=== PATIENT | male | born 1965 | race Caucasian/White ===

== ENCOUNTER 2021-08-10 12:49 | Observation (INO) | payer MEDICARE, OTHER ==
[2021-08-10 14:30] LABS: Basophils # (A) 0.1 k/uL (0-0.2); Basophils % (A) 1 %; Eosinophils # (A) 0.5 k/uL (0-0.7); Eosinophils % (A) 5 %; HGB 12.1 gm/dL (13.0-17.5); Lymphocytes # (A) 1.1 k/uL (1.0-4.8); Lymphocytes % (A) 12 %; MCH 30.9 pg (25.0-35.0); MCHC 33.5 g/dL (31.0-37.0); MCV 92.4 fL (80.0-100.0); Mean Platelet Volume 6.8; Monocytes # (A) 0.5 k/uL (0-1.0); Monocytes % (A) 6 %; Neutrophils % (A) 75 %; Platelet Count 255 k/uL (150-450); RDW 15.4 % (11.5-15.5); WBC 9.4 k/uL (3.8-10.6)
[2021-08-10 14:35] LABS: ALT 38 U/L (4-49); AST 54 U/L (17-59); African American GFR (CKD) >90 (>60 ml/min/1.73 sqM); Albumin 4.1 g/dL (3.5-5.0); Alkaline Phosphatase 96 U/L (38-126); Anion Gap 7 mmol/L; Blood Urea Nitrogen 11 mg/dL (9-20); C Reactive Protein 2.2 mg/dL (<1.0); Calcium 9.6 mg/dL (8.4-10.2); Carbon Dioxide 30 mmol/L (22-30); Chloride 102 mmol/L (98-107); Creatine Kinase 54 U/L (55-170); Glucose 97 mg/dL (74-99); Magnesium 1.8 mg/dL (1.6-2.3); Non-African American GFR(CKD) 80 (>60 ml/min/1.73 sqM); Potassium 4.3 mmol/L (3.5-5.1); Sodium 139 mmol/L (137-145); Total Bilirubin 1.3 mg/dL (0.2-1.3); Total Protein 7.7 g/dL (6.3-8.2)
--- NOTE | 2021-08-10 14:35 | XR ---
EXAMINATION TYPE: XR shoulder complete LT DATE OF EXAM: 08/10/2021 COMPARISON: NONE HISTORY: Pain TECHNIQUE: Three views are submitted. FINDINGS: The osseous structures are intact. There is no acute fracture or dislocation. The AC joint is maint ained. IMPRESSION: 1. No acute process.
[2021-08-10 14:36] LABS: INR 0.9 (<1.2); Prothrombin Time 10.4 sec (9.0-12.0)
--- NOTE | 2021-08-10 14:36 | XR ---
EXAMINATION TYPE: XR knee complete LT DATE OF EXAM: 08/10/2021 COMPARISON: NONE HISTORY: Pain TECHNIQUE: Three views are submitted. FINDINGS: Severe narrowing of the medial compartment of the knee joint and patellofemoral joint. There is a sma ll suprapatellar bursal fluid collection. No acute fracture. No dislocation.. Osseous structures are intact. No acute fracture seen. IMPRESSION: 1. No acute fracture or dislocation. 2. Severe osteoarthritis.
--- NOTE | 2021-08-10 14:47 | XR ---
EXAMINATION TYPE: XR ankle complete LT DATE OF EXAM: 08/10/2021 COMPARISON: NONE HISTORY: Pain FINDINGS: Three views of the ankle demonstrate the ankle mortise to be intact and symmetric. The joint spaces are preserved. The osseous structures are intact. Small spur along the medial malleolus. Calcaneal spurs noted. Soft tissue calcifications are seen anteriorly. There is spurring along the dorsal surfa ce of the tarsal metatarsal junction. IMPRESSION: 1. No definite acute fracture or dislocation, if symptoms persist follow-up study in 7 to 10 days wou ld be suggested.
--- NOTE | 2021-08-10 14:57 | XR ---
EXAMINATION TYPE: XR chest 2V DATE OF EXAM: 08/10/2021 COMPARISON: NONE HISTORY: Trauma and pain TECHNIQUE: Frontal and lateral views of the chest are obtained on 3 images. FINDINGS: The heart is enlarged. There is prominence of the central vascularity in there is perihila r vascular indistinctness, increase in interstitium. No evident pneumothorax or pleural effusion. Bon es are within normal limits. IMPRESSION: Correlate for pulmonary venous hypertension and early interstitial edema. Follow-up josh hillman.
--- NOTE | 2021-08-10 15:03 | CT ---
EXAMINATION TYPE: CT brain cspine wo con DATE OF EXAM: 08/10/2021 COMPARISON: None HISTORY: Fall. Trauma and pain CT DLP: 2152 mGycm Automated exposure control for dose reduction was used. TECHNIQUE: CT scan of the head and cervical spine are performed without contrast. FINDINGS: There is no acute intracranial hemorrhage, mass effect, or midline shift identified. The ventricles and sulci are within normal limits in size. The globes are intact and the visualized sin uses are clear. Right globe is involuted and partially calcified. White matter shows patchy low atten uation in the periventricular location. There are cerebral vascular calcifications present. Cervical spine is visualized in its entirety from C1 through upper thoracic levels and demonstrates s atisfactory alignment without evidence of acute fracture or dislocation. Prevertebral soft tissue ap pears within normal limits. The C1-C2 articulation is unremarkable. 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 IMPRESSION: 1. There is no acute fracture or dislocation evident in the cervical spine. 2. No acute intracranial hemorrhage, mass effect, or midline shift is seen.
[2021-08-10 15:28] LABS: Erythrocyte Sedimentation Rate 60 mm/hr (0-15)
[2021-08-10] MEDS ORDERED: KETOROLAC 15 MG/ML 1 ML VIAL IVP STA (15:40)
--- NOTE | 2021-08-10 16:39 | ED ---
General Adult HPI - General Chief complaint: Extremity Injury, Lower Stated complaint: leg swelling Time Seen by Provider: 08/10/21 13:25 Source: EMS Mode of arrival: EMS Limitations: no limitations - History of Present Illness Initial comments: This 56-year-old obese male presents emergency Department after a fall today. Patient states he is having pain to his left knee, ankle, hip and left shoulder. Patient is unsure if he hit his head during the fall, however he denies any loss of consciousness. Patient states he was outside slipped on the ice and fell forward, landing on his left knee first. He denies any signs or symptoms of knee dislocation. Patient with bilateral lower leg cellulitis she states has been there for the last year and has not worsened recently. Patient denies being on any blood thinners. 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 Patient denies any chest pain, sh ortness of breath, abdominal pain, nausea, vomiting, change in bowel or bladder, back pain, neck pain, headache, lightheadedness, dizziness, change in vision. - Related Data Home Medications Medication Instructions Recorded Confirmed Cholecalciferol [Vitamin D3 (125 125 mcg PO DAILY 08/10/21 08/10/21 Mcg = 5000 Iu)] Ferrous Sulfate [Iron] 325 mg PO DAILY 08/10/21 08/10/21 Methyl Salicylate/Menthol [Icy Hot 1 applic TOPICAL BID 08/10/21 08/10/21 10-30% Cream] SILVER sulfADIAZINE Cream 1 applic TOPICAL DAILY 08/10/21 08/10/21 [Silvadene 1% Cream] amLODIPine [Norvasc] 5 mg PO DAILY 08/10/21 08/10/21 Previous Rx's Medication Instructions Recorded Cephalexin [Keflex] 500 mg PO Q6HR #20 cap 08/10/21 Allergies Allergy/AdvReac Type Severity Reaction Status Date / Time No Known Allergies Allergy Verified 08/10/21 14:04 Review of Systems ROS Statement: Those systems with pertinent positive or pertinent negative responses have been documented in the HPI. ROS Other: All systems not noted in ROS Statement are negative. Past Medical History Past Medical History: Eye Disorder, Hyperlipidemia, Hypertension, Vascular Disorder Additional Past Medical History / Comment(s): Glaucoma History of Any Multi-Drug Resistant Organisms: None Reported Additional Past Surgical History / Comment(s): lasix bilat Past Psychological History: No Psychological Hx Reported, Depression Smoking Status: Never smoker Past Alcohol Use History: None Reported Past Drug Use History: None Reported General Exam Limitations: no limitations General appearance: alert, in no apparent distress, obese Head exam: Present: atraumatic, normocephalic, normal inspection Eye exam: Present: normal appearance, PERRL, EOMI, other (Patient slight clear drainage coming from right eye which he states he is being treated for). Absent: scleral icterus, conjunctival injection, periorbital swelling ENT exam: Present: normal exam, normal oropharynx, mucous membranes moist Neck exam: Present: normal inspection, full ROM. Absent: tenderness, meningismus, lymphadenopathy Respiratory exam: Present: normal lung sounds bilaterally. Absent: respiratory distress, wheezes, rales, rhonchi, stridor, chest wall tenderness Cardiovascular Exam: Present: regular rate, normal rhythm, normal heart sounds. Absent: systolic murmur, diastolic murmur, rubs, gallop, clicks GI/Abdominal exam: Present: soft, normal bowel sounds. Absent: distended, tenderness, guarding, rebound, rigid Extremities exam: Present: full ROM, tenderness (She with tenderness over lateral surface of left hip, patient is able to raise his leg on his own and states the only pain he has is in his left knee. Patient tender to palpation over lateral malleolus left ankle. No metatarsal pain to palpation. DP pulses palpable), normal capillary refill (Patient with normal capillary refill. Bilateral cellulitis with erythema and crusting over bilateral lower extremities from the ankle to just below the knee, patient states this has been there for 1-2 years and is evaluated by a forestry foreman and his primary care, denies any new changes), other (Due to patient's morbid obesity this hard to assess patient. He does have mild tenderness to the anterior surface of shoulder. No clavicular pain. Patient with full range of motion of left arm. Tenderness to palpation over medial and lateral surfaces of left knee. Able to flex/extend knee) Back exam: Present: full ROM. Absent: CVA tenderness (R), CVA tenderness (L), paraspinal tenderness, vertebral tenderness Neurological exam: Present: alert, oriented X3, CN II-XII intact, other (Patient neurovascularly intact) Psychiatric exam: Present: normal affect, normal mood Skin exam: Present: warm, dry, normal color. Absent: rash Course Vital Signs 08/10/21 13:00 Temperature 97.7 F Pulse Rate 81 Respiratory 20 Rate Blood Pressure 134/64 O2 Sat by Pulse 94 L Oximetry Medical Decision Making - Medical Decision Making This 56-year-old obese male presents emergency Department after a fall complaining of left ankle, knee, hip and shoulder pain. Labs without any acute abnormalities. Chest x-ray impression correlate for pulmonary venous hypertension and early incisional edema. I did discuss 1980 who did not suggest any antibiotics the patient having no trouble breathing, no crackles, wheezes or rhonchi on auscultation exam and patient having no cough or fever. Patient to follow-up with orthopedics in next 5-7 days if pain persists. Patient does use a walker at home. Patient is able to bear weight and walk here with his cane. Orthopedics referral given to patient and instructed to follow-up early next week. Patient instructed to follow up with his primary care provider next 1-2 days. Patient states to call his [employer] worker tomorrow morning. He states he does have an appointment with them in the next couple weeks. Keflex given to patient for concern of cellulitis, however there is no warmth over his bilateral leg cellulitis and he has no fever or signs of infection present. He states there has been no change to his bilateral lower extremities for the last 1-2 years. Patient was concerned about possible infection, Keflex 5 days given. Patient does have a [employer] worker and community mental health worker who I instructed to call either later today or early tomorrow morning. Patient sent home in stable condition. Patient verbally agreed to plan. Case discussed in detail with my attending, - Lab Data Result diagrams: 08/10/21 14:07 08/10/21 14:07 Lab Results 08/10/21 08/10/21 08/10/21 Range/Units 14:07 14:07 14:07 WBC 9.4 (3.8-10.6) k/uL RBC 3.90 L (4.30-5.90) m/uL Hgb 12.1 L (13.0-17.5) gm/dL Hct 36.0 L (39.0-53.0) % MCV 92.4 (80.0-100.0) fL MCH 30.9 (25.0-35.0) pg MCHC 33.5 (31.0-37.0) g/dL RDW 15.4 (11.5-15.5) % Plt Count 255 (150-450) k/uL MPV 6.8 Neutrophils % 75 % Lymphocytes % 12 % Monocytes % 6 % Eosinophils % 5 % Basophils % 1 % Neutrophils # 7.0 (1.3-7.7) k/uL Lymphocytes # 1.1 (1.0-4.8) k/uL Monocytes # 0.5 (0-1.0) k/uL Eosinophils # 0.5 (0-0.7) k/uL Basophils # 0.1 (0-0.2) k/uL ESR 60 H (0-15) mm/hr PT 10.4 (9.0-12.0) sec INR 0.9 (<1.2) APTT 26.0 (22.0-30.0) sec Sodium 139 (137-145) mmol/L Potassium 4.3 (3.5-5.1) mmol/L Chloride 102 (98-107) mmol/L Carbon Dioxide 30 (22-30) mmol/L Anion Gap 7 mmol/L BUN 11 (9-20) mg/dL Creatinine 1.05 (0.66-1.25) mg/dL Est GFR (CKD-EPI)AfAm >90 (>60 ml/min/1.73 sqM) Est GFR (CKD-EPI)NonAf 80 (>60 ml/min/1.73 sqM) Glucose 97 (74-99) mg/dL Plasma Lactic Acid Daryn (0.7-2.0) mmol/L Calcium 9.6 (8.4-10.2) mg/dL Magnesium 1.8 (1.6-2.3) mg/dL Total Bilirubin 1.3 (0.2-1.3) mg/dL AST 54 (17-59) U/L ALT 38 (4-49) U/L Alkaline Phosphatase 96 (38-126) U/L Creatine Kinase 54 L (55-170) U/L C-Reactive Protein 2.2 H (<1.0) mg/dL Total Protein 7.7 (6.3-8.2) g/dL Albumin 4.1 (3.5-5.0) g/dL 08/10/21 Range/Units 14:07 WBC (3.8-10.6) k/uL RBC (4.30-5.90) m/uL Hgb (13.0-17.5) gm/dL Hct (39.0-53.0) % MCV (80.0-100.0) fL MCH (25.0-35.0) pg MCHC (31.0-37.0) g/dL RDW (11.5-15.5) % Plt Count (150-450) k/uL MPV Neutrophils % % Lymphocytes % % Monocytes % % Eosinophils % % Basophils % % Neutrophils # (1.3-7.7) k/uL Lymphocytes # (1.0-4.8) k/uL Monocytes # (0-1.0) k/uL Eosinophils # (0-0.7) k/uL Basophils # (0-0.2) k/uL ESR (0-15) mm/hr PT (9.0-12.0) sec INR (<1.2) APTT (22.0-30.0) sec Sodium (137-145) mmol/L Potassium (3.5-5.1) mmol/L Chloride (98-107) mmol/L Carbon Dioxide (22-30) mmol/L Anion Gap mmol/L BUN (9-20) mg/dL Creatinine (0.66-1.25) mg/dL Est GFR (CKD-EPI)AfAm (>60 ml/min/1.73 sqM) Est GFR (CKD-EPI)NonAf (>60 ml/min/1.73 sqM) Glucose (74-99) mg/dL Plasma Lactic Acid Daryn 1.7 (0.7-2.0) mmol/L Calcium (8.4-10.2) mg/dL Magnesium (1.6-2.3) mg/dL Total Bilirubin (0.2-1.3) mg/dL AST (17-59) U/L ALT (4-49) U/L Alkaline Phosphatase (38-126) U/L Creatine Kinase (55-170) U/L C-Reactive Protein (<1.0) mg/dL Total Protein (6.3-8.2) g/dL Albumin (3.5-5.0) g/dL Disposition Clinical Impression: Fall, Left knee pain, Left hip pain, Left ankle pain, Left shoulder pain Disposition: HOME SELF-CARE Condition: Stable Instructions (If sedation given, give patient instructions): Knee Sprain (ED) Additional Instructions: Follow-up with your primary care provider in next 1-2 days. Follow-up with your forestry foreman and orthopedic doctor early next week. Return to the emergency department with any new, worsening, or concerning symptoms. Call your [facility] and community health provider tomorrow morning. Prescriptions: Cephalexin [Keflex] 500 mg PO Q6HR #20 cap Is patient prescribed a controlled substance at d/c from ED?: No Referrals: Saul Burton MD [Primary Care Provider] - 1-2 days Rajendra Holley DO [Doctor of Osteopathic Medicine] - 1-2 days Time of Disposition: 17:08
--- NOTE | 2021-08-10 16:53 | XR ---
EXAMINATION TYPE: XR Hip LT and AP Pelvis DATE OF EXAM: 08/10/2021 COMPARISON: NONE HISTORY: Trauma and pain TECHNIQUE: A single AP view of the pelvis is obtained. Two views of the left hip are obtained. FINDINGS: Exam is limited technically due to patient body habitus. Right hip is not well seen, there is artifact involving the right hemipelvis. Two views of left hip show no acute fracture or dislocation within the limitations of the exam, views of the left hip nonstandard. IMPRESSION: There is no acute fracture or dislocation in the pelvis or left hip within the limitatio ns of the exam.
[2021-08-10] MEDS ORDERED: NALOXONE 0.4 MG/ML 1 ML VIAL IV PRN (18:53)
[2021-08-10] MEDS: CEPHALEXIN 500 MG CAP PO SCH (21:05)
[2021-08-11] MEDS: CEPHALEXIN 500 MG CAP PO SCH ×3 (01:14→15:51)
[2021-08-11] MEDS: NYSTATIN 100,000 UNIT/GM POWD 15 GM TOPICAL SCH ×3 (11:16→19:30)
[2021-08-11] MEDS: ENOXAPARIN 40 MG/0.4 ML SYRINGE SQ SCH (11:25)
[2021-08-11] MEDS: amLODIPine 5 MG TAB PO SCH (11:25)
[2021-08-11] MEDS: CHOLECALCIFEROL 125 MCG (5000 IU) TABLET PO SCH (11:25)
[2021-08-11] MEDS: FERROUS SULFATE 325 MG TAB PO SCH (11:25)
--- NOTE | 2021-08-11 12:49 | P.CNOR ---
History of Present Illness - [facility] Consult date: 08/11/21 Consult reason: joint pain (Left knee pain) History of present illness: Patient is a 56-year-old male who was admitted to [facility] on 08/10/2021. Mila PT was consulted with regards to pain in the left knee. Actually spoke with internal medicine doctor prior to seeing the patient. He has a known history of osteoarthritis and infection sees a doctor for this up in the [facility]. X-rays were initially done of the left knee along with foot and ankle. No acute fractures or dislocations were appreciated. Patient was evaluated today at bedside, he is resting in his hospital bed. He states he's had pain in the left knee for many years, and does see an orthopedic doctor medication provided a steroid injection. Patient does live in the [facility], he lives in an apartment on the second floor. He does not drive, he is legally blind. He states he utilizes a cane when he ambulates. Patient lives more of a sedentary life versus active. Patient denies any previous surgery of the left knee. Review of Systems Constitutional: Reports as per [facility] Past Medical History Past Medical History: Eye Disorder, Hyperlipidemia, Hypertension, Vascular Disorder Additional Past Medical History / Comment(s): Glaucoma History of Any Multi-Drug Resistant Organisms: None Reported Additional Past Surgical History / Comment(s): aldo stanley Past Anesthesia/Blood Transfusion Reactions: No Reported Reaction Past Psychological History: No Psychological Hx Reported, Depression Smoking Status: Never smoker Past Alcohol Use History: None Reported Past Drug Use History: None Reported Medications and Allergies Home Medications Medication Instructions Recorded Confirmed Type Cephalexin [Keflex] 500 mg PO Q6HR #20 cap 08/10/21 Rx Cholecalciferol [Vitamin D3 (125 125 mcg PO DAILY 08/10/21 08/10/21 History Mcg = 5000 Iu)] Ferrous Sulfate [Iron] 325 mg PO DAILY 08/10/21 08/10/21 History Methyl Salicylate/Menthol [Icy Hot 1 applic TOPICAL BID 08/10/21 08/10/21 History 10-30% Cream] SILVER sulfADIAZINE Cream 1 applic TOPICAL DAILY 08/10/21 08/10/21 History [Silvadene 1% Cream] amLODIPine [Norvasc] 5 mg PO DAILY 08/10/21 08/10/21 History Allergies Allergy/AdvReac Type Severity Reaction Status Date / Time No Known Allergies Allergy Verified 08/10/21 14:04 Physical Examination Osteopathic Statement: *. No significant issues noted on an osteopathic stru ctural exam other than those noted in the History and Physical/Consult. Left lower extremity: Gen. exam reveals a severely obese male, he has significant soft tissue present in the left lower extremity. There are no open lesions surrounding the knee. There is obvious chronic edema with venous stasis in the left lower extremity with skin molting Mild effusion present on exam of the knee Passive and active motion are very limited due to his body habitus, passive allan on reproduces no severe pain. Logroll maneuver reproduces no pain in the groin He has generalized tenderness with palpation surrounding the knee, mainly in the medial joint line. He is stable to varus and valgus stress Plantar flexion, dorsiflexion, EHL, FHL are intact Patient skin remains warm to touch, sensory exam light touch is intact throughout the extremity Results - Labs Labs: Abnormal Lab Results - Last 24 Hours (Table) 08/10/21 08/10/21 Range/Units 14:07 14:07 RBC 3.90 L (4.30-5.90) m/uL Hgb 12.1 L (13.0-17.5) gm/dL Hct 36.0 L (39.0-53.0) % ESR 60 H (0-15) mm/hr Creatine Kinase 54 L (55-170) U/L C-Reactive Protein 2.2 H (<1.0) mg/dL H & H 08/10/21 Range/Units 14:07 Hgb 12.1 L (13.0-17.5) gm/dL Hct 36.0 L (39.0-53.0) % Coagulation 08/10/21 Range/Units 14:07 INR 0.9 (<1.2) Result Diagrams: 08/10/21 14:07 08/10/21 14:07 - Diagnostic results Knee x-ray: report reviewed, image reviewed (Images demonstrated no acute fractures or dislocations. Severe osteoarthritis affecting the medial joint) Assessment and Plan Assessment: Left knee pain Severe left knee osteoarthritis Super morbidly obese Multiple medical comorbidities Plan: I was able to discuss the case, this to include both physical exam findings and imaging studies my attending Dr. Vidales. No orthopedic surgical intervention recommended at this time I will on discussion with the patient today regarding possible treatment options for the patient. I advised him that the only thing that would relieve his pain is a total knee replacement, patient is a very poor candidate for this at this time with his medical state We discussed other options, this included use of pain medication. I advise following up with his primary care doctor first to discuss this topic. I advised the patient follow-up with his orthopedic surgeon for possible steroid injection in the outpatient setting Recommend discussion with Gen. surgery to discuss surgical weight loss options in the outpatient setting GI and DVT prophylaxis per primary medical service Other medical sales representative and recommendations We will be available for any further questions regarding this patient Time with Patient: Less than 30
--- NOTE | 2021-08-11 16:54 | P.HPIM ---
History of Present Illness H&P Date: 08/11/21 Chief Complaint: Fall History of presenting complaint: This is a pleasant 56-year-old patient follows with Dr. Burton. 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 Patient 2 years ago fell on the left knee. Does follow with her local orthopedics where he lives. He was told that he needs surgery on his knee but because of his morbid obesity he is not a good candidate. Patient yesterday was walking and noticed his left knee to give a. He slowly lowered himself to the ground active without falling. Appetite is good. No change in bowel habits. Has chronic skin changes to lower extremity. Has been prescribed Silvadene for the same. At the local vascular surgical office. No fever no chills. 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 Does use a chair as a walker. No smoking or alcohol. Family history: Reviewed, noncontributory to presentation Physical examination: VITAL SIGNS: 98, 79, 17, 148/68, 97% room air GENERAL: BMI 49.3, declining bed awake, not in distress. EYES: Decreased vision in both eyes. Conjunctiva were dirty.l. HEENT: External appearance of nose and ears normal, oral cavity grossly normal. NECK: JVD unable to assess; masses not palpable. HEART: First and second heart sounds are normal; mild edema. LUNGS: Respiratory rate normal; distant breath sounds. ABDOMEN: Soft, nontender, liver spleen not palpable, no masses palpable. PSYCH: Alert and oriented x3; mood and affect normal. MUSCULOSKELETAL:No Clubbing/cyanosis;muscles-grossly intact. Evidence of possible OA NEUROLOGICAL: Cranial nerves grossly intact; no facial asymmetry, power and sensation grossly intact. DERMATOLOGICAL: Venous status dermatitis bilateral lower extremity midway between the knee and the ankle. Area of redness in the groin area and around the scrotum. LYMPHATICS: No lymph nodes palpable in the axilla and neck INVESTIGATIONS, reviewed in the clinical context: White count 9.4 hemoglobin 12.1 platelets 255 sodium 139 potassium 4.3 creatinine 1.05 Hip pelvics x-ray, had cervical spine CT, ankle x-ray, shoulder x-ray: No fracture Left knee x-ray: Severe OA. No fracture Assessment and plan: -Near fall secondary to poor balance from poor proprioception from severe obesity arthritis especially that of the left knee. Patient is a baseline does use a chair a walker. PT OT -Severe osteoarthritis of the left knee with a contribution from severe obesity. Consults orthopedics -Morbid obesity BMI 49.3 Calorie restricted diet. Consult dietitian. -Bilateral lower extremity venous stasis dermatitis Silvadene cream with Kerlix and Ghanshyam wrap twice a day -Intertriginous candidiasis Nystatin powder twice a day -Essential hypertension Amlodipine 5 mg a day Care was discussed with the patient in detail. Consult PTOT. transition program manager. Orthopedics. Home medications resumed. Silvadene cream nystatin powder. Patient does not have cellulitis. DC Keflex. Patient has trouble getting about. transition program manager to follow. Past Medical History Past Medical History: Eye Disorder, Hyperlipidemia, Hypertension, Vascular Disorder Additional Past Medical History / Comment(s): Glaucoma History of Any Multi-Drug Resistant Organisms: None Reported Additional Past Surgical History / Comment(s): aldo stanley Past Anesthesia/Blood Transfusion Reactions: No Reported Reaction Past Psychological History: No Psychological Hx Reported, Depression Smoking Status: Never smoker Past Alcohol Use History: None Reported Past Drug Use History: None Reported Medications and Allergies Home Medications Medication Instructions Recorded Confirmed Type Cephalexin [Keflex] 500 mg PO Q6HR #20 cap 08/10/21 Rx Cholecalciferol [Vitamin D3 (125 125 mcg PO DAILY 08/10/21 08/10/21 History Mcg = 5000 Iu)] Ferrous Sulfate [Iron] 325 mg PO DAILY 08/10/21 08/10/21 History Methyl Salicylate/Menthol [Icy Hot 1 applic TOPICAL BID 08/10/21 08/10/21 History 10-30% Cream] SILVER sulfADIAZINE Cream 1 applic TOPICAL DAILY 08/10/21 08/10/21 History [Silvadene 1% Cream] amLODIPine [Norvasc] 5 mg PO DAILY 08/10/21 08/10/21 History Allergies Allergy/AdvReac Type Severity Reaction Status Date / Time No Known Allergies Allergy Verified 08/10/21 14:04 Physical Exam Vitals: Vital Signs Temp Pulse Pulse Resp BP BP BP 08/11/21 08:00 98.0 F 79 17 148/68 08/11/21 02:47 76 18 08/11/21 00:26 97.5 F L 75 18 121/70 08/10/21 21:24 97.6 F 76 18 133/74 08/10/21 18:00 70 143/65 08/10/21 13:00 97.7 F 81 20 134/64 Pulse Ox 08/11/21 08:00 97 08/11/21 02:47 08/11/21 00:26 94 L 08/10/21 21:24 96 08/10/21 18:00 95 08/10/21 13:00 94 L Intake and Output 08/10/21 08/11/21 08/11/21 22:59 06:59 14:59 Output Total 700 Balance -700 Output: Urine 700 Other: Voiding Method External Catheter # Voids 1 # Bowel Movements 1 Weight 208.652 kg Results CBC & Chem 7: 08/10/21 14:07 08/10/21 14:07 Labs: Abnormal Lab Results - Last 24 Hours (Table) 08/10/21 08/10/21 Range/Units 14:07 14:07 RBC 3.90 L (4.30-5.90) m/uL Hgb 12.1 L (13.0-17.5) gm/dL Hct 36.0 L (39.0-53.0) % ESR 60 H (0-15) mm/hr Creatine Kinase 54 L (55-170) U/L C-Reactive Protein 2.2 H (<1.0) mg/dL Thrombosis Risk Factor Assmnt - Choose All That Apply Each Factor Represents 1 point: Age 41-60 years, Obesity (BMI >25) Other Risk Factors: No Other congenital or acquired thrombophilia - If yes, enter type in comment: No Thrombosis Risk Factor Assessment Total Risk Factor Score: 2 Thrombosis Risk Factor Assessment Level: Low Risk
[2021-08-12] MEDS: ENOXAPARIN 40 MG/0.4 ML SYRINGE SQ SCH (09:10)
[2021-08-12] MEDS: amLODIPine 5 MG TAB PO SCH (09:11)
[2021-08-12] MEDS: NYSTATIN 100,000 UNIT/GM POWD 15 GM TOPICAL SCH ×3 (09:11→22:15)
[2021-08-12] MEDS: FERROUS SULFATE 325 MG TAB PO SCH (09:11)
[2021-08-12] MEDS: CHOLECALCIFEROL 125 MCG (5000 IU) TABLET PO SCH (09:11)
[2021-08-12] MEDS: ACETAMINOPHEN TAB 325 MG TAB PO PRN (09:45)
--- NOTE | 2021-08-12 11:38 | P.CONS ---
History of Present Illness - Chief Complaint Walking difficulty - History of Present Illness I had the opportunity to see patient for inpatient rehab consultation with regard to walking difficulty. Patient admitted to [facility] August [address] Duvall with history of recent fall and pain in left shoulder, hip, knee, ankle. X-rays done of all the areas and were negative and positive only for marked arthritis left knee. Chest x-ray consistent with pulmonary venous hypertension. CT of the head and C-spine were negative. His started therapies. PT reports supervision for bed mobility and minimal assistance for gait 3 feet with roller walker. OT reports supervision for upper dressing and minimal assistance for lower dressing, bathing, toileting and functional mobility. Was seen in consultation by orthopedics. Patient reports previous orthopedic consultation and they declined surgery due to patient's morbid obesity. Previous functional history as elicited from patient: 56-year-old right-handed white male who is lives in second floor apartment without elevator, alone. Is on disability secondary to legally blind. Describes previously independent with own cooking, laundry, standing shower and gait without device. More recently he may have been using a standard cane. PCP Dr. Burton. Denies tobacco or alcohol. Review of Systems Review of systems: ENT: Denies sneezes or discharge. Eyes: Denies discharge or photophobia. Cardiac: Denies chest pain or palpitation. Pulmonary: Denies cough or shortness of breath. Gastrointestinal: Denies nausea, emesis, constipation, diarrhea. Genitourinary: Denies discharge or frequency. Musculoskeletal: Pain in left knee. Patient reports that the right knee previously locked up and made walking uneven or tilting to the left. Neurologic: Denies motor or sensory change. Endocrine: Denies shakes or sweats. Oncology: Denies cancers. Dermatologic: Denies rash, itching, pruritus. ALLERGY/immunology: Denies sneezes, rashes. Past Medical History Past Medical History: Eye Disorder, Hyperlipidemia, Hypertension, Vascular Disorder Additional Past Medical History / Comment(s): Glaucoma History of Any Multi-Drug Resistant Organisms: None Reported Additional Past Surgical History / Comment(s): lasezra bilmaria victoria Past Anesthesia/Blood Transfusion Reactions: No Reported Reaction Past Psychological History: No Psychological Hx Reported, Depression Smoking Status: Never smoker Past Alcohol Use History: None Reported Past Drug Use History: None Reported Medications and Allergies Home Medications Medication Instructions Recorded Confirmed Type Cephalexin [Keflex] 500 mg PO Q6HR #20 cap 08/10/21 Rx Cholecalciferol [Vitamin D3 (125 125 mcg PO DAILY 08/10/21 08/10/21 History Mcg = 5000 Iu)] Ferrous Sulfate [Iron] 325 mg PO DAILY 08/10/21 08/10/21 History Methyl Salicylate/Menthol [Icy Hot 1 applic TOPICAL BID 08/10/21 08/10/21 History 10-30% Cream] SILVER sulfADIAZINE Cream 1 applic TOPICAL DAILY 08/10/21 08/10/21 History [Silvadene 1% Cream] amLODIPine [Norvasc] 5 mg PO DAILY 08/10/21 08/10/21 History Acetaminophen Tab [Tylenol] 650 mg PO Q6HR PRN tab 08/12/21 Rx Nystatin 100,000 Unit/gm Powd 1 applic TOPICAL TID 08/12/21 Rx [Mycostatin Powder] Allergies Allergy/AdvReac Type Severity Reaction Status Date / Time No Known Allergies Allergy Verified 08/10/21 14:04 Physical Exam Vitals: Vital Signs Temp Pulse Resp BP Pulse Ox 08/12/21 07:55 98.1 F 79 18 144/77 97 08/12/21 03:40 97.8 F 80 17 111/66 93 L 08/11/21 19:35 98.2 F 87 17 138/62 93 L 08/11/21 19:31 81 16 08/11/21 14:00 98.0 F 81 16 109/58 95 Intake and Output 08/11/21 08/12/21 08/12/21 22:59 06:59 14:59 Intake Total 118 Output Total 1200 Balance -1200 118 Intake: Oral 118 Output: Urine 1200 Other: Voiding Method External Catheter # Voids 1 # Bowel Movements 1 Skin: Atrophic more than expected for age. Some discolorations lower legs. General: Morbidly obese build and comfortable appearance. Head: Normocephalic, atraumatic. Eyes: Symmetric. Pupils equal round. Ears: Symmetric. Hearing within normal limits. Mouth: Clear. Neck: Supple. Carotid without bruit. Cardiac: Regular rate and rhythm. Lungs: Clear anteriorly and posteriorly. Abdomen: Soft active nontender. Obese. Extremities: Normal tone. Obese. Neurological: Mental status: Alert, cooperative, pleasant. Cranial nerves: Symmetric facial tone and trapezius. Motor: Able to actively elevate both arms. Elevation legs poor. Sensation: Intact throughout. DTRs: Symmetric and equal throughout. Mobility: Requires physical assist for bed mobility. Results CBC & Chem 7: 08/10/21 14:07 08/10/21 14:07 Assessment and Plan (1) Fall Current Visit: Yes Status: Acute Code(s): W19.XXXA - UNSPECIFIED FALL, INITIAL ENCOUNTER SNOMED Code(s): 4961018 (2) Left knee pain Current Visit: Yes Status: Acute Code(s): M25.562 - PAIN IN LEFT KNEE SNOMED Code(s): 4342312791 Plan: Comments and plan: At this time suspect patient has polyarthritis that is perhaps worse in the left more so than right knee. This is made worse by recent fall. At this time patient is standing endurance limits and do not believe jos martinez will be able to tolerate a full inpatient rehab program yet. Thus would recommend a slower paced program which I believe patient requires because he currently course physical assist and has markedly limited mobility.
[2021-08-12 12:10] VITALS: BMI 49.3
--- NOTE | 2021-08-12 18:20 | P.PN ---
Progress Note - Text Progress Note Date: 08/12/21 Chief Complaint: Fall History of presenting complaint: This is a pleasant 56-year-old patient follows with Dr. Burton. 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 Patient 2 years ago fell on the left knee. Does follow with her local orthopedics where he lives. He was told that he needs surgery on his knee but because of his morbid obesity he is not a good candidate. Patient yesterday was walking and noticed his left knee to give a. He slowly lowered himself to the ground active without falling. Appetite is good. No change in bowel habits. Has chronic skin changes to lower extremity. Has been prescribed Silvadene for the same. At the local vascular surgical office. No fever no chills. 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 Does use a chair as a walker. No smoking or alcohol. Family history: Reviewed, noncontributory to presentation Physical examination: VITAL SIGNS: 98, 79, 17, 148/68, 97% room air GENERAL: BMI 49.3, declining bed awake, not in distress. EYES: Decreased vision in both eyes. Conjunctiva were dirty.l. HEENT: External appearance of nose and ears normal, oral cavity grossly normal. NECK: JVD unable to assess; masses not palpable. HEART: First and second heart sounds are normal; mild edema. LUNGS: Respiratory rate normal; distant breath sounds. ABDOMEN: Soft, nontender, liver spleen not palpable, no masses palpable. PSYCH: Alert and oriented x3; mood and affect normal. MUSCULOSKELETAL:No Clubbing/cyanosis;muscles-grossly intact. Evidence of possible OA NEUROLOGICAL: Cranial nerves grossly intact; no facial asymmetry, power and sensation grossly intact. DERMATOLOGICAL: Venous status dermatitis bilateral lower extremity midway between the knee and the ankle. Area of redness in the groin area and around the scrotum. LYMPHATICS: No lymph nodes palpable in the axilla and neck INVESTIGATIONS, reviewed in the clinical context: White count 9.4 hemoglobin 12.1 platelets 255 sodium 139 potassium 4.3 creatinine 1.05 Hip pelvics x-ray, had cervical spine CT, ankle x-ray, shoulder x-ray: No fracture Left knee x-ray: Severe OA. No fracture Assessment and plan: -Near fall secondary to poor balance from poor proprioception from severe obesity arthritis especially that of the left knee. Patient is a baseline does use a chair a walker. PT OT -Severe osteoarthritis of the left knee with a contribution from severe obesity. Seen by Dr. Vidales from orthopedics.: Nonsurgical intervention. -Morbid obesity BMI 49.3 Calorie restricted diet. Consult dietitian. -Bilateral lower extremity venous stasis dermatitis Silvadene cream with Kerlix and Ghanshyam wrap twice a day -Intertriginous candidiasis Nystatin powder twice a day -Essential hypertension Amlodipine 5 mg a day Continue current medications. Discussed with correctional case records supervisor. Looking for rehab placement. [facility].
[2021-08-13] MEDS: ACETAMINOPHEN TAB 325 MG TAB PO PRN ×2 (06:20→21:01)
[2021-08-13] MEDS: CHOLECALCIFEROL 125 MCG (5000 IU) TABLET PO SCH (09:16)
[2021-08-13] MEDS: NYSTATIN 100,000 UNIT/GM POWD 15 GM TOPICAL SCH ×3 (09:16→20:37)
[2021-08-13] MEDS: FERROUS SULFATE 325 MG TAB PO SCH (09:16)
[2021-08-13] MEDS: ENOXAPARIN 40 MG/0.4 ML SYRINGE SQ SCH (09:16)
[2021-08-13] MEDS: amLODIPine 5 MG TAB PO SCH (09:16)
--- NOTE | 2021-08-13 13:41 | P.PN ---
Progress Note - Text Progress Note Date: 08/13/21 Chief Complaint: Fall History of presenting complaint: This is a pleasant 56-year-old patient follows with Dr. Burton. 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 Patient 2 years ago fell on the left knee. Does follow with her local orthopedics where he lives. He was told that he needs surgery on his knee but because of his morbid obesity he is not a good candidate. Patient yesterday was walking and noticed his left knee to give a. He slowly lowered himself to the ground active without falling. Appetite is good. No change in bowel habits. Has chronic skin changes to lower extremity. Has been prescribed Silvadene for the same. At the local vascular surgical office. No fever no chills. August 13: No new issues. Pending inpatient rehab placement. Oral intake well. Use K pad for arthritic pain in addition to Tylenol. Active Medications Acetaminophen (Acetaminophen Tab 325 Mg Tab) 650 mg PO Q6HR PRN PRN Reason: Mild Pain or Fever > 100.5 Last Admin: 08/13/21 06:20 Dose: 650 mg Documented by: Amlodipine Besylate (Amlodipine 5 Mg Tab) 5 mg PO DAILY [facility] Last Admin: 08/13/21 09:16 Dose: 5 mg Documented by: Cholecalciferol (Cholecalciferol 125 Mcg (5000 Iu) Tablet) 125 mcg PO DAILY [facility] Last Admin: 08/13/21 09:16 Dose: 125 mcg Documented by: Enoxaparin Sodium (Enoxaparin 40 Mg/0.4 Ml Syringe) 40 mg SQ DAILY [facility] Last Admin: 08/13/21 09:16 Dose: 40 mg Documented by: Ferrous Sulfate (Ferrous Sulfate 325 Mg Tab) 325 mg PO DAILY [facility] Last Admin: 08/13/21 09:16 Dose: 325 mg Documented by: Naloxone HCl (Naloxone 0.4 Mg/Ml 1 Ml Vial) 0.2 mg IV Q2M PRN PRN Reason: Opioid Reversal Nystatin (Nystatin 100,000 Unit/Gm Powd 15 Gm) 1 applic TOPICAL TID [facility]; Protocol Last Admin: 08/13/21 09:16 Dose: 1 applic Documented by: Silver Sulfadiazine (Silver Sulfadiazine 1% Cream 25 Gm Tube) 1 applic TOPICAL BID [facility] Last Admin: 08/13/21 09:16 Dose: 1 applic Documented by: Past medical history to include: Legally blind in the right eye, partial 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 Does use a chair as a walker. No smoking or alcohol. Family history: Reviewed, noncontributory to presentation Physical examination: VITAL SIGNS: 97.9, 94, 20, 144/77, 100% room air GENERAL: reclining bed awake, not in distress. EYES: Decreased vision in both eyes. Conjunctiva were dirty.l. HEENT: External appearance of nose and ears normal, oral cavity grossly normal. NECK: JVD unable to assess; masses not palpable. HEART: First and second heart sounds are normal; mild edema. LUNGS: Respiratory rate normal; distant breath sounds. ABDOMEN: Soft, nontender, liver spleen not palpable, no masses palpable. PSYCH: Alert and oriented x3; mood and affect normal. MUSCULOSKELETAL:No Clubbing/cyanosis;muscles-grossly intact. Evidence of possible OA NEUROLOGICAL: Cranial nerves grossly intact; no facial asymmetry, power and sensation grossly intact. DERMATOLOGICAL: Venous status dermatitis bilateral lower extremity midway between the knee and the ankle. Area of redness in the groin area and around the scrotum. INVESTIGATIONS, reviewed in the clinical context: White count 9.4 hemoglobin 12.1 platelets 255 sodium 139 potassium 4.3 creatinine 1.05 Hip pelvics x-ray, had cervical spine CT, ankle x-ray, shoulder x-ray: No fracture Left knee x-ray: Severe OA. No fracture Assessment and plan: -Near fall secondary to poor balance from poor proprioception from severe obesity arthritis especially that of the left knee. Patient is a baseline does use a chair a walker. PT OT -Severe osteoarthritis of the left knee with a contribution from severe obesity. Seen by Dr. Vidales from orthopedics.: Nonsurgical intervention. Tylenol. K pad. -Morbid obesity BMI 49.3 Calorie restricted diet. Consult dietitian. -Bilateral lower extremity venous stasis dermatitis Silvadene cream with Kerlix and Ghanshyam wrap twice a day -Intertriginous candidiasis Nystatin powder twice a day -Essential hypertension Amlodipine 5 mg a day Continue current medications. Pending authorization for [facility].
[2021-08-14] MEDS: CHOLECALCIFEROL 125 MCG (5000 IU) TABLET PO SCH (08:42)
[2021-08-14] MEDS: amLODIPine 5 MG TAB PO SCH (08:42)
[2021-08-14] MEDS: ENOXAPARIN 40 MG/0.4 ML SYRINGE SQ SCH (08:42)
[2021-08-14] MEDS: NYSTATIN 100,000 UNIT/GM POWD 15 GM TOPICAL SCH ×3 (08:42→20:49)
[2021-08-14] MEDS: FERROUS SULFATE 325 MG TAB PO SCH (08:42)
[2021-08-14] MEDS: SILVER sulfADIAZINE Cream 400 GM 1 APPLIC APPLIC TOPICAL SCH ×2 (08:59→20:48)
[2021-08-14] MEDS: ACETAMINOPHEN TAB 325 MG TAB PO PRN ×2 (09:00→20:47)
--- NOTE | 2021-08-14 16:29 | P.PN ---
Progress Note - Text Progress Note Date: 08/14/21 Chief Complaint: Fall History of presenting complaint: This is a pleasant 56-year-old patient follows with Dr. Burton. 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 Patient 2 years ago fell on the left knee. Does follow with her local orthopedics where he lives. He was told that he needs surgery on his knee but because of his morbid obesity he is not a good candidate. Patient yesterday was walking and noticed his left knee to give a. He slowly lowered himself to the ground active without falling. Appetite is good. No change in bowel habits. Has chronic skin changes to lower extremity. Has been prescribed Silvadene for the same. At the local vascular surgical office. No fever no chills. August 13: No new issues. Pending inpatient rehab placement. Oral intake well. Use K pad for arthritic pain in addition to Tylenol. August 14: Pending inpatient rehab placement. Discussed with patient. If no except as by tomorrow we'll send home with additional help. We'll discuss telephonic nurse case manager. Comfortable. Eating well. Active Medications Acetaminophen (Acetaminophen Tab 325 Mg Tab) 650 mg PO Q6HR PRN PRN Reason: Mild Pain or Fever > 100.5 Last Admin: 08/14/21 09:00 Dose: 650 mg Documented by: Amlodipine Besylate (Amlodipine 5 Mg Tab) 5 mg PO DAILY [facility] Last Admin: 08/14/21 08:42 Dose: 5 mg Documented by: Cholecalciferol (Cholecalciferol 125 Mcg (5000 Iu) Tablet) 125 mcg PO DAILY [facility] Last Admin: 08/14/21 08:42 Dose: 125 mcg Documented by: Enoxaparin Sodium (Enoxaparin 40 Mg/0.4 Ml Syringe) 40 mg SQ DAILY [facility] Last Admin: 08/14/21 08:42 Dose: 40 mg Documented by: Ferrous Sulfate (Ferrous Sulfate 325 Mg Tab) 325 mg PO DAILY [facility] Last Admin: 08/14/21 08:42 Dose: 325 mg Documented by: Naloxone HCl (Naloxone 0.4 Mg/Ml 1 Ml Vial) 0.2 mg IV Q2M PRN PRN Reason: Opioid Reversal Nystatin (Nystatin 100,000 Unit/Gm Powd 15 Gm) 1 applic TOPICAL TID [facility]; Protocol Last Admin: 08/14/21 15:32 Dose: Not Given Documented by: Silver Sulfadiazine (Silver Sulfadiazine Cream 400 Gm 1 Applic Applic) 1 applic TOPICAL BID [facility] Last Admin: 08/14/21 08:59 Dose: Not Given Documented by: Past medical history to include: Legally blind in the right eye, partial 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 Does use a chair as a walker. No smoking or alcohol. Family history: Reviewed, noncontributory to presentation Physical examination: VITAL SIGNS: 97.9, 76, 18, 161/67, 95% room air GENERAL: reclining recliner awake, comfortable EYES: Decreased vision in both eyes. Conjunctiva were dirty.l. HEENT: External appearance of nose and ears normal, oral cavity grossly normal. NECK: JVD unable to assess; masses not palpable. HEART: First and second heart sounds are normal; mild edema. LUNGS: Respiratory rate normal; distant breath sounds. ABDOMEN: Soft, nontender, liver spleen not palpable, no masses palpable. PSYCH: Alert and oriented x3; mood and affect normal. MUSCULOSKELETAL:No Clubbing/cyanosis;muscles-grossly intact. Evidence of possible OA NEUROLOGICAL: Cranial nerves grossly intact; no facial asymmetry, power and sensation grossly intact. DERMATOLOGICAL: Venous status dermatitis bilateral lower extremity midway between the knee and the ankle. Area of redness in the groin area and around the scrotum. INVESTIGATIONS, reviewed in the clinical context: White count 9.4 hemoglobin 12.1 platelets 255 sodium 139 potassium 4.3 creatinine 1.05 Hip pelvics x-ray, had cervical spine CT, ankle x-ray, shoulder x-ray: No fracture Left knee x-ray: Severe OA. No fracture Assessment and plan: -Near fall secondary to poor balance from poor proprioception from severe obesity arthritis especially that of the left knee. Patient is a baseline does use a chair a walker. PT OT -Severe osteoarthritis of the left knee with a contribution from severe obesity. Seen by Dr. Vidales from orthopedics.: Nonsurgical intervention. Tylenol. K pad. -Morbid obesity BMI 49.3 Calorie restricted diet. Consult dietitian. -Bilateral lower extremity venous stasis dermatitis Silvadene cream with Kerlix and Ghanshyam wrap twice a day -Intertriginous candidiasis Nystatin powder twice a day -Essential hypertension Amlodipine 5 mg a day Continue current medications. Pending authorization for [facility]. If not accepted been possible DC home tomorrow with additional help per telephonic nurse case manager.
[2021-08-15] MEDS: ACETAMINOPHEN TAB 325 MG TAB PO PRN ×2 (08:54→20:32)
[2021-08-15] MEDS: ENOXAPARIN 40 MG/0.4 ML SYRINGE SQ SCH (08:54)
[2021-08-15] MEDS: FERROUS SULFATE 325 MG TAB PO SCH (08:54)
[2021-08-15] MEDS: amLODIPine 5 MG TAB PO SCH (08:55)
[2021-08-15] MEDS: CHOLECALCIFEROL 125 MCG (5000 IU) TABLET PO SCH (08:55)
[2021-08-15] MEDS: SILVER sulfADIAZINE Cream 400 GM 1 APPLIC APPLIC TOPICAL SCH ×2 (08:55→20:33)
[2021-08-15] MEDS: NYSTATIN 100,000 UNIT/GM POWD 15 GM TOPICAL SCH ×3 (08:56→20:33)
--- NOTE | 2021-08-15 16:40 | P.PN ---
Progress Note - Text Progress Note Date: 08/15/21 Chief Complaint: Fall History of presenting complaint: This is a pleasant 56-year-old patient follows with Dr. Burton. 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 Patient 2 years ago fell on the left knee. Does follow with her local orthopedics where he lives. He was told that he needs surgery on his knee but because of his morbid obesity he is not a good candidate. Patient yesterday was walking and noticed his left knee to give a. He slowly lowered himself to the ground active without falling. Appetite is good. No change in bowel habits. Has chronic skin changes to lower extremity. Has been prescribed Silvadene for the same. At the local vascular surgical office. No fever no chills. August 13: No new issues. Pending inpatient rehab placement. Oral intake well. Use K pad for arthritic pain in addition to Tylenol. August 14: Pending inpatient rehab placement. Discussed with patient. If no except as by tomorrow we'll send home with additional help. We'll discuss immigration case worker. Comfortable. Eating well. August 15: Discussed with patient. He would like to go home. With extra home therapy. Pending authorization. No new issues. Active Medications Acetaminophen (Acetaminophen Tab 325 Mg Tab) 650 mg PO Q6HR PRN PRN Reason: Mild Pain or Fever > 100.5 Last Admin: 08/15/21 08:54 Dose: 650 mg Documented by: Amlodipine Besylate (Amlodipine 5 Mg Tab) 5 mg PO DAILY [facility] Last Admin: 08/15/21 08:55 Dose: 5 mg Documented by: Cholecalciferol (Cholecalciferol 125 Mcg (5000 Iu) Tablet) 125 mcg PO DAILY [facility] Last Admin: 08/15/21 08:55 Dose: 125 mcg Documented by: Enoxaparin Sodium (Enoxaparin 40 Mg/0.4 Ml Syringe) 40 mg SQ DAILY [facility] Last Admin: 08/15/21 08:54 Dose: 40 mg Documented by: Ferrous Sulfate (Ferrous Sulfate 325 Mg Tab) 325 mg PO DAILY [facility] Last Admin: 08/15/21 08:54 Dose: 325 mg Documented by: Naloxone HCl (Naloxone 0.4 Mg/Ml 1 Ml Vial) 0.2 mg IV Q2M PRN PRN Reason: Opioid Reversal Nystatin (Nystatin 100,000 Unit/Gm Powd 15 Gm) 1 applic TOPICAL TID [facility]; Protocol Last Admin: 08/15/21 15:51 Dose: Not Given Documented by: Silver Sulfadiazine (Silver Sulfadiazine Cream 400 Gm 1 Applic Applic) 1 applic TOPICAL BID [facility] Last Admin: 08/15/21 08:55 Dose: 1 applic Documented by: Past medical history to include: Legally blind in the right eye, partial 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 Does use a chair as a walker. No smoking or alcohol. Family history: Reviewed, noncontributory to presentation Physical examination: VITAL SIGNS: 97.9, 92, 20, 06/16/1958, 92% room air GENERAL: Sitting up, comfortable EYES: Decreased vision in both eyes. Conjunctiva were dirty.l. HEENT: External appearance of nose and ears normal, oral cavity grossly normal. NECK: JVD unable to assess; masses not palpable. HEART: First and second heart sounds are normal; mild edema. LUNGS: Respiratory rate normal; distant breath sounds. ABDOMEN: Soft, nontender, liver spleen not palpable, no masses palpable. PSYCH: Alert and oriented x3; mood and affect normal. MUSCULOSKELETAL:No Clubbing/cyanosis;muscles-grossly intact. Evidence of possible OA NEUROLOGICAL: Cranial nerves grossly intact; no facial asymmetry, power and sensation grossly intact. DERMATOLOGICAL: Venous status dermatitis bilateral lower extremity midway between the knee and the ankle. Area of redness in the groin area and around the scrotum. INVESTIGATIONS, reviewed in the clinical context: White count 9.4 hemoglobin 12.1 platelets 255 sodium 139 potassium 4.3 creatinine 1.05 Hip pelvics x-ray, had cervical spine CT, ankle x-ray, shoulder x-ray: No fracture Left knee x-ray: Severe OA. No fracture Assessment and plan: -Near fall secondary to poor balance from poor proprioception from severe obesity arthritis especially that of the left knee. Patient is a baseline does use a chair a walker. PT OT -Severe osteoarthritis of the left knee with a contribution from severe obesity. Seen by Dr. Vidales from orthopedics.: Nonsurgical intervention. Tylenol. K pad. -Morbid obesity BMI 49.3 Calorie restricted diet. Consult dietitian. -Bilateral lower extremity venous stasis dermatitis Silvadene cream with Kerlix and Ghanshyam wrap twice a day -Intertriginous candidiasis Nystatin powder twice a day -Essential hypertension Amlodipine 5 mg a day Pending authorization. Continue current medications. Discharged held pending authorization.
[2021-08-16 08:02] VITALS: BP 134/68; PULSE 82; RESP 18; TEMP 98.1
[2021-08-16] MEDS: FERROUS SULFATE 325 MG TAB PO SCH (08:42)
[2021-08-16] MEDS: CHOLECALCIFEROL 125 MCG (5000 IU) TABLET PO SCH (08:42)
[2021-08-16] MEDS: SILVER sulfADIAZINE Cream 400 GM 1 APPLIC APPLIC TOPICAL SCH (08:42)
[2021-08-16] MEDS: NYSTATIN 100,000 UNIT/GM POWD 15 GM TOPICAL SCH (08:42)
[2021-08-16] MEDS: amLODIPine 5 MG TAB PO SCH (08:42)
[2021-08-16] MEDS: ENOXAPARIN 40 MG/0.4 ML SYRINGE SQ SCH (08:42)
--- NOTE | 2021-08-16 14:33 | P.DS ---
Providers Date of admission: 08/10/21 19:39 Expected date of discharge: 08/16/21 Attending physician: Mike Garcia Consults: 08/11/21 10:24 Consult Physician Routine Consulting Provider: Jose Raul Ca Consult Reason/Comments: L knee pain Do you want consulting provider notified?: Yes 08/12/21 07:56 Consult Physician Urgent Consulting Provider: Anshul Fofana Consult Reason/Comments: in pt rehab Do you want consulting provider notified?: Yes Primary care physician: [facility] Course: Chief Complaint: Fall History of presenting complaint: This is a pleasant 56-year-old patient follows with Dr. Burton. 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 Patient 2 years ago fell on the left knee. Does follow with her local orthopedics where he lives. He was told that he needs surgery on his knee but because of his morbid obesity he is not a good candidate. Patient yesterday was walking and noticed his left knee to give a. He slowly lowered himself to the ground active without falling. Appetite is good. No change in bowel habits. Has chronic skin changes to lower extremity. Has been prescribed Silvadene for the same. At the local vascular surgical office. No fever no chills. Patient was seen by Dr. Vidales-for conservative approach. Patient is to follow- up with his own orthopedic surgeon [facility]. Patient is qualified for inpatient rehab. Today: Sitting up in a chair. Using a walker to get about. But physical therapy. Accepted to inpatient rehab. Discussed with case operator. Discussed with patient. 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 Does use a chair as a walker. No smoking or alcohol. Family history: Reviewed, noncontributory to presentation Physical examination: VITAL SIGNS: 98.1, 82, 18, 134/68, 90% on room air GENERAL: Sitting up, comfortable EYES: Decreased vision in both eyes. Conjunctiva were dirty.l. HEENT: External appearance of nose and ears normal, oral cavity grossly normal. NECK: JVD unable to assess; masses not palpable. HEART: First and second heart sounds are normal; mild edema. LUNGS: Respiratory rate normal; distant breath sounds. ABDOMEN: Soft, nontender, liver spleen not palpable, no masses palpable. PSYCH: Alert and oriented x3; mood and affect normal. MUSCULOSKELETAL:No Clubbing/cyanosis;muscles-grossly intact. Evidence of possible OA NEUROLOGICAL: Cranial nerves grossly intact; no facial asymmetry, power and sensation grossly intact. DERMATOLOGICAL: Venous status dermatitis bilateral lower extremity midway between the knee and the ankle. Area of redness in the groin area and around the scrotum. INVESTIGATIONS, reviewed in the clinical context: White count 9.4 hemoglobin 12.1 platelets 255 sodium 139 potassium 4.3 creatinine 1.05 Hip pelvics x-ray, had cervical spine CT, ankle x-ray, shoulder x-ray: No fracture Left knee x-ray: Severe OA. No fracture Assessment and plan: -Near fall secondary to poor balance from poor proprioception from severe obesity arthritis especially that of the left knee. Patient is a baseline does use a chair a walker. PT OT -Severe osteoarthritis of the left knee with a contribution from severe obesity. Seen by Dr. Vidales from orthopedics.: Nonsurgical intervention. Tylenol. K pad. -Morbid obesity BMI 49.3 Calorie restricted diet. Consult dietitian. -Bilateral lower extremity venous stasis dermatitis Silvadene cream with Kerlix and Ghanshyam wrap twice a day -Intertriginous candidiasis Nystatin powder twice a day -Essential hypertension Amlodipine 5 mg a day [facility] Plan - Discharge Summary Discharge Rx Participant: No New Discharge Prescriptions: New Cephalexin [Keflex] 500 mg PO Q6HR #20 cap Nystatin 100,000 Unit/gm Powd [Mycostatin Powder] 1 applic TOPICAL TID Acetaminophen Tab [Tylenol] 650 mg PO Q6HR PRN tab PRN Reason: Mild Pain Or Fever > 100.5 Continue amLODIPine [Norvasc] 5 mg PO DAILY SIL[facility] sulfADIAZINE Cream [Silvadene 1% Cream] 1 applic TOPICAL DAILY Methyl Salicylate/Menthol [Icy Hot 10-30% Cream] 1 applic TOPICAL BID Ferrous Sulfate [Iron] 325 mg PO DAILY Cholecalciferol [Vitamin D3 (125 Mcg = 5000 Iu)] 125 mcg PO DAILY Discharge Medication List Cephalexin [Keflex] 500 mg PO Q6HR #20 cap 08/10/21 [Rx] Cholecalciferol [Vitamin D3 (125 Mcg = 5000 Iu)] 125 mcg PO DAILY 08/10/21 [History] Ferrous Sulfate [Iron] 325 mg PO DAILY 08/10/21 [History] Methyl Salicylate/Menthol [Icy Hot 10-30% Cream] 1 applic TOPICAL BID 08/10/21 [History] SILVER sulfADIAZINE Cream [Silvadene 1% Cream] 1 applic TOPICAL DAILY 08/10/21 [History] amLODIPine [Norvasc] 5 mg PO DAILY 08/10/21 [History] Acetaminophen Tab [Tylenol] 650 mg PO Q6HR PRN tab 08/12/21 [Rx] Nystatin 100,000 Unit/gm Powd [Mycostatin Powder] 1 applic TOPICAL TID 08/12/21 [Rx] Follow up Appointment(s)/Referral(s): Saul Burton MD [Primary Care Provider] - 1-2 days [facility] , [REFERRING] - 1-2 Days Rajendra Holley DO [Doctor of Osteopathic Medicine] - 1-2 days Patient Instructions/Handouts: Knee Sprain (ED) Activity/Diet/Wound Care/Special Instructions: Follow-up with your primary care provider in next 1-2 days. Follow-up with your merchandise director and orthopedic doctor early next week. Return to the emergency department with any new, worsening, or concerning symptoms. Call your [facility] and community health provider tomorrow morning. Discharge/Stand Alone Forms: Adult Foster Detention List, Assisted Living Facilities
== END 2021-08-16 17:12 ==
LOC: EC 12:49 → INTOOBSV 19:39 → 6NMEDSUR 19:39 → UNDODISIN 08-16 17:12
PROVIDERS: ADMIT Hospitalist; ATTEND Hospitalist
DX: M17.12 Unilateral primary osteoarthritis, left knee (principal); I10 Essential (primary) hypertension; E78.5 Hyperlipidemia, unspecified; E66.01 Morbid (severe) obesity due to excess calories; Z68.42 Body mass index [BMI] 45.0-49.9, adult; I87.2 Venous insufficiency (chronic) (peripheral); B37.2 Candidiasis of skin and nail; H40.9 Unspecified glaucoma; L03.115 Cellulitis of right lower limb; L03.116 Cellulitis of left lower limb; M25.512 Pain in left shoulder; M25.552 Pain in left hip; R26.9 Unspecified abnormalities of gait and mobility; H54.8 Legal blindness, as defined in USA; W00.0XXA Fall on same level due to ice and snow, initial encounter; Z72.3 Lack of physical exercise; Z71.3 Dietary counseling and surveillance; Z79.899 Other long term (current) drug therapy
CPT/HCPCS: 96372 ×6; 96374; 99285; 36415; 97116 ×3; 97530 ×4; 97163; 97535 ×2; 97166; 80053; 85652; 82550; 83605; 83735; 85025; 85610; 85730; 86140; 73030; 73502; 73562; 73610; 71046; 72125; 70450; G0378 ×7; J1650 ×6; J1885

== ENCOUNTER 2021-09-03 12:36 | Inpatient (IN) | payer OTHER ==
[2021-09-03 14:38] LABS: Anisocytosis Slight; HCT 35.5 % (39.0-53.0); Hypochromasia Moderate; MCH 29.2 pg (25.0-35.0); MCHC 31.1 g/dL (31.0-37.0); Macrocytosis Slight; Mean Platelet Volume 8.5; Platelet Count 308 k/uL (150-450); RBC 3.77 m/uL (4.30-5.90); RDW 19.2 % (11.5-15.5)
[2021-09-03 14:52] LABS: Albumin 3.8 g/dL (3.5-5.0); Calcium 8.7 mg/dL (8.4-10.2); Total Bilirubin 2.9 mg/dL (0.2-1.3); Total Protein 7.9 g/dL (6.3-8.2)
--- NOTE | 2021-09-03 14:52 | ED ---
Fall HPI - General Chief Complaint: Fall Stated Complaint: Falls Time Seen by Provider: 09/03/21 13:00 Source: patient, EMS Mode of arrival: EMS - History of Present Illness Initial Comments: Danny is a 56-year-old gentleman who presents to the ER today for evaluation of recurrent falls at home. Patient has a history of falls at home due to severe arthritis in the left knee which she has not been a great candidate for surgical repair for due to his morbid obesity. Patient was admitted 3 weeks ago for this, he substernally went to rehab, yesterday at rehab he tested positive for COVID-19 and was discharged home. Patient reports had multiple falls since getting home can't care for himself can't walk and is feeling weak with severe pain in his left knee. No other new complaints. Patient states despite being positive for COVID he doesn't have any chest pain palpitations or's shortness of breath. - Related Data Home Medications Medication Instructions Recorded Confirmed Cholecalciferol [Vitamin D3 (125 125 mcg PO DAILY 08/10/21 09/03/21 Mcg = 5000 Iu)] Ferrous Sulfate [Iron] 325 mg PO DAILY 08/10/21 09/03/21 Methyl Salicylate/Menthol [Icy Hot 1 applic TOPICAL BID 08/10/21 09/03/21 10-30% Cream] amLODIPine [Norvasc] 5 mg PO DAILY 08/10/21 09/03/21 hydroCHLOROthiazide [Hydrodiuril] 25 mg PO DAILY 09/03/21 09/03/21 Previous Rx's Medication Instructions Recorded Acetaminophen Tab [Tylenol] 650 mg PO Q6HR PRN tab 08/12/21 Allergies Allergy/AdvReac Type Severity Reaction Status Date / Time No Known Allergies Allergy Verified 09/03/21 14:55 Review of Systems ROS Statement: Those systems with pertinent positive or pertinent negative responses have been documented in the HPI. ROS Other: All systems not noted in ROS Statement are negative. Past Medical History Past Medical History: Eye Disorder, Hyperlipidemia, Hypertension, Vascular Disorder Additional Past Medical History / Comment(s): Glaucoma History of Any Multi-Drug Resistant Organisms: None Reported Additional Past Surgical History / Comment(s): lasix bilat Past Anesthesia/Blood Transfusion Reactions: No Reported Reaction Past Psychological History: No Psychological Hx Reported, Depression Smoking Status: Never smoker Past Alcohol Use History: None Reported Past Drug Use History: None Reported General Exam - General Exam Comments Initial Comments: Physical Exam GENERAL: Chronically ill appearing BMI 55 HENT: Normocephalic, Atraumatic. EYES: Glaucoma bilaterally PULMONARY: Unlabored respirations CARDIOVASCULAR: RRR Warm and well perfused extremities ABDOMEN: Non-distended SKIN: No rashes or bruising : Deferred NEUROLOGIC: Alert and oriented Normal speech Normal gait MUSCULOSKELETAL: Moving all extremities with no apparent injury PSYCHIATRIC: No SI/HI Limitations: physical limitation Course Vital Signs 09/03/21 09/03/21 12:38 14:20 Temperature 98.2 F Pulse Rate 79 75 Respiratory 20 16 Rate Blood Pressure 132/71 136/81 O2 Sat by Pulse 95 94 L Oximetry Medical Decision Making - Medical Decision Making Patient was seen and evaluated, history is obtained from the patient and review of medical record Patient's only complaint today is pain in the left knee and weakness however patient is noted be mildly hypoxic, patient is positive for COVID-19 as of yesterday Labs are obtained CBC CMP are as expected, COVID is still positive Patient had episodes of hypoxia to 81% while sleeping I do suspect there is a component of obstructive sleep apnea or obesity hypoventilation syndrome however patient is not a candidate for monoclonal antibodies as he is now requiring supplemental oxygen and will be admitted to the hospital. Patient care was discussed with Dr. Garcia who accepts the admission. - Lab Data Result diagrams: 09/03/21 14:08 09/03/21 14:08 Lab Results 09/03/21 09/03/21 09/03/21 Range/Units 14:08 14:08 14:08 WBC 10.1 (3.8-10.6) k/uL RBC 3.77 L (4.30-5.90) m/uL Hgb 11.0 L (13.0-17.5) gm/dL Hct 35.5 L (39.0-53.0) % MCV 94.0 (80.0-100.0) fL MCH 29.2 (25.0-35.0) pg MCHC 31.1 (31.0-37.0) g/dL RDW 19.2 H (11.5-15.5) % Plt Count 308 (150-450) k/uL MPV 8.5 Neutrophils % (Manual) 77 % Band Neuts % (Manual) 6 % Lymphocytes % (Manual) 10 % Monocytes % (Manual) 1 % Eosinophils % (Manual) 1 % Metamyelocytes % 3 % Myelocytes % 2 % Neutrophils # (Manual) 8.30 H (1.3-7.7) k/uL Lymphocytes # (Manual) 1.01 (1.0-4.8) k/uL Monocytes # (Manual) 0.10 (0-1.0) k/uL Eosinophils # (Manual) 0.10 (0-0.7) k/uL Metamyelocytes # (Man) 0.30 H (0) k/uL Myelocytes # (Manual) 0.20 H (0) k/uL Nucleated RBCs 1 H (0-0) /100 WBC Manual Slide Review Performed Polychromasia Present Hypochromasia Moderate Anisocytosis Slight Macrocytosis Slight Sodium 140 (137-145) mmol/L Potassium 4.5 (3.5-5.1) mmol/L Chloride 103 (98-107) mmol/L Carbon Dioxide 29 (22-30) mmol/L Anion Gap 8 mmol/L BUN 21 H (9-20) mg/dL Creatinine 1.17 (0.66-1.25) mg/dL Est GFR (CKD-EPI)AfAm 81 (>60 ml/min/1.73 sqM) Est GFR (CKD-EPI)NonAf 70 (>60 ml/min/1.73 sqM) Glucose 99 (74-99) mg/dL Calcium 8.7 (8.4-10.2) mg/dL Total Bilirubin 2.9 H (0.2-1.3) mg/dL AST 72 H (17-59) U/L ALT 36 (4-49) U/L Alkaline Phosphatase 78 (38-126) U/L Total Protein 7.9 (6.3-8.2) g/dL Albumin 3.8 (3.5-5.0) g/dL Coronavirus (PCR) Detected A (Not Detectd) Disposition Clinical Impression: COVID-19, Hypoxia, Morbid obesity with BMI of 50.0-59.9, adult, Chronic pain Disposition: ADMITTED IP TO THIS [facility] Condition: Stable
[2021-09-03 15:20] LABS: Potassium 4.5 mmol/L (3.5-5.1)
[2021-09-03 15:52] LABS: Band Neutrophils % 6 %; Metamyelocytes % 3 %; Myelocytes % 2 %; Neutrophils % (M) 77 %; Nucleated Red Blood Cells 1 /100 WBC (0-0); Total Cells Counted 100
[2021-09-03 15:53] LABS: Lymphocytes # (M) 1.01 k/uL (1.0-4.8); Polychromasia Present; WBC 10.1 k/uL (3.8-10.6)
[2021-09-03] MEDS ORDERED: IBUPROFEN 400 MG TAB PO PRN (16:16)
[2021-09-03] MEDS ORDERED: NALOXONE 0.4 MG/ML 1 ML VIAL IV PRN (16:16)
[2021-09-03] MEDS ORDERED: Acetaminophen-Codeine 300-30mg TAB PO PRN (16:16)
--- NOTE | 2021-09-03 16:46 | XR ---
EXAMINATION TYPE: XR chest 1V DATE OF EXAM: 09/03/2021 COMPARISON: 08/10/2021 HISTORY: Pain. Fall TECHNIQUE: FINDINGS: Exam limited by patient size. Heart size is fairly normal. No definite heart failure. No pl eural effusion. IMPRESSION: No definite evidence of active cardiopulmonary disease. No change.
[2021-09-04] MEDS ORDERED: ACETAMINOPHEN TAB 325 MG TAB PO PRN (10:59)
[2021-09-04] MEDS ORDERED: CHOLECALCIFEROL 25 MCG (1000 IU) TABLET PO SCH (11:00)
[2021-09-04] MEDS: DEXAMETHASONE SOD PHOSPHATE 10 MG/ML 1 ML VIAL IVP SCH (12:27)
[2021-09-04] MEDS: CHOLECALCIFEROL 125 MCG (5000 IU) TABLET PO SCH (12:27)
[2021-09-04] MEDS: ENOXAPARIN 40 MG/0.4 ML SYRINGE SQ SCH (12:27)
[2021-09-04] MEDS: ZINC SULFATE 220 MG CAP PO SCH (12:27)
[2021-09-04] MEDS: ASCORBIC ACID 500 MG TAB PO SCH (12:27)
--- NOTE | 2021-09-04 12:56 | P.CNPUL ---
History of Present Illness Consult date: 09/04/21 History of present illness: A morbidly obese male patient, debilitated due to degenerative arthritis and other comorbidities, who was in the hospital for episodes of falling gait dysfunction and the patient was discharged to [facility] for further rehabilitation. While in the [facility], the patient was diagnosed having COVID 19 and the patient was brought into the hospital for further evaluation.. According to the history and the records, the patient has chronic medical problems including morbid obesity, possible obstructive sleep apnea although this has not been adequately confirmed, the patient is legally blind on the right and has partial vision loss on the left and he has chronic arthritis and gait dysfunction and episodes of fall. The patient has a walker at home. The patient was hospitalized on 08/10/2021 because of falls. The patient was evaluated by orthopedic surgery. A walker was given and the patient was discharged home on some oral antibiotics regarding chronic cellulitis of the lower extremity with left more than right. He was released home on 08/16/2021. The patient came back to the hospital due to concerns of COVID 19 pneumonia. The patient was having some symptoms of URI. Note that the patient has not received any vaccination for COVID 19. He was also feeling weak and lethargic and he had some limited cough. At the time of his ED evaluation, chest x-ray was done that showed some limited leg infiltration of the lungs bilaterally. The patient is currently on 4 L of O2 nasal cannula to bring his saturation above 90% and his pulse ox is around 94%. His afebrile hemodynamically stable. His BUN is at 21 with a creatinine of 1.1. Sodium is at 140. The white cell count of 10.1 with a hemoglobin of 11 and a platelet count of 308. His COVID 19 testing was positive. LFTs showed an AST of 72, ALT of 36, bilirubin of 2.9, albumin of 3.8, total protein of 7.9, and his sodium was at 140 with a potassium level of 4.5 and a chloride of 103 with a bicarb of 29. Creatinine is at 1.1. The patient's is sleepy and lethargic yet there is no altered mentation and he was able to answer questions appropriately. He is a nonsmoker. Review of Systems Constitutional: Reports daytime sleepiness, Reports fatigue, Reports lethargy, Reports weakness, Reports weight gain Eyes: bilateral blurred vision, bilateral decreased vision, denies as per HPI, denies bulging eye, denies diplopia, denies discharge, denies dry eye, denies irritation, denies itching, denies pain, denies photophobia, denies loss of peripheral vision, denies loss of vision, denies tunnel vision/blind spots Ears: deny: decreased hearing, ear discharge, earache, tinnitus Ears, nose, mouth and throat: Reports as per HPI Breasts: absent: as per HPI, gynecomastia Cardiovascular: Reports decreased exercise tolerance, Reports dyspnea on exertion, Reports shortness of breath Respiratory: Reports dyspnea Gastrointestinal: Reports as per HPI Genitourinary: Reports as per HPI Musculoskeletal: Reports arm numbness/tingling, Reports gait dysfunction, Reports low back pain, Reports muscle weakness Musculoskeletal: absent: ankle pain, ankle stiffness, ankle swelling Integumentary: Reports color changes, Reports darkening of skin Neurological: Reports as per HPI, Reports balance difficulties, Reports gait dysfunction, Reports weakness Psychiatric: Reports as per HPI Endocrine: Reports as per HPI Hematologic/Lymphatic: Reports as per HPI Allergic/Immunologic: Reports as per HPI Past Medical History Past Medical History: Eye Disorder, Hyperlipidemia, Hypertension, Vascular Disorder Additional Past Medical History / Comment(s): Glaucoma, falls secondary to poor balance from poor proprioception from severe obesity arthritis especially that of the left knee (walker) , Severe osteoarthritis of the left knee , Morbid obesity BMI 49.3, Bilateral lower extremity venous stasis dermatitis, Intertriginous candidiasis, Essential hypertension. Amlodipine 5 mg a day History of Any Multi-Drug Resistant Organisms: None Reported Additional Past Surgical History / Comment(s): aldo stanley Past Anesthesia/Blood Transfusion Reactions: No Reported Reaction Past Psychological History: No Psychological Hx Reported, Depression Smoking Status: Never smoker Past Alcohol Use History: None Reported Past Drug Use History: None Reported Medications and Allergies Home Medications Medication Instructions Recorded Confirmed Type Cholecalciferol [Vitamin D3 (125 125 mcg PO DAILY 08/10/21 09/03/21 History Mcg = 5000 Iu)] Ferrous Sulfate [Iron] 325 mg PO DAILY 08/10/21 09/03/21 History Methyl Salicylate/Menthol [Icy Hot 1 applic TOPICAL BID 08/10/21 09/03/21 History 10-30% Cream] amLODIPine [Norvasc] 5 mg PO DAILY 08/10/21 09/03/21 History Acetaminophen Tab [Tylenol] 650 mg PO Q6HR PRN tab 08/12/21 09/03/21 Rx hydroCHLOROthiazide [Hydrodiuril] 25 mg PO DAILY 09/03/21 09/03/21 History Allergies Allergy/AdvReac Type Severity Reaction Status Date / Time No Known Allergies Allergy Verified 09/03/21 14:55 Physical Exam Vitals: Vital Signs Temp Pulse Pulse Resp BP BP Pulse Ox 09/04/21 10:07 98.4 F 77 18 130/65 95 09/04/21 06:42 98.5 F 81 17 138/54 94 L 09/04/21 02:00 98.4 F 80 17 166/55 94 L 09/03/21 20:00 98.3 F 72 18 163/57 98 09/03/21 17:36 98 F 73 18 122/63 100 09/03/21 14:20 75 16 136/81 94 L 09/03/21 12:38 98.2 F 79 20 132/71 95 Intake and Output 09/03/21 09/04/21 09/04/21 22:59 06:59 14:59 Other: Voiding Method Urinal # Voids 1 2 # Bowel Movements 1 Weight 232.874 kg GENERAL: Sitting up, comfortable, the patient is morbidly obese with a body mass index of 55 EYES: Decreased vision in both eyes. Conjunctiva were dirty.right eye is closed and the patient has no vision in his right eye Head exam was generally normal. There was no scleral icterus or corneal arcus. Mucous membranes were moist. HEENT: External appearance of nose and ears normal, oral cavity grossly normal. Mallampati class IV with significant crowding of posterior pharynx NECK: JVD unable to assess; masses not palpable. HEART: First and second heart sounds are normal; mild edema. LUNGS: Respiratory rate normal; distant breath sounds. ABDOMEN: Soft, nontender, liver spleen not palpable, no masses palpable. PSYCH: Alert and oriented x3; mood and affect normal. MUSCULOSKELETAL:No Clubbing/cyanosis;muscles-grossly intact. Evidence of possible OA NEUROLOGICAL: Cranial nerves grossly intact; no facial asymmetry, power and sensation grossly intact. DERMATOLOGICAL: Venous status dermatitis bilateral lower extremity midway between the knee and the ankle. Area of redness in the groin area and around the scrotum. There is also increased erythema in the posterior aspect of the left lower extremity, a superimposed colitis cannot be completely ruled out. Results - Laboratory Findings CBC and BMP: 09/03/21 14:08 09/03/21 14:08 Abnormal lab findings: Abnormal Labs 09/03/21 09/03/21 09/03/21 14:08 14:08 14:08 RBC 3.77 L Hgb 11.0 L Hct 35.5 L RDW 19.2 H Neutrophils # (Manual) 8.30 H Metamyelocytes # (Man) 0.30 H Myelocytes # (Manual) 0.20 H Nucleated RBCs 1 H BUN 21 H Total Bilirubin 2.9 H AST 72 H Coronavirus (PCR) Detected A - Diagnostic Findings Chest x-ray: image reviewed Assessment and Plan Plan: 1 acute COVID 19 infection/pneumonia. The exact timing of the symptoms of COVID 19 is not clear. The patient was discharged from the hospital 08/16/2021 to be readmitted for some symptoms of URI and COVID 19 infection. Possibility of pneumonia cannot be completely ruled out as the patient is mildly hypoxic and the patient is currently on 4 L of O2 by nasal cannula 2 acute hypoxic respiratory failure currently on 4 L 3 morbid obesity with BMI 55 4 highly suspect obstructive sleep apnea, not officially diagnosed and the jenniffer ent has been somnolent and sleepy 5 history of glaucoma with impaired vision in the right eye and left eye the patient is legally blind 6 history of falls due to poor balance and poor vision and limitation mobility due to arthritis 7 severe osteoarthritis of the left knee 8 chronic lower extremity edema and venous stasis and suspected cellulitis of the left lower extremity posteriorly 9 Intertriginous candidiasis 10 hypertension Plan Titrate O2 to maintain saturation above 90% Put the patient a combination of vitamin C, vitamin D and zinc We'll give the patient a total of 10 day course of Decadron 6 mg by mouth on a daily basis Monitor his oxygenation No need for Remdesivir at this point in time Check inflammatory markers including LDH and d-dimer Put the patient on Lovenox for the prophylaxis Put the patient IV cefazolin regarding lower oximetry cellulitis Ghanshyam wraps to the lower extremity along with Silvadene cream Resume all medications We'll continue to follow
--- NOTE | 2021-09-04 15:47 | P.HPIM ---
History of Present Illness H&P Date: 09/04/21 Chief Complaint: Short of breath History of presenting complaint: This is a pleasant 56-year-old patient follows with Dr. Burton. Chronic stable medical conditions include hypertension, hyperlipidemia, decreased vision, chronic gait dysfunction. Patient 2 years ago fell on the left knee. Does follow with her local orthopedics where he lives. He was told that he needs jamison rgery on his knee but because of his morbid obesity he is not a good candidate. Patient recently the hospital from August 11 through August 16. Presented with a fall. Was sent to rehab. Patient was discharged 2 days ago to home. He was diagnosed with COVID. At home patient is using a chair to walk about. Fell down. Having trouble getting up. Brought into the ER. Appetite is fair. No change in bowel pattern. No headaches. No fever no chills. Has a cough. No sputum. Review of systems: GEN.: Tired EYES: None HEENT: None NECK: None RESPIRATORY: As above CARDIOVASCULAR: None GASTROINTESTINAL: None GENITOURINARY: None MUSCULOSKELETAL: Joint pains LYMPHATICS: None HEMATOLOGICAL: None PSYCHIATRY: None NEUROLOGICAL: Does use a walker Past medical history to include: Legally blind in the right eye, partial 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 Does use a chair as a walker. No smoking or alcohol. Family history: Reviewed, noncontributory to presentation Physical examination: VITAL SIGNS: 98.2, 79, 20, 132/71, 95% room air GENERAL: In reclining in bed, awake EYES: Decreased vision in both eyes. Conjunctiva were dirty.l. HEENT: External appearance of nose and ears normal, oral cavity grossly normal. NECK: JVD unable to assess; masses not palpable. HEART: First and second heart sounds are normal; mild edema. LUNGS: Respiratory rate normal; distant breath sounds. ABDOMEN: Soft, nontender, liver spleen not palpable, no masses palpable. PSYCH: Alert and oriented x3; mood and affect normal. MUSCULOSKELETAL:No Clubbing/cyanosis;muscles-grossly intact. Evidence of possible OA NEUROLOGICAL: Cranial nerves grossly intact; no facial asymmetry, power and sensation grossly intact. DERMATOLOGICAL: Venous status dermatitis bilateral lower extremity midway between the knee and the ankle. Area of redness in the groin area and around the scrotum. INVESTIGATIONS, reviewed in the clinical context: White count 10.1 hemoglobin 11 platelets 308 potassium 4.5 BUN 21 creatinine 1.17 COVID 19 PCR: Detected Chest x-ray film personally reviewed by me-: Underpenetrated. Cannot rule out i nfiltrate Assessment and plan: -Near fall secondary to poor balance from poor proprioception from severe obesity arthritis especially that of the left knee. Patient is a baseline does use a chair a walker. Patient just discharged from rehab 48 hours ago. Not able to manage at home. PT OT. Consult to upper caser. -Severe osteoarthritis of the left knee with a contribution from severe obesity. Patient does follow with orthopedics -Morbid obesity BMI 55 Calorie restricted diet. -Bilateral lower extremity venous stasis dermatitis Silvadene cream with Kerlix and Ghanshyam wrap twice a day -Intertriginous candidiasis Nystatin powder twice a day -Essential hypertension Amlodipine 5 mg a day -COVID 19. Consult pulmonary Home medications resumed. Supplement oxygen as needed. Steroids. 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 Past Medical History Past Medical History: Eye Disorder, Hyperlipidemia, Hypertension, Vascular Disorder Additional Past Medical History / Comment(s): Glaucoma, falls secondary to poor balance from poor proprioception from severe obesity arthritis especially that of the left knee (walker) , Severe osteoarthritis of the left knee , Morbid obesity BMI 49.3, Bilateral lower extremity venous stasis dermatitis, In tertriginous candidiasis, Essential hypertension. Amlodipine 5 mg a day History of Any Multi-Drug Resistant Organisms: None Reported Additional Past Surgical History / Comment(s): aldo stanley Past Anesthesia/Blood Transfusion Reactions: No Reported Reaction Past Psychological History: No Psychological Hx Reported, Depression Smoking Status: Never smoker Past Alcohol Use History: None Reported Past Drug Use History: None Reported Medications and Allergies Home Medications Medication Instructions Recorded Confirmed Type Cholecalciferol [Vitamin D3 (125 125 mcg PO DAILY 08/10/21 09/03/21 History Mcg = 5000 Iu)] Ferrous Sulfate [Iron] 325 mg PO DAILY 08/10/21 09/03/21 History Methyl Salicylate/Menthol [Icy Hot 1 applic TOPICAL BID 08/10/21 09/03/21 History 10-30% Cream] amLODIPine [Norvasc] 5 mg PO DAILY 08/10/21 09/03/21 History Acetaminophen Tab [Tylenol] 650 mg PO Q6HR PRN tab 08/12/21 09/03/21 Rx hydroCHLOROthiazide [Hydrodiuril] 25 mg PO DAILY 09/03/21 09/03/21 History Allergies Allergy/AdvReac Type Severity Reaction Status Date / Time No Known Allergies Allergy Verified 09/03/21 14:55 Physical Exam Vitals: Vital Signs Temp Pulse Pulse Resp BP BP Pulse Ox 09/04/21 10:07 98.4 F 77 18 130/65 95 09/04/21 06:42 98.5 F 81 17 138/54 94 L 09/04/21 02:00 98.4 F 80 17 166/55 94 L 09/03/21 20:00 98.3 F 72 18 163/57 98 09/03/21 17:36 98 F 73 18 122/63 100 09/03/21 14:20 75 16 136/81 94 L 09/03/21 12:38 98.2 F 79 20 132/71 95 Intake and Output 09/03/21 09/04/21 09/04/21 22:59 06:59 14:59 Other: Voiding Method Urinal # Voids 1 2 # Bowel Movements 1 Weight 232.874 kg Results CBC & Chem 7: 09/03/21 14:08 09/03/21 14:08 Labs: Abnormal Lab Results - Last 24 Hours (Table) 09/03/21 09/03/21 09/03/21 Range/Units 14:08 14:08 14:08 RBC 3.77 L (4.30-5.90) m/uL Hgb 11.0 L (13.0-17.5) gm/dL Hct 35.5 L (39.0-53.0) % RDW 19.2 H (11.5-15.5) % Neutrophils # (Manual) 8.30 H (1.3-7.7) k/uL Metamyelocytes # (Man) 0.30 H (0) k/uL Myelocytes # (Manual) 0.20 H (0) k/uL Nucleated RBCs 1 H (0-0) /100 WBC D-Dimer (<0.60) mg/L FEU BUN 21 H (9-20) mg/dL Total Bilirubin 2.9 H (0.2-1.3) mg/dL AST 72 H (17-59) U/L Lactate Dehydrogenase (313-618) U/L Coronavirus (PCR) Detected A (Not Detectd) 09/04/21 09/04/21 Range/Units 11:11 11:11 RBC (4.30-5.90) m/uL Hgb (13.0-17.5) gm/dL Hct (39.0-53.0) % RDW (11.5-15.5) % Neutrophils # (Manual) (1.3-7.7) k/uL Metamyelocytes # (Man) (0) k/uL Myelocytes # (Manual) (0) k/uL Nucleated RBCs (0-0) /100 WBC D-Dimer 2.19 H (<0.60) mg/L FEU BUN (9-20) mg/dL Total Bilirubin (0.2-1.3) mg/dL AST (17-59) U/L Lactate Dehydrogenase 811 H (313-618) U/L Coronavirus (PCR) (Not Detectd) Thrombosis Risk Factor Assmnt - Choose All That Apply Each Factor Represents 1 point: Age 41-60 years, Obesity (BMI >25), Swollen legs (current) Thrombosis Risk Factor Assessment Total Risk Factor Score: 3 Thrombosis Risk Factor Assessment Level: Moderate Risk
[2021-09-05] MEDS: DEXAMETHASONE SOD PHOSPHATE 10 MG/ML 1 ML VIAL IVP SCH (09:05)
[2021-09-05] MEDS: hydroCHLOROthiazide 25 MG TAB PO SCH (10:29)
[2021-09-05] MEDS: ENOXAPARIN 40 MG/0.4 ML SYRINGE SQ SCH (10:29)
[2021-09-05] MEDS: amLODIPine 5 MG TAB PO SCH (10:29)
[2021-09-05] MEDS: CHOLECALCIFEROL 125 MCG (5000 IU) TABLET PO SCH (10:29)
[2021-09-05] MEDS: ASCORBIC ACID 500 MG TAB PO SCH (10:30)
[2021-09-05] MEDS: ZINC SULFATE 220 MG CAP PO SCH (10:30)
[2021-09-05] MEDS: FERROUS SULFATE 325 MG TAB PO SCH (10:30)
--- NOTE | 2021-09-05 12:19 | P.PN ---
Progress Note - Text Progress Note Date: 09/05/21 Chief Complaint: Short of breath History of presenting complaint: This is a pleasant 56-year-old patient follows with Dr. Burton. Chronic stable medical conditions include hypertension, hyperlipidemia, decreased vision, chronic gait dysfunction. Patient 2 years ago fell on the left knee. Does follow with her local orthopedics where he lives. He was told that he needs surgery on his knee but because of his morbid obesity he is not a good candidate. Patient recently the hospital from August 11 through August 16. Presented with a fall. Was sent to rehab. Patient was discharged 2 days ago to home. He was diagnosed with COVID. At home patient is using a chair to walk about. Fell down. Having trouble getting up. Brought into the ER. Appetite is fair. No change in bowel pattern. No headaches. No fever no chills. Has a cough. No sputum. September 05: Congested cough. Hypoxic. On steroids. Oral intake fair. Has a patient set up in a chair. Incentive spirometry. Active Medications Acetaminophen (Acetaminophen Tab 325 Mg Tab) 650 mg PO Q6HR PRN PRN Reason: Mild Pain or Fever > 100.5 Last Admin: 09/04/21 16:36 Dose: 650 mg Documented by: Acetaminophen/Codeine Phosphate (Acetaminophen-Codeine 300-30mg Tab) 1 each PO Q4HR PRN PRN Reason: Moderate Pain Last Admin: 09/04/21 20:49 Dose: 1 each Documented by: Amlodipine Besylate (Amlodipine 5 Mg Tab) 5 mg PO DAILY [facility] Last Admin: 09/05/21 10:29 Dose: 5 mg Documented by: Ascorbic Acid (Ascorbic Acid 500 Mg Tab) 1,000 mg PO DAILY [facility] Last Admin: 09/05/21 10:30 Dose: 1,000 mg Documented by: Cholecalciferol (Cholecalciferol 125 Mcg (5000 Iu) Tablet) 125 mcg PO DAILY [facility] Last Admin: 09/05/21 10:29 Dose: 125 mcg Documented by: Dexamethasone Sodium Phosphate (Dexamethasone Sod Phosphate 10 Mg/Ml 1 Ml Vial) 6 mg IVP DAILY [facility] Last Admin: 09/05/21 09:05 Dose: 6 mg Documented by: Enoxaparin Sodium (Enoxaparin 40 Mg/0.4 Ml Syringe) 40 mg SQ DAILY [facility] Last Admin: 09/05/21 10:29 Dose: 40 mg Documented by: Ferrous Sulfate (Ferrous Sulfate 325 Mg Tab) 325 mg PO DAILY [facility] Last Admin: 09/05/21 10:30 Dose: 325 mg Documented by: Hydrochlorothiazide (Hydrochlorothiazide 25 Mg Tab) 25 mg PO DAILY [facility] Last Admin: 09/05/21 10:29 Dose: 25 mg Documented by: Ibuprofen (Ibuprofen 400 Mg Tab) 400 mg PO Q6HR PRN PRN Reason: Mild Pain or Fever > 100.5 Naloxone HCl (Naloxone 0.4 Mg/Ml 1 Ml Vial) 0.2 mg IV Q2M PRN PRN Reason: Opioid Reversal Silver Sulfadiazine (Silver Sulfadiazine 1% Cream 25 Gm Tube) 1 applic TOPICAL BID [facility]; Protocol Zinc Sulfate (Zinc Sulfate 220 Mg Cap) 220 mg PO DAILY [facility] Last Admin: 09/05/21 10:30 Dose: 220 mg Documented by: Past medical history to include: Legally blind in the right eye, partial 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 Does use a chair as a walker. No smoking or alcohol. Family history: Reviewed, noncontributory to presentation Physical examination: VITAL SIGNS: 98.6, 76, 17, 1 28 x 63, 91% on 2 L GENERAL: reclining in bed, awake, congested cough LUNGS: Respiratory rate increased. PSYCH: Alert and oriented x3; mood and affect normal. Rest of the exam as per pulmonary and nursing INVESTIGATIONS, reviewed in the clinical context: September 05: D-dimer 1.47 CRP 3.2 White count 10.1 hemoglobin 11 platelets 308 potassium 4.5 BUN 21 creatinine 1.17 COVID 19 PCR: Detected Chest x-ray film personally reviewed by me-: Underpenetrated. Cannot rule out infiltrate Assessment and plan: -Near fall secondary to poor balance from poor proprioception from severe obesity arthritis especially that of the left knee. Patient is a baseline does use a chair a walker. Patient just discharged from rehab 48 hours ago. Not able to manage at home. PT OT. Consult to medical case worker. -Severe osteoarthritis of the left knee with a contribution from severe obesity. Patient does follow with orthopedics -Morbid obesity BMI 55 Calorie restricted diet. -Bilateral lower extremity venous stasis dermatitis Silvadene cream with Kerlix and Ghanshyam wrap twice a day -Intertriginous candidiasis Nystatin powder twice a day -Essential hypertension Amlodipine 5 mg a day -COVID 19. Pneumonitis. Steroids. Vitamin C, vitamin D, zinc -Acute hypoxic respiratory failure: Slow to respond Supplement oxygen 2 L. Dexamethasone. Oxygen supplementation. Silvadene cream. 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
--- NOTE | 2021-09-05 15:26 | P.PN ---
Subjective Progress Note Date: 09/05/21 Principal diagnosis: Acute hypoxic respiratory failure secondary to COVID-19 pneumonia A morbidly obese male patient, debilitated due to degenerative arthritis and other comorbidities, who was in the hospital for episodes of falling gait dysfunction and the patient was discharged to [facility] for further rehabilitation. While in the ECF, the patient was diagnosed having COVID 19 and the patient was brought into the hospital for further evaluation.. According to the history and the records, the patient has chronic medical problems including morbid obesity, possible obstructive sleep apnea although this has not been adequately confirmed, the patient is legally blind on the right and has partial vision loss on the left and he has chronic arthritis and gait dysfunction and episodes of fall. The patient has a walker at home. The patient was hospitalized on 08/10/2021 because of falls. The patient was evaluated by orthopedic surgery. A walker was given and the patient was discharged home on some oral antibiotics regarding chronic cellulitis of the lower extremity with left more than right. He was released home on 08/16/2021. The patient came back to the hospital due to concerns of COVID 19 pneumonia. The patient was having some symptoms of URI. Note that the patient has not received any vaccination for COVID 19. He was also feeling weak and lethargic and he had some limited cough. At the time of his ED evaluation, chest x-ray was done that showed some limited leg infiltration of the lungs bilaterally. The patient is currently on 4 L of O2 nasal cannula to bring his saturation above 90% and his pulse ox is around 94%. His afebrile hemodynamically stable. His BUN is at 21 with a creatinine of 1.1. Sodium is at 140. The white cell count of 10.1 with a hemoglobin of 11 and a platelet count of 308. His COVID 19 testing was positive. LFTs showed an AST of 72, ALT of 36, bilirubin of 2.9, albumin of 3.8, total protein of 7.9, and his sodium was at 140 with a potassium level of 4.5 and a chloride of 103 with a bicarb of 29. Creatinine is at 1.1. The patient's is sleepy and lethargic yet there is no altered mentation and he was able to answer questions appropriately. He is a nonsmoker. Reevaluated today on 09/05/2021, patient is feeling better, he is on 2 L nasal cannula, and his O2 saturation is 96%, labs are unremarkable, his d-dimer is 1.47. CBC is relatively unremarkable. Pro-calcitonin is 0.63. LDH is 811 and C-reactive protein is 3. Objective - Vital Signs Vital signs: Vital Signs Temp 98.1 F 09/05/21 14:00 Pulse 77 09/05/21 14:00 Resp 17 09/05/21 08:00 BP 135/69 09/05/21 14:00 Pulse Ox 96 09/05/21 14:00 Intake & Output 09/04/21 09/05/21 09/05/21 18:59 06:59 18:59 Output Total 1000 1000 250 Balance -1000 -1000 -250 Output: Urine 1000 1000 250 Other: Voiding Method Urinal Urinal # Voids 1 # Bowel Movements 1 - Exam Physical Exam: Was not performed, patient is on the commode. - Labs CBC & Chem 7: 09/03/21 14:08 09/03/21 14:08 Labs: Abnormal Lab Results - Last 24 Hours (Table) 09/04/21 09/05/21 09/05/21 Range/Units 11:11 10:58 10:58 D-Dimer 1.47 H (<0.60) mg/L FEU C-Reactive Protein 3.2 H (<1.0) mg/dL Procalcitonin 0.63 H (0.02-0.09) ng/mL Assessment and Plan Assessment: Impression: Acute COVID-19 pneumonia Acute hypoxic respiratory failure secondary to COVID-19 pneumonia Morbid obesity Suspect obstructive sleep apnea syndrome History of glaucoma Severe degenerative joint disease of the left knee Hypertension Recommendation: Continue oxygen and titrate accordingly Continue the COVID-19 cocktail. Continue to monitor inflammatory markers Continue Decadron. Continue Lovenox 40 mg subcu daily We will continue to follow. Time with Patient: Less than 30
[2021-09-06] MEDS: hydroCHLOROthiazide 25 MG TAB PO SCH (08:50)
[2021-09-06] MEDS: CHOLECALCIFEROL 125 MCG (5000 IU) TABLET PO SCH (08:50)
[2021-09-06] MEDS: ZINC SULFATE 220 MG CAP PO SCH (08:50)
[2021-09-06] MEDS: ASCORBIC ACID 500 MG TAB PO SCH (08:50)
[2021-09-06] MEDS: DEXAMETHASONE SOD PHOSPHATE 10 MG/ML 1 ML VIAL IVP SCH (08:50)
[2021-09-06] MEDS: amLODIPine 5 MG TAB PO SCH (08:50)
[2021-09-06] MEDS: FERROUS SULFATE 325 MG TAB PO SCH (08:50)
[2021-09-06] MEDS: ENOXAPARIN 40 MG/0.4 ML SYRINGE SQ SCH (08:50)
[2021-09-06] MEDS ORDERED: FUROSEMIDE 10 MG/ML 4 ML VIAL IV STA (12:23)
--- NOTE | 2021-09-06 12:39 | P.PN ---
Subjective Progress Note Date: 09/06/21 Principal diagnosis: COVID-19 infection On today's evaluation on 09/06/2021 patient seen in follow-up on medical surgical floor, he is sitting up in the recliner, breathing comfortably, he is only on 2 L of oxygen, his pulse ox is 94%, his been afebrile, blood pressure has been stable, as a mild congestive cough, no chest discomfort, no evidence of any respiratory distress, he remains on Decadron 6 mg daily, he is on Lovenox for DVT prophylaxis. The patient is weak, he requires assistance to ambulate in the room, and even transfer to the bedside commode. He has cellulitis in his bilateral lower extremities, he is receiving local wound care with silvadene. On today's labs d-dimer is improving and is down to 1.47, pro calcitonin level is improved and is down to 0.38 from previous value of 0.63. CRP is 3.2. And LDH was 811. Objective - Vital Signs Vital signs: Vital Signs Temp 98.2 F 09/06/21 07:36 Pulse 70 09/06/21 08:58 Resp 18 09/06/21 08:58 BP 134/62 09/06/21 07:36 Pulse Ox 89 L 09/06/21 07:36 Intake & Output 09/05/21 09/06/21 09/06/21 18:59 06:59 18:59 Intake Total 450 Output Total 250 1800 Balance 200 -1800 Intake: Intake, IV Titration 50 Amount ceFAZolin 1,000 mg In 50 Sodium Chloride 0.9% 50 ml @ 100 mls/hr IVPB Q8H [facility] Rx#:[id number] Oral 400 Output: Urine 250 1800 Other: Voiding Method Urinal Urinal Urinal # Voids 3 # Bowel Movements 1 1 - Exam GENERAL EXAM: Alert, a pleasant, 56-year-old white male, and 4 L of oxygen with a pulse ox of 92%, comfortable in no apparent distress. HEAD: Normocephalic/atraumatic. EYES: Normal reaction of pupils, equal size. Conjunctiva pink, sclera white. NOSE: Clear with pink turbinates. THROAT: No erythema or exudates. NECK: No masses, no JVD, no thyroid enlargement, no adenopathy. CHEST: No chest wall deformity. Symmetrical expansion. LUNGS: Equal air entry with bibasiar rales CVS: Regular rate and rhythm, normal S1 and S2, no gallops, no murmurs, no rubs ABDOMEN: Soft, nontender. No hepatosplenomegaly, normal bowel sounds, no guarding or rigidity. EXTREMITIES: No clubbing, no edema, no cyanosis, 2+ pulses and upper and lower extremities. Cellulitis lower extremities MUSCULOSKELETAL: Muscle strength and tone normal. SPINE: No scoliosis or deformity SKIN: No rashes CENTRAL NERVOUS SYSTEM: Alert and oriented -3. No focal deficits, tone is normal in all 4 extremities. PSYCHIATRIC: Alert and oriented -3. Appropriate affect. Intact judgment and insight. - Labs CBC & Chem 7: 09/03/21 14:08 09/03/21 14:08 Labs: Abnormal Lab Results - Last 24 Hours (Table) 09/06/21 Range/Units 06:09 Procalcitonin 0.38 H (0.02-0.09) ng/mL Assessment and Plan Plan: Assessment: #1. Acute COVID-19 pneumonia #2. Acute hypoxic respiratory failure related to the COVID pneumonia #3. Morbid obesity with BMI 55 kg/m #4. Bilateral lower extremity cellulitis #5. History of glaucoma #6. Severe degenerative joint disease of the left knee #7. Hypertension Plan: We'll continue the Decadron We'll give the patient one-time dose of Lasix Add Kefzol 2 g every 12 hours IV piggyback for lower extremity cellulitis Continue Lovenox continue multivitamins Follow-up chest x-ray and basic labs tomorrow I have personally seen and examined the patient, performed the documentation and the assessment and plan as written. Number of minutes spent on the visit: [10] Time with Patient: Less than 30
--- NOTE | 2021-09-06 16:11 | P.PN ---
Progress Note - Text Progress Note Date: 09/06/21 Chief Complaint: Short of breath History of presenting complaint: This is a pleasant 56-year-old patient follows with Dr. Burton. Chronic stable medical conditions include hypertension, hyperlipidemia, decreased vision, chronic gait dysfunction. Patient 2 years ago fell on the left knee. Does follow with her local orthopedics where he lives. He was told that he needs surgery on his knee but because of his morbid obesity he is not a good candidate. Patient recently the hospital from August 11 through August 16. Presented with a fall. Was sent to rehab. Patient was discharged 2 days ago to home. He was diagnosed with COVID. At home patient is using a chair to walk about. Fell down. Having trouble getting up. Brought into the ER. Appetite is fair. No change in bowel pattern. No headaches. No fever no chills. Has a cough. No sputum. September 05: Congested cough. Hypoxic. On steroids. Oral intake fair. Has a patient set up in a chair. Incentive spirometry. September 06: Congested cough. 89% on room air. Oral intake fair. Up in a chair. Using incentive spirometry. Active Medications Acetaminophen (Acetaminophen Tab 325 Mg Tab) 650 mg PO Q6HR PRN PRN Reason: Mild Pain or Fever > 100.5 Last Admin: 09/04/21 16:36 Dose: 650 mg Documented by: Acetaminophen/Codeine Phosphate (Acetaminophen-Codeine 300-30mg Tab) 1 each PO Q4HR PRN PRN Reason: Moderate Pain Last Admin: 09/04/21 20:49 Dose: 1 each Documented by: Amlodipine Besylate (Amlodipine 5 Mg Tab) 5 mg PO DAILY [facility] Last Admin: 09/06/21 08:50 Dose: 5 mg Documented by: Ascorbic Acid (Ascorbic Acid 500 Mg Tab) 1,000 mg PO DAILY [facility] Last Admin: 09/06/21 08:50 Dose: 1,000 mg Documented by: Cholecalciferol (Cholecalciferol 125 Mcg (5000 Iu) Tablet) 125 mcg PO DAILY [facility] Last Admin: 09/06/21 08:50 Dose: 125 mcg Documented by: Dexamethasone (Dexamethasone 2 Mg Tab) 6 mg PO DAILY [facility] Enoxaparin Sodium (Enoxaparin 40 Mg/0.4 Ml Syringe) 40 mg SQ DAILY [facility] Last Admin: 09/06/21 08:50 Dose: 40 mg Documented by: Ferrous Sulfate (Ferrous Sulfate 325 Mg Tab) 325 mg PO DAILY [facility] Last Admin: 09/06/21 08:50 Dose: 325 mg Documented by: Hydrochlorothiazide (Hydrochlorothiazide 25 Mg Tab) 25 mg PO DAILY [facility] Last Admin: 09/06/21 08:50 Dose: 25 mg Documented by: Cefazolin Sodium 2 gm/ Sodium (Chloride) 50 mls @ 100 mls/hr IVPB Q12HR [facility]; Protocol Ibuprofen (Ibuprofen 400 Mg Tab) 400 mg PO Q6HR PRN PRN Reason: Mild Pain or Fever > 100.5 Naloxone HCl (Naloxone 0.4 Mg/Ml 1 Ml Vial) 0.2 mg IV Q2M PRN PRN Reason: Opioid Reversal Silver Sulfadiazine (Silver Sulfadiazine 1% Cream 25 Gm Tube) 1 applic TOPICAL BID [facility]; Protocol Last Admin: 09/06/21 08:51 Dose: 1 applic Documented by: Zinc Sulfate (Zinc Sulfate 220 Mg Cap) 220 mg PO DAILY [facility] Last Admin: 09/06/21 08:50 Dose: 220 mg Documented by: Past medical history to include: Legally blind in the right eye, partial 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 Does use a chair as a walker. No smoking or alcohol. Family history: Reviewed, noncontributory to presentation Physical examination: VITAL SIGNS: 98.2, 70, 18, 134/62, 89% room air GENERAL: reclining in chair, awake, congested cough LUNGS: Respiratory rate increased. PSYCH: Alert and oriented x3; mood and affect normal. Rest of the exam as per pulmonary and nursing INVESTIGATIONS, reviewed in the clinical context: September 06: D-dimer 1.34 CRP 1.6 September 05: D-dimer 1.47 CRP 3.2 White count 10.1 hemoglobin 11 platelets 308 potassium 4.5 BUN 21 creatinine 1.17 COVID 19 PCR: Detected Chest x-ray film personally reviewed by me-: Underpenetrated. Cannot rule out infiltrate Assessment and plan: -Near fall secondary to poor balance from poor proprioception from severe obesity arthritis especially that of the left knee. Patient is a baseline does use a chair a walker. Patient just discharged from rehab 48 hours ago. Not able to manage at home. PT OT. Consult to telephonic nurse case manager. Pending rehab -Severe osteoarthritis of the left knee with a contribution from severe obesity. Patient does follow with orthopedics -Morbid obesity BMI 55 Calorie restricted diet. -Bilateral lower extremity venous stasis dermatitis Silvadene cream with Kerlix and Ghanshyam wrap twice a day -Intertriginous candidiasis Nystatin powder twice a day -Essential hypertension Amlodipine 5 mg a day -COVID 19. Pneumonitis. Steroids. Vitamin C, vitamin D, zinc -Acute hypoxic respiratory failure: Slow to respond Supplement oxygen 2 L. Dexamethasone. Oxygen supplementation. Silvadene cream. Patient will go to rehab. Follow with pulmonary.
[2021-09-06 21:43] VITALS: RESP 16
--- NOTE | 2021-09-07 08:14 | XR ---
EXAMINATION TYPE: XR chest 1V portable DATE OF EXAM: 09/07/2021 COMPARISON: X-ray dated 09/03/2021 HISTORY: Covid 19 TECHNIQUE: Single frontal view of the chest is obtained. FINDINGS: Questionable left retrocardiac patchy opacity, partially obscured. Slightly congested pulmonary vascu lature with prominent interstitial lung markings, pulmonary edema or incomplete lung expansion cannot be excluded. Suboptimal assessment for left pleural effusion. No sizable right pleural effusion. No definite pneum othorax. Slightly increased cardiac transverse diameter. No gross aggressive bone lesion. IMPRESSION: As above.
[2021-09-07 08:43] VITALS: TEMP 97.5
[2021-09-07] MEDS ORDERED: dexAMETHasone 2 MG TAB PO SCH (09:00)
[2021-09-07] MEDS: ASCORBIC ACID 500 MG TAB PO SCH (09:11)
[2021-09-07] MEDS: CHOLECALCIFEROL 125 MCG (5000 IU) TABLET PO SCH (09:12)
[2021-09-07] MEDS: ENOXAPARIN 40 MG/0.4 ML SYRINGE SQ SCH (09:12)
[2021-09-07] MEDS: FERROUS SULFATE 325 MG TAB PO SCH (09:12)
[2021-09-07] MEDS: hydroCHLOROthiazide 25 MG TAB PO SCH (09:12)
[2021-09-07] MEDS: ZINC SULFATE 220 MG CAP PO SCH (09:13)
[2021-09-07] MEDS: amLODIPine 5 MG TAB PO SCH (09:26)
--- NOTE | 2021-09-07 12:18 | P.PN ---
Subjective Progress Note Date: 09/07/21 Principal diagnosis: COVID-19 infection On today's evaluation on 09/06/2021 patient seen in follow-up on medical surgical floor, he is sitting up in the recliner, breathing comfortably, he is only on 2 L of oxygen, his pulse ox is 94%, his been afebrile, blood pressure has been stable, as a mild congestive cough, no chest discomfort, no evidence of any respiratory distress, he remains on Decadron 6 mg daily, he is on Lovenox for DVT prophylaxis. The patient is weak, he requires assistance to ambulate in the room, and even transfer to the bedside commode. He has cellulitis in his bilateral lower extremities, he is receiving local wound care with silvadene. On today's labs d-dimer is improving and is down to 1.47, pro calcitonin level is improved and is down to 0.38 from previous value of 0.63. CRP is 3.2. And LDH was 811. On 09/07/2021 patient seen in follow-up on medical surgical floor. He is up in the recliner, creatinine 2 L of oxygen his pulse ox of 91-98%, denies any acute distress, lung sounds are essentially clear to auscultation, occasional cough s lightly congested, no phlegm production, no chest discomfort, he remains on Decadron 6 mg daily, remains on prophylactic dose of Lovenox, yesterday we added Ancef for his lower extremity cellulitis. Aspirin LEVEL is improving and is down to 0.30 on yesterday's labs, d-dimer was improving slowly improving. Clinically Patient seems to be relatively stable, no worsening dyspnea, not requiring more than 2 L of oxygen, and his O2 sats have been stable. Generally patient is a debilitated, he states he would like to return home after his discharge. However he has been requiring extensive assistance with mobility and will need evaluation by physical therapy Objective - Vital Signs Vital signs: Vital Signs Temp 97.5 F L 09/07/21 08:00 Pulse 71 09/07/21 08:00 Resp 16 09/06/21 20:00 BP 164/81 09/07/21 08:00 Pulse Ox 91 L 09/07/21 08:00 Intake & Output 09/06/21 09/07/21 09/07/21 18:59 06:59 18:59 Intake Total 50 Output Total 2425 1800 Balance -2374 -1800 Intake: Intake, IV Titration 50 Amount ceFAZolin 2 gm In Sodium 50 Chloride 0.9% 50 ml @ 100 mls/hr IVPB Q12HR [facility] Rx #:[id number] Output: Urine 2426 1800 Other: Voiding Method Urinal Urinal # Bowel Movements 1 - Exam GENERAL EXAM: Alert, a pleasant, 56-year-old white male, and 2 L of oxygen with a pulse ox of 92%, comfortable in no apparent distress. HEAD: Normocephalic/atraumatic. EYES: Normal reaction of pupils, equal size. Conjunctiva pink, sclera white. NOSE: Clear with pink turbinates. THROAT: No erythema or exudates. NECK: No masses, no JVD, no thyroid enlargement, no adenopathy. CHEST: No chest wall deformity. Symmetrical expansion. LUNGS: Equal air entry with bibasiar rales CVS: Regular rate and rhythm, normal S1 and S2, no gallops, no murmurs, no rubs ABDOMEN: Soft, nontender. No hepatosplenomegaly, normal bowel sounds, no guarding or rigidity. EXTREMITIES: No clubbing, mild pretibial edema with some redness no cyanosis, 2+ pulses and upper and lower extremities. Cellulitis lower extremities MUSCULOSKELETAL: Muscle strength and tone normal. SPINE: No scoliosis or deformity SKIN: No rashes CENTRAL NERVOUS SYSTEM: Alert and oriented -3. No focal deficits, tone is normal in all 4 extremities. PSYCHIATRIC: Alert and oriented -3. Appropriate affect. Intact judgment and insight. - Labs CBC & Chem 7: 09/03/21 14:08 09/03/21 14:08 Labs: Abnormal Lab Results - Last 24 Hours (Table) 09/06/21 09/06/21 09/07/21 Range/Units 11:57 11:57 05:40 D-Dimer 1.34 H (<0.60) mg/L FEU C-Reactive Protein 1.6 H (<1.0) mg/dL Procalcitonin 0.30 H (0.02-0.09) ng/mL Assessment and Plan Plan: Assessment: #1. Acute COVID-19 pneumonia #2. Acute hypoxic respiratory failure related to the COVID pneumonia #3. Morbid obesity with BMI 55 kg/m #4. Bilateral lower extremity cellulitis #5. History of glaucoma #6. Severe degenerative joint disease of the left knee #7. Hypertension Plan: Continue current medical treatment Continue Decadron No worsening dyspnea or hypoxia Weaning FiO2 Continue antibiotics for lower extremity cellulitis Inflammatory markers and d-dimer were improving Generally patient seems to be debilitated May need evaluation by physical therapy for post discharge recommendations We'll continue to follow his clinical course I have personally seen and examined the patient, performed the documentation and the assessment and plan as written. Number of minutes spent on the visit: [10] Time with Patient: Less than 30
--- NOTE | 2021-09-07 12:45 | P.DS ---
Providers Date of admission: 09/03/21 16:18 Expected date of discharge: 09/07/21 Attending physician: Mkie Garcia Consults: 09/03/21 16:16 Consult Physician Urgent Consulting Provider: Phuong Borja Consult Reason/Comments: COVID, hypoxia Do you want consulting provider notified?: Yes Primary care physician: [facility] Course: Chief Complaint: Short of breath History of presenting complaint: This is a pleasant 56-year-old patient follows with Dr. Burton. Chronic stable medical conditions include hypertension, hyperlipidemia, decreased vision, chronic gait dysfunction. Patient 2 years ago fell on the left knee. Does follow with her local orthopedics where he lives. He was told that he needs surgery on his knee but because of his morbid obesity he is not a good candidate. Patient recently the hospital from August 11 through August 16. Presented with a fall. Was sent to rehab. Patient was discharged 2 days ago to home. He was diagnosed with COVID. At home patient is using a chair to walk about. Fell down. Having trouble getting up. Brought into the ER. Appetite is fair. No change in bowel pattern. No headaches. No fever no chills. Has a cough. No sputum. September 05: Congested cough. Hypoxic. On steroids. Oral intake fair. Has a patient set up in a chair. Incentive spirometry. September 06: Congested cough. 89% on room air. Oral intake fair. Up in a chair. Using incentive spirometry. September 07: Eating well. On 2 L nasal cannula. Congested cough. Accepted at rehab. Discussed the medical planner. Was changed to xarelto by mouth for DVT prophylaxis. Steroid taper. Patient is to follow-up with his own orthopedic doctor as outpatient. 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 Does use a chair as a walker. No smoking or alcohol. Family history: Reviewed, noncontributory to presentation Physical examination: VITAL SIGNS: 97.5, 71, 16, 160/81, 91% on 2 L GENERAL: reclining in chair, awake, LUNGS: Respiratory rate increased. PSYCH: Alert and oriented x3; mood and affect normal. Rest of the exam as per pulmonary and nursing INVESTIGATIONS, reviewed in the clinical context: Pro-calcitonin 0.30 September 06: D-dimer 1.34 CRP 1.6 September 05: D-dimer 1.47 CRP 3.2 White count 10.1 hemoglobin 11 platelets 308 potassium 4.5 BUN 21 creatinine 1.17 COVID 19 PCR: Detected Chest x-ray film personally reviewed by me-: Underpenetrated. Cannot rule out infiltrate Assessment and plan: -Near fall secondary to poor balance from poor proprioception from severe obesity arthritis especially that of the left knee. Patient is a baseline does use a chair a walker. Patient just discharged from rehab 48 hours ago. Not able to manage at home. PT OT. Discharged to rehab -Severe osteoarthritis of the left knee with a contribution from severe obesity. Patient does follow with own orthopedics -Morbid obesity BMI 55 Calorie restricted diet. -Bilateral lower extremity venous stasis dermatitis, possible cellulitis Silvadene cream with Kerlix and Ghanshyam wrap twice a day. Keflex 500 mg 4 times a day for 7 days -Intertriginous candidiasis Nystatin powder twice a day -Essential hypertension Amlodipine 5 mg a day -COVID 19. Pneumonitis. Steroids-prednisone taper. Vitamin C, vitamin D, zinc. Xarelto 10 mg a day for DVT prophylaxis -Acute hypoxic respiratory failure: From COVID 19 Supplement oxygen 2 L. Disposition: [facility]hab[facility] Plan - Discharge Summary Discharge Rx Participant: Yes New Discharge Prescriptions: New predniSONE 10 mg PO DAILY #30 tab Rivaroxaban [Xarelto] 10 mg PO DAILY #30 tab Zinc Sulfate [Orazinc] 220 mg PO DAILY cap SILVER sulfADIAZINE CREAM [Silvadene Cream] 1 applic TOPICAL BID cream Ascorbic Acid [Vitamin C] 1,000 mg PO DAILY tab Continue amLODIPine [Norvasc] 5 mg PO DAILY Methyl Salicylate/Menthol [Icy Hot 10-30% Cream] 1 applic TOPICAL BID Ferrous Sulfate [Iron] 325 mg PO DAILY Cholecalciferol [Vitamin D3 (125 Mcg = 5000 Iu)] 125 mcg PO DAILY Acetaminophen Tab [Tylenol] 650 mg PO Q6HR PRN tab PRN Reason: Mild Pain Or Fever > 100.5 hydroCHLOROthiazide [Hydrodiuril] 25 mg PO DAILY Discharge Medication List Cholecalciferol [Vitamin D3 (125 Mcg = 5000 Iu)] 125 mcg PO DAILY 08/10/21 [History] Ferrous Sulfate [Iron] 325 mg PO DAILY 08/10/21 [History] Methyl Salicylate/Menthol [Icy Hot 10-30% Cream] 1 applic TOPICAL BID 08/10/21 [History] amLODIPine [Norvasc] 5 mg PO DAILY 08/10/21 [History] Acetaminophen Tab [Tylenol] 650 mg PO Q6HR PRN tab 08/12/21 [Rx] hydroCHLOROthiazide [Hydrodiuril] 25 mg PO DAILY 09/03/21 [History] Ascorbic Acid [Vitamin C] 1,000 mg PO DAILY tab 09/07/21 [Rx] Rivaroxaban [Xarelto] 10 mg PO DAILY #30 tab 09/07/21 [Rx] SILVER sulfADIAZINE CREAM [Silvadene Cream] 1 applic TOPICAL BID cream 09/07/21 [Rx] Zinc Sulfate [Orazinc] 220 mg PO DAILY cap 09/07/21 [Rx] predniSONE 10 mg PO DAILY #30 tab 09/07/21 [Rx] Follow up Appointment(s)/Referral(s): Saul Burton MD [Primary Care Provider] - 1-2 days [facility], [NON-STAFF] - As Needed
[2021-09-07 16:12] VITALS: BP 146/72; PULSE 86
== END 2021-09-07 16:05 | DRG 177 ==
LOC: EC 12:36 → 4SSUR 16:18
PROVIDERS: ADMIT Hospitalist; ATTEND Hospitalist
PROC: 3E0F7SF Introduction of Other Gas into Respiratory Tract, Via Natural or Artificial Opening (ICD-10-PCS; principal; 2021-09-03)
DX: U07.1 COVID-19 (principal); J12.82 Pneumonia due to coronavirus disease 2019; J96.01 Acute respiratory failure with hypoxia; L03.115 Cellulitis of right lower limb; L03.116 Cellulitis of left lower limb; Z68.43 Body mass index [BMI] 50.0-59.9, adult; Z20.822 Contact with and (suspected) exposure to COVID-19; B37.2 Candidiasis of skin and nail; I10 Essential (primary) hypertension; E66.01 Morbid (severe) obesity due to excess calories; E78.5 Hyperlipidemia, unspecified; I87.8 Other specified disorders of veins; G89.29 Other chronic pain; H54.8 Legal blindness, as defined in USA; M19.90 Unspecified osteoarthritis, unspecified site; R26.9 Unspecified abnormalities of gait and mobility; I87.2 Venous insufficiency (chronic) (peripheral); M17.12 Unilateral primary osteoarthritis, left knee; R29.6 Repeated falls; Z28.310 Unvaccinated for COVID-19; Z79.899 Other long term (current) drug therapy; Z91.81 History of falling
CPT/HCPCS: 36415; 71045; 80053; 83615; 84145; 85025; 85379; 86140; 87635; 99285

== ENCOUNTER 2023-01-28 02:16 | Inpatient (IN) | payer OTHER ==
[2023-01-28] MEDS ORDERED: VANCOMYCIN IV PER PHARMACY 1 EACH MISC MISCELLANE PRN (02:54)
[2023-01-28] MEDS ORDERED: MORPHINE SULFATE 4 MG/ML SYRINGE IV STA (02:54)
--- NOTE | 2023-01-28 03:06 | ED ---
Skin/Abscess/FB HPI - General Chief complaint: Skin/Abscess/Foreign Body Stated complaint: Cellulitis on Legs Time Seen by Provider: 01/28/23 02:26 Source: patient, EMS, RN notes reviewed, old records reviewed Mode of arrival: EMS Limitations: no limitations - History of Present Illness Initial comments: This is a 57-year-old male to the emergency department for evaluation today. Patient presents today for evaluation of severe left lower extremity with significant pain swelling and edema. Significant edema to the left lower extremity with redness warmth and chronic nonhealing wounds. Patient states his symptoms are worsening swelling is worsening pain is worsening despite antibiotic treatment MD complaint: rash, discoloration -: days(s) Location: LLE, L foot (ulcers) Severity: severe Severity scale (1-10): 8 Quality: burning, stabbing, aching Consistency: constant Improves with: none Worsens with: none Context: none Associated symptoms: myalgias Treatments Prior to Arrival: bandages - Related Data Home Medications Medication Instructions Recorded Confirmed Cholecalciferol [Vitamin D3 (125 125 mcg PO DAILY 08/10/21 01/28/23 Mcg = 5000 Iu)] Ferrous Sulfate [Iron] 325 mg PO DAILY 08/10/21 01/28/23 amLODIPine [Norvasc] 5 mg PO DAILY 08/10/21 01/28/23 Acetaminophen [Tylenol Arthritis] 650 mg PO Q6H 01/28/23 01/28/23 Cranberry Fruit [Cranberry] 465 mg PO DAILY 01/28/23 01/28/23 Previous Rx's Medication Instructions Recorded Ascorbic Acid [Vitamin C] 1,000 mg PO DAILY tab 09/07/21 Aspirin 81 mg PO DAILY tab 02/05/23 Chlorthalidone 25 mg PO DAILY #1 tablet 02/05/23 DAPTOmycin [Cubicin] 600 mg IV DAILY #10 each 02/05/23 Naproxen [Naprosyn] 250 mg PO BID tab 02/05/23 Nystatin 100,000 Unit/gm Powd 1 applic TOPICAL BID each 02/05/23 [Mycostatin Powder] Allergies Allergy/AdvReac Type Severity Reaction Status Date / Time No Known Allergies Allergy Verified 01/28/23 10:41 Review of Systems ROS Statement: Those systems with pertinent positive or pertinent negative responses have been documented in the HPI. ROS Other: All systems not noted in ROS Statement are negative. Past Medical History Past Medical History: Eye Disorder, Hyperlipidemia, Hypertension, Vascular Disorder Additional Past Medical History / Comment(s): Glaucoma, falls secondary to poor balance from poor proprioception from severe obesity arthritis especially that of the left knee (walker) , Severe osteoarthritis of the left knee , Morbid obesity BMI 49.3, Bilateral lower extremity venous stasis dermatitis, Intertriginous candidiasis, Essential hypertension. Amlodipine 5 mg a day History of Any Multi-Drug Resistant Organisms: None Reported Additional Past Surgical History / Comment(s): lasix bilat Past Anesthesia/Blood Transfusion Reactions: No Reported Reaction Past Psychological History: No Psychological Hx Reported, Depression Smoking Status: Never smoker Past Alcohol Use History: None Reported Past Drug Use History: None Reported General Exam - General Exam Comments Initial Comments: Severe severe swelling of the left lower extremity with warmth and erythema and drainage Limitations: no limitations General appearance: alert, in no apparent distress Head exam: Present: atraumatic, normocephalic, normal inspection Eye exam: Present: normal appearance, PERRL, EOMI. Absent: scleral icterus, conjunctival injection, periorbital swelling ENT exam: Present: normal exam, mucous membranes moist Neck exam: Present: normal inspection. Absent: tenderness, meningismus, lymphadenopathy Respiratory exam: Present: normal lung sounds bilaterally. Absent: respiratory distress, wheezes, rales, rhonchi, stridor Cardiovascular Exam: Present: regular rate, normal rhythm, normal heart sounds. Absent: systolic murmur, diastolic murmur, rubs, gallop, clicks GI/Abdominal exam: Present: soft, normal bowel sounds. Absent: distended, tenderness, guarding, rebound, rigid Extremities exam: Present: normal inspection, full ROM, normal capillary refill. Absent: tenderness, pedal edema, joint swelling, calf tenderness Back exam: Present: normal inspection Neurological exam: Present: alert, oriented X3, CN II-XII intact Psychiatric exam: Present: normal affect, normal mood Skin exam: Present: warm, dry, intact, normal color. Absent: rash Course Vital Signs 01/28/23 01/28/23 02:20 03:22 Temperature 99 F 98.8 F Pulse Rate 92 87 Respiratory 18 20 Rate Blood Pressure 143/75 126/67 O2 Sat by Pulse 93 L 95 Oximetry - Reevaluation(s) Reevaluation #1: 09/03/23 03:28 Attic record is reviewed Reevaluation #2: 01/28/23 03:28 No change in symptoms here in the ER Reevaluation #3: 01/28/23 03:28 Patient form of results questions are answered Reevaluation #4: 01/28/23 03:28 Was pt. sent in by a medical professional or institution ([facility] Flores, [employer], urgent care, hospital, or half-way...) When possible be specific @ -no Did you speak to anyone other than the patient for history (EMS, parent, family, police, friend...)? What history was obtained from this source @ -no Did you review nursing and triage notes (agree or disagree)? Why? @ -agree Are old charts reviewed (outside hosp., previous admission, EMS record, old EKG, old radiological studies, urgent care reports/EKG's, half-way records)? Report findings @ -yes Differential Diagnosis (chest pain, altered mental status, abdominal pain women, abdominal pain men, vaginal bleeding, weakness, fever, dyspnea, syncope, headache, dizziness, GI bleed, back pain, seizure, CVA, palpatations, mental health, musculoskeletal)? @ -prior EKG interpreted by me (3pts min.). @ -yes X-rays interpreted by me (1pt min.). @ -yes CT interpreted by me (1pt min.). @ -no U/S interpreted by me (1pt. min.). @ -yes What testing was considered but not performed or refused? (CT, X-rays, U/S, labs)? Why? @ -none What meds were considered but not given or refused? Why? @ -none Did you discuss the management of the patient with other professionals (professionals i.e. DWAYNE Flores, [employer], lab, RT, psych nurse, social media designer, front line supervisor, teacher, information assurance officer, top case assembler)? Give summary @ -no Was smoking cessation discussed for >3mins.? @ -no Was critical care preformed (if so, how long)? @ -no Were there social determinants of health that impacted care today? How? (Homelessness, low income, unemployed, alcoholism, drug addiction, transport ation, low edu. Level, literacy, decrease access to med. care, [place] [facility], rehab)? @ -none Was there de-escalation of care discussed even if they declined (Discuss DNR or withdrawal of care, Hospice)? DNR status @ -no What co-morbidities impacted this encounter? (DM, HTN, Smoking, COPD, CAD, Cancer, CVA, ARF, Chemo, Hep., AIDS, mental health diagnosis, sleep apnea, morbid obesity)? @ -none Was patient admitted / discharged? Hospital course, mention meds given and route, prescriptions, significant lab abnormalities, going to OR and other pertinent info. @ - 57 male to the emergency room today for evaluation patient will be admitted for IV antibiotics secondary to severe lower extremity cellulitis Admitted Undiagnosed new problem with uncertain prognosis? @ -no Drug Therapy requiring intensive monitoring for toxicity (Heparin, Nitro, Insulin, Cardizem)? @ -no Were any procedures done? @ -no Diagnosis/symptom? @ -Severe left lower extremity cellulitis Acute, or Chronic, or Acute on Chronic? @ -Acute Uncomplicated (without systemic symptoms) or Complicated (systemic symptoms)? @ -Complicated Side effects of treatment? @ -no Exacerbation, Progression, or Severe Exacerbation? @ -exacerbation Poses a threat to life or bodily function? How? (Chest pain, USA, SD, pneumonia, PE, COPD, DKA, ARF, appy, cholecystitis, CVA, Diverticulitis, Homicidal, Suicidal, threat to staff... and all critical care pts) @ -yes significant body habitus comorbidities with severe infection of the left lower extremity - Consultations Consultation #1: Spoke with [facility] who agree to admit this patient Medical Decision Making - Medical Decision Making 57 male to the emergency room today for evaluation patient will be admitted for IV antibiotics secondary to severe lower extremity cellulitis - Lab Data Result diagrams: 02/04/23 06:13 02/04/23 06:13 Lab Results 01/28/23 01/28/23 01/28/23 Range/Units 02:25 02:25 02:25 WBC 10.7 H (3.8-10.6) k/uL RBC 4.36 (4.30-5.90) m/uL Hgb 12.5 L (13.0-17.5) gm/dL Hct 37.0 L (39.0-53.0) % MCV 84.9 (80.0-100.0) fL MCH 28.6 (25.0-35.0) pg MCHC 33.6 (31.0-37.0) g/dL RDW 15.2 (11.5-15.5) % Plt Count 280 (150-450) k/uL MPV 8.0 Neutrophils % 73 % Lymphocytes % 14 % Monocytes % 6 % Eosinophils % 3 % Basophils % 0 % Neutrophils # 7.8 H (1.3-7.7) k/uL Lymphocytes # 1.5 (1.0-4.8) k/uL Monocytes # 0.7 (0-1.0) k/uL Eosinophils # 0.4 (0-0.7) k/uL Basophils # 0.0 (0-0.2) k/uL PT 10.4 (9.0-12.0) sec INR 1.0 (<1.2) APTT 33.0 H (22.0-30.0) sec Sodium 137 (137-145) mmol/L Potassium 3.6 (3.5-5.1) mmol/L Chloride 98 (98-107) mmol/L Carbon Dioxide 26 (22-30) mmol/L Anion Gap 13 mmol/L BUN 21 H (9-20) mg/dL Creatinine 1.32 H (0.66-1.25) mg/dL Est GFR (CKD-EPI)AfAm 70 (>60 ml/min/1.73 sqM) Est GFR (CKD-EPI)NonAf 60 (>60 ml/min/1.73 sqM) Glucose 111 H (74-99) mg/dL Plasma Lactic Acid Daryn (0.7-2.0) mmol/L Calcium 9.4 (8.4-10.2) mg/dL Phosphorus 3.6 (2.5-4.5) mg/dL Magnesium 1.6 (1.6-2.3) mg/dL Total Bilirubin 1.4 H (0.2-1.3) mg/dL AST 57 (17-59) U/L ALT 45 (4-49) U/L Alkaline Phosphatase 153 H (38-126) U/L Troponin I (0.000-0.034) ng/mL C-Reactive Protein 20.5 H (<1.0) mg/dL NT-Pro-B Natriuret Pep 420 pg/mL Total Protein 8.6 H (6.3-8.2) g/dL Albumin 4.1 (3.5-5.0) g/dL 01/28/23 01/28/23 Range/Units 02:25 02:25 WBC (3.8-10.6) k/uL RBC (4.30-5.90) m/uL Hgb (13.0-17.5) gm/dL Hct (39.0-53.0) % MCV (80.0-100.0) fL MCH (25.0-35.0) pg MCHC (31.0-37.0) g/dL RDW (11.5-15.5) % Plt Count (150-450) k/uL MPV Neutrophils % % Lymphocytes % % Monocytes % % Eosinophils % % Basophils % % Neutrophils # (1.3-7.7) k/uL Lymphocytes # (1.0-4.8) k/uL Monocytes # (0-1.0) k/uL Eosinophils # (0-0.7) k/uL Basophils # (0-0.2) k/uL PT (9.0-12.0) sec INR (<1.2) APTT (22.0-30.0) sec Sodium (137-145) mmol/L Potassium (3.5-5.1) mmol/L Chloride (98-107) mmol/L Carbon Dioxide (22-30) mmol/L Anion Gap mmol/L BUN (9-20) mg/dL Creatinine (0.66-1.25) mg/dL Est GFR (CKD-EPI)AfAm (>60 ml/min/1.73 sqM) Est GFR (CKD-EPI)NonAf (>60 ml/min/1.73 sqM) Glucose (74-99) mg/dL Plasma Lactic Acid Daryn 1.3 (0.7-2.0) mmol/L Calcium (8.4-10.2) mg/dL Phosphorus (2.5-4.5) mg/dL Magnesium (1.6-2.3) mg/dL Total Bilirubin (0.2-1.3) mg/dL AST (17-59) U/L ALT (4-49) U/L Alkaline Phosphatase (38-126) U/L Troponin I 0.045 H* (0.000-0.034) ng/mL C-Reactive Protein (<1.0) mg/dL NT-Pro-B Natriuret Pep pg/mL Total Protein (6.3-8.2) g/dL Albumin (3.5-5.0) g/dL - EKG Data -: EKG Interpreted by Me (EKG is sinus a 6 WI 150 QRS 117 QTC 394) - Radiology Data Radiology results: pending, report reviewed (X-ray tib-fib negative for air, ultrasound dated for acute disease interpreted by me), image reviewed Disposition Clinical Impression: Cellulitis, Left ankle pain, Chronic pain, Morbid obesity with BMI of 50.0- 59.9, adult, Left leg cellulitis, Leg ulcer, left Disposition: ADMITTED IP TO THIS HOSP Is patient prescribed a controlled substance at d/c from ED?: No Time of Disposition: 03:30
[2023-01-28 03:09] LABS: Basophils % (A) 0 %; Eosinophils # (A) 0.4 k/uL (0-0.7); Eosinophils % (A) 3 %; HGB 12.5 gm/dL (13.0-17.5); Lymphocytes # (A) 1.5 k/uL (1.0-4.8); Lymphocytes % (A) 14 %; MCH 28.6 pg (25.0-35.0); MCHC 33.6 g/dL (31.0-37.0); MCV 84.9 fL (80.0-100.0); Monocytes # (A) 0.7 k/uL (0-1.0); Monocytes % (A) 6 %; Neutrophils # (A) 7.8 k/uL (1.3-7.7); Neutrophils % (A) 73 %; Platelet Count 280 k/uL (150-450); RBC 4.36 m/uL (4.30-5.90); RDW 15.2 % (11.5-15.5); WBC 10.7 k/uL (3.8-10.6)
[2023-01-28 03:19] LABS: ALT 45 U/L (4-49); AST 57 U/L (17-59); African American GFR (CKD) 70 (>60 ml/min/1.73 sqM); Albumin 4.1 g/dL (3.5-5.0); Alkaline Phosphatase 153 U/L (38-126); Anion Gap 13 mmol/L; Blood Urea Nitrogen 21 mg/dL (9-20); Calcium 9.4 mg/dL (8.4-10.2); Carbon Dioxide 26 mmol/L (22-30); Chloride 98 mmol/L (98-107); Glucose 111 mg/dL (74-99); Magnesium 1.6 mg/dL (1.6-2.3); Non-African American GFR(CKD) 60 (>60 ml/min/1.73 sqM); Phosphorus 3.6 mg/dL (2.5-4.5); Potassium 3.6 mmol/L (3.5-5.1); Sodium 137 mmol/L (137-145); Total Bilirubin 1.4 mg/dL (0.2-1.3); Total Protein 8.6 g/dL (6.3-8.2)
[2023-01-28 03:20] LABS: Prothrombin Time 10.4 sec (9.0-12.0)
[2023-01-28 03:25] LABS: NT-Pro-B-Type Natriuretic Pept 420 pg/mL
[2023-01-28] MEDS ORDERED: ONDANSETRON 4 MG/2 ML VIAL IVP PRN (03:29)
[2023-01-28] MEDS ORDERED: NALOXONE 0.4 MG/ML 1 ML VIAL IV PRN (03:29)
[2023-01-28] MEDS ORDERED: VANCOMYCIN 2,500 MG in SODIUM CHLORIDE 0.9% 500 ML 500 ML IVPB ONE (03:30)
[2023-01-28 03:36] LABS: C Reactive Protein 20.5 mg/dL (<1.0)
[2023-01-28] MEDS: SODIUM CHLORIDE 0.9% 1,000 ML IV SCH (04:17)
--- NOTE | 2023-01-28 06:58 | XR ---
EXAMINATION TYPE: XR tibia fibula LT DATE OF EXAM: 01/28/2023 4:37 AM INDICATION: Patient age:Male; 57 years old; Reason for study: pain; PHH. COMPARISON: Left knee radiograph 08/10/2021 TECHNIQUE: The left tibia/fibula was examined in AP and lateral projections. FINDINGS: No evidence of fracture or dislocation. No osseous erosions. Tricompartmental joint space n arrowing with marginal osteophytosis involving the knee. Diffuse subcutaneous edema. Soft tissue calc ifications demonstrated. Small plantar calcaneal enthesophyte. Dorsal midfoot osteophytosis. IMPRESSION: 1. No evidence of acute fracture. No osseous erosions. 2. Moderate osteoarthritic changes of the knee. 3. Diffuse subcutaneous edema.
--- NOTE | 2023-01-28 08:23 | US ---
EXAMINATION TYPE: US venous doppler duplex LE LT DATE OF EXAM: 01/28/2023 8:15 AM COMPARISON: NONE CLINICAL INDICATION: Male, 57 years old with history of dvt; Left leg redness SIDE PERFORMED: Left TECHNIQUE: The lower extremity deep venous system is examined utilizing real time linear array sonog dayna with graded compression, doppler sonography and color-flow sonography. VESSELS IMAGED: Common Femoral Vein Deep Femoral Vein Greater Saphenous Vein * Femoral Vein Popliteal Vein Small Saphenous Vein * Proximal Calf Veins (* superficial vessels) Left Leg: Visualized portions appear negative for DVT/ left groin unable to be imaged- Left EIV, CFV , DFV, and GSV due to pt morbid obesity IMPRESSION: No visualized deep venous thrombosis of the left lower extremity however there is nonvisualization of the left EIV, CFV, DFV and GSV due to patient's body habitus.
[2023-01-28 10:44] VITALS: BMI 51.1
--- NOTE | 2023-01-28 11:28 | P.CRDCN ---
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 He has a history of hypertension, hyperlipidemia, morbid obesity, decreased mobility, glaucoma who has been a long-term resident of [facility] since having COVID- 19 last year. Began developing worsening left lower extremity edema last week and started on oral antibiotics for cellulitis on Sunday according to the patient. He was transferred to the ER for further evaluation due to worsening cellulitis. Ultrasound was negative for DVT. Labs on admission showed a white blood cell count 10,700, BUN 21, creatinine 1.32 ends and NT proBNP of 420. We were asked to see the patient in consultation for elevated troponins. Troponin was drawn times one and came back at 0.045. The patient denies any complaints of chest discomfort, shortness of breath, orthopnea or PND. He's had no palpitations, dizziness or lightheadedness. He's had no nausea, vomiting, hea rtburn or indigestion. EKG showed sinus mechanism with occasional PVCs and no evidence of acute ischemia. Past Medical History Past Medical History: Eye Disorder, Hyperlipidemia, Hypertension, Vascular Disorder Additional Past Medical History / Comment(s): Glaucoma, falls secondary to poor balance from poor proprioception from severe obesity arthritis especially that of the left knee (walker) , Severe osteoarthritis of the left knee , Morbid obesity BMI 49.3, Bilateral lower extremity venous stasis dermatitis, Intertriginous candidiasis, Essential hypertension. Amlodipine 5 mg a day History of Any Multi-Drug Resistant Organisms: None Reported Additional Past Surgical History / Comment(s): aldo stanley Past Anesthesia/Blood Transfusion Reactions: No Reported Reaction Past Psychological History: No Psychological Hx Reported, Depression Smoking Status: Never smoker Past Alcohol Use History: None Reported Past Drug Use History: None Reported Medications and Allergies Home Medications Medication Instructions Recorded Confirmed Type Cholecalciferol [Vitamin D3 (125 125 mcg PO DAILY 08/10/21 01/28/23 History Mcg = 5000 Iu)] Ferrous Sulfate [Iron] 325 mg PO DAILY 08/10/21 01/28/23 History amLODIPine [Norvasc] 5 mg PO DAILY 08/10/21 01/28/23 History Ascorbic Acid [Vitamin C] 1,000 mg PO DAILY tab 09/07/21 01/28/23 Rx Acetaminophen [Tylenol Arthritis] 650 mg PO Q6H 01/28/23 01/28/23 History Cephalexin [Keflex] 500 mg PO TID@0700,1300,1900 01/28/23 01/28/23 History Cranberry Fruit [Cranberry] 465 mg PO DAILY 01/28/23 01/28/23 History Menthol [Biofreeze] 1 applic TOPICAL HS 01/28/23 01/28/23 History Potassium Chloride ER [K-Dur 10] 10 meq PO DAILY 01/28/23 01/28/23 History hydroCHLOROthiazide [Hydrodiuril] 50 mg PO DAILY 01/28/23 01/28/23 History Allergies Allergy/AdvReac Type Severity Reaction Status Date / Time No Known Allergies Allergy Verified 01/28/23 10:41 Physical Exam Vitals: Vital Signs Temp Pulse Pulse Resp BP BP Pulse Ox 01/28/23 07:10 100 F H 81 21 126/64 94 L 01/28/23 05:46 99.6 F 87 17 117/67 95 01/28/23 05:00 99.9 F H 89 20 137/76 95 01/28/23 03:22 98.8 F 87 20 126/67 95 01/28/23 02:20 99 F 92 18 143/75 93 L Intake and Output 01/27/23 01/28/23 01/28/23 22:59 06:59 14:59 Output Total 150 Balance -150 Output: Urine 150 Other: Voiding Method Urinal # Voids 1 Weight 216.364 kg 216.364 kg PHYSICAL EXAMINATION: HEENT: Head is atraumatic, normocephalic. Pupils equal, round. Neck is supple. There is no elevated jugular venous pressure. HEART EXAMINATION: Heart sounds regular, S1 and S2 normal. No murmur or gallop heard. CHEST EXAMINATION: Lungs are clear to auscultation and precussion. No chest wall tenderness is noted on palpation or with deep breathing. ABDOMEN: Soft, obese, nontender. Bowel sounds are heard. No organomegaly noted. EXTREMITIES: 2+ peripheral pulses with evidence of 1-2+ left lower extremity edema with evidence of cellulitis, dressing to left foot and ankle intact . NEUROLOGIC patient is awake, alert and oriented x3. . Results 01/28/23 02:25 01/28/23 02:25 Cardiac Enzymes 01/28/23 01/28/23 Range/Units 02:25 02:25 AST 57 (17-59) U/L Troponin I 0.045 H* (0.000-0.034) ng/mL Coagulation 01/28/23 Range/Units 02:25 PT 10.4 (9.0-12.0) sec APTT 33.0 H (22.0-30.0) sec CBC 01/28/23 Range/Units 02:25 WBC 10.7 H (3.8-10.6) k/uL RBC 4.36 (4.30-5.90) m/uL Hgb 12.5 L (13.0-17.5) gm/dL Hct 37.0 L (39.0-53.0) % Plt Count 280 (150-450) k/uL Comprehensive Metabolic Panel 01/28/23 Range/Units 02:25 Sodium 137 (137-145) mmol/L Potassium 3.6 (3.5-5.1) mmol/L Chloride 98 (98-107) mmol/L Carbon Dioxide 26 (22-30) mmol/L BUN 21 H (9-20) mg/dL Creatinine 1.32 H (0.66-1.25) mg/dL Glucose 111 H (74-99) mg/dL Calcium 9.4 (8.4-10.2) mg/dL AST 57 (17-59) U/L ALT 45 (4-49) U/L Alkaline Phosphatase 153 H (38-126) U/L Total Protein 8.6 H (6.3-8.2) g/dL Albumin 4.1 (3.5-5.0) g/dL Current Medications Generic Name Dose Route Start Last Admin Trade Name Freq PRN Reason Stop Dose Admin Sodium Chloride 1,000 mls @ 20 mls/hr 01/28/23 03:30 01/28/23 04:17 Saline 0.9% IV 20 mls/hr .Q24H LUNA Administration Ceftriaxone Sodium 2 gm/ 50 mls @ 100 mls/hr 01/28/23 21:00 Sodium Chloride IVPB DAILY@2100 COUNT INCLUDES THE [facility] Protocol Vancomycin HCl 2,500 mg/ 500 mls @ 167 mls/hr 01/28/23 16:00 Sodium Chloride IVPB Q12H COUNT INCLUDES THE [facility] Morphine Sulfate 4 mg 01/28/23 03:29 Morphine Sulfate 4 Mg/Ml Syringe IV Q4HR PRN Severe Pain (Scale 7 to 10) Naloxone HCl 0.2 mg 01/28/23 03:29 Naloxone 0.4 Mg/Ml 1 Ml Vial IV Q2M PRN Opioid Reversal Ondansetron HCl 4 mg 01/28/23 03:29 Ondansetron 4 Mg/2 Ml Vial IVP Q8HR PRN Nausea And Vomiting Intake and Output 01/27/23 01/28/23 01/28/23 22:59 06:59 14:59 Output Total 150 Balance -150 Output: Urine 150 Other: Voiding Method Urinal # Voids 1 Weight 216.364 kg 216.364 kg Patient Weight 01/29/23 06:59 Weight 216.364 kg 01/28/23 02:25 01/28/23 02:25 Assessment and Plan Assessment: #1 left lower extremity cellulitis #2 abnormal troponin, minimally elevated with no symptoms of chest discomfort #3 hypertension #4 hyperlipidemia Plan: From cardiology's perspective the significance of the troponin elevation is unclear at this time due to only having one level. The patient has been asymptomatic. We will continue to trend troponins. Will obtain a 2-D echo with Doppler study to assess cardiac structure and function. We'll continue to follow the patient and provide further recommendations accordingly. 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 Patient was seen and examined.
--- NOTE | 2023-01-28 12:56 | P.HPIM ---
History of Present Illness H&P Date: 01/28/23 History of present illness; patient is a 57-year-old gentleman with past medical history significant for hypertension, obesity who presented to the ER because of left lower extremity swelling and pain that started 1 week back. Patient has been noticing that his left lower extremity has been getting swollen, he also noticed worsening redness associated with pain of left lower extremity. Patient was diagnosed with cellulitis and was placed on antibiotics but did not improve. Patient came to the ER. There was no complaint of fever or chills. No nausea, vomiting abdominal pain. No complaint of lethargy or weakness. Initial lab work done in the ER showed WBC 10.7, hemoglobin 12.5, platelet count 280, sodium 137, potassium 3.6, BUN 21, creatinine 1.32, glucose 111 troponin 0.045 CRP 20.5 EKG done in the ER showed no ST segment changes, no T-wave inversion noticeable, heart rate of 86 Duplex ultrasound of left lower extremity showed no DVT X-ray of left tibia and fibula showed no acute fractures Patient admitted for medicine service REVIEW OF SYSTEMS: CONSTITUTIONAL: No fever, no malaise, no fatigue. HEENT: No recent visual problems or hearing problems. Denied any sore throat. CARDIOVASCULAR: No chest pain, orthopnea, PND, no palpitations, no syncope. PULMONARY: No shortness of breath, no cough, no hemoptysis. GASTROINTESTINAL: No diarrhea, no nausea, no vomiting, no abdominal pain. NEUROLOGICAL: No headaches, no weakness, no numbness. HEMATOLOGICAL: Denies any bleeding or petechiae. GENITOURINARY: Denies any burning micturition, frequency, or urgency. MUSCULOSKELETAL/RHEUMATOLOGICAL: As mentioned above ENDOCRINE: Denies any polyuria or polydipsia. The rest of the 14-point review of systems is negative. PHYSICAL EXAMINATION: GENERAL: The patient is alert and oriented x3, not in any acute distress. Well developed, well nourished. HEENT: Pupils are round and equally reacting to light. EOMI. No scleral icterus. No conjunctival pallor. Normocephalic, atraumatic. No pharyngeal erythema. No thyromegaly. CARDIOVASCULAR: S1 and S2 present. No murmurs, rubs, or gallops. PULMONARY: Chest is clear to auscultation, no wheezing or crackles. ABDOMEN: Soft, nontender, nondistended, normoactive bowel sounds. No palpable organomegaly. MUSCULOSKELETAL: No joint swelling or deformity. EXTREMITIES: Left lower extremity erythema involving the calf, tenderness noticeable NEUROLOGICAL: Gross neurological examination did not reveal any focal deficits. SKIN: No rashes. Assessment and plan Left lower extremity cellulitis Elevated troponin Hypertension Monitor vital signs Monitor CBC Monitor CMP Continue telemetry monitoring Trend troponins. Ordered 2-D echo continue IV Rocephin and vancomycin consult ID Consult cardiology Labs and medication were reviewed.. Continue same treatment. Continue with symptomatic treatment. Resume home medication. Monitor labs and vitals. DVT and GI prophylaxis. Further recommendations as per clinical course of the patient Dictation was produced using [employer] dictation software. please excuse any grammatical, word or spelling errors. Past Medical History Past Medical History: Eye Disorder, Hyperlipidemia, Hypertension, Vascular Dis order Additional Past Medical History / Comment(s): Glaucoma, falls secondary to poor balance from poor proprioception from severe obesity arthritis especially that of the left knee (walker) , Severe osteoarthritis of the left knee , Morbid obesity BMI 49.3, Bilateral lower extremity venous stasis dermatitis, Intertriginous candidiasis, Essential hypertension. Amlodipine 5 mg a day History of Any Multi-Drug Resistant Organisms: None Reported Additional Past Surgical History / Comment(s): lasezra bilmaria victoria Past Anesthesia/Blood Transfusion Reactions: No Reported Reaction Past Psychological History: No Psychological Hx Reported, Depression Smoking Status: Never smoker Past Alcohol Use History: None Reported Past Drug Use History: None Reported Medications and Allergies Home Medications Medication Instructions Recorded Confirmed Type Cholecalciferol [Vitamin D3 (125 125 mcg PO DAILY 08/10/21 01/28/23 History Mcg = 5000 Iu)] Ferrous Sulfate [Iron] 325 mg PO DAILY 08/10/21 01/28/23 History amLODIPine [Norvasc] 5 mg PO DAILY 08/10/21 01/28/23 History Ascorbic Acid [Vitamin C] 1,000 mg PO DAILY tab 09/07/21 01/28/23 Rx Acetaminophen [Tylenol Arthritis] 650 mg PO Q6H 01/28/23 01/28/23 History Cephalexin [Keflex] 500 mg PO TID@0700,1300,1900 01/28/23 01/28/23 History Cranberry Fruit [Cranberry] 465 mg PO DAILY 01/28/23 01/28/23 History Menthol [Biofreeze] 1 applic TOPICAL HS 01/28/23 01/28/23 History Potassium Chloride ER [K-Dur 10] 10 meq PO DAILY 01/28/23 01/28/23 History hydroCHLOROthiazide [Hydrodiuril] 50 mg PO DAILY 01/28/23 01/28/23 History Allergies Allergy/AdvReac Type Severity Reaction Status Date / Time No Known Allergies Allergy Verified 01/28/23 10:41 Physical Exam Vitals: Vital Signs Temp Pulse Pulse Resp BP BP Pulse Ox 01/28/23 07:10 100 F H 81 21 126/64 94 L 01/28/23 05:46 99.6 F 87 17 117/67 95 01/28/23 05:00 99.9 F H 89 20 137/76 95 01/28/23 03:22 98.8 F 87 20 126/67 95 01/28/23 02:20 99 F 92 18 143/75 93 L Intake and Output 01/27/23 01/28/23 01/28/23 22:59 06:59 14:59 Output Total 150 Balance -150 Output: Urine 150 Other: Voiding Method Urinal # Voids 1 Weight 216.364 kg Results CBC & Chem 7: 01/28/23 02:25 01/28/23 02:25 Labs: Abnormal Lab Results - Last 24 Hours (Table) 01/28/23 01/28/23 01/28/23 Range/Units 02:25 02:25 02:25 WBC 10.7 H (3.8-10.6) k/uL Hgb 12.5 L (13.0-17.5) gm/dL Hct 37.0 L (39.0-53.0) % Neutrophils # 7.8 H (1.3-7.7) k/uL APTT 33.0 H (22.0-30.0) sec BUN 21 H (9-20) mg/dL Creatinine 1.32 H (0.66-1.25) mg/dL Glucose 111 H (74-99) mg/dL Total Bilirubin 1.4 H (0.2-1.3) mg/dL Alkaline Phosphatase 153 H (38-126) U/L Troponin I (0.000-0.034) ng/mL C-Reactive Protein 20.5 H (<1.0) mg/dL Total Protein 8.6 H (6.3-8.2) g/dL 01/28/23 Range/Units 02:25 WBC (3.8-10.6) k/uL Hgb (13.0-17.5) gm/dL Hct (39.0-53.0) % Neutrophils # (1.3-7.7) k/uL APTT (22.0-30.0) sec BUN (9-20) mg/dL Creatinine (0.66-1.25) mg/dL Glucose (74-99) mg/dL Total Bilirubin (0.2-1.3) mg/dL Alkaline Phosphatase (38-126) U/L Troponin I 0.045 H* (0.000-0.034) ng/mL C-Reactive Protein (<1.0) mg/dL Total Protein (6.3-8.2) g/dL Thrombosis Risk Factor Assmnt - Choose All That Apply Any of the Below Risk Factors Present?: Yes Each Factor Represents 1 point: Age 41-60 years, Obesity (BMI >25), Swollen legs (current) Other Risk Factors: No Other congenital or acquired thrombophilia - If yes, enter type in comment: No Thrombosis Risk Factor Assessment Total Risk Factor Score: 3 Thrombosis Risk Factor Assessment Level: Moderate Risk
[2023-01-28] MEDS: ACETAMINOPHEN TAB 325 MG TAB PO SCH ×3 (14:22→23:05)
[2023-01-28] MEDS ORDERED: VANCOMYCIN 2,500 MG in SODIUM CHLORIDE 0.9% 500 ML 500 ML IVPB SCH (16:00)
[2023-01-28] MEDS: ceFAZolin 3 GM in SODIUM CHLORIDE 0.9% 100 ML IVPB SCH ×2 (16:01→23:06)
[2023-01-28] MEDS: NYSTATIN 100,000 UNIT/GM POWD 15 GM TOPICAL SCH (20:37)
[2023-01-28] MEDS ORDERED: NON FORMULARY DRUG (Menthol [Biofreeze] 89 ML Gel..Ml.) TOPICAL SCH (21:00)
[2023-01-29] MEDS: ACETAMINOPHEN TAB 325 MG TAB PO SCH ×4 (06:23→23:02)
[2023-01-29] MEDS: SODIUM CHLORIDE 0.9% 1,000 ML IV SCH (06:24)
[2023-01-29 07:55] LABS: Chol/HDL Ratio 4.84 Ratio; LDL Cholesterol,Calculated 98.3 mg/dL (0.0-131.0)
[2023-01-29] MEDS ORDERED: NON FORMULARY DRUG (Cranberry Fruit [Cranberry] 465 MG Capsule) PO SCH (09:00)
[2023-01-29] MEDS: ceFAZolin 3 GM in SODIUM CHLORIDE 0.9% 100 ML IVPB SCH ×3 (09:08→23:04)
[2023-01-29] MEDS: FERROUS SULFATE 325 MG TAB PO SCH (09:08)
[2023-01-29] MEDS: amLODIPine 5 MG TAB PO SCH (09:09)
[2023-01-29] MEDS: CHOLECALCIFEROL 125 MCG (5000 IU) TABLET PO SCH (09:09)
[2023-01-29] MEDS: POTASSIUM CHLORIDE ER 10 MEQ TAB.ER.PRT PO SCH (09:09)
[2023-01-29] MEDS: ASPIRIN 81 MG PO SCH (09:09)
[2023-01-29] MEDS: NYSTATIN 100,000 UNIT/GM POWD 15 GM TOPICAL SCH ×2 (09:11→20:38)
--- NOTE | 2023-01-29 10:35 | P.CONS ---
History of Present Illness - Reason for Consult Consult date: 01/28/23 - History of Present Illness Patient is a 57-year-old male with a past medical history difficult for hypertension hyperlipidemia history of recurrent fall ,morbid obesity did have a previous episode of left lower extremity cellulitis currently a long-term resident of local care home presenting to the hospital for evaluation of worsening swelling redness to the left lower extremity that apparently has been getting worse over the last 3 to 4 days patient has been complaining of fever with chills and did have increasing swelling redness of her left lower extremity did have some throbbing pain intensity 7-8 out of 10 without radiation denies having any drainage patient did have extensive athlete's foot and did have some foul-smelling drainage from it and more on the dorsum aspect of the left foot but no purulent drainage patient on presentation to the hospital did have a low- grade fever of 99.9 and did have a temperature of 100 F this morning patient did have a white count of 10.7 with a left shift troponins are elevated creatinine is 1.32 patient was started on ceftriaxone and vancomycin infectious disease was consulted for further management of antibiotic therapy patient did have a venous Doppler study that was negative for DVT x-ray negative for any bony changes Past Medical History Past Medical History: Eye Disorder, Hyperlipidemia, Hypertension, Vascular Disorder Additional Past Medical History / Comment(s): Glaucoma, falls secondary to poor balance from poor proprioception from severe obesity arthritis especially t hat of the left knee (walker) , Severe osteoarthritis of the left knee , Morbid obesity BMI 49.3, Bilateral lower extremity venous stasis dermatitis, Intertriginous candidiasis, Essential hypertension. Amlodipine 5 mg a day History of Any Multi-Drug Resistant Organisms: None Reported Additional Past Surgical History / Comment(s): aldo stanley Past Anesthesia/Blood Transfusion Reactions: No Reported Reaction Past Psychological History: No Psychological Hx Reported, Depression Smoking Status: Never smoker Past Alcohol Use History: None Reported Past Drug Use History: None Reported Medications and Allergies Home Medications Medication Instructions Recorded Confirmed Type Cholecalciferol [Vitamin D3 (125 125 mcg PO DAILY 08/10/21 01/28/23 History Mcg = 5000 Iu)] Ferrous Sulfate [Iron] 325 mg PO DAILY 08/10/21 01/28/23 History amLODIPine [Norvasc] 5 mg PO DAILY 08/10/21 01/28/23 History Ascorbic Acid [Vitamin C] 1,000 mg PO DAILY tab 09/07/21 01/28/23 Rx Acetaminophen [Tylenol Arthritis] 650 mg PO Q6H 01/28/23 01/28/23 History Cephalexin [Keflex] 500 mg PO TID@0700,1300,1900 01/28/23 01/28/23 History Cranberry Fruit [Cranberry] 465 mg PO DAILY 01/28/23 01/28/23 History Menthol [Biofreeze] 1 applic TOPICAL HS 01/28/23 01/28/23 History Potassium Chloride ER [K-Dur 10] 10 meq PO DAILY 01/28/23 01/28/23 History hydroCHLOROthiazide [Hydrodiuril] 50 mg PO DAILY 01/28/23 01/28/23 History Allergies Allergy/AdvReac Type Severity Reaction Status Date / Time No Known Allergies Allergy Verified 01/28/23 10:41 Physical Exam Vitals: Vital Signs Temp Pulse Pulse Resp BP BP Pulse Ox 01/28/23 07:10 100 F H 81 21 126/64 94 L 01/28/23 05:46 99.6 F 87 17 117/67 95 01/28/23 05:00 99.9 F H 89 20 137/76 95 01/28/23 03:22 98.8 F 87 20 126/67 95 01/28/23 02:20 99 F 92 18 143/75 93 L Intake and Output 01/27/23 01/28/23 01/28/23 22:59 06:59 14:59 Output Total 150 Balance -150 Output: Urine 150 Other: Voiding Method Urinal # Voids 1 Weight 216.364 kg 216.364 kg Results CBC & Chem 7: 01/29/23 13:12 01/29/23 13:12 Labs: Abnormal Lab Results - Last 24 Hours (Table) 01/28/23 01/28/23 01/28/23 Range/Units 02:25 02:25 02:25 WBC 10.7 H (3.8-10.6) k/uL Hgb 12.5 L (13.0-17.5) gm/dL Hct 37.0 L (39.0-53.0) % Neutrophils # 7.8 H (1.3-7.7) k/uL APTT 33.0 H (22.0-30.0) sec D-Dimer (<0.60) mg/L FEU BUN 21 H (9-20) mg/dL Creatinine 1.32 H (0.66-1.25) mg/dL Glucose 111 H (74-99) mg/dL Total Bilirubin 1.4 H (0.2-1.3) mg/dL Alkaline Phosphatase 153 H (38-126) U/L Troponin I (0.000-0.034) ng/mL C-Reactive Protein 20.5 H (<1.0) mg/dL Total Protein 8.6 H (6.3-8.2) g/dL 01/28/23 01/28/23 01/28/23 Range/Units 02:25 11:42 11:42 WBC (3.8-10.6) k/uL Hgb (13.0-17.5) gm/dL Hct (39.0-53.0) % Neutrophils # (1.3-7.7) k/uL APTT (22.0-30.0) sec D-Dimer 0.72 H (<0.60) mg/L FEU BUN (9-20) mg/dL Creatinine (0.66-1.25) mg/dL Glucose (74-99) mg/dL Total Bilirubin (0.2-1.3) mg/dL Alkaline Phosphatase (38-126) U/L Troponin I 0.045 H* 0.154 H* (0.000-0.034) ng/mL C-Reactive Protein (<1.0) mg/dL Total Protein (6.3-8.2) g/dL Assessment and Plan Plan: 1patient presented hospital with extensive left lower extremity cellulitis in this patient also have evidence of extensive athlete's foot likely streptococcal disease clinically doubt MRSA or gram-negative infection 2patient also have a left foot dorsal ulceration could be the entry point for the cellulitis but more likely from his athlete's foot. 3borderline kidney function high risk of nephrotoxicity from vancomycin. 4we will discontinue vancomycin and Rocephin. 5start the patient on cefazolin 3 g every 8 hour along with nystatin powder in between the toes local wound care to the left foot with a dry Aquacel silver dressing We will follow on clinical condition and cultures to further adjust medication if needed Thank you for this consultation we will follow the patient along with you Dictation was produced using [employer] dictation software. please excuse any grammatical, word or spelling errors. Time with Patient: Greater than 30
--- NOTE | 2023-01-29 11:06 | CT ---
EXAMINATION TYPE: CT chest angio for PE CT DLP: 1452.8 mGycm, Automated exposure control for dose reduction was used. DATE OF EXAM: 01/29/2023 10:56 AM COMPARISON: Chest radiograph 09/07/2021. CLINICAL INDICATION:Male, 57 years old with history of Dyspnea; Left lower leg cellulitis, dyspnea TECHNIQUE/CONTRAST: CTA scan of the thorax is performed with IV Contrast, patient injected with 100 mL of Isovue 370, MIP images are created and reviewed these are created on a separate workstation.. FINDINGS: Limited exam due to bolus timing. Pulmonary Artery: Nondiagnostic exam secondary to bolus timing. Lungs/Pleura: No evidence of focal consolidation, pleural effusion or pneumothorax. Airway: Large airways are patent. Heart: Heart is within normal limits for size. Vasculature: No evidence of aortic aneurysm. Mediastinum: No gross evidence of adenopathy. Musculoskeletal: Remote left posterior rib 11 fracture. Callus formation. The left chest wall and not all in the [id number] on the evaluation of a few of the ribs. Soft Tissues: Unremarkable. Lower neck: No significant findings. Upper Abdomen: Gallstones are seen in the gallbladder lumen. Diffuse low-attenuation to the liver par enchyma. IMPRESSION: 1. Nondiagnostic exam for PE due to bolus timing. No acute thoracic process. 2. Cholelithiasis. 3. Hepatic steatosis.
--- NOTE | 2023-01-29 12:58 | P.PN ---
Subjective Progress Note Date: 01/29/23 PROGRESS NOTE The patient is a 57-year-old male, morbidly obese with a history of hypertension hyperlipidemia was limited physical activity who was admitted with worsening cellulitis with mild troponin elevation. He's feeling well this morning, he denies any chest discomfort, dizziness or palpitations. He denies any nausea or vomiting. His troponin is 0.145. Medications: Hydrochlorothiazide 50 mg daily, potassium, aspirin, amlodipine 5 mg daily, vancomycin PHYSICAL EXAMINATION: Blood pressure 112/50 heart rate 70, temperature 100.1, morbidly obese LUNGS: Clear to auscultation HEART: Regular rate and rhythm, S1, S2. No S3. No systolic murmur ABDOMEN: Soft, nontender, no organomegaly EXTREMETIES: Severe erythema with swelling of the left lower extremity, 2+ edema LAB: Troponin 0.290, 0.198, 0.145 IMPRESSION: 1. Cellulitis of the left lower extremity 2. Troponin elevation most likely type II event related to the infection, no evidence of acute coronary syndrome 3. Morbid obesity 4. History of hypertension PLAN: 1. Follow her renal functions 2. Obtain an echocardiogram with Doppler 3. Treatment of cellulitis per infectious disease 4. Depending on his progress further recommendations will be made Objective - Vital Signs Vital signs: Vital Signs Temp 100.1 F H 01/29/23 07:04 Pulse 77 01/29/23 08:00 Resp 18 01/29/23 08:00 BP 112/52 01/29/23 07:04 Pulse Ox 94 L 01/29/23 07:04 FiO2 Intake & Output 01/28/23 01/29/23 01/29/23 18:59 06:59 18:59 Intake Total 1060 Output Total 1475 970 700 Balance -415 -970 -700 Weight 216.364 kg Intake: Intake, IV Titration 100 Amount ceFAZolin 3 gm In Sodium 100 Chloride 0.9% 100 ml @ 200 mls/hr IVPB Q8HR [facility] Rx#:[id number] Oral 960 Output: Urine 1475 970 700 Other: Voiding Method Urinal Urinal - Labs CBC & Chem 7: 01/28/23 02:25 01/28/23 02:25 Labs: Abnormal Lab Results - Last 24 Hours (Table) 01/28/23 01/28/23 01/28/23 Range/Units 11:42 14:15 14:15 Troponin I 0.154 H* 0.280 H* (0.000-0.034) ng/mL Triglycerides 159.00 H (0.00-149.00) mg/dL HDL Cholesterol 33.90 L (40.00-60.00) mg/dL 01/28/23 01/28/23 01/28/23 Range/Units 17:09 19:52 23:02 Troponin I 0.290 H* 0.198 H* 0.145 H* (0.000-0.034) ng/mL Triglycerides (0.00-149.00) mg/dL HDL Cholesterol (40.00-60.00) mg/dL
--- NOTE | 2023-01-29 13:34 | P.PN ---
Subjective Progress Note Date: 01/29/23 patient is a 57-year-old gentleman with past medical history significant for hypertension, obesity who presented to the ER because of left lower extremity swelling and pain that started 1 week back. Patient has been noticing that his left lower extremity has been getting swollen, he also noticed worsening redness associated with pain of left lower extremity. Patient was diagnosed with cellulitis and was placed on antibiotics but did not improve. Patient came to the ER. There was no complaint of fever or chills. No nausea, vomiting abdominal pain. No complaint of lethargy or weakness. Initial lab work done in the ER showed WBC 10.7, hemoglobin 12.5, platelet count 280, sodium 137, potassium 3.6, BUN 21, creatinine 1.32, glucose 111 troponin 0.045 CRP 20.5 EKG done in the ER showed no ST segment changes, no T-wave inversion noticeable, heart rate of 86 Duplex ultrasound of left lower extremity showed no DVT X-ray of left tibia and fibula showed no acute fractures Patient admitted for medicine service 01/29. Patient seen and examined. Still has redness of left lower extremity. REVIEW OF SYSTEMS: CONSTITUTIONAL: No fever, no malaise,. CARDIOVASCULAR: No chest pain, no palpitations, no syncope. PULMONARY: No shortness of breath, no cough, GASTROINTESTINAL: No diarrhea, no nausea, no vomiting, no abdominal pain. NEUROLOGICAL: No headaches, no weakness, PHYSICAL EXAMINATION: GENERAL: The patient is alert and oriented x3, not in any acute distress. Well developed, well nourished. HEENT: Pupils are round and equally reacting to light. EOMI. No scleral icterus. No conjunctival pallor. Normocephalic, atraumatic. No pharyngeal erythema. No thyromegaly. CARDIOVASCULAR: S1 and S2 present. No murmurs, rubs, or gallops. PULMONARY: Chest is clear to auscultation, no wheezing or crackles. ABDOMEN: Soft, nontender, nondistended, normoactive bowel sounds. No palpable organomegaly. MUSCULOSKELETAL: Erythema of left lower extremity involving the calf area EXTREMITIES: No cyanosis, clubbing, or pedal edema. NEUROLOGICAL: Gross neurological examination did not reveal any focal deficits. SKIN: No rashes. Assessment and plan Left lower extremity cellulitis Elevated troponin Hypertension Monitor vital signs Monitor CBC Monitor CMP Continue telemetry monitoring Trend troponins. Blood cultures ordered Ordered 2-D echo Ordered d-dimer which was elevated, will order CT chest with contrast to rule out PE Continue IV cefazolin ID following Cardiology following Labs and medication were reviewed.. Continue same treatment. Continue with symptomatic treatment. Resume home medication. Monitor labs and vitals. DVT and GI prophylaxis. Further recommendations as per clinical course of the patient Dictation was produced using [employer] dictation software. please excuse any grammatical, word or spelling errors. Objective - Vital Signs Vital signs: Vital Signs Temp 100.1 F H 01/29/23 07:04 Pulse 77 01/29/23 08:00 Resp 18 01/29/23 08:00 BP 112/52 01/29/23 07:04 Pulse Ox 94 L 01/29/23 07:04 FiO2 Intake & Output 01/28/23 01/29/23 01/29/23 18:59 06:59 18:59 Intake Total 1060 Output Total 1475 970 700 Balance -415 -970 -700 Weight 216.364 kg Intake: Intake, IV Titration 100 Amount ceFAZolin 3 gm In Sodium 100 Chloride 0.9% 100 ml @ 200 mls/hr IVPB Q8HR [facility] Rx#:[id number] Oral 960 Output: Urine 1475 970 700 Other: Voiding Method Urinal Urinal - Labs CBC & Chem 7: 01/28/23 02:25 01/28/23 02:25 Labs: Abnormal Lab Results - Last 24 Hours (Table) 01/28/23 01/28/23 01/28/23 Range/Units 14:15 14:15 17:09 Troponin I 0.280 H* 0.290 H* (0.000-0.034) ng/mL Triglycerides 159.00 H (0.00-149.00) mg/dL HDL Cholesterol 33.90 L (40.00-60.00) mg/dL 01/28/23 01/28/23 Range/Units 19:52 23:02 Troponin I 0.198 H* 0.145 H* (0.000-0.034) ng/mL Triglycerides (0.00-149.00) mg/dL HDL Cholesterol (40.00-60.00) mg/dL
[2023-01-29 13:53] LABS: Basophils % (A) 0 %; Eosinophils # (A) 0.3 k/uL (0-0.7); Eosinophils % (A) 4 %; HCT 34.2 % (39.0-53.0); HGB 11.1 gm/dL (13.0-17.5); Lymphocytes # (A) 1.2 k/uL (1.0-4.8); Lymphocytes % (A) 14 %; MCH 28.2 pg (25.0-35.0); MCHC 32.5 g/dL (31.0-37.0); MCV 86.9 fL (80.0-100.0); Mean Platelet Volume 8.2; Monocytes # (A) 0.6 k/uL (0-1.0); Monocytes % (A) 7 %; Neutrophils # (A) 6.5 k/uL (1.3-7.7); Neutrophils % (A) 73 %; Platelet Count 226 k/uL (150-450); RBC 3.94 m/uL (4.30-5.90); RDW 15.3 % (11.5-15.5); WBC 8.9 k/uL (3.8-10.6)
[2023-01-29 14:07] LABS: ALT 34 U/L (4-49); AST 56 U/L (17-59); African American GFR (CKD) >90 (>60 ml/min/1.73 sqM); Albumin 3.6 g/dL (3.5-5.0); Albumin/Globulin Ratio 0.9; Alkaline Phosphatase 131 U/L (38-126); Anion Gap 8 mmol/L; Blood Urea Nitrogen 17 mg/dL (9-20); Carbon Dioxide 30 mmol/L (22-30); Chloride 99 mmol/L (98-107); Globulin 4.1 g/dL; Glucose 119 mg/dL (74-99); Non-African American GFR(CKD) 81 (>60 ml/min/1.73 sqM); Potassium 3.8 mmol/L (3.5-5.1); Sodium 137 mmol/L (137-145); Total Bilirubin 1.3 mg/dL (0.2-1.3); Total Protein 7.7 g/dL (6.3-8.2)
--- NOTE | 2023-01-29 17:11 | P.PN ---
Subjective Progress Note Date: 01/29/23 Principal diagnosis: Left lower extremity cellulitis Patient is a 57-year-old male with a past medical history difficult for hypertension hyperlipidemia history of recurrent fall ,morbid obesity did have a previous episode of left lower extremity cellulitis currently a long-term resident of local snf presenting to the hospital for evaluation of worsening swelling redness to the left lower extremity On today's evaluation that is 01/29/2023, patient did have low-grade fever 100.1 this morning, the patient is breathing comfortably on vomiting denies any chest pain shortness of breath or cough no nausea no vomiting no abdominal pain or any worsening pain to the left lower extremity The patient white count is down to 8.9, creatinine 1.03 Objective - Vital Signs Vital signs: Vital Signs Temp 98.4 F 01/29/23 15:05 Pulse 68 01/29/23 15:05 Resp 18 01/29/23 15:05 BP 119/60 01/29/23 15:05 Pulse Ox 96 01/29/23 15:05 FiO2 Intake & Output 01/28/23 01/29/23 01/29/23 18:59 06:59 18:59 Intake Total 1060 Output Total 2159 916 4662 Balance -415 -970 -1000 Weight 216.364 kg Intake: Intake, IV Titration 100 Amount ceFAZolin 3 gm In Sodium 100 Chloride 0.9% 100 ml @ 200 mls/hr IVPB Q8HR [facility] Rx#:[id number] Oral 960 Output: Urine 1020 194 2270 Other: Voiding Method Urinal Urinal - Exam GENERAL DESCRIPTION: Middle-age male lying in bed in no distress RESPIRATORY SYSTEM: Unlabored breathing , decreased breath sounds at bases HEART: S1 S2 regular rate and rhythm , ABDOMEN: Soft , no tenderness EXTREMITIES: Left lower extremity swelling and redness mildly decreased still have extensive swelling and redness - Labs CBC & Chem 7: 01/29/23 13:12 01/29/23 13:12 Labs: Abnormal Lab Results - Last 24 Hours (Table) 01/28/23 01/28/23 01/28/23 Range/Units 14:15 17:09 19:52 RBC (4.30-5.90) m/uL Hgb (13.0-17.5) gm/dL Hct (39.0-53.0) % Glucose (74-99) mg/dL Alkaline Phosphatase (38-126) U/L Troponin I 0.290 H* 0.198 H* (0.000-0.034) ng/mL Triglycerides 159.00 H (0.00-149.00) mg/dL HDL Cholesterol 33.90 L (40.00-60.00) mg/dL 01/28/23 01/29/23 01/29/23 Range/Units 23:02 13:12 13:12 RBC 3.94 L (4.30-5.90) m/uL Hgb 11.1 L (13.0-17.5) gm/dL Hct 34.2 L (39.0-53.0) % Glucose 119 H (74-99) mg/dL Alkaline Phosphatase 131 H (38-126) U/L Troponin I 0.145 H* (0.000-0.034) ng/mL Triglycerides (0.00-149.00) mg/dL HDL Cholesterol (40.00-60.00) mg/dL Assessment and Plan (1) Left leg cellulitis Current Visit: Yes Status: Acute Code(s): L03.116 - CELLULITIS OF LEFT LOWER LIMB SNOMED Code(s): 273575509 Plan: 1patient presented hospital with extensive left lower extremity cellulitis in this patient also have evidence of extensive athlete's foot likely streptococcal disease clinically doubt MRSA or gram-negative infection 2patient also have a left foot dorsal ulceration could be the entry point for the cellulitis but more likely from his athlete's foot. 3borderline kidney function high risk of nephrotoxicity from vancomycin. 4patient to continue with cefazolin 3 g every 8 hour along with nystatin powder in between the toes local wound care to the left foot with a dry Aquacel silver dressing Dictation was produced using [employer] dictation software. please excuse any grammatical, word or spelling errors. Time with Patient: Less than 30
[2023-01-30] MEDS: SODIUM CHLORIDE 0.9% 1,000 ML IV SCH (03:31)
[2023-01-30] MEDS: ACETAMINOPHEN TAB 325 MG TAB PO SCH ×4 (05:42→23:03)
[2023-01-30 07:43] LABS: ALT 29 U/L (4-49); AST 50 U/L (17-59); African American GFR (CKD) >90 (>60 ml/min/1.73 sqM); Albumin 3.6 g/dL (3.5-5.0); Albumin/Globulin Ratio 0.9; Alkaline Phosphatase 145 U/L (38-126); Anion Gap 7 mmol/L; Blood Urea Nitrogen 14 mg/dL (9-20); Calcium 9.1 mg/dL (8.4-10.2); Carbon Dioxide 31 mmol/L (22-30); Chloride 98 mmol/L (98-107); Globulin 3.9 g/dL; Glucose 104 mg/dL (74-99); Non-African American GFR(CKD) 79 (>60 ml/min/1.73 sqM); Potassium 3.4 mmol/L (3.5-5.1); Sodium 136 mmol/L (137-145); Total Bilirubin 1.3 mg/dL (0.2-1.3); Total Protein 7.5 g/dL (6.3-8.2)
[2023-01-30] MEDS: NYSTATIN 100,000 UNIT/GM POWD 15 GM TOPICAL SCH ×2 (10:30→23:11)
[2023-01-30 11:25] LABS: HCT 33.4 % (39.6-50.0); HGB 10.8 d/dL (13.0-17.0); MCH 28.1 pg (27.0-32.0); MCHC 32.3 d/dL (32.0-37.0); Mean Platelet Volume 10.6 FL (9.5-12.2); NRBC Per 100 WBC 0 X 10*3/uL (0.00-0.01); Platelet Count 264 X 10*3/uL (140-440); RBC 3.84 X 10*6/uL (4.40-5.60); RDW 15.4 % (11.5-14.5); WBC 11.59 X 10*3/uL (4.50-10.00)
--- NOTE | 2023-01-30 12:01 | CA ---
Transthoracic Echo Report Name: Danny Dickson Age: 57 Gender: M : 1965 Exam Date: 01/30/2023 09:01 Exam Location: [place] [facility] Ht (in): 81 Wt (lb): 477 Ordering Physician: Samara Quiñonez MD ([id number]) Attending/Referring Phys: [employer] Sarah Villagomez [facility] Procedure CPT: Indications: [place] Cardiac Hx: Technical Quality: Very technically difficult study Contrast 1: Lumason Total Dose (mL): 5 Contrast 2: Total Dose (mL): MEASUREMENTS (Male / Female) Normal Values 2D ECHO LV Diastolic Diameter PLAX 6.2 cm 4.2 - 5.9 / 3.9 - 5.3 cm LV Systolic Diameter PLAX 5.1 cm IVS Diastolic Thickness 1.1 cm 0.6 - 1.0 / 0.6 - 0.9 cm LVPW Diastolic Thickness 1.2 cm 0.6 - 1.0 / 0.6 - 0.9 cm LV Relative Wall Thickness 0.4 Ascending Aorta Diameter 3.8 cm M-MODE Aortic Root Diameter MM 3.8 cm LA Systolic Diameter MM 4.3 cm LA Ao Ratio MM 1.1 AV Cusp Separation MM 3.0 cm DOPPLER AV Peak Velocity 116.3 cm/s AV Peak Gradient 5.4 mmHg AV Mean Velocity 88.4 cm/s AV Mean Gradient 3.3 mmHg AV Velocity Time Integral 21.2 cm LVOT Peak Velocity 96.2 cm/s LVOT Peak Gradient 3.7 mmHg LVOT Velocity Time Integral 20.9 cm Mitral E Point Velocity 82.1 cm/s Mitral A Point Velocity 66.3 cm/s Mitral E to A Ratio 1.2 MV Deceleration Time 237.9 ms LV E' Lateral Velocity 10.7 cm/s Mitral E to LV E' Lateral Ratio 7.7 LV E' Septal Velocity 10.2 cm/s Mitral E to LV E' Septal Ratio 8.1 Right Atrial Pressure 8.0 mmHg FINDINGS Left Ventricle Moderate LVH. Low normal left ventricular systolic function. Left ventricular ejection fraction is estimated at 50-55%. Probable inferolateral wall hypokinesia. Right Ventricle Right ventricle not well visualized. Right Atrium Right atrium not well visualized. Left Atrium Left atrium not well visualized. Mitral Valve Mitral valve not well visualized. Aortic Valve Trileaflet aortic valve. No aortic regurgitation. Tricuspid Valve Tricuspid valve not well visualized. Pulmonic Valve Pulmonic valve not well visualized. Pericardium No pericardial effusion. Aorta Aorta at upper limits of normal. CONCLUSIONS Very technically difficult study. Limited study Normal global LV systolic function with EF estimated at 50-55% Probable inferolateral wall hypokinesia however the sensitivity and specificity is limited due to poor quality. Please correlate clinically Moderate concentric LVH Previewed by: Dr Axel Baker (Electronically Signed) Final Date: 30 January 2023 12:00
[2023-01-30] MEDS: MORPHINE SULFATE 4 MG/ML SYRINGE IV PRN ×2 (12:25→16:46)
[2023-01-30] MEDS: ceFAZolin 3 GM in SODIUM CHLORIDE 0.9% 100 ML IVPB SCH ×3 (13:14→23:04)
[2023-01-30] MEDS: POTASSIUM CHLORIDE ER 10 MEQ TAB.ER.PRT PO SCH (13:22)
[2023-01-30] MEDS: amLODIPine 5 MG TAB PO SCH (13:22)
[2023-01-30] MEDS: FERROUS SULFATE 325 MG TAB PO SCH (13:22)
[2023-01-30] MEDS: ASPIRIN 81 MG PO SCH (13:23)
[2023-01-30] MEDS: CHOLECALCIFEROL 125 MCG (5000 IU) TABLET PO SCH (13:24)
--- NOTE | 2023-01-30 22:28 | P.PN ---
Progress Note - Text Progress Note Date: 01/30/23 Hospital course patient is a 57-year-old gentleman with past medical history significant for hypertension, obesity who presented to the ER because of left lower extremity swelling and pain that started 1 week back. Patient has been noticing that his left lower extremity has been getting swollen, he also noticed worsening redness associated with pain of left lower extremity. Patient was diagnosed with cellulitis and was placed on antibiotics but did not improve. Patient came to the ER. There was no complaint of fever or chills. No nausea, vomiting abdominal pain. No complaint of lethargy or weakness. Initial lab work done in the ER showed WBC 10.7, hemoglobin 12.5, platelet count 280, sodium 137, potassium 3.6, BUN 21, creatinine 1.32, glucose 111 troponin 0.045 CRP 20.5 EKG done in the ER showed no ST segment changes, no T-wave inversion noticeable, heart rate of 86 Duplex ultrasound of left lower extremity showed no DVT X-ray of left tibia and fibula showed no acute fractures Patient admitted for medicine service 01/29. Patient seen and examined. Still has redness of left lower extremity. January 30: I assumed care of the patient today. Operative candidate. Left leg and Ghanshyam wrap and dressing. Some pain. She is blind in the right eye. At her baseline does use a walker. Eating well. On IV Ancef. Active Medications Acetaminophen (Acetaminophen Tab 325 Mg Tab) 650 mg PO Q6HR [facility] Last Admin: 01/30/23 16:47 Dose: 650 mg Amlodipine Besylate (Amlodipine 5 Mg Tab) 5 mg PO DAILY [facility] Last Admin: 01/30/23 13:22 Dose: 5 mg Aspirin (Aspirin 81 Mg) 81 mg PO DAILY [facility] Last Admin: 01/30/23 13:23 Dose: 81 mg Cholecalciferol (Cholecalciferol 125 Mcg (5000 Iu) Tablet) 125 mcg PO DAILY [facility] Last Admin: 01/30/23 13:24 Dose: 125 mcg Ferrous Sulfate (Ferrous Sulfate 325 Mg Tab) 325 mg PO DAILY [facility] Last Admin: 01/30/23 13:22 Dose: 325 mg Hydrochlorothiazide (Hydrochlorothiazide 50 Mg Tab) 50 mg PO DAILY [facility] Last Admin: 01/30/23 13:21 Dose: 50 mg Sodium Chloride (Saline 0.9%) 1,000 mls @ 20 mls/hr IV .Q24H [facility] Last Admin: 01/30/23 03:31 Dose: Not Given Cefazolin Sodium 3 gm/ Sodium (Chloride) 100 mls @ 200 mls/hr IVPB Q8HR [facility]; Protocol Last Admin: 01/30/23 16:47 Dose: 200 mls/hr Morphine Sulfate (Morphine Sulfate 4 Mg/Ml Syringe) 4 mg IV Q4HR PRN PRN Reason: Severe Pain (Scale 7 to 10) Last Admin: 01/30/23 16:46 Dose: 4 mg Naloxone HCl (Naloxone 0.4 Mg/Ml 1 Ml Vial) 0.2 mg IV Q2M PRN PRN Reason: Opioid Reversal Nystatin (Nystatin 100,000 Unit/Gm Powd 15 Gm) 1 applic TOPICAL BID [facility]; Protocol Last Admin: 01/30/23 10:30 Dose: 1 applic Ondansetron HCl (Ondansetron 4 Mg/2 Ml Vial) 4 mg IVP Q8HR PRN PRN Reason: Nausea And Vomiting Potassium Chloride (Potassium Chloride Er 10 Meq Tab.Er.Prt) 10 meq PO DAILY [facility] Last Admin: 01/30/23 13:22 Dose: 10 meq Past medical history to include: blind in the right eye. COVID-19. Severe osteoarthritis. Morbid obesity. Bilateral lower extremity venous stasis dermatitis. Essential hypertension. Social history: Currently at [facility]. Does use a walker. No smoking or alcohol. On examination: VITAL SIGNS: [97.8, 78, 18, 138/73, 92% room air] GENERAL APPEARANCE: BMI 51.1, up in a recliner HEENT: Normal external appearance of nose and ear. Oral cavity normal EYES: Pupils equal. Conjunctiva normal. NECK: JVD not raised. Mass not palpable. RESPIRATORY: Respiratory effort normal. Lungs clear to auscultation. CARDIOVASCULAR: First and second sounds normal. No edema. ABDOMEN: Soft. Liver and spleen not palpable. No tenderness. No mass palpable. PSYCHIATRY: Alert and oriented x3. Mood and affect normal. Extremity: Left second and dressing and Ghanshyam wrap. Up to the knee INVESTIGATIONS, reviewed in the clinical context: January 30: White count 11.5 hemoglobin 10.8 platelets 264 creatinine 1.06 Troponin I 0.290 0.198, 0.145 Assessment and plan -Acute left lower extremity cellulitis. IV cefazolin. -Morbid obesity BMI 51.1 Weight loss measures -Primary osteoarthritis Tylenol as needed -Essential hypertension Amlodipine 5 mg daily. Hydrochlorothiazide. 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 -Chronic gait dysfunction uses a walker at baseline Continue IV cefazolin local care as per ID. Discussed with patient.
[2023-01-31] MEDS: SODIUM CHLORIDE 0.9% 1,000 ML IV SCH (04:48)
[2023-01-31] MEDS: ACETAMINOPHEN TAB 325 MG TAB PO SCH ×3 (06:32→16:47)
[2023-01-31 07:37] LABS: Basophils % (A) 0 %; Eosinophils # (A) 0.4 k/uL (0-0.7); Eosinophils % (A) 4 %; HCT 33.7 % (39.0-53.0); HGB 10.9 gm/dL (13.0-17.5); Lymphocytes # (A) 1.4 k/uL (1.0-4.8); Lymphocytes % (A) 12 %; MCHC 32.4 g/dL (31.0-37.0); MCV 86.4 fL (80.0-100.0); Mean Platelet Volume 8.6; Monocytes # (A) 0.8 k/uL (0-1.0); Monocytes % (A) 7 %; Neutrophils # (A) 9.1 k/uL (1.3-7.7); Neutrophils % (A) 76 %; Platelet Count 283 k/uL (150-450); RBC 3.89 m/uL (4.30-5.90); RDW 15.2 % (11.5-15.5)
[2023-01-31] MEDS: FERROUS SULFATE 325 MG TAB PO SCH (09:07)
[2023-01-31] MEDS: CHOLECALCIFEROL 125 MCG (5000 IU) TABLET PO SCH (09:07)
[2023-01-31] MEDS: ceFAZolin 3 GM in SODIUM CHLORIDE 0.9% 100 ML IVPB SCH ×2 (09:07→16:46)
[2023-01-31] MEDS: ASPIRIN 81 MG PO SCH (09:07)
[2023-01-31] MEDS: POTASSIUM CHLORIDE ER 10 MEQ TAB.ER.PRT PO SCH (09:07)
[2023-01-31] MEDS: amLODIPine 5 MG TAB PO SCH (09:14)
[2023-01-31] MEDS: NYSTATIN 100,000 UNIT/GM POWD 15 GM TOPICAL SCH ×2 (09:22→20:48)
--- NOTE | 2023-01-31 12:53 | CDI ---
Documentation Clarification Form Date: 01/31/2023 11:28:00 AM From: Ruby Rose RN, CCDS Admit Date: 01/28/2023 03:29:00 AM Patient Name: Danny Dickson Visit Number: [id number] Discharge Date: ATTENTION: The Clinical Documentation Specialists (CDI) and [facility] Coding Staff appreciate your assistance in clarifying documentation. Please respond to the clarification below the line at the bottom and electronically sign. The CDI & [facility] Coding staff will review the response and follow-up if needed. Please note: Queries are made part of the Legal Health Record. If you have any questions, please contact the author of this message via ITS. Dr. Samara Quiñonez There is documentation of troponin elevation most likely type II event related to infection. Additional clarification is requested. 01/30 Echocardiogram: Moderate LVH. Low normal left ventricular systolic function. Left ventricular ejection fraction is estimated at 50-55% Probable inferolateral wall hypokinesia. Very technically difficult study. History/Risk Factors: Hyperlipidemia, Hypertension, Vascular Disorder Clinical Indicators: 57-year-old male presented to the ER because of left lower extremity swelling and pain. He was admitted with worsening cellulitis with troponin elevation. 01/28 VS: 143/75 92 19 99 93% RA 01/28 Troponin I 0.045, 0.154, 0.280, 0.l198, 0.145 Treatment: Cardiac/Telemetry Monitoring Norvasc 5 MG PO Daily, Hydrodiuril 50 MG PO Daily ASA 81 MG PO Daily Cefazolin 3 GM IVPB Q 8 HRS Can you please further clarify type II event? [XX ] Myocardial infarction type II secondary to the infection, cellulitis. [ ] Non-ischemic myocardial injury secondary to infection, cellulitis [ ] Other, please specify [ ] Unable to determine (Template Last Revised: July 2020) MTDD
[2023-01-31] MEDS: NAPROXEN 250 MG TAB PO SCH ×2 (12:56→20:48)
--- NOTE | 2023-01-31 13:20 | P.PN ---
Subjective Progress Note Date: 01/31/23 PROGRESS NOTE The patient is a 57-year-old male, morbidly obese with a history of hypertension hyperlipidemia was limited physical activity who was admitted with worsening cellulitis with mild troponin elevation. He's feeling well this morning, he denies any chest discomfort, dizziness or palpitations. Blood pressure 147/62, heart rate 83 bpm Lab shows hemoglobin of 10.9, creatinine 1.06 PHYSICAL EXAMINATION: Blood pressure 112/50 heart rate 70, temperature 100.1, morbidly obese LUNGS: Clear to auscultation HEART: Regular rate and rhythm, S1, S2. No S3. No systolic murmur ABDOMEN: Soft, nontender, no organomegaly EXTREMETIES: Severe erythema with swelling of the left lower extremity, 2+ edema IMPRESSION: 1. Cellulitis of the left lower extremity 2. Troponin elevation most likely type II event related to the infection, no evidence of acute coronary syndrome 3. Morbid obesity 4. History of hypertension PLAN: Technically difficult echocardiogram was reviewed which showed normal global LV systolic function Would recommend to continue his aspirin and amlodipine. Continue IV antibiotic therapy as per primary team and infectious disease team Cardiology team will sign off. Please reconsult us in case of any questions Objective - Vital Signs Vital signs: Vital Signs Temp 98.8 F 01/31/23 08:00 Pulse 83 01/31/23 08:00 Resp 19 01/31/23 08:00 BP 147/62 01/31/23 08:00 Pulse Ox 93 L 01/31/23 08:00 FiO2 Intake & Output 01/30/23 01/31/23 01/31/23 18:59 06:59 18:59 Output Total 1050 900 Balance -1050 -900 Output: Urine 1050 900 Other: Voiding Method Urinal Urinal # Voids 1 - Labs CBC & Chem 7: 01/31/23 06:42 01/30/23 06:53 Labs: Abnormal Lab Results - Last 24 Hours (Table) 01/31/23 01/31/23 Range/Units 06:42 06:42 WBC 12.0 H (3.8-10.6) k/uL RBC 3.89 L (4.30-5.90) m/uL Hgb 10.9 L (13.0-17.5) gm/dL Hct 33.7 L (39.0-53.0) % Neutrophils # 9.1 H (1.3-7.7) k/uL Procalcitonin 1.86 H (0.02-0.09) ng/mL Microbiology - Last 24 Hours (Table) 01/29/23 13:12 Blood Culture - Preliminary Blood 01/29/23 13:12 Blood Culture - Preliminary Blood
--- NOTE | 2023-01-31 19:21 | P.PN ---
Progress Note - Text Progress Note Date: 01/31/23 Hospital course patient is a 57-year-old gentleman with past medical history significant for hypertension, obesity who presented to the ER because of left lower extremity swelling and pain that started 1 week back. Patient has been noticing that his left lower extremity has been getting swollen, he also noticed worsening redness associated with pain of left lower extremity. Patient was diagnosed with cellulitis and was placed on antibiotics but did not improve. Patient came to the ER. There was no complaint of fever or chills. No nausea, vomiting abdominal pain. No complaint of lethargy or weakness. Initial lab work done in the ER showed WBC 10.7, hemoglobin 12.5, platelet count 280, sodium 137, potassium 3.6, BUN 21, creatinine 1.32, glucose 111 troponin 0.045 CRP 20.5 EKG done in the ER showed no ST segment changes, no T-wave inversion noticeable, heart rate of 86 Duplex ultrasound of left lower extremity showed no DVT X-ray of left tibia and fibula showed no acute fractures Patient admitted for medicine service 01/29. Patient seen and examined. Still has redness of left lower extremity. January 30: I assumed care of the patient today. Operative candidate. Left leg and Ghanshyam wrap and dressing. Some pain. She is blind in the right eye. At her baseline does use a walker. Eating well. On IV Ancef. January 31: Sitting up in a chair. Some pain in the left cellulitic leg. Home dose of naproxen reordered. Eating well. Had a bowel movement. Active Medications Acetaminophen (Acetaminophen Tab 325 Mg Tab) 650 mg PO Q6HR [facility] Last Admin: 01/31/23 16:47 Dose: 650 mg Amlodipine Besylate (Amlodipine 5 Mg Tab) 5 mg PO DAILY [facility] Last Admin: 01/31/23 09:14 Dose: 5 mg Aspirin (Aspirin 81 Mg) 81 mg PO DAILY [facility] Last Admin: 01/31/23 09:07 Dose: 81 mg Cholecalciferol (Cholecalciferol 125 Mcg (5000 Iu) Tablet) 125 mcg PO DAILY [facility] Last Admin: 01/31/23 09:07 Dose: 125 mcg Ferrous Sulfate (Ferrous Sulfate 325 Mg Tab) 325 mg PO DAILY [facility] Last Admin: 01/31/23 09:07 Dose: 325 mg Hydrochlorothiazide (Hydrochlorothiazide 50 Mg Tab) 50 mg PO DAILY [facility] Last Admin: 01/31/23 09:07 Dose: 50 mg Sodium Chloride (Saline 0.9%) 1,000 mls @ 20 mls/hr IV .Q24H [facility] Last Admin: 01/31/23 04:48 Dose: Not Given Cefazolin Sodium 3 gm/ Sodium (Chloride) 100 mls @ 200 mls/hr IVPB Q8HR [facility]; Protocol Last Admin: 01/31/23 16:46 Dose: 200 mls/hr Naloxone HCl (Naloxone 0.4 Mg/Ml 1 Ml Vial) 0.2 mg IV Q2M PRN PRN Reason: Opioid Reversal Naproxen (Naproxen 250 Mg Tab) 250 mg PO BID [facility] Last Admin: 01/31/23 12:56 Dose: 250 mg Nystatin (Nystatin 100,000 Unit/Gm Powd 15 Gm) 1 applic TOPICAL BID [facility]; Protocol Last Admin: 01/31/23 09:22 Dose: 1 applic Ondansetron HCl (Ondansetron 4 Mg/2 Ml Vial) 4 mg IVP Q8HR PRN PRN Reason: Nausea And Vomiting Potassium Chloride (Potassium Chloride Er 10 Meq Tab.Er.Prt) 10 meq PO DAILY [facility] Last Admin: 01/31/23 09:07 Dose: 10 meq Past medical history to include: blind in the right eye. COVID-19. Severe osteoarthritis. Morbid obesity. Bilateral lower extremity venous stasis dermatitis. Essential hypertension. Social history: Currently at [facility]. Does use a walker. No smoking or alcohol. On examination: VITAL SIGNS: [98.7, 83, 17, 1:30/60, 94% room air] GENERAL APPEARANCE: BMI 51.1, up in a recliner HEENT: Normal external appearance of nose and ear. Oral cavity normal EYES: Pupils equal. Conjunctiva normal. NECK: JVD not raised. Mass not palpable. RESPIRATORY: Respiratory effort normal. Lungs clear to auscultation. CARDIOVASCULAR: First and second sounds normal. No edema. ABDOMEN: Soft. Liver and spleen not palpable. No tenderness. No mass palpable. PSYCHIATRY: Alert and oriented x3. Mood and affect normal. Extremity: Left second and dressing and Ghanshyam wrap. Up to the knee INVESTIGATIONS, reviewed in the clinical context: January 31: White count 12 hemoglobin 10.9 platelets 23 procalcitonin 1.86 Joelle 5: White count 11.5 hemoglobin 10.8 platelets 264 creatinine 1.06 Troponin I 0.290 0.198, 0.145 Assessment and plan -Acute left lower extremity cellulitis.: Slow to respond IV cefazolin. -Morbid obesity BMI 51.1 Weight loss measures -Primary osteoarthritis Tylenol as needed -Essential hypertension Amlodipine 5 mg daily. Hydrochlorothiazide. 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 -Chronic bilateral lower extremity venous stasis and dermatitis -Chronic gait dysfunction uses a walker at baseline -Full code. -Disposition: Long-term resident. [facility] IV cefazolin local care as per ID. Discussed.
--- NOTE | 2023-01-31 22:50 | P.PN ---
Subjective Progress Note Date: 01/30/23 Principal diagnosis: Left lower extremity cellulitis Patient is a 57-year-old male with a past medical history difficult for hypertension hyperlipidemia history of recurrent fall ,morbid obesity did have a previous episode of left lower extremity cellulitis currently a long-term resident of local [facility] presenting to the hospital for evaluation of worsening swelling redness to the left lower extremity On today's evaluation that is 01/30/2023, the patient remains to be afebrile patient is breathing comfortably on room air denies any chest pain shortness of breath or cough no abdominal pain or any worsening pain to the left lower extremity. Patient did have a hemoglobin of 10.4x11.59 creatinine 1.06 blood culture negative so far. Objective - Vital Signs Vital signs: Vital Signs Temp 97.8 F 01/30/23 12:47 Pulse 78 01/30/23 12:47 Resp 18 01/30/23 12:47 BP 138/73 01/30/23 12:47 Pulse Ox 92 L 01/30/23 12:47 FiO2 Intake & Output 01/29/23 01/30/23 01/30/23 18:59 06:59 18:59 Output Total 1700 Balance -1700 Output: Urine 1700 Other: Voiding Method Urinal Urinal Urinal # Voids 5 - Labs CBC & Chem 7: 01/31/23 06:42 01/30/23 06:53 Labs: Abnormal Lab Results - Last 24 Hours (Table) 01/29/23 01/29/23 01/30/23 Range/Units 13:12 13:12 06:53 WBC (4.50-10.00) X 10*3/uL RBC 3.94 L (4.30-5.90) m/uL Hgb 11.1 L (13.0-17.5) gm/dL Hct 34.2 L (39.0-53.0) % RDW (11.5-14.5) % Sodium 136 L (137-145) mmol/L Potassium 3.4 L (3.5-5.1) mmol/L Carbon Dioxide 31 H (22-30) mmol/L Glucose 119 H 104 H (74-99) mg/dL Alkaline Phosphatase 131 H 145 H (38-126) U/L 01/30/23 Range/Units 06:53 WBC 11.59 H (4.50-10.00) X 10*3/uL RBC 3.84 L (4.30-5.90) m/uL Hgb 10.8 L (13.0-17.5) gm/dL Hct 33.4 L (39.0-53.0) % RDW 15.4 H (11.5-14.5) % Sodium (137-145) mmol/L Potassium (3.5-5.1) mmol/L Carbon Dioxide (22-30) mmol/L Glucose (74-99) mg/dL Alkaline Phosphatase (38-126) U/L Assessment and Plan (1) Left leg cellulitis Current Visit: Yes Status: Acute Code(s): L03.116 - CELLULITIS OF LEFT LOWER LIMB SNOMED Code(s): 238008724 Plan: 1patient presented hospital with extensive left lower extremity cellulitis in this patient also have evidence of extensive athlete's foot likely streptococcal disease clinically doubt MRSA or gram-negative infection 2patient also have a left foot dorsal ulceration could be the entry point for the cellulitis but more likely from his athlete's foot. 3borderline kidney function high risk of nephrotoxicity from vancomycin. 4Patient with extensive left lower extremity cellulitis patient to continue with cefazolin along with a macerated border between the toe and monitor clinical course closely Dictation was produced using [employer]of[employer] dictation software. please excuse any grammatical, word or spelling errors.
--- NOTE | 2023-01-31 22:54 | P.PN ---
Subjective Progress Note Date: 01/31/23 Principal diagnosis: Left lower extremity cellulitis Patient is a 57-year-old male with a past medical history difficult for hypertension hyperlipidemia history of recurrent fall ,morbid obesity did have a previous episode of left lower extremity cellulitis currently a long-term resident of [facility] presenting to the hospital for evaluation of worsening swelling redness to the left lower extremity On today's evaluation that is 02/10/2023 patient remains to be afebrile the patient is breathing comfortably on room air denies any chest pain shortness of breath, abdominal pain or any worsening pain to the left lower extremity. The patient did have a white count slightly up to 12,000 today no creatinine was done today blood culture has been negative so far. Objective - Vital Signs Vital signs: Vital Signs Temp 98.8 F 01/31/23 08:00 Pulse 83 01/31/23 08:00 Resp 19 01/31/23 08:00 BP 147/62 01/31/23 08:00 Pulse Ox 93 L 01/31/23 08:00 FiO2 Intake & Output 01/30/23 01/31/23 01/31/23 18:59 06:59 18:59 Output Total 1050 900 Balance -1050 -900 Output: Urine 1050 900 Other: Voiding Method Urinal Urinal # Voids 1 - Exam GENERAL DESCRIPTION: Middle-age male lying in bed in no distress RESPIRATORY SYSTEM: Unlabored breathing , decreased breath sounds at bases HEART: S1 S2 regular rate and rhythm , ABDOMEN: Soft , no tenderness EXTREMITIES: Left lower extremity swelling and redness mildly decreased still have extensive swelling and redness - Labs CBC & Chem 7: 01/31/23 06:42 01/30/23 06:53 Labs: Abnormal Lab Results - Last 24 Hours (Table) 01/31/23 01/31/23 Range/Units 06:42 06:42 WBC 12.0 H (3.8-10.6) k/uL RBC 3.89 L (4.30-5.90) m/uL Hgb 10.9 L (13.0-17.5) gm/dL Hct 33.7 L (39.0-53.0) % Neutrophils # 9.1 H (1.3-7.7) k/uL Procalcitonin 1.86 H (0.02-0.09) ng/mL Microbiology - Last 24 Hours (Table) 01/29/23 13:12 Blood Culture - Preliminary Blood 01/29/23 13:12 Blood Culture - Preliminary Blood Assessment and Plan (1) Left leg cellulitis Current Visit: Yes Status: Acute Code(s): L03.116 - CELLULITIS OF LEFT LOWER LIMB SNOMED Code(s): 867707313 Plan: Patient did have a extensive left lower extremity cellulitis with athlete's foot and diffuse swelling concerning for streptococcal infection patient did have some improvement to the cellulitis however the patient did have worsening of the white count is slightly concerning and will monitor closely continue with the cefazolin along with the nystatin powder in between the toe and repeat his CBC and CRP with a.m. lab Time with Patient: Less than 30
[2023-02-01] MEDS: ACETAMINOPHEN TAB 325 MG TAB PO SCH ×4 (00:56→18:24)
[2023-02-01] MEDS: ceFAZolin 3 GM in SODIUM CHLORIDE 0.9% 100 ML IVPB SCH ×2 (00:57→09:09)
[2023-02-01] MEDS: SODIUM CHLORIDE 0.9% 1,000 ML IV SCH (03:27)
[2023-02-01] MEDS: amLODIPine 5 MG TAB PO SCH (09:07)
[2023-02-01] MEDS: NAPROXEN 250 MG TAB PO SCH ×2 (09:07→22:34)
[2023-02-01] MEDS: ASPIRIN 81 MG PO SCH (09:07)
[2023-02-01] MEDS: FERROUS SULFATE 325 MG TAB PO SCH (09:08)
[2023-02-01] MEDS: NYSTATIN 100,000 UNIT/GM POWD 15 GM TOPICAL SCH ×2 (09:09→22:19)
[2023-02-01] MEDS: POTASSIUM CHLORIDE ER 10 MEQ TAB.ER.PRT PO SCH (09:09)
[2023-02-01] MEDS: CHOLECALCIFEROL 125 MCG (5000 IU) TABLET PO SCH (09:11)
[2023-02-01 11:24] LABS: ALT 24 U/L (10-49); AST 41 U/L (14-35); Albumin 3.7 d/dL (3.8-4.9); Albumin/Globulin Ratio 1.03 Ratio (1.60-3.17); Alkaline Phosphatase 140 U/L (41-126); Blood Urea Nitrogen 13.2 mg/dL (9.0-27.0); Calcium 9.3 mg/dL (8.7-10.3); Carbon Dioxide 31.8 mmol/L (21.6-31.8); Chloride 95 mmol/L (96-109); Globulin 3.6 d/dL (1.6-3.3); Glucose 96 mg/dL (70-110); Potassium 3.8 mmol/L (3.5-5.5); Sodium 138 mmol/L (135-145); Total Bilirubin 0.8 mg/dL (0.3-1.2); Total Protein 7.3 d/dL (6.2-8.2)
[2023-02-01 11:30] LABS: HCT 33.3 % (39.6-50.0); HGB 10.3 d/dL (13.0-17.0); MCH 27.4 pg (27.0-32.0); MCHC 30.9 d/dL (32.0-37.0); MCV 88.6 FL (80.0-97.0); Mean Platelet Volume 10.7 FL (9.5-12.2); NRBC Per 100 WBC 0 X 10*3/uL (0.00-0.01); Platelet Count 303 X 10*3/uL (140-440); RBC 3.76 X 10*6/uL (4.40-5.60); WBC 10.77 X 10*3/uL (4.50-10.00)
[2023-02-01 13:05] LABS: Basophils # (M) 0.43 X 10*3/uL (0.00-0.10); Eosinophils # (M) 0.65 X 10*3/uL (0.04-0.35); Lymphocytes # (M) 1.29 X 10*3/uL (0.90-5.00); Metamyelocytes % 3 % (0-0); Monocytes # (M) 0.54 X 10*3/uL (0.20-1.00); Neutrophils # (M) 7.54 X 10*3/uL (1.80-7.70); Neutrophils % (M) 70 %; RBC Morphology Normal (Normal)
--- NOTE | 2023-02-01 19:12 | P.PN ---
Progress Note - Text Progress Note Date: 02/01/23 Hospital course patient is a 57-year-old gentleman with past medical history significant for hypertension, obesity who presented to the ER because of left lower extremity swelling and pain that started 1 week back. Patient has been noticing that his left lower extremity has been getting swollen, he also noticed worsening redness associated with pain of left lower extremity. Patient was diagnosed with cellulitis and was placed on antibiotics but did not improve. Patient came to the ER. There was no complaint of fever or chills. No nausea, vomiting abdominal pain. No complaint of lethargy or weakness. Initial lab work done in the ER showed WBC 10.7, hemoglobin 12.5, platelet count 280, sodium 137, potassium 3.6, BUN 21, creatinine 1.32, glucose 111 troponin 0.045 CRP 20.5 EKG done in the ER showed no ST segment changes, no T-wave inversion noticeable, heart rate of 86 Duplex ultrasound of left lower extremity showed no DVT X-ray of left tibia and fibula showed no acute fractures Patient admitted for medicine service 01/29. Patient seen and examined. Still has redness of left lower extremity. January 30: I assumed care of the patient today. Operative candidate. Left leg and Ghanshyam wrap and dressing. Some pain. She is blind in the right eye. At her baseline does use a walker. Eating well. On IV Ancef. January 31: Sitting up in a chair. Some pain in the left cellulitic leg. Home dose of naproxen reordered. Eating well. Had a bowel movement. February 01: No new issues. Leg pain better with naproxen. Discussed with ID doctor site. He will change the antibiotic to daptomycin today because of the findings of the wound. Active Medications Acetaminophen (Acetaminophen Tab 325 Mg Tab) 650 mg PO Q6HR [facility] Last Admin: 02/01/23 18:24 Dose: 650 mg Amlodipine Besylate (Amlodipine 5 Mg Tab) 5 mg PO DAILY [facility] Last Admin: 02/01/23 09:07 Dose: 5 mg Aspirin (Aspirin 81 Mg) 81 mg PO DAILY [facility] Last Admin: 02/01/23 09:07 Dose: 81 mg Cholecalciferol (Cholecalciferol 125 Mcg (5000 Iu) Tablet) 125 mcg PO DAILY [facility] Last Admin: 02/01/23 09:11 Dose: 125 mcg Ferrous Sulfate (Ferrous Sulfate 325 Mg Tab) 325 mg PO DAILY [facility] Last Admin: 02/01/23 09:08 Dose: 325 mg Hydrochlorothiazide (Hydrochlorothiazide 50 Mg Tab) 50 mg PO DAILY [facility] Last Admin: 02/01/23 09:07 Dose: 50 mg Daptomycin 600 mg/ Sodium (Chloride) 50 mls @ 100 mls/hr IVPB Q24HR [facility]; Protocol Last Admin: 02/01/23 13:37 Dose: 100 mls/hr Naloxone HCl (Naloxone 0.4 Mg/Ml 1 Ml Vial) 0.2 mg IV Q2M PRN PRN Reason: Opioid Reversal Naproxen (Naproxen 250 Mg Tab) 250 mg PO BID [facility] Last Admin: 02/01/23 09:07 Dose: 250 mg Nystatin (Nystatin 100,000 Unit/Gm Powd 15 Gm) 1 applic TOPICAL BID [facility]; Protocol Last Admin: 02/01/23 09:09 Dose: 1 applic Ondansetron HCl (Ondansetron 4 Mg/2 Ml Vial) 4 mg IVP Q8HR PRN PRN Reason: Nausea And Vomiting Potassium Chloride (Potassium Chloride Er 10 Meq Tab.Er.Prt) 10 meq PO DAILY [facility] Last Admin: 02/01/23 09:09 Dose: 10 meq Past medical history to include: blind in the right eye. COVID-19. Severe osteoarthritis. Morbid obesity. Bilateral lower extremity venous stasis dermatitis. Essential hypertension. Social history: Currently at [facility]. Does use a walker. No smoking or alcohol. On examination: VITAL SIGNS: [98.4, 74, 17, 11/58, 95% room air] GENERAL APPEARANCE: BMI 51.1, up in a recliner HEENT: Normal external appearance of nose and ear. Oral cavity normal EYES: Pupils equal. Conjunctiva normal. NECK: JVD not raised. Mass not palpable. RESPIRATORY: Respiratory effort normal. Lungs clear to auscultation. CARDIOVASCULAR: First and second sounds normal. No edema. ABDOMEN: Soft. Liver and spleen not palpable. No tenderness. No mass palpable. PSYCHIATRY: Alert and oriented x3. Mood and affect normal. Extremity: Left second and dressing and Ghanshyam wrap. Up to the knee INVESTIGATIONS, reviewed in the clinical context: January 31: White count 12 hemoglobin 10.9 platelets 23 procalcitonin 1.86 January 30: White count 11.5 hemoglobin 10.8 platelets 264 creatinine 1.06 Troponin I 0.290 0.198, 0.145 Assessment and plan -Acute left lower extremity cellulitis with wound.: Slow to respond IV cefazolin being changed to IV daptomycin. -Morbid obesity BMI 51.1 Weight loss measures -Primary osteoarthritis Tylenol as needed -Essential hypertension Amlodipine 5 mg daily. Hydrochlorothiazide. 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 -Chronic bilateral lower extremity venous stasis and dermatitis -Chronic gait dysfunction uses a walker at baseline -Full code. -Disposition: Long-term resident. [facility] IV cefazolin to IV daptomycin today.
[2023-02-02] MEDS: ACETAMINOPHEN TAB 325 MG TAB PO SCH ×5 (00:30→23:15)
[2023-02-02] MEDS: NAPROXEN 250 MG TAB PO SCH ×2 (09:43→21:16)
[2023-02-02] MEDS: POTASSIUM CHLORIDE ER 10 MEQ TAB.ER.PRT PO SCH (09:43)
[2023-02-02] MEDS: CHOLECALCIFEROL 125 MCG (5000 IU) TABLET PO SCH (09:43)
[2023-02-02] MEDS: FERROUS SULFATE 325 MG TAB PO SCH (09:43)
[2023-02-02] MEDS: amLODIPine 5 MG TAB PO SCH (09:43)
[2023-02-02] MEDS: ASPIRIN 81 MG PO SCH (09:43)
[2023-02-02] MEDS: NYSTATIN 100,000 UNIT/GM POWD 15 GM TOPICAL SCH ×2 (09:44→21:18)
--- NOTE | 2023-02-02 14:50 | P.PN ---
Progress Note - Text Progress Note Date: 02/02/23 Hospital course patient is a 57-year-old gentleman with past medical history significant for hypertension, obesity who presented to the ER because of left lower extremity swelling and pain that started 1 week back. Patient has been noticing that his left lower extremity has been getting swollen, he also noticed worsening redness associated with pain of left lower extremity. Patient was diagnosed with cellulitis and was placed on antibiotics but did not improve. Patient came to the ER. There was no complaint of fever or chills. No nausea, vomiting abdominal pain. No complaint of lethargy or weakness. Initial lab work done in the ER showed WBC 10.7, hemoglobin 12.5, platelet count 280, sodium 137, potassium 3.6, BUN 21, creatinine 1.32, glucose 111 troponin 0.045 CRP 20.5 EKG done in the ER showed no ST segment changes, no T-wave inversion noticeable, heart rate of 86 Duplex ultrasound of left lower extremity showed no DVT X-ray of left tibia and fibula showed no acute fractures Patient admitted for medicine service 01/29. Patient seen and examined. Still has redness of left lower extremity. January 30: I assumed care of the patient today. Operative candidate. Left leg and Ghanshyam wrap and dressing. Some pain. She is blind in the right eye. At her baseline does use a walker. Eating well. On IV Ancef. January 31: Sitting up in a chair. Some pain in the left cellulitic leg. Home dose of naproxen reordered. Eating well. Had a bowel movement. February 01: No new issues. Leg pain better with naproxen. Discussed with ID doctor site. He will change the antibiotic to daptomycin today because of the findings of the wound. February 02: Leg pain better. On IV daptomycin. Local wound care in place. Follow with ID. Patient eating well. Active Medications Acetaminophen (Acetaminophen Tab 325 Mg Tab) 650 mg PO Q6HR [facility] Last Admin: 02/02/23 12:37 Dose: 650 mg Amlodipine Besylate (Amlodipine 5 Mg Tab) 5 mg PO DAILY [facility] Last Admin: 02/02/23 09:43 Dose: 5 mg Aspirin (Aspirin 81 Mg) 81 mg PO DAILY [facility] Last Admin: 02/02/23 09:43 Dose: 81 mg Cholecalciferol (Cholecalciferol 125 Mcg (5000 Iu) Tablet) 125 mcg PO DAILY [facility] Last Admin: 02/02/23 09:43 Dose: 125 mcg Ferrous Sulfate (Ferrous Sulfate 325 Mg Tab) 325 mg PO DAILY [facility] Last Admin: 02/02/23 09:43 Dose: 325 mg Hydrochlorothiazide (Hydrochlorothiazide 50 Mg Tab) 50 mg PO DAILY [facility] Last Admin: 02/02/23 09:43 Dose: 50 mg Daptomycin 600 mg/ Sodium (Chloride) 50 mls @ 100 mls/hr IVPB Q24HR [facility]; Protocol Last Admin: 02/02/23 09:43 Dose: 100 mls/hr Naloxone HCl (Naloxone 0.4 Mg/Ml 1 Ml Vial) 0.2 mg IV Q2M PRN PRN Reason: Opioid Reversal Naproxen (Naproxen 250 Mg Tab) 250 mg PO BID [facility] Last Admin: 02/02/23 09:43 Dose: 250 mg Nystatin (Nystatin 100,000 Unit/Gm Powd 15 Gm) 1 applic TOPICAL BID [facility]; Protocol Last Admin: 02/02/23 09:44 Dose: 1 applic Ondansetron HCl (Ondansetron 4 Mg/2 Ml Vial) 4 mg IVP Q8HR PRN PRN Reason: Nausea And Vomiting Potassium Chloride (Potassium Chloride Er 10 Meq Tab.Er.Prt) 10 meq PO DAILY [facility] Last Admin: 02/02/23 09:43 Dose: 10 meq Past medical history to include: blind in the right eye. COVID-19. Severe osteoarthritis. Morbid obesity. Bi lateral lower extremity venous stasis dermatitis. Essential hypertension. Social history: Currently at [facility]. Does use a walker. No smoking or alcohol. On examination: VITAL SIGNS: 97.7, 80, 18, 145/79, 96% room air GENERAL APPEARANCE: BMI 51.1, up in a recliner HEENT: Normal external appearance of nose and ear. Oral cavity normal EYES: Pupils equal. Conjunctiva normal. NECK: JVD not raised. Mass not palpable. RESPIRATORY: Respiratory effort normal. Lungs clear to auscultation. CARDIOVASCULAR: First and second sounds normal. No edema. ABDOMEN: Soft. Liver and spleen not palpable. No tenderness. No mass palpable. PSYCHIATRY: Alert and oriented x3. Mood and affect normal. Extremity: Left second and dressing and Ghanshyam wrap. Up to the knee INVESTIGATIONS, reviewed in the clinical context: January 31: White count 12 hemoglobin 10.9 platelets 23 procalcitonin 1.86 January 30: White count 11.5 hemoglobin 10.8 platelets 264 creatinine 1.06 Troponin I 0.290 0.198, 0.145 Assessment and plan -Acute left lower extremity cellulitis with wound.: Slow to respond IV daptomycin. -Morbid obesity BMI 51.1 Weight loss measures -Primary osteoarthritis Tylenol as needed -Essential hypertension Amlodipine 5 mg daily. Hydrochlorothiazide. 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 -Chronic bilateral lower extremity venous stasis and dermatitis -Chronic gait dysfunction uses a walker at baseline -Full code. -Disposition: Long-term resident. [facility] some patient
--- NOTE | 2023-02-02 16:39 | P.PN ---
Subjective Progress Note Date: 02/01/23 Principal diagnosis: Left lower extremity cellulitis Patient is a 57-year-old male with a past medical history difficult for hypertension hyperlipidemia history of recurrent fall ,morbid obesity did have a previous episode of left lower extremity cellulitis currently a long-term [facility] of local [facility] presenting to the hospital for evaluation of worsening swelling redness to the left lower extremity On today's evaluation that is 02/01/2023 patient continues to be afebrile the patient is breathing comfortably on room air , the patient denies any chest pain shortness of breath, abdominal pain , patient complaining of more pain to the left posterior leg area The patient did have a white count is down to 10.77 creatinine is 1.1 Objective - Vital Signs Vital signs: Vital Signs Temp 98.4 F 02/01/23 07:22 Pulse 75 02/01/23 07:22 Resp 18 02/01/23 07:22 BP 113/63 02/01/23 07:22 Pulse Ox 96 02/01/23 08:25 FiO2 21 02/01/23 08:25 Intake & Output 01/31/23 02/01/23 02/01/23 18:59 06:59 18:59 Output Total 2700 Balance -2700 Weight 216.364 kg Output: Urine 2700 Other: Voiding Method Urinal - Exam GENERAL DESCRIPTION: Middle-age male lying in bed in no distress RESPIRATORY SYSTEM: Unlabored breathing , decreased breath sounds at bases HEART: S1 S2 regular rate and rhythm , ABDOMEN: Soft , no tenderness EXTREMITIES: Left lower extremity swelling and redness about the same however the patient noticed to have more warmth and redness to the left posterior leg - Labs CBC & Chem 7: 02/01/23 06:26 02/01/23 06:26 Labs: Abnormal Lab Results - Last 24 Hours (Table) 02/01/23 02/01/23 Range/Units 06:26 06:26 WBC 10.77 H (4.50-10.00) X 10*3/uL RBC 3.76 L (4.40-5.60) X 10*6/uL Hgb 10.3 L (13.0-17.0) d/dL Hct 33.3 L (39.6-50.0) % MCHC 30.9 L (32.0-37.0) d/dL RDW 15.0 H (11.5-14.5) % Chloride 95 L (96-109) mmol/L AST 41 H (14-35) U/L Alkaline Phosphatase 140 H (41-126) U/L C-Reactive Protein 20.80 H (0.00-0.80) mg/dL Albumin 3.7 L (3.8-4.9) d/dL Globulin 3.6 H (1.6-3.3) d/dL Albumin/Globulin Ratio 1.03 L (1.60-3.17) Ratio Microbiology - Last 24 Hours (Table) 01/29/23 13:12 Blood Culture - Preliminary Blood 01/29/23 13:12 Blood Culture - Preliminary Blood Assessment and Plan (1) Left leg cellulitis Current Visit: Yes Status: Acute Code(s): L03.116 - CELLULITIS OF LEFT LOWER LIMB SNOMED Code(s): 212255028 Plan: Patient did have a extensive left lower extremity cellulitis with athlete's foot and diffuse swelling concerning for streptococcal infection patient did have some improvement to the cellulitis however the patient did have worsening of the white count and also noticed to have worsening cellulitis to the left posterior leg, we will discontinue his cefazolin and start the patient on daptomycin and see clinical response Time with Patient: Less than 30
--- NOTE | 2023-02-02 16:40 | P.PN ---
Subjective Progress Note Date: 02/02/23 Principal diagnosis: Left lower extremity cellulitis Patient is a 57-year-old male with a past medical history difficult for hypertension hyperlipidemia history of recurrent fall ,morbid obesity did have a previous episode of left lower extremity cellulitis currently a [facility] presenting to the hospital for evaluation of worsening swelling redness to the left lower extremity On today's evaluation that is 02/02/2023, the patient denies having any fever or any chills, the patient is breathing comfortably on room air, the patient denies having any chest pain, no nausea no vomiting no abdominal pain and no diarrhea has been reported. Patient left posterior leg pain has decreased in intensity The patient did have a white count is of 10.77 creatinine is 1.1 as of 02/01/2023 no blood draw today Objective - Vital Signs Vital signs: Vital Signs Temp 97.7 F 02/02/23 13:13 Pulse 80 02/02/23 13:13 Resp 18 02/02/23 13:13 BP 145/79 02/02/23 13:13 Pulse Ox 96 02/02/23 13:13 FiO2 21 02/01/23 08:25 Intake & Output 02/01/23 02/02/23 02/02/23 18:59 06:59 18:59 Output Total 2250 2200 200 Balance -2250 -2200 -200 Weight 216.364 kg Output: Urine 2250 2200 200 Other: Voiding Method Urinal - Exam GENERAL DESCRIPTION: Middle-age male lying in bed in no distress RESPIRATORY SYSTEM: Unlabored breathing , decreased breath sounds at bases HEART: S1 S2 regular rate and rhythm , ABDOMEN: Soft , no tenderness EXTREMITIES: Left lower extremity swelling and redness slightly decreased in intensity - Labs CBC & Chem 7: 02/01/23 06:26 02/01/23 06:26 Labs: Microbiology - Last 24 Hours (Table) 01/29/23 13:12 Blood Culture - Preliminary Blood 01/29/23 13:12 Blood Culture - Preliminary Blood Assessment and Plan (1) Left leg cellulitis Current Visit: Yes Status: Acute Code(s): L03.116 - CELLULITIS OF LEFT LOWER LIMB SNOMED Code(s): 784620024 Plan: Patient did have a extensive left lower extremity cellulitis with athlete's foot and diffuse swelling concerning for streptococcal infection patient did have some improvement to the cellulitis however the patient did have worsening of the white count and no significant improvement on cefazolin, patient has been switched over to daptomycin as of 02/01/2023 and did have some clinical improvement to continue and will reevaluate the patient left lower extremity tomorrow Time with Patient: Less than 30
[2023-02-03] MEDS: ACETAMINOPHEN TAB 325 MG TAB PO SCH ×4 (05:33→23:24)
[2023-02-03] MEDS: FERROUS SULFATE 325 MG TAB PO SCH (08:58)
[2023-02-03] MEDS: NAPROXEN 250 MG TAB PO SCH ×2 (08:58→23:22)
[2023-02-03] MEDS: amLODIPine 5 MG TAB PO SCH (08:59)
[2023-02-03] MEDS: POTASSIUM CHLORIDE ER 10 MEQ TAB.ER.PRT PO SCH (08:59)
[2023-02-03] MEDS: ASPIRIN 81 MG PO SCH (08:59)
[2023-02-03] MEDS: CHOLECALCIFEROL 125 MCG (5000 IU) TABLET PO SCH (08:59)
[2023-02-03] MEDS: NYSTATIN 100,000 UNIT/GM POWD 15 GM TOPICAL SCH ×2 (09:00→23:24)
--- NOTE | 2023-02-03 17:27 | P.PN ---
Progress Note - Text Progress Note Date: 02/03/23 Hospital course patient is a 57-year-old gentleman with past medical history significant for hypertension, obesity who presented to the ER because of left lower extremity swelling and pain that started 1 week back. Patient has been noticing that his left lower extremity has been getting swollen, he also noticed worsening redness associated with pain of left lower extremity. Patient was diagnosed with cellulitis and was placed on antibiotics but did not improve. Patient came to the ER. There was no complaint of fever or chills. No nausea, vomiting abdominal pain. No complaint of lethargy or weakness. Initial lab work done in the ER showed WBC 10.7, hemoglobin 12.5, platelet count 280, sodium 137, potassium 3.6, BUN 21, creatinine 1.32, glucose 111 troponin 0.045 CRP 20.5 EKG done in the ER showed no ST segment changes, no T-wave inversion noticeable, heart rate of 86 Duplex ultrasound of left lower extremity showed no DVT X-ray of left tibia and fibula showed no acute fractures Patient admitted for medicine service 01/29. Patient seen and examined. Still has redness of left lower extremity. January 30: I assumed care of the patient today. Operative candidate. Left leg and Ghanshyam wrap and dressing. Some pain. She is blind in the right eye. At her baseline does use a walker. Eating well. On IV Ancef. January 31: Sitting up in a chair. Some pain in the left cellulitic leg. Home dose of naproxen reordered. Eating well. Had a bowel movement. February 01: No new issues. Leg pain better with naproxen. Discussed with ID doctor site. He will change the antibiotic to daptomycin today because of the findings of the wound. February 02: Leg pain better. On IV daptomycin. Local wound care in place. Follow with ID. Patient eating well. February 03: IV daptomycin. Ghanshyam wrap in place. Eating well. Follow with ID. Active Medications Acetaminophen (Acetaminophen Tab 325 Mg Tab) 650 mg PO Q6HR [facility] Last Admin: 02/03/23 16:53 Dose: 650 mg Amlodipine Besylate (Amlodipine 5 Mg Tab) 5 mg PO DAILY [facility] Last Admin: 02/03/23 08:59 Dose: 5 mg Aspirin (Aspirin 81 Mg) 81 mg PO DAILY [facility] Last Admin: 02/03/23 08:59 Dose: 81 mg Cholecalciferol (Cholecalciferol 125 Mcg (5000 Iu) Tablet) 125 mcg PO DAILY [facility] Last Admin: 02/03/23 08:59 Dose: 125 mcg Ferrous Sulfate (Ferrous Sulfate 325 Mg Tab) 325 mg PO DAILY [facility] Last Admin: 02/03/23 08:58 Dose: 325 mg Hydrochlorothiazide (Hydrochlorothiazide 50 Mg Tab) 50 mg PO DAILY [facility] Last Admin: 02/03/23 08:58 Dose: 50 mg Daptomycin 600 mg/ Sodium (Chloride) 50 mls @ 100 mls/hr IVPB Q24HR [facility]; Protocol Last Admin: 02/03/23 08:59 Dose: 100 mls/hr Naloxone HCl (Naloxone 0.4 Mg/Ml 1 Ml Vial) 0.2 mg IV Q2M PRN PRN Reason: Opioid Reversal Naproxen (Naproxen 250 Mg Tab) 250 mg PO BID [facility] Last Admin: 02/03/23 08:58 Dose: 250 mg Nystatin (Nystatin 100,000 Unit/Gm Powd 15 Gm) 1 applic TOPICAL BID [facility]; Protocol Last Admin: 02/03/23 09:00 Dose: 1 applic Ondansetron HCl (Ondansetron 4 Mg/2 Ml Vial) 4 mg IVP Q8HR PRN PRN Reason: Nausea And Vomiting Potassium Chloride (Potassium Chloride Er 10 Meq Tab.Er.Prt) 10 meq PO DAILY [facility] Last Admin: 02/03/23 08:59 Dose: 10 meq Past medical history to include: blind in the right eye. COVID-19. Severe osteoarthritis. Morbid obesity. Bilateral lower extremity venous stasis dermatitis. Essential hypertension. Social history: Currently at [facility]. Does use a walker. No smoking or alcohol. On examination: VITAL SIGNS: 98.4, 75, 18, 127/64, 97% room air GENERAL APPEARANCE: BMI 51.1, up in a recliner HEENT: Normal external appearance of nose and ear. Oral cavity normal EYES: Pupils equal. Conjunctiva normal. NECK: JVD not raised. Mass not palpable. RESPIRATORY: Respiratory effort normal. Lungs clear to auscultation. CARDIOVASCULAR: First and second sounds normal. No edema. ABDOMEN: Soft. Liver and spleen not palpable. No tenderness. No mass palpable. PSYCHIATRY: Alert and oriented x3. Mood and affect normal. Extremity: Left second and dressing and Ghanshyam wrap. Up to the knee INVESTIGATIONS, reviewed in the clinical context: January 31: White count 12 hemoglobin 10.9 platelets 23 procalcitonin 1.86 January 30: White count 11.5 hemoglobin 10.8 platelets 264 creatinine 1.06 Troponin I 0.290 0.198, 0.145 Assessment and plan -Acute left lower extremity cellulitis with wound.: Slow to respond IV daptomycin. -Morbid obesity BMI 51.1 Weight loss measures -Primary osteoarthritis Tylenol as needed -Essential hypertension Amlodipine 5 mg daily. Hydrochlorothiazide. 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 -Chronic bilateral lower extremity venous stasis and dermatitis -Chronic gait dysfunction uses a walker at baseline -Full code. -[facility]: [facility] Discussed with patient. Follow with ID.
--- NOTE | 2023-02-03 17:46 | P.PN ---
Subjective Progress Note Date: 02/03/23 Principal diagnosis: Left lower extremity cellulitis Patient is a 57-year-old male with a past medical history difficult for hypertension hyperlipidemia history of recurrent fall ,morbid obesity did have a previous episode of left lower extremity cellulitis currently a [facility] presenting to the hospital for evaluation of worsening swelling redness to the left lower extremity On today's evaluation that is 02/03/2023, the patient remains to be afebrile, the patient is breathing comfortably, the patient denies chest pain shortness of breath or cough, no nausea no vomiting no abdominal pain and no diarrhea has been reported. Patient is still complaining of pain to the left posterior leg however no drainage The patient did have a white count is of 10.77 creatinine is 1.1 as of 02/01/2023 no blood draw today Objective - Vital Signs Vital signs: Vital Signs Temp 98.4 F 02/03/23 14:00 Pulse 75 02/03/23 14:00 Resp 18 02/03/23 14:00 BP 127/64 02/03/23 14:00 Pulse Ox 97 02/03/23 14:00 FiO2 21 02/01/23 08:25 Intake & Output 02/02/23 02/03/23 02/03/23 18:59 06:59 18:59 Intake Total 350 Output Total 1000 1000 600 Balance -650 -1000 -600 Intake: Oral 350 Output: Urine 1000 1000 600 Other: Voiding Method Urinal Urinal Urinal # Voids 0 - Exam GENERAL DESCRIPTION: Middle-age male lying in bed in no distress RESPIRATORY SYSTEM: Unlabored breathing , decreased breath sounds at bases HEART: S1 S2 regular rate and rhythm , ABDOMEN: Soft , no tenderness EXTREMITIES: Left lower extremity swelling and redness slightly decreased in intensity - Labs CBC & Chem 7: 02/01/23 06:26 02/01/23 06:26 Assessment and Plan (1) Left leg cellulitis Current Visit: Yes Status: Acute Code(s): L03.116 - CELLULITIS OF LEFT LOWER LIMB SNOMED Code(s): 484586318 Plan: Patient did have a extensive left lower extremity cellulitis with athlete's foot and diffuse swelling concerning for streptococcal infection patient did have some improvement to the cellulitis however the patient did have worsening of the white count and no significant improvement on cefazolin, patient has been switched over to daptomycin as of 02/01/2023, however still combining of pain a nd did have tenderness on palpation to the left posterior leg we will obtain a CT of the left leg to make sure no evidence of any abscesses that may need to be drained and continue the patient on daptomycin Time with Patient: Less than 30
--- NOTE | 2023-02-04 01:53 | CT ---
EXAM: CT Left Lower Extremity With Intravenous Contrast CLINICAL HISTORY: ITS.REASON CT Reason: left post leg abscess TECHNIQUE: Axial computed tomography images of the left lower extremity with intravenous contrast. CTDI is 56.7 mGy and DLP is 7319.2 mGy-cm. This CT exam was performed using one or more of the following dose reduction techniques: automated exposure control, adjustment of the mA and/or kV according to patient size, and/or use of iterative reconstruction technique. COMPARISON: No relevant prior studies available. FINDINGS: Bones/joints: Advanced degenerative changes of the knee. No acute fracture. No dislocation. Soft tissues: Subtle inflammatory changes in skin thickening involving the posterior thigh and posterior calf without defined fluid collection. IMPRESSION: Left lower extremity cellulitis.
[2023-02-04] MEDS: ACETAMINOPHEN TAB 325 MG TAB PO SCH ×3 (05:29→17:13)
[2023-02-04] MEDS: amLODIPine 5 MG TAB PO SCH (08:47)
[2023-02-04] MEDS: CHOLECALCIFEROL 125 MCG (5000 IU) TABLET PO SCH (08:47)
[2023-02-04] MEDS: FERROUS SULFATE 325 MG TAB PO SCH (08:47)
[2023-02-04] MEDS: NAPROXEN 250 MG TAB PO SCH ×2 (08:47→20:31)
[2023-02-04] MEDS: POTASSIUM CHLORIDE ER 10 MEQ TAB.ER.PRT PO SCH (08:47)
[2023-02-04] MEDS: ASPIRIN 81 MG PO SCH (08:47)
[2023-02-04] MEDS: NYSTATIN 100,000 UNIT/GM POWD 15 GM TOPICAL SCH ×2 (08:48→20:31)
[2023-02-04 09:25] LABS: HCT 32.9 % (39.6-50.0); HGB 10.3 d/dL (13.0-17.0); MCH 27.8 pg (27.0-32.0); MCHC 31.3 d/dL (32.0-37.0); MCV 88.7 FL (80.0-97.0); Mean Platelet Volume 10.3 FL (9.5-12.2); NRBC Per 100 WBC 0 X 10*3/uL (0.00-0.01); Platelet Count 401 X 10*3/uL (140-440); RBC 3.71 X 10*6/uL (4.40-5.60); RDW 14.9 % (11.5-14.5)
[2023-02-04 09:37] LABS: ALT 22 U/L (10-49); AST 42 U/L (14-35); Albumin 3.5 d/dL (3.8-4.9); Alkaline Phosphatase 148 U/L (41-126); Blood Urea Nitrogen 13.1 mg/dL (9.0-27.0); Calcium 9.1 mg/dL (8.7-10.3); Carbon Dioxide 30.9 mmol/L (21.6-31.8); Chloride 94 mmol/L (96-109); Globulin 3.9 d/dL (1.6-3.3); Glucose 107 mg/dL (70-110); Potassium 3.5 mmol/L (3.5-5.5); Sodium 137 mmol/L (135-145); Total Bilirubin 0.6 mg/dL (0.3-1.2); Total Protein 7.4 d/dL (6.2-8.2)
[2023-02-04 09:53] LABS: Neutrophils % (M) 79 %
[2023-02-04 10:19] LABS: Basophils # (M) 0.09 X 10*3/uL (0.00-0.10); Eosinophils # (M) 0.28 X 10*3/uL (0.04-0.35); Lymphocytes # (M) 0.74 X 10*3/uL (0.90-5.00); Metamyelocytes % 3 % (0-0); Monocytes # (M) 0.46 X 10*3/uL (0.20-1.00); Myelocytes % 1 % (0-0); Neutrophils # (M) 7.27 X 10*3/uL (1.80-7.70); RBC Morphology Normal (Normal)
--- NOTE | 2023-02-04 15:56 | P.PN ---
Subjective Progress Note Date: 02/04/23 Principal diagnosis: Left lower extremity cellulitis Patient is a 57-year-old male with a past medical history difficult for hypertension hyperlipidemia history of recurrent fall ,morbid obesity did have a previous episode of left lower extremity cellulitis currently a [facility] hospital for evaluation of worsening swelling redness to the left lower extremity On today's evaluation that is 02/04/2023, the patient continues to be afebrile, the patient is breathing comfortably and denies any shortness of breath no chest pain or cough, the patient denies having any nausea and vomiting no abdominal pain and no diarrhea, the patient pain to the left posterior leg has slightly decreased in intensity The patient did have a white count is of 9.20, creatinine is 1.0 Objective - Vital Signs Vital signs: Vital Signs Temp 97.8 F 02/04/23 07:55 Pulse 67 02/04/23 07:55 Resp 19 02/04/23 07:55 BP 123/62 02/04/23 07:55 Pulse Ox 94 L 02/04/23 07:55 FiO2 21 02/01/23 08:25 Intake & Output 02/03/23 02/04/23 02/04/23 18:59 06:59 18:59 Output Total 1200 Balance -1200 Output: Urine 1200 Other: Voiding Method Urinal Urinal Urinal # Voids 1 # Bowel Movements 1 - Exam GENERAL DESCRIPTION: Middle-age male lying in bed in no distress RESPIRATORY SYSTEM: Unlabored breathing , decreased breath sounds at bases HEART: S1 S2 regular rate and rhythm , ABDOMEN: Soft , no tenderness EXTREMITIES: Left lower extremity swelling and redness slightly decreased in intensity - Labs CBC & Chem 7: 02/04/23 06:13 02/04/23 06:13 Labs: Abnormal Lab Results - Last 24 Hours (Table) 02/04/23 02/04/23 Range/Units 06:13 06:13 RBC 3.71 L (4.40-5.60) X 10*6/uL Hgb 10.3 L (13.0-17.0) d/dL Hct 32.9 L (39.6-50.0) % MCHC 31.3 L (32.0-37.0) d/dL RDW 14.9 H (11.5-14.5) % Lymphocytes # (Manual) 0.74 L (0.90-5.00) X 10*3/uL Chloride 94 L (96-109) mmol/L Anion Gap 12.10 H (4.00-12.00) mmol/L AST 42 H (14-35) U/L Alkaline Phosphatase 148 H (41-126) U/L C-Reactive Protein 10.00 H (0.00-0.80) mg/dL Albumin 3.5 L (3.8-4.9) d/dL Globulin 3.9 H (1.6-3.3) d/dL Albumin/Globulin Ratio 0.90 L (1.60-3.17) Ratio Microbiology - Last 24 Hours (Table) 01/29/23 13:12 Blood Culture - Final Blood 01/29/23 13:12 Blood Culture - Final Blood Assessment and Plan (1) Left leg cellulitis Current Visit: Yes Status: Acute Code(s): L03.116 - CELLULITIS OF LEFT LOWER LIMB SNOMED Code(s): 527133411 Plan: Patient did have a extensive left lower extremity cellulitis with athlete's foot and diffuse swelling concerning for streptococcal infection patient did have some improvement to the cellulitis however the patient did have worsening of the white count and no significant improvement on cefazolin, patient has been swi tched over to daptomycin as of 02/01/2023, and the patient did have a CT of the left lower extremity that was negative for any abscess, did have some improvement in the cellulitis, the patient will likely need midline for outpatient IV antibiotics Time with Patient: Less than 30
--- NOTE | 2023-02-04 16:13 | P.PN ---
Progress Note - Text Progress Note Date: 02/04/23 Hospital course patient is a 57-year-old gentleman with past medical history significant for hypertension, obesity who presented to the ER because of left lower extremity swelling and pain that started 1 week back. Patient has been noticing that his left lower extremity has been getting swollen, he also noticed worsening redness associated with pain of left lower extremity. Patient was diagnosed with cellulitis and was placed on antibiotics but did not improve. Patient came to the ER. There was no complaint of fever or chills. No nausea, vomiting abdominal pain. No complaint of lethargy or weakness. Initial lab work done in the ER showed WBC 10.7, hemoglobin 12.5, platelet count 280, sodium 137, potassium 3.6, BUN 21, creatinine 1.32, glucose 111 troponin 0.045 CRP 20.5 EKG done in the ER showed no ST segment changes, no T-wave inversion noticeable, heart rate of 86 Duplex ultrasound of left lower extremity showed no DVT X-ray of left tibia and fibula showed no acute fractures Patient admitted for medicine service 01/29. Patient seen and examined. Still has redness of left lower extremity. January 30: I assumed care of the patient today. Operative candidate. Left leg and Ghanshyam wrap and dressing. Some pain. She is blind in the right eye. At her baseline does use a walker. Eating well. On IV Ancef. January 31: Sitting up in a chair. Some pain in the left cellulitic leg. Home dose of naproxen reordered. Eating well. Had a bowel movement. February 01: No new issues. Leg pain better with naproxen. Discussed with ID doctor site. He will change the antibiotic to daptomycin today because of the findings of the wound. February 02: Leg pain better. On IV daptomycin. Local wound care in place. Follow with ID. Patient eating well. February 03: IV daptomycin. Ghanshyam wrap in place. Eating well. Follow with ID. February 04: Computed tomography scan ordered by Dr. Trejo from ID. No abscess. Discussed with him. He will order midline for home antibiotics. Otherwise patient feeling well. Active Medications Acetaminophen (Acetaminophen Tab 325 Mg Tab) 650 mg PO Q6HR [facility] Last Admin: 02/04/23 11:45 Dose: 650 mg Amlodipine Besylate (Amlodipine 5 Mg Tab) 5 mg PO DAILY [facility] Last Admin: 02/04/23 08:47 Dose: 5 mg Aspirin (Aspirin 81 Mg) 81 mg PO DAILY [facility] Last Admin: 02/04/23 08:47 Dose: 81 mg Cholecalciferol (Cholecalciferol 125 Mcg (5000 Iu) Tablet) 125 mcg PO DAILY [facility] Last Admin: 02/04/23 08:47 Dose: 125 mcg Ferrous Sulfate (Ferrous Sulfate 325 Mg Tab) 325 mg PO DAILY [facility] Last Admin: 02/04/23 08:47 Dose: 325 mg Hydrochlorothiazide (Hydrochlorothiazide 50 Mg Tab) 50 mg PO DAILY [facility] Last Admin: 02/04/23 08:47 Dose: 50 mg Daptomycin 600 mg/ Sodium (Chloride) 50 mls @ 100 mls/hr IVPB Q24HR [facility]; Protocol Last Admin: 02/04/23 08:46 Dose: 100 mls/hr Naloxone HCl (Naloxone 0.4 Mg/Ml 1 Ml Vial) 0.2 mg IV Q2M PRN PRN Reason: Opioid Reversal Naproxen (Naproxen 250 Mg Tab) 250 mg PO BID [facility] Last Admin: 02/04/23 08:47 Dose: 250 mg Nystatin (Nystatin 100,000 Unit/Gm Powd 15 Gm) 1 applic TOPICAL BID [facility]; Protocol Last Admin: 02/04/23 08:48 Dose: 1 applic Ondansetron HCl (Ondansetron 4 Mg/2 Ml Vial) 4 mg IVP Q8HR PRN PRN Reason: Nausea And Vomiting Potassium Chloride (Potassium Chloride Er 10 Meq Tab.Er.Prt) 10 meq PO DAILY [facility] Last Admin: 02/04/23 08:47 Dose: 10 meq Past medical history to include: blind in the right eye. COVID-19. Severe osteoarthritis. Morbid obesity. Bilateral lower extremity venous stasis dermatitis. Essential hypertension. Social history: Currently at [facility]. Does use a walker. No smoking or alcohol. On examination: VITAL SIGNS: 98.1, 70, 17, 135/64, 96% room air GENERAL APPEARANCE: Laying in bed, comfortable HEENT: Normal external appearance of nose and ear. Oral cavity normal EYES: Pupils equal. Conjunctiva normal. NECK: JVD not raised. Mass not palpable. RESPIRATORY: Respiratory effort normal. Lungs clear to auscultation. CARDIOVASCULAR: First and second sounds normal. No edema. ABDOMEN: Soft. Liver and spleen not palpable. No tenderness. No mass palpable. PSYCHIATRY: Alert and oriented x3. Mood and affect normal. Extremity: Left second and dressing and Ghanshyam wrap. Up to the knee INVESTIGATIONS, reviewed in the clinical context: Computed tomography scan: [Left leg]: No abscess reported January 31: White count 12 hemoglobin 10.9 platelets 23 procalcitonin 1.86 January 30: White count 11.5 hemoglobin 10.8 platelets 264 creatinine 1.06 Troponin I 0.290 0.198, 0.145 Assessment and plan -Acute left lower extremity cellulitis with wound.: Abscess ruled out with negative computed tomography scan IV daptomycin. -Morbid obesity BMI 51.1 Weight loss measures -Primary osteoarthritis Tylenol as needed -Essential hypertension Amlodipine 5 mg daily. Hydrochlorothiazide. 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 -Chronic bilateral lower extremity venous stasis and dermatitis -Chronic gait dysfunction uses a walker at baseline -Full code. -Disposition: Long-term resident. [facility]
[2023-02-05] MEDS: ACETAMINOPHEN TAB 325 MG TAB PO SCH ×3 (00:48→12:23)
[2023-02-05] MEDS: NAPROXEN 250 MG TAB PO SCH (08:12)
[2023-02-05] MEDS: CHOLECALCIFEROL 125 MCG (5000 IU) TABLET PO SCH (08:12)
[2023-02-05] MEDS: POTASSIUM CHLORIDE ER 10 MEQ TAB.ER.PRT PO SCH (08:12)
[2023-02-05] MEDS: ASPIRIN 81 MG PO SCH (08:12)
[2023-02-05] MEDS: FERROUS SULFATE 325 MG TAB PO SCH (08:12)
[2023-02-05] MEDS: amLODIPine 5 MG TAB PO SCH (08:12)
[2023-02-05] MEDS: NYSTATIN 100,000 UNIT/GM POWD 15 GM TOPICAL SCH (08:22)
[2023-02-05 13:29] VITALS: BP 150/74; PULSE 70; RESP 16; TEMP 98
--- NOTE | 2023-02-05 13:58 | P.DS ---
Providers Date of admission: 01/28/23 03:29 Expected date of discharge: 02/05/23 Attending physician: Mike Garcia Consults: 01/28/23 03:29 Consult Physician Routine Consulting Provider: Gwendolyn Chavez Consult Reason/Comments: cellulitis Do you want consulting provider notified?: Yes Primary care physician: [facility] Course: Hospital course patient is a 57-year-old gentleman with past medical history significant for hypertension, obesity who presented to the ER because of left lower extremity swelling and pain that started 1 week back. Patient has been noticing that his left lower extremity has been getting swollen, he also noticed worsening redness associated with pain of left lower extremity. Patient was diagnosed with cellulitis and was placed on antibiotics but did not improve. Patient came to the ER. There was no complaint of fever or chills. No nausea, vomiting abdominal pain. No complaint of lethargy or weakness. Initial lab work done in the ER showed WBC 10.7, hemoglobin 12.5, platelet count 280, sodium 137, potassium 3.6, BUN 21, creatinine 1.32, glucose 111 troponin 0.045 CRP 20.5 EKG done in the ER showed no ST segment changes, no T-wave inversion noticeable, heart rate of 86 Duplex ultrasound of left lower extremity showed no DVT X-ray of left tibia and fibula showed no acute fractures Patient admitted for medicine service 01/29. Patient seen and examined. Still has redness of left lower extremity. January 30: I assumed care of the patient today. Operative candidate. Left leg and Ghanshyam wrap and dressing. Some pain. She is blind in the right eye. At her baseline does use a walker. Eating well. On IV Ancef. January 31: Sitting up in a chair. Some pain in the left cellulitic leg. Home dose of naproxen reordered. Eating well. Had a bowel movement. February 01: No new issues. Leg pain better with naproxen. Discussed with ID doctor site. He will change the antibiotic to daptomycin today because of the findings of the wound. February 02: Leg pain better. On IV daptomycin. Local wound care in place. Follow with ID. Patient eating well. February 03: IV daptomycin. Ghanshyam wrap in place. Eating well. Follow with ID. February 04: Computed tomography scan ordered by Dr. Trejo from ID. No abscess. Discussed with him. He will order midline for home antibiotics. Otherwise patient feeling well. February 05: Comfortable. No new issues. Today- PICC line. Discharged antibiotic being coordinated by ID. Discussed with patient. Eating well. Patient follow-up with ID outpatient. Local wound care to continue. Discussion and discharge planning more than 35 minutes Past medical history to include: blind in the right eye. COVID-19. Severe osteoarthritis. Morbid obesity. Bilateral lower extremity venous stasis dermatitis. Essential hypertension. Social history: Currently at [facility]. Does use a walker. No smoking or alcohol. On examination: VITAL SIGNS: 98, 70, 16, 150/74, 96% room air GENERAL APPEARANCE: Laying in bed, comfortable HEENT: Normal external appearance of nose and ear. Oral cavity normal EYES: Pupils equal. Conjunctiva normal. NECK: JVD not raised. Mass not palpable. RESPIRATORY: Respiratory effort normal. Lungs clear to auscultation. CARDIOVASCULAR: First and second sounds normal. No edema. ABDOMEN: Soft. Liver and spleen not palpable. No tenderness. No mass palpable. PSYCHIATRY: Alert and oriented x3. Mood and affect normal. Extremity: Left second and dressing and Ghanshyam wrap. Up to the knee INVESTIGATIONS, reviewed in the clinical context: February 04: White count 9.2 hemoglobin 10.3 platelets. 1 potassium 3.5 creatinine 1.0 procalcitonin 0.86 Computed tomography scan: [Left leg]: No abscess reported January 30: White count 11.5 hemoglobin 10.8 platelets 264 creatinine 1.06 Troponin I 0.290 0.198, 0.145 Assessment and plan -Acute left lower extremity cellulitis with wound.: : Improving Abscess ruled out with negative computed tomography scan IV daptomycin. DC antibiotics per ID -Morbid obesity BMI 51.1 Weight loss measures -Primary osteoarthritis Tylenol as needed -Essential hypertension Amlodipine 5 mg daily. 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 -Chronic bilateral lower extremity venous stasis and dermatitis -Chronic gait dysfunction uses a walker at baseline -Full code. Disposition: Long-term resident. [facility] Plan - Discharge Summary Discharge Rx Participant: No New Discharge Prescriptions: New Chlorthalidone 25 mg PO DAILY #1 tablet Nystatin 100,000 Unit/gm Powd [Mycostatin Powder] 1 applic TOPICAL BID each Naproxen [Naprosyn] 250 mg PO BID tab Aspirin 81 mg PO DAILY tab DAPTOmycin [Cubicin] 600 mg IV DAILY #10 each Continue amLODIPine [Norvasc] 5 mg PO DAILY Acetaminophen [Tylenol Arthritis] 650 mg PO Q6H Ferrous Sulfate [Iron] 325 mg PO DAILY Cholecalciferol [Vitamin D3 (125 Mcg = 5000 Iu)] 125 mcg PO DAILY Ascorbic Acid [Vitamin C] 1,000 mg PO DAILY tab Cranberry Fruit [Cranberry] 465 mg PO DAILY Discontinued hydroCHLOROthiazide [Hydrodiuril] 50 mg PO DAILY Cephalexin [Keflex] 500 mg PO TID@0700,1300,1900 Menthol [Biofreeze] 1 applic TOPICAL HS Potassium Chloride ER [K-Dur 10] 10 meq PO DAILY Discharge Medication List Cholecalciferol [Vitamin D3 (125 Mcg = 5000 Iu)] 125 mcg PO DAILY 08/10/21 [History] Ferrous Sulfate [Iron] 325 mg PO DAILY 08/10/21 [History] amLODIPine [Norvasc] 5 mg PO DAILY 08/10/21 [History] Ascorbic Acid [Vitamin C] 1,000 mg PO DAILY tab 09/07/21 [Rx] Acetaminophen [Tylenol Arthritis] 650 mg PO Q6H 01/28/23 [History] Cranberry Fruit [Cranberry] 465 mg PO DAILY 01/28/23 [History] Aspirin 81 mg PO DAILY tab 02/05/23 [Rx] Chlorthalidone 25 mg PO DAILY #1 tablet 02/05/23 [Rx] DAPTOmycin [Cubicin] 600 mg IV DAILY #10 each 02/05/23 [Rx] Naproxen [Naprosyn] 250 mg PO BID tab 02/05/23 [Rx] Nystatin 100,000 Unit/gm Powd [Mycostatin Powder] 1 applic TOPICAL BID each 02/05/23 [Rx] Follow up Appointment(s)/Referral(s): Saul Burton MD [Primary Care Provider] - 1-2 days Gwendolyn Chavez MD [STAFF PHYSICIAN] - 10 Days Activity/Diet/Wound Care/Special Instructions: DC antibiotic per ID
== END 2023-02-05 16:14 | DRG 383 ==
LOC: EC 02:16 → 4SSUR 03:29
PROVIDERS: ADMIT Hospitalist; ATTEND Hospitalist
PROC: 05HB33Z Insertion of Infusion Device into Right Basilic Vein, Percutaneous Approach (ICD-10-PCS; principal; 2023-02-05 08:30)
DX: L03.116 Cellulitis of left lower limb (principal); I21.A1 Myocardial infarction type 2; I87.2 Venous insufficiency (chronic) (peripheral); Z68.43 Body mass index [BMI] 50.0-59.9, adult; L97.529 Non-pressure chronic ulcer of other part of left foot with unspecified severity; I10 Essential (primary) hypertension; E66.01 Morbid (severe) obesity due to excess calories; M17.12 Unilateral primary osteoarthritis, left knee; E78.5 Hyperlipidemia, unspecified; L03.115 Cellulitis of right lower limb; M79.10 Myalgia, unspecified site; H40.9 Unspecified glaucoma; G89.29 Other chronic pain; I49.3 Ventricular premature depolarization; H54.61 Unqualified visual loss, right eye, normal vision left eye; I87.8 Other specified disorders of veins; B35.3 Tinea pedis; B95.5 Unspecified streptococcus as the cause of diseases classified elsewhere; R29.6 Repeated falls; R60.0 Localized edema; Z79.899 Other long term (current) drug therapy; Z79.82 Long term (current) use of aspirin; Z91.81 History of falling; Z86.16 Personal history of COVID-19
CPT/HCPCS: 36410; 36415; 71275; 76937; 80053; 80061; 82550; 82553; 83605; 83735; 83880; 84100; 84145; 84484; 85025; 85027; 85379; 85610; 85730; 86140; 87040; 93005; 93306; 94760; 96365; 96367; 96375; 99285

== ENCOUNTER 2023-12-02 02:30 | Inpatient (IN) | payer OTHER ==
--- NOTE | 2023-12-02 03:03 | ED ---
General Adult HPI - General Chief complaint: Recheck/Abnormal Lab/Rx Stated complaint: Hypotensive Time Seen by Provider: 12/02/23 02:34 Source: patient, EMS, RN notes reviewed, old records reviewed Mode of arrival: EMS Limitations: no limitations - History of Present Illness Initial comments: 58-year-old male with immobility, obesity, presenting for evaluation of hypotension. Patient states he has had diarrhea today which was described as watery. Patient denies complaint at the time my evaluation. He is alert and oriented. Denies cough. Denies abdominal pain. States he has cellulitis in the left leg which is chronic. He states he had several episodes of diarrhea today without vomiting. Patient was noted to be febrile prior to arrival. He also had low blood pressure measured at the [facility] and was sent to the emergency department for evaluation. - Related Data Home Medications Medication Instructions Recorded Confirmed Cholecalciferol [Vitamin D3 (125 125 mcg PO DAILY 08/10/21 01/28/23 Mcg = 5000 Iu)] Ferrous Sulfate [Iron] 325 mg PO DAILY 08/10/21 01/28/23 amLODIPine [Norvasc] 5 mg PO DAILY 08/10/21 01/28/23 Acetaminophen [Tylenol Arthritis] 650 mg PO Q6H 01/28/23 01/28/23 Cranberry Fruit [Cranberry] 465 mg PO DAILY 01/28/23 01/28/23 Previous Rx's Medication Instructions Recorded Ascorbic Acid [Vitamin C] 1,000 mg PO DAILY tab 09/07/21 Aspirin 81 mg PO DAILY tab 02/05/23 Chlorthalidone 25 mg PO DAILY #1 tablet 02/05/23 DAPTOmycin [Cubicin] 600 mg IV DAILY #10 each 02/05/23 Naproxen [Naprosyn] 250 mg PO BID tab 02/05/23 Nystatin 100,000 Unit/gm Powd 1 applic TOPICAL BID each 02/05/23 [Mycostatin Powder] Allergies Allergy/AdvReac Type Severity Reaction Status Date / Time No Known Allergies Allergy Verified 01/28/23 10:41 Review of Systems ROS Statement: Those systems with pertinent positive or pertinent negative responses have been documented in the HPI. ROS Other: All systems not noted in ROS Statement are negative. Past Medical History Past Medical History: Eye Disorder, Hyperlipidemia, Hypertension, Vascular Disorder Additional Past Medical History / Comment(s): Glaucoma, falls secondary to poor balance from poor proprioception from severe obesity arthritis especially that of the left knee (walker) , Severe osteoarthritis of the left knee , Morbid obesity BMI 49.3, Bilateral lower extremity venous stasis dermatitis, Intertr iginous candidiasis, Essential hypertension. Amlodipine 5 mg a day History of Any Multi-Drug Resistant Organisms: MRSA Date of last positivie culture/infection: 07/18/23 MDRO Source:: Left Foot Additional Past Surgical History / Comment(s): lasezra bilat Past Anesthesia/Blood Transfusion Reactions: No Reported Reaction Past Psychological History: No Psychological Hx Reported, Depression Smoking Status: Never smoker Past Alcohol Use History: None Reported Past Drug Use History: None Reported General Exam Limitations: no limitations General appearance: alert, in no apparent distress Head exam: Present: atraumatic, normocephalic Neck exam: Absent: meningismus Respiratory exam: Present: decreased breath sounds. Absent: respiratory distress Cardiovascular Exam: Present: regular rate, normal rhythm GI/Abdominal exam: Present: soft. Absent: distended, tenderness, guarding Extremities exam: Present: other (Erythema and induration to the left lower extremity) Neurological exam: Present: alert, oriented X3 Psychiatric exam: Present: normal affect, normal mood Skin exam: Present: pallor Course Vital Signs 12/02/23 12/02/23 12/02/23 02:41 04:36 05:08 Temperature 98.3 F 99.9 F H Pulse Rate 89 88 92 Respiratory 18 18 18 Rate Blood Pressure 90/51 114/33 106/40 O2 Sat by Pulse 97 100 96 Oximetry Medical Decision Making - Medical Decision Making Was pt. sent in by a medical professional or institution (, PA, PERSONAL INJURY SPECIALIST, urgent care, hospital, or fdc...) When possible be specific @ -No Did you speak to anyone other than the patient for history (EMS, parent, family, police, friend...)? What history was obtained from this source @ -No Did you review nursing and triage notes (agree or disagree)? Why? @ -I reviewed and agree with nursing and triage notes Were old charts reviewed (outside hosp., previous admission, EMS record, old EKG, old radiological studies, urgent care reports/EKG's, [facility] records)? Report findings @ -No old charts were reviewed Differential Diagnosis (chest pain, altered mental status, abdominal pain women, abdominal pain men, vaginal bleeding, weakness, fever, dyspnea, syncope, headache, dizziness, GI bleed, back pain, seizure, CVA, palpatations, mental health, musculoskeletal)? @ -Not applicable EKG interpreted by me (3pts min.). @ -As above X-rays interpreted by me (1pt min.). @ -None done CT interpreted by me (1pt min.). @ -None done U/S interpreted by me (1pt. min.). @ -None done What testing was considered but not performed or refused? (CT, X-rays, U/S, labs)? Why? @ -None What meds were considered but not given or refused? Why? @ -None Did you discuss the management of the patient with other professionals (professionals i.e. , PA, PERSONAL INJURY SPECIALIST, lab, RT, psych nurse, criminal justice social worker, welfare adviser, teacher, special technical operations officer, geriatric case manager)? Give summary @ -EMH Was smoking cessation discussed for >3mins.? @ -No Was critical care preformed (if so, how long)? @Yes 35 minutes Were there social determinants of health that impacted care today? How? (Homelessness, low income, unemployed, alcoholism, drug addiction, transportation, low edu. Level, literacy, decrease access to med. care, penitentiary, rehab)? @ -No Was there de-escalation of care discussed even if they declined (Discuss DNR or withdrawal of care, Hospice)? DNR status @ -No What co-morbidities impacted this encounter? (DM, HTN, Smoking, COPD, CAD, Cancer, CVA, ARF, Chemo, Hep., AIDS, mental health diagnosis, sleep apnea, morbid obesity)? @ -None Was patient admitted / discharged? Hospital course, mention meds given and route, prescriptions, significant lab abnormalities, going to OR and other pertinent info. @ -[Patient admitted with multiple sources of infection including left leg cellulitis and diarrhea which is positive for C. difficile toxin. Patient started on both oral and IV antibiotics. He has an elevated white blood cell count, he has acute kidney injury with elevated BUN and creatinine. Urinalysis is pending. Patient admitted to internal medicine with infectious disease on consult. Undiagnosed new problem with uncertain prognosis? @ -No Drug Therapy requiring intensive monitoring for toxicity (Heparin, Nitro, Insulin, Cardizem)? @ -No Were any procedures done? @ -No Diagnosis/symptom? @Sepsis, C. difficile, cellulitis Acute, or Chronic, or Acute on Chronic? @Acute Uncomplicated (without systemic symptoms) or Complicated (systemic symptoms)? @ -complicated Side effects of treatment? @ -No Exacerbation, Progression, or Severe Exacerbation? @ -No Poses a threat to life or bodily function? How? (Chest pain, [place], [place], pneumonia, PE, COPD, DKA, ARF, appy, cholecystitis, CVA, Diverticulitis, Homicidal, Suicidal, threat to staff... and all critical care pts) @ -Yes, sepsis - Lab Data Result diagrams: 12/02/23 03:13 12/02/23 03:13 Lab Results 12/02/23 12/02/23 12/02/23 Range/Units 03:13 03:13 03:13 WBC 18.2 H (3.8-10.6) k/uL RBC 4.13 L (4.30-5.90) m/uL Hgb 11.7 L (13.0-17.5) gm/dL Hct 36.7 L (39.0-53.0) % MCV 88.9 (80.0-100.0) fL MCH 28.5 (25.0-35.0) pg MCHC 32.0 (31.0-37.0) g/dL RDW 16.2 H (11.5-15.5) % Plt Count 292 (150-450) k/uL MPV 8.1 Neutrophils % 94 % Lymphocytes % 2 % Monocytes % 3 % Eosinophils % 0 % Basophils % 1 % Neutrophils # 17.1 H (1.3-7.7) k/uL Lymphocytes # 0.4 L (1.0-4.8) k/uL Monocytes # 0.5 (0-1.0) k/uL Eosinophils # 0.1 (0-0.7) k/uL Basophils # 0.1 (0-0.2) k/uL Anisocytosis Slight Sodium 135 L (137-145) mmol/L Potassium 3.7 (3.5-5.1) mmol/L Chloride 100 (98-107) mmol/L Carbon Dioxide 18 L (22-30) mmol/L Anion Gap 17 mmol/L BUN 40 H (9-20) mg/dL Creatinine 3.02 H (0.66-1.25) mg/dL Est GFR (CKD-EPI)AfAm 25 (>60 ml/min/1.73 sqM) Est GFR (CKD-EPI)NonAf 22 (>60 ml/min/1.73 sqM) Glucose 79 (74-99) mg/dL Calcium 8.7 (8.4-10.2) mg/dL Total Bilirubin 4.6 H (0.2-1.3) mg/dL AST 452 H (17-59) U/L ALT 102 H (4-49) U/L Alkaline Phosphatase 125 (38-126) U/L Total Protein 7.8 (6.3-8.2) g/dL Albumin 4.1 (3.5-5.0) g/dL C. difficile Tox (PCR) (Not Detectd) Influenza Type A (PCR) Not Detected (Not Detectd) Influenza Type B (PCR) Not Detected (Not Detectd) RSV (PCR) Not Detected (Not Detectd) SARS-CoV-2 (PCR) Not Detected (Not Detectd) 12/02/23 Range/Units 03:13 WBC (3.8-10.6) k/uL RBC (4.30-5.90) m/uL Hgb (13.0-17.5) gm/dL Hct (39.0-53.0) % MCV (80.0-100.0) fL MCH (25.0-35.0) pg MCHC (31.0-37.0) g/dL RDW (11.5-15.5) % Plt Count (150-450) k/uL MPV Neutrophils % % Lymphocytes % % Monocytes % % Eosinophils % % Basophils % % Neutrophils # (1.3-7.7) k/uL Lymphocytes # (1.0-4.8) k/uL Monocytes # (0-1.0) k/uL Eosinophils # (0-0.7) k/uL Basophils # (0-0.2) k/uL Anisocytosis Sodium (137-145) mmol/L Potassium (3.5-5.1) mmol/L Chloride (98-107) mmol/L Carbon Dioxide (22-30) mmol/L Anion Gap mmol/L BUN (9-20) mg/dL Creatinine (0.66-1.25) mg/dL Est GFR (CKD-EPI)AfAm (>60 ml/min/1.73 sqM) Est GFR (CKD-EPI)NonAf (>60 ml/min/1.73 sqM) Glucose (74-99) mg/dL Calcium (8.4-10.2) mg/dL Total Bilirubin (0.2-1.3) mg/dL AST (17-59) U/L ALT (4-49) U/L Alkaline Phosphatase (38-126) U/L Total Protein (6.3-8.2) g/dL Albumin (3.5-5.0) g/dL C. difficile Tox (PCR) POSITIVE (Not Detectd) Influenza Type A (PCR) (Not Detectd) Influenza Type B (PCR) (Not Detectd) RSV (PCR) (Not Detectd) SARS-CoV-2 (PCR) (Not Detectd) Critical Care Time Critical Care Time: Yes Total Critical Care Time: 35 Disposition Clinical Impression: Cellulitis, Morbid obesity with BMI of 50.0-59.9, adult, C. difficile diarrhea Disposition: ADMITTED IP TO THIS HOSP Condition: Stable Is patient prescribed a controlled substance at d/c from ED?: No Time of Disposition: 05:30
[2023-12-02] MEDS: SODIUM CHLORIDE 0.9% 1,000 ML IV ONE ×3 (03:38→13:36)
[2023-12-02 03:52] LABS: ALT 102 U/L (4-49); AST 452 U/L (17-59); African American GFR (CKD) 25 (>60 ml/min/1.73 sqM); Albumin 4.1 g/dL (3.5-5.0); Alkaline Phosphatase 125 U/L (38-126); Anion Gap 17 mmol/L; Blood Urea Nitrogen 40 mg/dL (9-20); Calcium 8.7 mg/dL (8.4-10.2); Carbon Dioxide 18 mmol/L (22-30); Chloride 100 mmol/L (98-107); Glucose 79 mg/dL (74-99); Non-African American GFR(CKD) 22 (>60 ml/min/1.73 sqM); Potassium 3.7 mmol/L (3.5-5.1); Sodium 135 mmol/L (137-145); Total Bilirubin 4.6 mg/dL (0.2-1.3); Total Protein 7.8 g/dL (6.3-8.2)
[2023-12-02 04:00] LABS: Anisocytosis Slight; Basophils # (A) 0.1 k/uL (0-0.2); Basophils % (A) 1 %; Eosinophils # (A) 0.1 k/uL (0-0.7); Eosinophils % (A) 0 %; HCT 36.7 % (39.0-53.0); HGB 11.7 gm/dL (13.0-17.5); Lymphocytes # (A) 0.4 k/uL (1.0-4.8); Lymphocytes % (A) 2 %; MCH 28.5 pg (25.0-35.0); MCV 88.9 fL (80.0-100.0); Mean Platelet Volume 8.1; Monocytes # (A) 0.5 k/uL (0-1.0); Monocytes % (A) 3 %; Neutrophils # (A) 17.1 k/uL (1.3-7.7); Neutrophils % (A) 94 %; Platelet Count 292 k/uL (150-450); RBC 4.13 m/uL (4.30-5.90); RDW 16.2 % (11.5-15.5); WBC 18.2 k/uL (3.8-10.6)
[2023-12-02] MEDS ORDERED: VANCOMYCIN IV PER PHARMACY 1 EACH MISC MISCELLANE PRN (04:16)
[2023-12-02] MEDS ORDERED: NALOXONE 0.4 MG/ML 1 ML VIAL IV PRN (04:16)
[2023-12-02] MEDS: SODIUM CHLORIDE 0.9% 1,000 ML IV SCH (04:39)
[2023-12-02] MEDS: ACETAMINOPHEN TAB 325 MG TAB PO PRN (05:12)
[2023-12-02] MEDS: VANCOMYCIN 2,500 MG in SODIUM CHLORIDE 0.9% 500 ML 500 ML IVPB ONE (06:05)
[2023-12-02] MEDS: VANCOMYCIN 125 MG CAPSULE PO SCH ×2 (06:36→17:59)
[2023-12-02 10:03] LABS: Anisocytosis Slight; Basophils % (A) 0 %; Eosinophils # (A) 0.1 k/uL (0-0.7); Eosinophils % (A) 0 %; HCT 34.2 % (39.0-53.0); HGB 10.6 gm/dL (13.0-17.5); Lymphocytes # (A) 0.4 k/uL (1.0-4.8); Lymphocytes % (A) 3 %; MCH 27.5 pg (25.0-35.0); MCHC 30.9 g/dL (31.0-37.0); Mean Platelet Volume 8.7; Monocytes # (A) 0.4 k/uL (0-1.0); Monocytes % (A) 3 %; Neutrophils # (A) 11.8 k/uL (1.3-7.7); Neutrophils % (A) 92 %; Platelet Count 233 k/uL (150-450); RBC 3.84 m/uL (4.30-5.90); RDW 16.1 % (11.5-15.5); WBC 12.8 k/uL (3.8-10.6)
[2023-12-02] MEDS: HEPARIN SODIUM,PORCINE 5,000 UNIT/ML 1 ML VIAL SQ SCH (10:21)
[2023-12-02 10:22] LABS: ALT 111 U/L (4-49); AST 488 U/L (17-59); African American GFR (CKD) 25 (>60 ml/min/1.73 sqM); Albumin 3.3 g/dL (3.5-5.0); Alkaline Phosphatase 89 U/L (38-126); Anion Gap 12 mmol/L; Blood Urea Nitrogen 45 mg/dL (9-20); Calcium 7.8 mg/dL (8.4-10.2); Carbon Dioxide 22 mmol/L (22-30); Chloride 101 mmol/L (98-107); Glucose 98 mg/dL (74-99); Magnesium 1.1 mg/dL (1.6-2.3); Non-African American GFR(CKD) 21 (>60 ml/min/1.73 sqM); Potassium 3.7 mmol/L (3.5-5.1); Sodium 135 mmol/L (137-145); Total Bilirubin 4.4 mg/dL (0.2-1.3); Total Protein 6.7 g/dL (6.3-8.2)
--- NOTE | 2023-12-02 13:15 | P.HPIM ---
History of Present Illness H&P Date: 12/02/23 History of present illness; 58-year-old male patient with past medical history significant for immobility, obesity, history of cellulitis treated with IV antibiotics in January 2023 who presented to ER for low blood pressure and diarrhea. Patient presented with several episodes of diarrhea, also was noted to have fever prior to arrival. [facility] to [facility] and was sent to the ED for evaluation. Patient is poor historian. Patient reported that he was having fevers, also reported that he started to have loose stools 4-5 bowel movements per day for last 3 to 4 days also reported generalized abdominal pain and nausea and vomiting associated with diarrhea. Patient also complained of left leg pain. Patient denied any headache, sore throat, productive cough, chest pain, palpitations, dysuria, urgency, frequency, weakness numbness of extremities. In the ED patient was afebrile, pulse rate 89, respiratory rate 18, was saturating 97% on room air. Blood pressure was soft 90/51 with MAP of 64. Lab work showed leukocytosis with WBCs 18.2, hemoglobin 11.7, platelet 292, absolute neutrophils 17.1. CMP was remarkable for BUN of 40, creatinine of 3.02 with baseline creatinine around 1.0. Patient had elevated bilirubin of 4.6, AST was 452, ALT 102, alkaline phosphatase 125. Patient's influenza RSV and COVID was negative. C. difficile was positive. Patient admitted to internal medicine service REVIEW OF SYSTEMS: CONSTITUTIONAL: Complains of fever, fatigue. HEENT: No recent visual problems or hearing problems. Denied any sore throat. CARDIOVASCULAR: No chest pain, orthopnea, PND, no palpitations, no syncope. PULMONARY: No shortness of breath, no cough, no hemoptysis. GASTROINTESTINAL: Diarrhea, nausea and vomiting, generalized abdominal pain. NEUROLOGICAL: No headaches, no weakness, no numbness. HEMATOLOGICAL: Denies any bleeding or petechiae. GENITOURINARY: Denies any burning micturition, frequency, or urgency. MUSCULOSKELETAL/RHEUMATOLOGICAL: Reported left lower extremity worsening redness and pain. ENDOCRINE: Denies any polyuria or polydipsia. The rest of the 14-point review of systems is negative. PHYSICAL EXAMINATION: GENERAL: The patient is alert and oriented x3, not in any acute distress. Well developed, well nourished. HEENT: Pupils are round and equally reacting to light. EOMI. No scleral icterus. No conjunctival pallor. Normocephalic, atraumatic. No pharyngeal erythema. No thyromegaly. CARDIOVASCULAR: S1 and S2 present. No murmurs, rubs, or gallops. PULMONARY: Chest is clear to auscultation, no wheezing or crackles. ABDOMEN: Soft, nontender, nondistended, normoactive bowel sounds. No palpable organomegaly. MUSCULOSKELETAL: No joint swelling or deformity. EXTREMITIES: Bilatera chronic stasis changes, left lower extremity warmth, erythema, tenderness extending from ankle to below the knee. NEUROLOGICAL: Gross neurological examination did not reveal any focal deficits. Assessment and plan Severe sepsis: C. difficile infection- severe Presented with watery diarrhea, low blood pressure. Significant leukocytosis with elevated absolute neutrophils on presentation. Elevated LFTs and acute kidney injury secondary to sepsis. Blood cultures pending. Lactate checked 2.6, fluid bolus ordered, will recheck. P.o. vancomycin ID consult IV fluids Follow blood cultures Left lower extremity cellulitis: Patient has history of cellulitis in the past, has been treated with daptomycin in January 2023. Complaining of left lower extremity warmth, redness and pain. Warmth and tenderness noted. Discontinue vancomycin due to acute kidney injury, will start Zyvox. Infectious disease consulted. Discussed with infectious disease, awaiting fu rther recs after evaluation. Acute kidney injury: Prerenal secondary to hypovolemia, hypotension. Monitor renal function Avoid nephrotoxin, discontinued IV vancomycin. Hold home chlorthalidone Ultrasound renal IV fluids. Elevated LFTs: Suspect secondary to sepsis Monitors CMP Ultrasound abdomen. Hypertension: Blood pressure currently low Hold home blood pressure medications--Norvasc, chlorthalidone DVT prophylaxis. Subcutaneous heparin Dictation was produced using [email or web address] dictation software. please excuse any grammatical, word or spelling errors. Past Medical History Past Medical History: Eye Disorder, Hyperlipidemia, Hypertension, Vascular Dis order Additional Past Medical History / Comment(s): Glaucoma, falls secondary to poor balance from poor proprioception from severe obesity arthritis especially that of the left knee (walker) , Severe osteoarthritis of the left knee , Morbid obesity BMI 49.3, Bilateral lower extremity venous stasis dermatitis, Intertriginous candidiasis, Essential hypertension. Amlodipine 5 mg a day History of Any Multi-Drug Resistant Organisms: MRSA Date of last positivie culture/infection: 07/18/23 MDRO Source:: Left Foot Additional Past Surgical History / Comment(s): aldo stanley Past Anesthesia/Blood Transfusion Reactions: No Reported Reaction Past Psychological History: No Psychological Hx Reported, Depression Smoking Status: Never smoker Past Alcohol Use History: None Reported Past Drug Use History: None Reported Medications and Allergies Home Medications Medication Instructions Recorded Confirmed Type amLODIPine [Norvasc] 5 mg PO DAILY 08/10/21 12/02/23 History Ascorbic Acid [Vitamin C] 1,000 mg PO DAILY tab 09/07/21 12/02/23 Rx Aspirin 81 mg PO DAILY tab 02/05/23 12/02/23 Rx Acetaminophen Tab [Tylenol Tab] 1,000 mg PO TID 12/02/23 12/02/23 History Ammonium Lactate Lotion 1 applic TOPICAL HS 12/02/23 12/02/23 History [Lac-Hydrin 12% Lotion] Chlorthalidone 50 mg PO DAILY 12/02/23 12/02/23 History Colchicine 0.6 mg PO DAILY 12/02/23 12/02/23 History Cranberry 450mg 1 tab PO DAILY 12/02/23 12/02/23 History Ergocalciferol (Vitamin D2) 1,250 mcg PO QMONTHLY 12/02/23 12/02/23 History [Drisdol (50,000 Iu)] Ferrous Sulfate [Feosol] 325 mg PO DAILY 12/02/23 12/02/23 History Guaifenesin/Dextromethorphan 10 ml PO QID 12/02/23 12/02/23 History [Guaifenesin-Dm 100-10 mg/5 ml] Loperamide [Imodium] 1 - 2 mg PO QID PRN 12/02/23 12/02/23 History Menthol [Biofreeze] 1 applic TOPICAL Q8H PRN 12/02/23 12/02/23 History allopurinoL [Zyloprim] 100 mg PO BID 12/02/23 12/02/23 History Allergies Allergy/AdvReac Type Severity Reaction Status Date / Time No Known Allergies Allergy Verified 12/02/23 10:00 Physical Exam Vitals: Vital Signs Temp Pulse Pulse Resp BP BP Pulse Ox 12/02/23 06:09 98.8 F 96 20 91/50 98 12/02/23 05:08 99.9 F H 92 18 106/40 96 12/02/23 04:36 88 18 114/33 100 12/02/23 02:41 98.3 F 89 18 90/51 97 Intake and Output 12/01/23 12/02/23 12/02/23 22:59 06:59 14:59 Intake Total 240 Balance 240 Intake: Oral 240 Other: Weight 218.178 kg 218.178 kg Results CBC & Chem 7: 12/02/23 09:50 12/02/23 09:50 Labs: Abnormal Lab Results - Last 24 Hours (Table) 12/02/23 12/02/23 Range/Units 03:13 03:13 WBC 18.2 H (3.8-10.6) k/uL RBC 4.13 L (4.30-5.90) m/uL Hgb 11.7 L (13.0-17.5) gm/dL Hct 36.7 L (39.0-53.0) % RDW 16.2 H (11.5-15.5) % Neutrophils # 17.1 H (1.3-7.7) k/uL Lymphocytes # 0.4 L (1.0-4.8) k/uL Sodium 135 L (137-145) mmol/L Carbon Dioxide 18 L (22-30) mmol/L BUN 40 H (9-20) mg/dL Creatinine 3.02 H (0.66-1.25) mg/dL Total Bilirubin 4.6 H (0.2-1.3) mg/dL AST 452 H (17-59) U/L ALT 102 H (4-49) U/L Thrombosis Risk Factor Assmnt - Choose All That Apply Each Factor Represents 1 point: Age 41-60 years, Obesity (BMI >25) Thrombosis Risk Factor Assessment Total Risk Factor Score: 2 Thrombosis Risk Factor Assessment Level: Low Risk
[2023-12-02] MEDS: ASPIRIN 81 MG PO SCH (13:37)
[2023-12-02] MEDS: LINEZOLID 600 MG in DEXTROSE/WATER 1 300ML.BAG IVPB SCH (13:56)
--- NOTE | 2023-12-02 14:39 | US ---
EXAMINATION TYPE: US venous doppler duplex LE LT DATE OF EXAM: 12/02/2023 1:59 PM COMPARISON: 01/28/2023 CLINICAL INDICATION: Male, 58 years old with history of redness, swelling; left leg cellulitis SIDE PERFORMED: left TECHNIQUE: The lower extremity deep venous system is examined utilizing real time linear array sonog dayna with graded compression, doppler sonography and color-flow sonography. VESSELS IMAGED: Common Femoral Vein Deep Femoral Vein Greater Saphenous Vein * Femoral Vein Popliteal Vein Small Saphenous Vein * Proximal Calf Veins (* superficial vessels) Technical limitations due to patient's body habitus, morbidly obese (480 pounds) Left Leg: unable to visualize CFV, GSV, DFV. No evidence of DVT as visualized IMPRESSION: Limited evaluation no DVT as visualized.
--- NOTE | 2023-12-02 14:41 | US ---
EXAMINATION TYPE: US abd limited kidneys/bladder DATE OF EXAM: 12/02/2023 COMPARISON: NONE CLINICAL INDICATION: Male, 58 years old with history of Elevated LFT's; Elevated LFT's, BOOM TECHNIQUE: Multiple sonographic images of the right upper quadrant, bilateral kidneys, and bladder ar e obtained. FINDINGS: EXAM MEASUREMENTS: Liver Length: 21.0 cm Gallbladder Wall: 0.4 cm Right Kidney: 13.2 x 5.8 x 5.6 cm Left Kidney: not visualized Technical limitations due to patient's body habitus, morbidly obese (480 pounds) and patient coope ration, unwilling to move from LLD position Pancreas: Obscured by bowel gas Liver: unable to penetrate Gallbladder: stones CBD: Obscured by overlying bowel gas Right Kidney: no evidence of hydronephrosis Left Kidney: unable to visualize, due to patient position Bladder: not visualized IMPRESSION: 1. No evidence for acute process. 2. Hepatic steatosis. 3. Cholelithiasis
[2023-12-02] MEDS: allopurinoL 100 MG TAB PO SCH (20:43)
[2023-12-02 21:24] LABS: Appearance,Urine Cloudy (Clear); Bacteria,Urine Rare /hpf; Bilirubin,Urine Negative (Negative); Blood,Urine Large (Negative); Color,Urine Yellow; Glucose,Urine (UA) Negative (Negative); Ketones,Urine Negative (Negative); Leukocyte Esterase,Urine Large (Negative); Mucus,Urine Rare /hpf; Nitrite,Urine Negative (Negative); Protein,Urine 1+ (Negative); RBC,Urine 1 /hpf (0-5); Specific Gravity,Urine 1.011 (1.001-1.035); Squamous Epithelial Cell,Urine <1 /hpf (0-4); Urobilinogen,Urine <2.0 mg/dL (<2.0); WBC,Urine 24 /hpf (0-5)
--- NOTE | 2023-12-02 22:33 | P.CONS ---
History of Present Illness - Reason for Consult Consult date: 12/02/23 Sepsis Requesting physician: Danny Hartley - Chief Complaint Diarrhea and low blood pressure x 1 day - History of Present Illness Patient is a 58-year-old male past medical history significant for hypertension hyperlipidemia history of left foot wound infection with MRSA and cellulitis and longterm resident patient has been sent to the ER for evaluat ion of hypertension and apparently the patient is having diarrhea, patient not Very clear for how many days the patient did have diarrhea or if he has been exposed to any antibiotics, patient denies any headache chest pain shortness of breath or cough no nausea or vomiting no significant abdominal pain did have multiple loose stool but no blood or mucus in the stool patient was noted to be febrile prior to arrival to the ER and also hypertension on arrival to the patient did have temperature of 98.3 he did have a low-grade fever 100.3 F this morning patient was mildly tachycardic but not hypotensive or hypoxic and no need for supplemental oxygen he did have white count of 18 point 2 repeat is 12.8 he did have elevated BUN and creatinine liver isms elevated BUN was mildly positive patient tested positive for C. difficile influenza RSV COVID testing was negative patient was started on vancomycin as well as IV vancomycin for the left lower extremity cellulitis which was subsequent discontinued by the admitting physician because of his elevated creatinine switch to Zyvox and infectious disease was consulted for further management of antibiotic therapy, patient patient unable to good historian so most information has been extracted from review the chart and nursing staff Review of Systems Positive point and negatives has been mentioned in the HPI, complete review of systems was performed and all other systems are negative Past Medical History Past Medical History: Eye Disorder, Hyperlipidemia, Hypertension, Vascular Disorder Additional Past Medical History / Comment(s): Glaucoma, falls secondary to poor balance from poor proprioception from severe obesity arthritis especially that of the left knee (walker) , Severe osteoarthritis of the left knee , Morbid obesity BMI 49.3, Bilateral lower extremity venous stasis dermatitis, Intertriginous candidiasis, Essential hypertension. Amlodipine 5 mg a day History of Any Multi-Drug Resistant Organisms: MRSA Year Discovered:: 07/18/23 MDRO Source:: Left Foot Additional Past Surgical History / Comment(s): lasix bilat Past Anesthesia/Blood Transfusion Reactions: No Reported Reaction Past Psychological History: No Psychological Hx Reported, Depression Smoking Status: Never smoker Past Alcohol Use History: None Reported Past Drug Use History: None Reported Medications and Allergies Home Medications Medication Instructions Recorded Confirmed Type amLODIPine [Norvasc] 5 mg PO DAILY 08/10/21 12/02/23 History Ascorbic Acid [Vitamin C] 1,000 mg PO DAILY tab 09/07/21 12/02/23 Rx Aspirin 81 mg PO DAILY tab 02/05/23 12/02/23 Rx Acetaminophen Tab [Tylenol Tab] 1,000 mg PO TID 12/02/23 12/02/23 History Ammonium Lactate Lotion 1 applic TOPICAL HS 12/02/23 12/02/23 History [Lac-Hydrin 12% Lotion] Chlorthalidone 50 mg PO DAILY 12/02/23 12/02/23 History Colchicine 0.6 mg PO DAILY 12/02/23 12/02/23 History Cranberry 450mg 1 tab PO DAILY 12/02/23 12/02/23 History Ergocalciferol (Vitamin D2) 1,250 mcg PO QMONTHLY 12/02/23 12/02/23 History [Drisdol (50,000 Iu)] Ferrous Sulfate [Feosol] 325 mg PO DAILY 12/02/23 12/02/23 History Guaifenesin/Dextromethorphan 10 ml PO QID 12/02/23 12/02/23 History [Guaifenesin-Dm 100-10 mg/5 ml] Loperamide [Imodium] 1 - 2 mg PO QID PRN 12/02/23 12/02/23 History Menthol [Biofreeze] 1 applic TOPICAL Q8H PRN 12/02/23 12/02/23 History allopurinoL [Zyloprim] 100 mg PO BID 12/02/23 12/02/23 History Allergies Allergy/AdvReac Type Severity Reaction Status Date / Time No Known Allergies Allergy Verified 12/02/23 10:00 Physical Exam Vitals: Vital Signs Temp Pulse Pulse Resp BP BP Pulse Ox 12/02/23 08:00 100.3 F H 93 20 117/56 90 L 12/02/23 06:09 98.8 F 96 20 91/50 98 12/02/23 05:08 99.9 F H 92 18 106/40 96 12/02/23 04:36 88 18 114/33 100 12/02/23 02:41 98.3 F 89 18 90/51 97 Intake and Output 12/01/23 12/02/23 12/02/23 22:59 06:59 14:59 Intake Total 240 Output Total 300 Balance 240 -300 Intake: Oral 240 Output: Urine 300 Other: Voiding Method Urinal Weight 218.178 kg 218.178 kg GENERAL DESCRIPTION: Middle-aged male lying in bed, no distress. No tachypnea or accessory muscle of respiration use. HEENT: Shows Pallor , no scleral icterus. Oral mucous membrane is dry. NECK: Trachea central, no thyromegaly. LUNGS: Unlabored breathing. Clear to auscultation anteriorly. No wheeze or crackle. HEART: S1, S2, regular rate and rhythm. No loud murmur ABDOMEN: Soft, no tenderness , guarding or rigidity, no organomegaly EXTREMITIES: Left lower extremity diffuse swelling redness with a wound on the dorsum aspect of the left foot but no purulent drainage SKIN: No rash, no masses palpable. NEUROLOGICAL: The patient is lethargic but arousable mood and affect normal. Results CBC & Chem 7: 12/02/23 09:50 12/02/23 09:50 Labs: Abnormal Lab Results - Last 24 Hours (Table) 12/02/23 12/02/23 12/02/23 Range/Units 03:13 03:13 09:50 WBC 18.2 H 12.8 H (3.8-10.6) k/uL RBC 4.13 L 3.84 L (4.30-5.90) m/uL Hgb 11.7 L 10.6 L (13.0-17.5) gm/dL Hct 36.7 L 34.2 L (39.0-53.0) % MCHC 30.9 L (31.0-37.0) g/dL RDW 16.2 H 16.1 H (11.5-15.5) % Neutrophils # 17.1 H 11.8 H (1.3-7.7) k/uL Lymphocytes # 0.4 L 0.4 L (1.0-4.8) k/uL Sodium 135 L (137-145) mmol/L Carbon Dioxide 18 L (22-30) mmol/L BUN 40 H (9-20) mg/dL Creatinine 3.02 H (0.66-1.25) mg/dL Plasma Lactic Acid Daryn (0.7-2.0) mmol/L Calcium (8.4-10.2) mg/dL Magnesium (1.6-2.3) mg/dL Total Bilirubin 4.6 H (0.2-1.3) mg/dL AST 452 H (17-59) U/L ALT 102 H (4-49) U/L Albumin (3.5-5.0) g/dL 12/02/23 12/02/23 Range/Units 09:50 09:50 WBC (3.8-10.6) k/uL RBC (4.30-5.90) m/uL Hgb (13.0-17.5) gm/dL Hct (39.0-53.0) % MCHC (31.0-37.0) g/dL RDW (11.5-15.5) % Neutrophils # (1.3-7.7) k/uL Lymphocytes # (1.0-4.8) k/uL Sodium 135 L (137-145) mmol/L Carbon Dioxide (22-30) mmol/L BUN 45 H (9-20) mg/dL Creatinine 3.09 H (0.66-1.25) mg/dL Plasma Lactic Acid Daryn 2.6 H* (0.7-2.0) mmol/L Calcium 7.8 L (8.4-10.2) mg/dL Magnesium 1.1 L (1.6-2.3) mg/dL Total Bilirubin 4.4 H (0.2-1.3) mg/dL AST 488 H (17-59) U/L ALT 111 H (4-49) U/L Albumin 3.3 L (3.5-5.0) g/dL Assessment and Plan (1) Sepsis Current Visit: Yes Status: Acute Code(s): A41.9 - SEPSIS, UNSPECIFIED ORGANISM SNOMED Code(s): 20452661 (2) C. difficile colitis Current Visit: Yes Status: Acute Code(s): A04.72 - ENTEROCOLITIS D/T CLOSTRIDIUM DIFFICILE, NOT SPCF RECUR SNOMED Code(s): 116032793 (3) Leukocytosis Current Visit: Yes Status: Acute Code(s): D72.829 - ELEVATED WHITE BLOOD CELL COUNT, UNSPECIFIED SNOMED Code(s): 425915369 (4) Left leg cellulitis Current Visit: No Status: Acute Code(s): L03.116 - CELLULITIS OF LEFT LOWER LIMB SNOMED Code(s): 08142351327767947 Plan: 1patient presented to hospital with sepsis in this patient who did have a fever elevated white count meeting criteria for SIRS source and likely C. difficile colitis patient also have a left lower extremity swelling with the dried out wound on the dorsal aspect of the left foot and concerning for cellulitis likely from gram-positive skin priscilla with a previous history of MRSA infection 2-patient with renal insufficiency high risk of nephrotoxicity from vancomycin 3-we will check Doppler ultrasound of the left lower extremity maintain evidence of any DVT 4-if Doppler negative nursing staff is advised to apply Ghanshyam wrap from just above the toe to below the knee and marked the area of the redness 5-we will increase the dose of oral vancomycin 250 mg p.o. every 6 hours will add Questran if the patient has persistent diarrhea 6-as far as the left lower extremity cellulitis we will add daptomycin and discontinue Zyvox Care discussed with admitting team We will follow on clinical condition and cultures to further adjust medication if needed Thank you for this consultation we will follow the patient along with you Dictation was produced using [employer] dictation software. please excuse any grammatical, word or spelling errors. Time with Patient: Greater than 30
[2023-12-03 09:09] LABS: Anisocytosis Slight; HCT 30.7 % (39.0-53.0); HGB 9.8 gm/dL (13.0-17.5); MCH 28.1 pg (25.0-35.0); MCHC 31.9 g/dL (31.0-37.0); MCV 87.9 fL (80.0-100.0); Mean Platelet Volume 8.7; Platelet Count 174 k/uL (150-450); RBC 3.49 m/uL (4.30-5.90); RDW 16.3 % (11.5-15.5); WBC 8.2 k/uL (3.8-10.6)
[2023-12-03] MEDS: SODIUM CHLORIDE 0.9% IVPB SCH (09:11)
[2023-12-03] MEDS: FERROUS SULFATE 325 MG TAB PO SCH (09:11)
[2023-12-03] MEDS: DAPTOMYCIN IVPB SCH (09:11)
[2023-12-03 09:36] LABS: ALT 118 U/L (4-49); AST 504 U/L (17-59); African American GFR (CKD) 20 (>60 ml/min/1.73 sqM); Alkaline Phosphatase 110 U/L (38-126); Anion Gap 13 mmol/L; Blood Urea Nitrogen 55 mg/dL (9-20); Calcium 7.5 mg/dL (8.4-10.2); Carbon Dioxide 20 mmol/L (22-30); Chloride 104 mmol/L (98-107); Glucose 104 mg/dL (74-99); Magnesium 1.3 mg/dL (1.6-2.3); Non-African American GFR(CKD) 17 (>60 ml/min/1.73 sqM); Phosphorus 3.8 mg/dL (2.5-4.5); Potassium 3.1 mmol/L (3.5-5.1); Sodium 137 mmol/L (137-145); Total Bilirubin 3.4 mg/dL (0.2-1.3); Total Protein 6.2 g/dL (6.3-8.2)
--- NOTE | 2023-12-03 11:59 | P.PN ---
Subjective Progress Note Date: 12/03/23 Principal diagnosis: Reason for follow-up is C. difficile colitis and left leg cellulitis Patient is a 58-year-old male past medical history significant for hypertension hyperlipidemia history of left foot wound infection with MRSA and cellulitis and [facility] resident patient has been sent to the ER for evaluation of hypertension and apparently the patient is having diarrhea patient has been diagnosed with C. difficile colitis as well as left lower extremity ce llulitis. On today's evaluation that is 12/03/2023, Patient did have improvement in his fever pattern he did have a low-grade fever 100.8 at 4 AM and 99.18 9 AM patient mention feeling better breathing comfortably on room air no chest pain shortness of breath or cough no nausea no vomiting mentioned did have resolution of diarrhea passing some gas and denies pain to the left lower extremity. Patient white normalized to 8.2 creatinine is 3.65 liver enzymes are elevated Objective - Vital Signs Vital signs: Vital Signs Temp 99.1 F 12/03/23 09:08 Pulse 86 12/03/23 09:08 Resp 20 12/03/23 09:08 BP 101/53 12/03/23 09:08 Pulse Ox 96 12/03/23 09:08 FiO2 Intake & Output 12/02/23 12/03/23 12/03/23 18:59 06:59 18:59 Intake Total 118 Output Total 300 1160 Balance -300 -1160 118 Weight 218.178 kg Intake: Oral 118 Output: Urine 300 1160 Other: Voiding Method Urinal Urinal # Bowel Movements 1 - Exam GENERAL DESCRIPTION: Middle-age male lying in bed in no distress RESPIRATORY SYSTEM: Unlabored breathing , decreased breath sounds at bases HEART: S1 S2 regular rate and rhythm , ABDOMEN: Soft , no tenderness EXTREMITIES: Left leg with swelling redness slightly decreased - Labs CBC & Chem 7: 12/03/23 08:18 12/03/23 08:18 Labs: Abnormal Lab Results - Last 24 Hours (Table) 12/02/23 12/02/23 12/02/23 Range/Units 03:13 09:50 09:50 WBC 12.8 H (3.8-10.6) k/uL RBC 3.84 L (4.30-5.90) m/uL Hgb 10.6 L (13.0-17.5) gm/dL Hct 34.2 L (39.0-53.0) % MCHC 30.9 L (31.0-37.0) g/dL RDW 16.1 H (11.5-15.5) % Neutrophils # 11.8 H (1.3-7.7) k/uL Lymphocytes # 0.4 L (1.0-4.8) k/uL Sodium 135 L (137-145) mmol/L Potassium (3.5-5.1) mmol/L Carbon Dioxide (22-30) mmol/L BUN 45 H (9-20) mg/dL Creatinine 3.09 H (0.66-1.25) mg/dL Glucose (74-99) mg/dL Plasma Lactic Acid Daryn (0.7-2.0) mmol/L Calcium 7.8 L (8.4-10.2) mg/dL Magnesium 1.1 L (1.6-2.3) mg/dL Total Bilirubin 4.4 H (0.2-1.3) mg/dL AST 488 H (17-59) U/L ALT 111 H (4-49) U/L Total Protein (6.3-8.2) g/dL Albumin 3.3 L (3.5-5.0) g/dL Urine Protein 1+ H (Negative) Urine Blood Large H (Negative) Ur Leukocyte Esterase Large H (Negative) Urine WBC 24 H (0-5) /hpf Urine Bacteria Rare H (None) /hpf Urine Mucus Rare H (None) /hpf 12/02/23 12/03/23 12/03/23 Range/Units 09:50 08:18 08:18 WBC (3.8-10.6) k/uL RBC 3.49 L (4.30-5.90) m/uL Hgb 9.8 L (13.0-17.5) gm/dL Hct 30.7 L (39.0-53.0) % MCHC (31.0-37.0) g/dL RDW 16.3 H (11.5-15.5) % Neutrophils # (1.3-7.7) k/uL Lymphocytes # (1.0-4.8) k/uL Sodium (137-145) mmol/L Potassium 3.1 L (3.5-5.1) mmol/L Carbon Dioxide 20 L (22-30) mmol/L BUN 55 H (9-20) mg/dL Creatinine 3.65 H (0.66-1.25) mg/dL Glucose 104 H (74-99) mg/dL Plasma Lactic Acid Daryn 2.6 H* (0.7-2.0) mmol/L Calcium 7.5 L (8.4-10.2) mg/dL Magnesium 1.3 L (1.6-2.3) mg/dL Total Bilirubin 3.4 H (0.2-1.3) mg/dL AST 504 H (17-59) U/L ALT 118 H (4-49) U/L Total Protein 6.2 L (6.3-8.2) g/dL Albumin 3.0 L (3.5-5.0) g/dL Urine Protein (Negative) Urine Blood (Negative) Ur Leukocyte Esterase (Negative) Urine WBC (0-5) /hpf Urine Bacteria (None) /hpf Urine Mucus (None) /hpf Assessment and Plan (1) Sepsis Current Visit: Yes Status: Acute Code(s): A41.9 - SEPSIS, UNSPECIFIED ORGANISM SNOMED Code(s): 87970236 (2) C. difficile colitis Current Visit: Yes Status: Acute Code(s): A04.72 - ENTEROCOLITIS D/T CLOSTRIDIUM DIFFICILE, NOT SPCF RECUR SNOMED Code(s): 106696529 (3) Leukocytosis Current Visit: Yes Status: Acute Code(s): D72.829 - ELEVATED WHITE BLOOD CELL COUNT, UNSPECIFIED SNOMED Code(s): 994962024 (4) Left leg cellulitis Current Visit: No Status: Acute Code(s): L03.116 - CELLULITIS OF LEFT LOWER LIMB SNOMED Code(s): 35986928024329902 Plan: 1patient presented to hospital with sepsis in this patient who did have a fever elevated white count meeting criteria for SIRS source and likely C. difficile colitis patient also have a left lower extremity swelling with the dried out wound on the dorsal aspect of the left foot and concerning for cellulitis likely from gram-positive skin priscilla with a previous history of MRSA infection 2-patient with renal insufficiency high risk of nephrotoxicity from vancomycin 3-Doppler ultrasound of the left lower extremity no evidence of any DVT 4-patient to continue with apply Ghanshyam wrap from just above the toe to below the knee and marked the area of the redness 5-patient to continue with oral vancomycin 250 mg p.o. every 6 hours in view of improvement in the diarrhea 6-patient did have some decrease in the redness to the left leg continue with daptomycin while waiting for the culture to finalize 7patient did have elevated liver enzymes ultrasound abdomen reported negative for any acute process liver enzymes will be monitored closely Dictation was produced using [employer] dictation software. please excuse any grammatical, word or spelling errors. Time with Patient: Greater than 30
[2023-12-03 14:46] LABS: Band Neutrophils % 3 %; Basophils # (M) 0.08 k/uL (0-0.2); Lymphocytes # (M) 1.07 k/uL (1.0-4.8); Monocytes # (M) 0.57 k/uL (0-1.0); Neutrophils % (M) 77 %; Nucleated Red Blood Cells 0 /100 WBC (0-0); Total Cells Counted 200
[2023-12-03 14:47] LABS: Rouleaux Present
[2023-12-03] MEDS: POTASSIUM CHLORIDE ER 20 MEQ TAB.ER PO STA ×2 (17:11→17:20)
[2023-12-04] MEDS: POTASSIUM CHLORIDE ER 20 MEQ TAB.ER PO SCH (08:52)
--- NOTE | 2023-12-04 12:21 | P.PN ---
Subjective Progress Note Date: 12/04/23 Principal diagnosis: Reason for follow-up is C. difficile colitis and left leg cellulitis Patient is a 58-year-old male past medical history significant for hypertension hyperlipidemia history of left foot wound infection with MRSA and cellulitis and residential resident patient has been sent to the ER for evaluation of hypertension and apparently the patient is having diarrhea patient has been diagnosed with C. difficile colitis as well as left lower extremity ce llulitis. On today's evaluation that is 12/04/2023,the patient denies any fever or any chills, patient is breathing comfortably on room air, the patient denies chest pain shortness of breath and no significant cough, patient denies abdominal pain, no nausea vomiting diarrhea has slowed down on still have significant swelling redness to left lower extremity. Patient white count normalized to 8.2 as of yesterday creatinine 3.65 blood cultures currently pending Objective - Vital Signs Vital signs: Vital Signs Temp 99.3 F 12/04/23 08:50 Pulse 89 12/04/23 08:50 Resp 20 12/04/23 08:50 BP 115/53 12/04/23 08:50 Pulse Ox 97 12/04/23 08:50 FiO2 Intake & Output 12/03/23 12/04/23 12/04/23 18:59 06:59 18:59 Intake Total 476 118 Output Total 400 575 500 Balance 15 -573 -305 Weight 218.178 kg Intake: Oral 476 118 Output: Urine 400 575 500 Other: Voiding Method Urinal Urinal Urinal # Voids 1 1 # Bowel Movements 1 1 - Exam GENERAL DESCRIPTION: Middle-age male lying in bed in no distress RESPIRATORY SYSTEM: Unlabored breathing , decreased breath sounds at bases HEART: S1 S2 regular rate and rhythm , ABDOMEN: Soft , no tenderness EXTREMITIES: Left leg with swelling redness no drainage - Labs CBC & Chem 7: 12/03/23 08:18 12/03/23 08:18 Labs: Microbiology - Last 24 Hours (Table) 12/02/23 03:13 Blood Culture - Preliminary Blood 12/02/23 03:13 Blood Culture - Preliminary Blood Assessment and Plan (1) Sepsis Current Visit: Yes Status: Acute Code(s): A41.9 - SEPSIS, UNSPECIFIED ORGANISM SNOMED Code(s): 44846205 (2) C. difficile colitis Current Visit: Yes Status: Acute Code(s): A04.72 - ENTEROCOLITIS D/T CLOSTRIDIUM DIFFICILE, NOT SPCF RECUR SNOMED Code(s): 380277911 (3) Leukocytosis Current Visit: Yes Status: Acute Code(s): D72.829 - ELEVATED WHITE BLOOD CELL COUNT, UNSPECIFIED SNOMED Code(s): 562644366 (4) Left leg cellulitis Current Visit: No Status: Acute Code(s): L03.116 - CELLULITIS OF LEFT LOWER LIMB SNOMED Code(s): 93075724002303976 Plan: 1patient presented to hospital with sepsis in this patient who did have a fever elevated white count meeting criteria for SIRS source and likely C. difficile colitis patient also have a left lower extremity swelling with the dried out wound on the dorsal aspect of the left foot and concerning for cellulitis likely from gram-positive skin priscilla with a previous history of MRSA infection 2-patient with renal insufficiency high risk of nephrotoxicity from vancomycin 3-Doppler ultrasound of the left lower extremity no evidence of any DVT 4-patient has been advised to let the nursing staff apply apply Ghanshyam wrap from just above the toe to below the knee that will help with the swelling to the left lower extremity 5-patient to continue with oral vancomycin 250 mg p.o. every 6 hours patient did improvement in his diarrhea 6-patient did have elevated liver enzymes ultrasound abdomen reported negative for any acute process liver enzymes will be monitored closely 7as far as the cellulitis continue with the daptomycin and monitor clinical course closely Dictation was produced using [employer] dictation software. please excuse any grammatical, word or spelling errors. Time with Patient: Less than 30
[2023-12-04] MEDS: MAGNESIUM SULFATE-D5W PMX 1 GM in DEXTROSE/WATER 1 100ML.BAG IVPB SCH (21:35)
[2023-12-04] MEDS: HYDROcodone/APAP 5-325MG 1 EACH TAB PO STA (21:35)
[2023-12-04] MEDS: POTASSIUM CHLORIDE ER 20 MEQ TAB.ER PO STA (21:35)
[2023-12-05 11:34] LABS: ALT 102 U/L (4-49); AST 277 U/L (17-59); African American GFR (CKD) 19 (>60 ml/min/1.73 sqM); Alkaline Phosphatase 200 U/L (38-126); Anion Gap 8 mmol/L; Blood Urea Nitrogen 60 mg/dL (9-20); Calcium 7.7 mg/dL (8.4-10.2); Carbon Dioxide 22 mmol/L (22-30); Chloride 107 mmol/L (98-107); Glucose 98 mg/dL (74-99); Non-African American GFR(CKD) 16 (>60 ml/min/1.73 sqM); Potassium 3.1 mmol/L (3.5-5.1); Sodium 137 mmol/L (137-145); Total Bilirubin 2.3 mg/dL (0.2-1.3); Total Protein 6.3 g/dL (6.3-8.2)
[2023-12-05 11:37] LABS: Anisocytosis Slight; HGB 8.9 gm/dL (13.0-17.5); Hypochromasia Slight; MCHC 30.6 g/dL (31.0-37.0); MCV 88.3 fL (80.0-100.0); Mean Platelet Volume 9.5; Platelet Count 154 k/uL (150-450); RBC 3.29 m/uL (4.30-5.90); RDW 16.4 % (11.5-15.5); WBC 9.4 k/uL (3.8-10.6)
--- NOTE | 2023-12-05 12:47 | P.PN ---
Subjective Progress Note Date: 12/05/23 Principal diagnosis: Reason for follow-up is C. difficile colitis and left leg cellulitis Patient is a 58-year-old male past medical history significant for hypertension hyperlipidemia history of left foot wound infection with MRSA and cellulitis and [facility] resident patient has been sent to the ER for evaluation of hypertension and apparently the patient is having diarrhea patient has been diagnosed with C. difficile colitis as well as left lower extremity ce llulitis. On today's evaluation that is 12/05/2023,the patient remains to be afebrile, patient is on room air not requiring supplemental oxygen and denies any shortness of breath no chest pain or cough.Patient denies having any nausea or vomiting, no abdominal pain and did improvement his diarrhea left lower extremity swelling redness slightly decreased. Patient white count is 9.4, creatinine 3.89 blood cultures pending Objective - Vital Signs Vital signs: Vital Signs Temp 98.9 F 12/05/23 09:20 Pulse 81 12/05/23 09:20 Resp 18 12/05/23 09:20 BP 111/58 12/05/23 09:20 Pulse Ox 96 12/05/23 09:20 FiO2 Intake & Output 12/04/23 12/05/23 12/05/23 18:59 06:59 18:59 Intake Total 118 240 Output Total 980 1300 600 Balance -021 -9905 -179 Intake: Oral 118 240 Output: Urine 980 1300 600 Other: Voiding Method Urinal Urinal Urinal # Bowel Movements 1 2 1 - Exam GENERAL DESCRIPTION: Middle-age male lying in bed in no distress RESPIRATORY SYSTEM: Unlabored breathing , decreased breath sounds at bases HEART: S1 S2 regular rate and rhythm , ABDOMEN: Soft , no tenderness EXTREMITIES: Left leg with swelling redness no drainage - Labs CBC & Chem 7: 12/05/23 10:48 12/05/23 10:48 Labs: Abnormal Lab Results - Last 24 Hours (Table) 12/05/23 12/05/23 Range/Units 10:48 10:48 RBC 3.29 L (4.30-5.90) m/uL Hgb 8.9 L (13.0-17.5) gm/dL Hct 29.0 L (39.0-53.0) % MCHC 30.6 L (31.0-37.0) g/dL RDW 16.4 H (11.5-15.5) % Potassium 3.1 L (3.5-5.1) mmol/L BUN 60 H (9-20) mg/dL Creatinine 3.89 H (0.66-1.25) mg/dL Calcium 7.7 L (8.4-10.2) mg/dL Total Bilirubin 2.3 H (0.2-1.3) mg/dL AST 277 H (17-59) U/L ALT 102 H (4-49) U/L Alkaline Phosphatase 200 H (38-126) U/L Albumin 3.0 L (3.5-5.0) g/dL Microbiology - Last 24 Hours (Table) 12/02/23 03:13 Blood Culture - Preliminary Blood 12/02/23 03:13 Blood Culture - Preliminary Blood Assessment and Plan (1) Sepsis Current Visit: Yes Status: Acute Code(s): A41.9 - SEPSIS, UNSPECIFIED ORGANISM SNOMED Code(s): 00459619 (2) C. difficile colitis Current Visit: Yes Status: Acute Code(s): A04.72 - ENTEROCOLITIS D/T CLOSTRIDIUM DIFFICILE, NOT SPCF RECUR SNOMED Code(s): 391440158 (3) Leukocytosis Current Visit: Yes Status: Acute Code(s): D72.829 - ELEVATED WHITE BLOOD CELL COUNT, UNSPECIFIED SNOMED Code(s): 455274961 (4) Left leg cellulitis Current Visit: No Status: Acute Code(s): L03.116 - CELLULITIS OF LEFT LOWER LIMB SNOMED Code(s): 93441456434335942 Plan: 1patient presented to hospital with sepsis in this patient who did have a fever elevated white count meeting criteria for SIRS source and likely C. difficile colitis patient also have a left lower extremity swelling with the dried out wound on the dorsal aspect of the left foot and concerning for cellulitis likely from gram-positive skin priscilla with a previous history of MRSA infection 2-patient with renal insufficiency high risk of nephrotoxicity from vancomycin 3-Doppler ultrasound of the left lower extremity no evidence of any DVT 4-patient to continue with Ghanshyam wrap to the leg to keep the swelling down along with daptomycin for the cellulitis may need short course of IV Dapto on discharge 5-patient to continue with oral vancomycin 250 mg p.o. every 6 hours patient did improvement in his diarrhea Dictation was produced using [employer] dictation software. please excuse any grammatical, word or spelling errors. Time with Patient: Less than 30
[2023-12-05 13:22] LABS: Eosinophils # (M) 0.19 k/uL (0-0.7); Metamyelocytes # (M) 0.38 k/uL (0); Metamyelocytes % 4 %; Monocytes # (M) 0.47 k/uL (0-1.0); Myelocytes # (M) 0.19 k/uL (0); Myelocytes % 2 %; Neutrophils # (M) 6.86 k/uL (1.3-7.7); Neutrophils % (M) 73 %; Nucleated Red Blood Cells 0 /100 WBC (0-0); Stomatocytes Present; Total Cells Counted 200
[2023-12-05] MEDS: POTASSIUM CHLORIDE ER 20 MEQ TAB.ER PO STA (14:17)
[2023-12-05] MEDS: HYDROcodone/APAP 5-325MG 1 EACH TAB PO PRN (14:18)
[2023-12-05] MEDS: POTASSIUM CHLORIDE ER 20 MEQ TAB.ER PO SCH (20:34)
--- NOTE | 2023-12-06 16:28 | P.PN ---
Subjective Progress Note Date: 12/06/23 Principal diagnosis: Reason for follow-up is C. difficile colitis and left leg cellulitis Patient is a 58-year-old male past medical history significant for hypertension hyperlipidemia history of left foot wound infection with MRSA and cellulitis and care home resident patient has been sent to the ER for evaluation of hypertension and apparently the patient is having diarrhea patient has been diagnosed with C. difficile colitis as well as left lower extremity ce llulitis. On today's evaluation that is 12/06/2023, the patient continues to be afebrile, the patient is on room air and breathing comfortably, the Pt denies having any chest pain or cough, the patient denies having any abdominal pain no vomiting mentioned that he has slowed down swelling and redness to the left He decreased. Patient went was 1.4, creatinine 3.89 as of yesterday no lab draw today Objective - Vital Signs Vital signs: Vital Signs Temp 99.5 F 12/06/23 11:51 Pulse 83 12/06/23 11:51 Resp 20 12/06/23 11:51 BP 109/48 12/06/23 11:51 Pulse Ox 93 L 12/06/23 11:51 FiO2 Intake & Output 12/05/23 12/06/23 12/06/23 18:59 06:59 18:59 Intake Total 898 720 Output Total 1850 2875 1225 Balance -902 -8586 -784 Weight 218.178 kg Intake: Oral 898 720 Output: Urine 1850 2875 1225 Other: Voiding Method Urinal Urinal Urinal # Bowel Movements 1 1 - Exam GENERAL DESCRIPTION: Middle-age male lying in bed in no distress RESPIRATORY SYSTEM: Unlabored breathing , decreased breath sounds at bases HEART: S1 S2 regular rate and rhythm , ABDOMEN: Soft , no tenderness EXTREMITIES: Left leg with swelling redness no drainage - Labs CBC & Chem 7: 12/05/23 10:48 12/05/23 10:48 Labs: Microbiology - Last 24 Hours (Table) 12/02/23 03:13 Blood Culture - Preliminary Blood 12/02/23 03:13 Blood Culture - Preliminary Blood Assessment and Plan (1) Sepsis Current Visit: Yes Status: Acute Code(s): A41.9 - SEPSIS, UNSPECIFIED ORGAN ISM SNOMED Code(s): 78945135 (2) C. difficile colitis Current Visit: Yes Status: Acute Code(s): A04.72 - ENTEROCOLITIS D/T CLOSTRIDIUM DIFFICILE, NOT SPCF RECUR SNOMED Code(s): 098337582 (3) Leukocytosis Current Visit: Yes Status: Acute Code(s): D72.829 - ELEVATED WHITE BLOOD CELL COUNT, UNSPECIFIED SNOMED Code(s): 358137149 (4) Left leg cellulitis Current Visit: No Status: Acute Code(s): L03.116 - CELLULITIS OF LEFT LOWER LIMB SNOMED Code(s): 94151892678048959 Plan: 1patient presented to hospital with sepsis in this patient who did have a fever elevated white count meeting criteria for SIRS source and likely C. difficile colitis patient also have a left lower extremity swelling with the dried out wound on the dorsal aspect of the left foot and concerning for cellulitis likely from gram-positive skin priscilla with a previous history of MRSA infection 2-patient with renal insufficiency high risk of nephrotoxicity from vancomycin 3-Doppler ultrasound of the left lower extremity no evidence of any DVT 4-patient to continue with Ghanshyam wrap to the leg to keep the swelling down along with daptomycin for the cellulitis will need to continue with IV daptomycin for at least 10 days 5-patient to continue with oral vancomycin 250 mg p.o. every 6 hours to finish 2-week course of therapy Dictation was produced using [employer] dictation software. please excuse any grammatical, word or spelling errors.
[2023-12-07 07:36] LABS: African American GFR (CKD) 27 (>60 ml/min/1.73 sqM); Anion Gap 9 mmol/L; Blood Urea Nitrogen 50 mg/dL (9-20); Calcium 8.3 mg/dL (8.4-10.2); Carbon Dioxide 21 mmol/L (22-30); Chloride 108 mmol/L (98-107); Glucose 102 mg/dL (74-99); Magnesium 1.7 mg/dL (1.6-2.3); Non-African American GFR(CKD) 23 (>60 ml/min/1.73 sqM); Potassium 3.7 mmol/L (3.5-5.1); Sodium 138 mmol/L (137-145)
--- NOTE | 2023-12-07 11:56 | P.PN ---
Subjective Progress Note Date: 12/03/23 58-year-old male patient with past medical history significant for immobility, obesity, history of cellulitis treated with IV antibiotics in January 2023 who presented to ER for low blood pressure and diarrhea. Patient presented with several episodes of diarrhea, also was noted to have fever prior to arrival. [facility] and was sent to the ED for evaluation. Patient is poor historian. Patient reported that he was having fevers, also reported that he started to have loose stools 4-5 bowel movements per day for last 3 to 4 days also reported generalized abdominal pain and nausea and vomiting associated with diarrhea. Patient also complained of left leg pain. Patient denied any headache, sore throat, productive cough, chest pain, palpitations, dysuria, urgency, frequency, weakness numbness of extremities. In the ED patient was afebrile, pulse rate 89, respiratory rate 18, was saturating 97% on room air. Blood pressure was soft 90/51 with MAP of 64. Lab work showed leukocytosis with WBCs 18.2, hemoglobin 11.7, platelet 292, absolute neutrophils 17.1. CMP was remarkable for BUN of 40, creatinine of 3.02 with baseline creatinine around 1.0. Patient had elevated bilirubin of 4.6, AST was 452, ALT 102, alkaline phosphatase 125. Patient's influenza RSV and COVID was negative. C. difficile was positive. 12/03/2023 Patient is currently lying in the bed. Awake alert and oriented. Tmax is 100.8. Fever is improving. Currently on room air. No complaints of chest pain or shortness of breath. No nausea vomiting abdominal pain or diarrhea. She complains of left lower extremity pain swelling and redness is still there. Laboratory data showed WBC 8.2 hemoglobin 9.8 and platelets 174 sodium 137 potassium 3.1 chloride 104 bicarb is 20 BUN 55 and creatinine 3.65 and a blood sugar 104, magnesium 1.3 AST 504 ALT 118 and alk phos 110 and albumin 3.0. Current medications reviewed. PHYSICAL EXAMINATION: GENERAL: The patient is alert and oriented x3, not in any acute distress. Well developed, well nourished. HEENT: Pupils are round and equally reacting to light. EOMI. No scleral icterus. No conjunctival pallor. Normocephalic, atraumatic. No pharyngeal erythema. No thyromegaly. CARDIOVASCULAR: S1 and S2 present. No murmurs, rubs, or gallops. PULMONARY: Chest is clear to auscultation, no wheezing or crackles. ABDOMEN: Soft, nontender, nondistended, normoactive bowel sounds. No palpable organomegaly. MUSCULOSKELETAL: No joint swelling or deformity. EXTREMITIES: Bilatera chronic stasis changes, left lower extremity warmth, erythema, tenderness extending from ankle to below the knee. NEUROLOGICAL: Gross neurological examination did not reveal any focal deficits. Assessment and plan Severe sepsis: C. difficile infection- severe Presented with watery diarrhea, low blood pressure. Significant leukocytosis with elevated absolute neutrophils on presentation. Elevated LFTs and acute kidney injury secondary to sepsis. Blood cultures pending. Lactate checked 2.6, fluid bolus ordered, will recheck. P.o. vancomycin Continues IV hydration. ID is on board. Follow blood cultures Left lower extremity cellulitis: Patient has history of cellulitis in the past, has been treated with daptomycin in January 2023. Complaining of left lower extremity warmth, redness and pain. Warmth and tenderness noted. Discontinue vancomycin due to acute kidney injury, was given a dose of Zyvox. Infectious disease is on board. Patient was started on daptomycin due to underlying acute kidney injury Acute kidney injury due to ATN Prerenal secondary to hypovolemia, hypotension. Monitor renal function Avoid nephrotoxin, discontinued IV vancomycin. Hold home chlorthalidone Ultrasound renal was ordered. Continue with IV hydration. Elevated LFTs: Suspect secondary to sepsis Monitors CMP Ultrasound abdomen. Hypertension: Blood pressure currently low Hold home blood pressure medications--Norvasc, chlorthalidone DVT prophylaxis. Subcutaneous heparin Dictation was produced using [employer] dictation software. please excuse any grammatical, word or spelling errors. Objective - Vital Signs Vital signs: Vital Signs Temp 99.2 F 12/03/23 13:38 Pulse 82 12/03/23 13:38 Resp 18 12/03/23 13:38 BP 112/55 12/03/23 13:38 Pulse Ox 95 12/03/23 13:38 FiO2 Intake & Output 12/02/23 12/03/23 12/03/23 18:59 06:59 18:59 Intake Total 358 Output Total 300 1160 400 Balance -300 -1160 -42 Weight 218.178 kg 218.178 kg Intake: Oral 358 Output: Urine 300 1160 400 Other: Voiding Method Urinal Urinal Urinal # Voids 2 # Bowel Movements 1 1 - Labs CBC & Chem 7: 12/05/23 10:48 12/07/23 06:28 Labs: Abnormal Lab Results - Last 24 Hours (Table) 12/02/23 12/03/23 12/03/23 Range/Units 03:13 08:18 08:18 RBC 3.49 L (4.30-5.90) m/uL Hgb 9.8 L (13.0-17.5) gm/dL Hct 30.7 L (39.0-53.0) % RDW 16.3 H (11.5-15.5) % Potassium 3.1 L (3.5-5.1) mmol/L Carbon Dioxide 20 L (22-30) mmol/L BUN 55 H (9-20) mg/dL Creatinine 3.65 H (0.66-1.25) mg/dL Glucose 104 H (74-99) mg/dL Calcium 7.5 L (8.4-10.2) mg/dL Magnesium 1.3 L (1.6-2.3) mg/dL Total Bilirubin 3.4 H (0.2-1.3) mg/dL AST 504 H (17-59) U/L ALT 118 H (4-49) U/L Total Protein 6.2 L (6.3-8.2) g/dL Albumin 3.0 L (3.5-5.0) g/dL Urine Protein 1+ H (Negative) Urine Blood Large H (Negative) Ur Leukocyte Esterase Large H (Negative) Urine WBC 24 H (0-5) /hpf Urine Bacteria Rare H (None) /hpf Urine Mucus Rare H (None) /hpf
--- NOTE | 2023-12-07 11:58 | P.PN ---
Subjective Progress Note Date: 12/04/23 58-year-old male patient with past medical history significant for immobility, obesity, history of cellulitis treated with IV antibiotics in January 2023 who presented to ER for low blood pressure and diarrhea. Patient presented with several episodes of diarrhea, also was noted to have fever prior to arrival. Patient was noted to have [facility] blood pressure [facility] and was sent to the ED for evaluation. Patient is poor historian. Patient reported that he was having fevers, also reported that he started to have loose stools 4-5 bowel movements per day for last 3 to 4 days also reported generalized abdominal pain and nausea and vomiting associated with diarrhea. Patient also complained of left leg pain. Patient denied any headache, sore throat, productive cough, chest pain, palpitations, dysuria, urgency, frequency, weakness numbness of extremities. In the ED patient was afebrile, pulse rate 89, respiratory rate 18, was saturating 97% on room air. Blood pressure was soft 90/51 with MAP of 64. Lab work showed leukocytosis with WBCs 18.2, hemoglobin 11.7, platelet 292, absolute neutrophils 17.1. CMP was remarkable for BUN of 40, creatinine of 3.02 with baseline creatinine around 1.0. Patient had elevated bilirubin of 4.6, AST was 452, ALT 102, alkaline phosphatase 125. Patient's influenza RSV and COVID was negative. C. difficile was positive. 12/03/2023 Patient is currently lying in the bed. Awake alert and oriented. Tmax is 100.8. Fever is improving. Currently on room air. No complaints of chest pain or shortness of breath. No nausea vomiting abdominal pain or diarrhea. She complains of left lower extremity pain swelling and redness is still there. Laboratory data showed WBC 8.2 hemoglobin 9.8 and platelets 174 sodium 137 potassium 3.1 chloride 104 bicarb is 20 BUN 55 and creatinine 3.65 and a blood sugar 104, magnesium 1.3 AST 504 ALT 118 and alk phos 110 and albumin 3.0. 12/04/2023 Patient is currently resting in bed. Awake alert and orient x 3. On room air. Afebrile overnight. No complaints of shortness of breath. No nausea vomiting abdominal diarrhea. Still having left lower extremity swelling but redness is improving. Laboratory data reviewed. Follow-up renal function. Patient remains on antibiotics in the form of daptomycin and also oral vancomycin due to C. difficile infection. ID is on board. Current medications reviewed. PHYSICAL EXAMINATION: GENERAL: The patient is alert and oriented x3, not in any acute distress. Well developed, well nourished. HEENT: Pupils are round and equally reacting to light. EOMI. No scleral icterus. No conjunctival pallor. Normocephalic, atraumatic. No pharyngeal erythema. No thyromegaly. CARDIOVASCULAR: S1 and S2 present. No murmurs, rubs, or gallops. PULMONARY: Chest is clear to auscultation, no wheezing or crackles. ABDOMEN: Soft, nontender, nondistended, normoactive bowel sounds. No palpable organomegaly. MUSCULOSKELETAL: No joint swelling or deformity. EXTREMITIES: Bilatera chronic stasis changes, left lower extremity warmth, erythema, tenderness extending from ankle to below the knee. NEUROLOGICAL: Gross neurological examination did not reveal any focal deficits. Assessment and plan Severe sepsis: C. difficile infection- severe Presented with watery diarrhea, low blood pressure. Significant leukocytosis with elevated absolute neutrophils on presentation. Elevated LFTs and acute kidney injury secondary to sepsis. Blood cultures pending. Lactate checked 2.6, fluid bolus ordered, will recheck. P.o. vancomycin Continues IV hydration. ID is on board. Follow blood cultures Left lower extremity cellulitis: Patient has history of cellulitis in the past, has been treated with daptomycin in January 2023. Complaining of left lower extremity warmth, redness and pain. Warmth and tenderness noted. Discontinue vancomycin due to acute kidney injury, was given a dose of Zyvox. Infectious disease is on board. Patient was started on daptomycin due to underlying acute kidney injury Acute kidney injury due to ATN Prerenal secondary to hypovolemia, hypotension. Monitor renal function Avoid nephrotoxin, discontinued IV vancomycin. Hold home chlorthalidone Ultrasound renal was ordered. Continue with IV hydration. Elevated LFTs: Suspect secondary to sepsis Monitors CMP Ultrasound abdomen. Hypertension: Blood pressure currently low Hold home blood pressure medications--Norvasc, chlorthalidone DVT prophylaxis. Subcutaneous heparin Dictation was produced using [employer] dictation software. please excuse any grammatical, word or spelling errors. Objective - Vital Signs Vital signs: Vital Signs Temp 98.4 F 12/04/23 14:16 Pulse 98 12/04/23 14:16 Resp 20 12/04/23 14:16 BP 101/56 12/04/23 14:16 Pulse Ox 96 12/04/23 14:16 FiO2 Intake & Output 12/04/23 12/04/23 12/05/23 06:59 18:59 06:59 Intake Total 118 Output Total 575 980 400 Balance -575 -862 -400 Intake: Oral 118 Output: Urine 575 980 400 Other: Voiding Method Urinal Urinal # Voids 1 # Bowel Movements 1 1 - Labs CBC & Chem 7: 12/05/23 10:48 12/07/23 06:28 Labs: Microbiology - Last 24 Hours (Table) 12/02/23 03:13 Blood Culture - Preliminary Blood 12/02/23 03:13 Blood Culture - Preliminary Blood
--- NOTE | 2023-12-07 12:02 | P.PN ---
Subjective Progress Note Date: 12/05/23 58-year-old male patient with past medical history significant for immobility, obesity, history of cellulitis treated with IV antibiotics in January 2023 who presented to ER for low blood pressure and diarrhea. Patient presented with several episodes of diarrhea, also was noted to have fever prior to arrival. Patient was noted to have low blood pressure at [facility] and was sent to the ED for evaluation. Patient is poor historian. Patient reported that he was having fevers, also reported that he started to have loose stools 4-5 bowel movements per day for last 3 to 4 days also reported generalized abdominal pain and nausea and vomiting associated with diarrhea. Patient also complained of left leg pain. Patient denied any headache, sore throat, productive cough, chest pain, palpitations, dysuria, urgency, frequency, weakness numbness of extremities. In the ED patient was afebrile, pulse rate 89, respiratory rate 18, was saturating 97% on room air. Blood pressure was soft 90/51 with MAP of 64. Lab work showed leukocytosis with WBCs 18.2, hemoglobin 11.7, platelet 292, absolute neutrophils 17.1. CMP was remarkable for BUN of 40, creatinine of 3.02 with baseline creatinine around 1.0. Patient had elevated bilirubin of 4.6, AST was 452, ALT 102, alkaline phosphatase 125. Patient's influenza RSV and COVID was negative. C. difficile was positive. 12/03/2023 Patient is currently lying in the bed. Awake alert and oriented. Tmax is 100.8. Fever is improving. Currently on room air. No complaints of chest pain or shortness of breath. No nausea vomiting abdominal pain or diarrhea. She complains of left lower extremity pain swelling and redness is still there. Laboratory data showed WBC 8.2 hemoglobin 9.8 and platelets 174 sodium 137 potassium 3.1 chloride 104 bicarb is 20 BUN 55 and creatinine 3.65 and a blood sugar 104, magnesium 1.3 AST 504 ALT 118 and alk phos 110 and albumin 3.0. 12/04/2023 Patient is currently resting in bed. Awake alert and orient x 3. On room air. Afebrile overnight. No complaints of shortness of breath. No nausea vomiting abdominal diarrhea. Still having left lower extremity swelling but redness is improving. Laboratory data reviewed. Follow-up renal function. Patient remains on antibiotics in the form of daptomycin and also oral vancomycin due to C. difficile infection. ID is on board. Ultrasound abdomen showed no acute process. Hepatic steatosis. Cholelithiasis. No evidence of hydronephrosis. 12/05/2023 Patient is currently resting in the bed. Awake alert and orient x 3. Improvement in diarrhea. On room air. Patient has been afebrile overnight. No headache or dizziness or lightheadedness. No chest pain or shortness of breath. No cough or sputum production. Patient is being continued on p.o. vancomycin and daptomycin IV ID is on board. Patient is tolerating oral diet. IV fluids on hold due to wors ening leg swelling. Patient is also complaining of left lower extremity pain. Laboratory data showed WBC 9.4 hemoglobin 8.9 and platelets 154 sodium 137 potassium 3.1 chloride 107 bicarb is 22 BUN 16 creatinine went up to 3.89 and blood sugar 98. Arrangements are trending down. Current medications reviewed. PHYSICAL EXAMINATION: GENERAL: The patient is alert and oriented x3, not in any acute distress. Well developed, well nourished. HEENT: Pupils are round and equally reacting to light. EOMI. No scleral icterus. No conjunctival pallor. Normocephalic, atraumatic. No pharyngeal erythema. No thyromegaly. CARDIOVASCULAR: S1 and S2 present. No murmurs, rubs, or gallops. PULMONARY: Chest is clear to auscultation, no wheezing or crackles. ABDOMEN: Soft, nontender, nondistended, normoactive bowel sounds. No palpable organomegaly. MUSCULOSKELETAL: No joint swelling or deformity. EXTREMITIES: Bilatera chronic stasis changes, left lower extremity warmth, erythema, tenderness extending from ankle to below the knee. NEUROLOGICAL: Gross neurological examination did not reveal any focal deficits. Assessment and plan Severe sepsis: C. difficile infection- severe Presented with watery diarrhea, low blood pressure. Significant leukocytosis with elevated absolute neutrophils on presentation. Elevated LFTs and acute kidney injury secondary to sepsis. Blood cultures pending. Lactate checked 2.6, fluid bolus ordered. Lactic acid is normalized. Continue with P.o. vancomycin ID is on board. Blood cultures negative so far. Left lower extremity cellulitis: Patient has history of cellulitis in the past, has been treated with daptomycin in January 2023. Complaining of left lower extremity warmth, redness and pain. Warmth and tenderness noted. Discontinue vancomycin due to acute kidney injury, was given a dose of Zyvox. Infectious disease is on board. Patient was started on daptomycin due to underlying acute kidney injury Acute kidney injury due to ATN Creatinine 3.89 today. Prerenal secondary to hypovolemia, hypotension. Monitor renal function Avoid nephrotoxin, discontinued IV vancomycin. Hold home chlorthalidone Ultrasound renal showed no hydronephrosis. Patient is tolerating oral diet. Encourage oral intake. Elevated LFTs: Suspect secondary to sepsis Monitors CMP Ultrasound abdomen. Hypertension: Blood pressure currently low Hold home blood pressure medications--Norvasc, chlorthalidone DVT prophylaxis. Subcutaneous heparin Dictation was produced using [employer] dictation software. please excuse any grammatical, word or spelling errors. Objective - Vital Signs Vital signs: Vital Signs Temp 99.5 F 12/05/23 23:26 Pulse 85 12/05/23 23:26 Resp 17 12/05/23 23:26 BP 115/53 12/05/23 23:26 Pulse Ox 92 L 12/05/23 23:26 FiO2 Intake & Output 12/05/23 12/05/23 12/06/23 06:59 18:59 06:59 Intake Total 898 Output Total 1300 1850 900 Balance -6548 -301 -376 Intake: Oral 898 Output: Urine 1300 1850 900 Other: Voiding Method Urinal Urinal Urinal # Bowel Movements 2 1 - Labs CBC & Chem 7: 12/05/23 10:48 12/07/23 06:28 Labs: Abnormal Lab Results - Last 24 Hours (Table) 12/05/23 12/05/23 Range/Units 10:48 10:48 RBC 3.29 L (4.30-5.90) m/uL Hgb 8.9 L (13.0-17.5) gm/dL Hct 29.0 L (39.0-53.0) % MCHC 30.6 L (31.0-37.0) g/dL RDW 16.4 H (11.5-15.5) % Metamyelocytes # (Man) 0.38 H (0) k/uL Myelocytes # (Manual) 0.19 H (0) k/uL Potassium 3.1 L (3.5-5.1) mmol/L BUN 60 H (9-20) mg/dL Creatinine 3.89 H (0.66-1.25) mg/dL Calcium 7.7 L (8.4-10.2) mg/dL Total Bilirubin 2.3 H (0.2-1.3) mg/dL AST 277 H (17-59) U/L ALT 102 H (4-49) U/L Alkaline Phosphatase 200 H (38-126) U/L Albumin 3.0 L (3.5-5.0) g/dL Microbiology - Last 24 Hours (Table) 12/02/23 03:13 Blood Culture - Preliminary Blood 12/02/23 03:13 Blood Culture - Preliminary Blood
--- NOTE | 2023-12-07 12:06 | P.PN ---
Subjective Progress Note Date: 12/06/23 58-year-old male patient with past medical history significant for immobility, obesity, history of cellulitis treated with IV antibiotics in January 2023 who presented to ER for low blood pressure and diarrhea. Patient presented with several episodes of diarrhea, also was noted to have fever prior to arrival. Patient was noted to have low blood pressure at [facility] and was sent to the ED for evaluation. Patient is poor historian. Patient reported that he was having fevers, also reported that he started to have loose stools 4-5 bowel movements per day for last 3 to 4 days also reported generalized abdominal pain and nausea and vomiting associated with diarrhea. Patient also complained of left leg pain. Patient denied any headache, sore throat, productive cough, chest pain, palpitations, dysuria, urgency, frequency, weakness numbness of extremities. In the ED patient was afebrile, pulse rate 89, respiratory rate 18, was saturating 97% on room air. Blood pressure was soft 90/51 with MAP of 64. Lab work showed leukocytosis with WBCs 18.2, hemoglobin 11.7, platelet 292, absolute neutrophils 17.1. CMP was remarkable for BUN of 40, creatinine of 3.02 with baseline creatinine around 1.0. Patient had elevated bilirubin of 4.6, AST was 452, ALT 102, alkaline phosphatase 125. Patient's influenza RSV and COVID was negative. C. difficile was positive. 12/03/2023 Patient is currently lying in the bed. Awake alert and oriented. Tmax is 100.8. Fever is improving. Currently on room air. No complaints of chest pain or shortness of breath. No nausea vomiting abdominal pain or diarrhea. She complains of left lower extremity pain swelling and redness is still there. Laboratory data showed WBC 8.2 hemoglobin 9.8 and platelets 174 sodium 137 potassium 3.1 chloride 104 bicarb is 20 BUN 55 and creatinine 3.65 and a blood sugar 104, magnesium 1.3 AST 504 ALT 118 and alk phos 110 and albumin 3.0. 12/04/2023 Patient is currently resting in bed. Awake alert and orient x 3. On room air. Afebrile overnight. No complaints of shortness of breath. No nausea vomiting abdominal diarrhea. Still having left lower extremity swelling but redness is improving. Laboratory data reviewed. Follow-up renal function. Patient remains on antibiotics in the form of daptomycin and also oral vancomycin due to C. difficile infection. ID is on board. Ultrasound abdomen showed no acute process. Hepatic steatosis. Cholelithiasis. No evidence of hydronephrosis. 12/05/2023 Patient is currently resting in the bed. Awake alert and orient x 3. Improvement in diarrhea. On room air. Patient has been afebrile overnight. No headache or dizziness or lightheadedness. No chest pain or shortness of breath. No cough or sputum production. Patient is being continued on p.o. vancomycin and daptomycin IV ID is on board. Patient is tolerating oral diet. IV fluids on hold due to wors ening leg swelling. Patient is also complaining of left lower extremity pain. Laboratory data showed WBC 9.4 hemoglobin 8.9 and platelets 154 sodium 137 potassium 3.1 chloride 107 bicarb is 22 BUN 16 creatinine went up to 3.89 and blood sugar 98. Arrangements are trending down. 12/06/2023 Patient is lying in the bed. Awake alert and oriented x 3. Diarrhea is much improved. No complaints of abdominal pain. Still having left lower extremity swelling and also complaining of pain. Afebrile overnight. No nausea vomiting or abdominal pain. No cough or sputum production. Patient is being continued on vancomycin p.o for C. difficile infection. and also daptomycin IV for leg cellulitis. ID is on board. Follow-up renal function tomorrow. Nephrology will be consulted. Current medications reviewed. PHYSICAL EXAMINATION: GENERAL: The patient is alert and oriented x3, not in any acute distress. Well developed, well nourished. HEENT: Pupils are round and equally reacting to light. EOMI. No scleral icterus. No conjunctival pallor. Normocephalic, atraumatic. No pharyngeal erythema. No thyromegaly. CARDIOVASCULAR: S1 and S2 present. No murmurs, rubs, or gallops. PULMONARY: Chest is clear to auscultation, no wheezing or crackles. ABDOMEN: Soft, nontender, nondistended, normoactive bowel sounds. No palpable organomegaly. MUSCULOSKELETAL: No joint swelling or deformity. EXTREMITIES: Bilatera chronic stasis changes, left lower extremity warmth, erythema, tenderness extending from ankle to below the knee. NEUROLOGICAL: Gross neurological examination did not reveal any focal deficits. Assessment and plan Severe sepsis: Acute C. difficile infection- severe Presented with watery diarrhea, low blood pressure. Significant leukocytosis with elevated absolute neutrophils on presentation. Elevated LFTs and acute kidney injury secondary to sepsis. Blood cultures pending. Lactate checked 2.6, fluid bolus ordered. Lactic acid is normalized. Continue with P.o. vancomycin ID is on board. Blood cultures negative so far. Left lower extremity cellulitis: Patient has history of cellulitis in the past, has been treated with daptomycin in January 2023. Complaining of left lower extremity warmth, redness and pain. Warmth and tenderness noted. Discontinue vancomycin due to acute kidney injury, was given a dose of Zyvox. Infectious disease is on board. Patient was started on daptomycin due to underlying acute kidney injury Acute kidney injury due to ATN Creatinine 3.89-. Prerenal secondary to hypovolemia, hypotension. Monitor renal function closely. Avoid nephrotoxin, discontinued IV vancomycin. Hold home chlorthalidone Ultrasound renal showed no hydronephrosis. Patient is tolerating oral diet. Encourage oral intake. Elevated LFTs: Suspect secondary to sepsis Monitors CMP Ultrasound abdomen showed hepatic steatosis and cholelithiasis.. Liver enzymes are trending down. Hypertension: Blood pressure currently low Hold home blood pressure medications--Norvasc, chlorthalidone DVT prophylaxis. Subcutaneous heparin Dictation was produced using [employer] dictation software. please excuse any grammatical, word or spelling errors. Objective - Vital Signs Vital signs: Vital Signs Temp 99.9 F H 12/06/23 20:00 Pulse 87 12/06/23 20:00 Resp 18 12/06/23 20:00 BP 111/53 12/06/23 20:00 Pulse Ox 92 L 12/06/23 20:00 FiO2 Intake & Output 12/06/23 12/06/23 12/07/23 06:59 18:59 06:59 Intake Total 960 Output Total 2875 1725 Balance -2875 -765 Weight 218.178 kg Intake: Oral 960 Output: Urine 2875 1725 Other: Voiding Method Urinal Urinal Urinal # Bowel Movements 1 - Labs CBC & Chem 7: 12/05/23 10:48 12/07/23 06:28
--- NOTE | 2023-12-07 13:07 | P.PN ---
Subjective Progress Note Date: 12/07/23 Principal diagnosis: Reason for follow-up is C. difficile colitis and left leg cellulitis Patient is a 58-year-old male past medical history significant for hypertension hyperlipidemia history of left foot wound infection with MRSA and cellulitis and shelter resident patient has been sent to the ER for evaluation of hypertension and apparently the patient is having diarrhea patient has been diagnosed with C. difficile colitis as well as left lower extremity ce llulitis. On today's evaluation that is 12/07/2023, Patient is afebrile patient is currently on room air and denies having any shortness of breath, the patient denies any chest pain or cough, the patient denies any nausea vomiting did not have any abdominal pain and mention resolution of his diarrhea still having swelling and redness to the left leg and some pain to the left posterior leg. Patient creatinine is down to 2.86 Objective - Vital Signs Vital signs: Vital Signs Temp 98.8 F 12/07/23 11:23 Pulse 81 12/07/23 11:23 Resp 20 12/07/23 11:23 BP 118/54 12/07/23 11:23 Pulse Ox 92 L 12/07/23 11:23 FiO2 Intake & Output 12/06/23 12/07/23 12/07/23 18:59 06:59 18:59 Intake Total 960 240 Output Total 1725 1150 950 Balance -156 -5710 -710 Weight 218.178 kg 222.8 kg Intake: Oral 960 240 Output: Urine 1725 1150 950 Other: Voiding Method Urinal Urinal Urinal # Voids 1 # Bowel Movements 1 - Exam GENERAL DESCRIPTION: Middle-age male lying in bed in no distress RESPIRATORY SYSTEM: Unlabored breathing , decreased breath sounds at bases HEART: S1 S2 regular rate and rhythm , ABDOMEN: Soft , no tenderness EXTREMITIES: Left leg with swelling redness no drainage - Labs CBC & Chem 7: 12/05/23 10:48 12/07/23 06:28 Labs: Abnormal Lab Results - Last 24 Hours (Table) 12/07/23 Range/Units 06:28 Chloride 108 H (98-107) mmol/L Carbon Dioxide 21 L (22-30) mmol/L BUN 50 H (9-20) mg/dL Creatinine 2.86 H (0.66-1.25) mg/dL Glucose 102 H (74-99) mg/dL Calcium 8.3 L (8.4-10.2) mg/dL Assessment and Plan (1) Sepsis Current Visit: Yes Status: Acute Code(s): A41.9 - SEPSIS, UNSPECIFIED ORGANISM SNOMED Code(s): 95073698 (2) C. difficile colitis Current Visit: Yes Status: Acute Code(s): A04.72 - ENTEROCOLITIS D/T CLOSTRIDIUM DIFFICILE, NOT SPCF RECUR SNOMED Code(s): 197808574 (3) Leukocytosis Current Visit: Yes Status: Acute Code(s): D72.829 - ELEVATED WHITE BLOOD CELL COUNT, UNSPECIFIED SNOMED Code(s): 092369775 (4) Left leg cellulitis Current Visit: No Status: Acute Code(s): L03.116 - CELLULITIS OF LEFT LOWER LIMB SNOMED Code(s): 41084787133209776 Plan: 1patient presented to hospital with sepsis in this patient who did have a fever elevated white count meeting criteria for SIRS source and likely C. difficile colitis patient also have a left lower extremity swelling with the dried out wound on the dorsal aspect of the left foot and concerning for cellulitis likely from gram-positive skin priscilla with a previous history of MRSA infection 2-patient with renal insufficiency high risk of nephrotoxicity from vancomycin 3-Doppler ultrasound of the left lower extremity no evidence of any DVT 4-patient did have improvement in his diarrhea we will continue with oral vancomycin 250 mg p.o. every 6 hours to finish 2-week course of therapy 5patient still have significant cellulitis to the left leg may benefit from diuretics to get some of the swelling down that will help with the overall swelling and redness continue with the daptomycin along with Ghanshyam wrap for compression Dictation was produced using [employer] dictation software. please excuse any grammatical, word or spelling errors. Time with Patient: Less than 30
[2023-12-08 05:45] LABS: Anisocytosis Slight; Basophils # (A) 0.2 k/uL (0-0.2); Basophils % (A) 1 %; Eosinophils # (A) 0.6 k/uL (0-0.7); Eosinophils % (A) 3 %; HCT 31.5 % (39.0-53.0); HGB 9.7 gm/dL (13.0-17.5); Hypochromasia Slight; Lymphocytes % (A) 11 %; MCH 27.6 pg (25.0-35.0); MCHC 30.8 g/dL (31.0-37.0); MCV 89.5 fL (80.0-100.0); Mean Platelet Volume 9.4; Monocytes % (A) 5 %; Neutrophils # (A) 14.6 k/uL (1.3-7.7); Neutrophils % (A) 78 %; RBC 3.52 m/uL (4.30-5.90); RDW 16.4 % (11.5-15.5); WBC 18.9 k/uL (3.8-10.6)
[2023-12-08 05:48] LABS: African American GFR (CKD) 31 (>60 ml/min/1.73 sqM); Anion Gap 8 mmol/L; Blood Urea Nitrogen 42 mg/dL (9-20); Calcium 8.6 mg/dL (8.4-10.2); Carbon Dioxide 24 mmol/L (22-30); Chloride 107 mmol/L (98-107); Glucose 105 mg/dL (74-99); Non-African American GFR(CKD) 27 (>60 ml/min/1.73 sqM); Platelet Count 403 k/uL (150-450); Potassium 3.7 mmol/L (3.5-5.1); Sodium 139 mmol/L (137-145)
--- NOTE | 2023-12-08 08:46 | P.NPCON ---
History of Present Illness - Reason for Consult acute renal failure - History of Present Illness Reason for consultation: Acute kidney injury History of present illness: Patient is a 58-year-old male seen in renal consultation for acute kidney injury. He resides at an extended care facility. Patient initially came to the hospital for evaluation for hypotension. Patient's creatinine dated September 26, 2023 was 1.0. Creatinine this admission was 3.02 and peaked at 3.89 this admission dated December 05, 2023. It is improved to 2.56 today. Patient came to the hospital due to 2 days of watery diarrhea. He is currently being treated for C. difficile with oral vancomycin. Patient also states that he he has left leg cellulitis. Currently receiving IV daptomycin. Denies chest pain or shortness of breath. Denies use of nonsteroidals. No history of diabetes or coronary artery disease. Denies family history of renal disease. Denies nausea or vomiting. Has been voiding. Denies gross hematuria or dysuria. Hemodynamically stable. Oral intake is good. Diarrhea now resolved. Vital signs are stable. General: No acute distress. HEENT: Head exam is unremarkable. LUNGS: No audible rhonchi or wheezes. HEART: Rate and Rhythm are regular. ABDOMEN: Obese, nontender. EXTREMITITES: Left lower extremity wrapped. No drainage. No edema right lower extremity. Past Medical History Past Medical History: Eye Disorder, Hyperlipidemia, Hypertension, Vascular Disor cherelle Additional Past Medical History / Comment(s): Glaucoma, falls secondary to poor balance from poor proprioception from severe obesity arthritis especially that of the left knee (walker) , Severe osteoarthritis of the left knee , Morbid obesity BMI 49.3, Bilateral lower extremity venous stasis dermatitis, Intertriginous candidiasis, Essential hypertension. Amlodipine 5 mg a day History of Any Multi-Drug Resistant Organisms: MRSA Date of last positivie culture/infection: 07/18/23 MDRO Source:: Left Foot Additional Past Surgical History / Comment(s): aldo stanley Past Anesthesia/Blood Transfusion Reactions: No Reported Reaction Past Psychological History: No Psychological Hx Reported, Depression Smoking Status: Never smoker Past Alcohol Use History: None Reported Past Drug Use History: None Reported Medications and Allergies Home Medications Medication Instructions Recorded Confirmed Type amLODIPine [Norvasc] 5 mg PO DAILY 08/10/21 12/02/23 History Ascorbic Acid [Vitamin C] 1,000 mg PO DAILY tab 09/07/21 12/02/23 Rx Aspirin 81 mg PO DAILY tab 02/05/23 12/02/23 Rx Acetaminophen Tab [Tylenol Tab] 1,000 mg PO TID 12/02/23 12/02/23 History Ammonium Lactate Lotion 1 applic TOPICAL HS 12/02/23 12/02/23 History [Lac-Hydrin 12% Lotion] Chlorthalidone 50 mg PO DAILY 12/02/23 12/02/23 History Colchicine 0.6 mg PO DAILY 12/02/23 12/02/23 History Cranberry 450mg 1 tab PO DAILY 12/02/23 12/02/23 History Ergocalciferol (Vitamin D2) 1,250 mcg PO QMONTHLY 12/02/23 12/02/23 History [Drisdol (50,000 Iu)] Ferrous Sulfate [Feosol] 325 mg PO DAILY 12/02/23 12/02/23 History Guaifenesin/Dextromethorphan 10 ml PO QID 12/02/23 12/02/23 History [Guaifenesin-Dm 100-10 mg/5 ml] Loperamide [Imodium] 1 - 2 mg PO QID PRN 12/02/23 12/02/23 History Menthol [Biofreeze] 1 applic TOPICAL Q8H PRN 12/02/23 12/02/23 History allopurinoL [Zyloprim] 100 mg PO BID 12/02/23 12/02/23 History Allergies Allergy/AdvReac Type Severity Reaction Status Date / Time No Known Allergies Allergy Verified 12/02/23 10:00 Physical Exam Vitals: Vital Signs Temp Pulse Resp BP Pulse Ox 12/08/23 08:03 98.0 F 80 17 117/66 93 L 12/08/23 02:00 98.5 F 85 119/56 93 L 12/07/23 23:23 100.2 F H 82 18 114/56 91 L 12/07/23 19:51 99.7 F H 86 18 119/56 92 L 12/07/23 16:12 99.3 F 84 20 117/55 92 L 12/07/23 11:23 98.8 F 81 20 118/54 92 L Intake and Output 12/07/23 12/08/23 12/08/23 22:59 06:59 14:59 Intake Total 710 Output Total 1600 100 Balance -890 -100 Intake: Intake, IV Titration 50 Amount DAPTOmycin 600 mg In 50 Sodium Chloride 0.9% 50 ml @ 100 mls/hr IVPB Q24HR [facility] Rx#:[id number] Oral 660 Output: Urine 1600 100 Other: Voiding Method Urinal # Voids 1 # Bowel Movements 1 Results - Lab Results Most recent lab results Calcium 8.6 mg/dL (8.4-10.2) 12/08/23 04:53 Phosphorus 3.8 mg/dL (2.5-4.5) 12/03/23 08:18 Magnesium 1.7 mg/dL (1.6-2.3) 12/07/23 06:28 12/08/23 04:53 12/08/23 04:53 Assessment and Plan Plan: Assessment: 1. Acute kidney injury secondary to ATN secondary to hypotension and further worsened with the use of chlorthalidone and diarrhea. Creatinine peaked at 3.89 this admission and is improved to 2.56 today. Baseline creatinine near 1 from September 2023. No hydronephrosis noted on kidney ultrasound. Left kidney not visualized. 2. Benign hypertension. Currently controlled. 3. C. difficile colitis maintained on oral vancomycin. 4. Left lower extremity cellulitis on IV antibiotics. ID following. 5. Morbid obesity. Plan: Add gentle IV hydration with normal saline at 50 cc an hour. Encouraged oral intake. Avoid nephrotoxins. Continue to monitor renal function and urine output. Thank you for the consultation. I will continue to follow the patient with you during his hospital stay.
[2023-12-08] MEDS: SODIUM CHLORIDE 0.9% 1,000 ML IV SCH (09:25)
--- NOTE | 2023-12-08 15:30 | P.PN ---
Subjective Progress Note Date: 12/08/23 Principal diagnosis: Reason for follow-up is C. difficile colitis and left leg cellulitis Patient is a 58-year-old male past medical history significant for hypertension hyperlipidemia history of left foot wound infection with MRSA and cellulitis and [facility] resident patient has been sent to the ER for evaluation of hypertension and apparently the patient is having diarrhea patient has been diagnosed with C. difficile colitis as well as left lower extremity ce llulitis. On today's evaluation that is 12/08/2023, patient did have a low-grade fever 100.2 at midnight the patient has been afebrile this morning, patient is breathing comfortably and is currently on room air, patient denies having any significant cough no chest pain shortness of breath, patient denies nausea vomiting or diarrhea and no abdominal pain and denies any worsening pain to the left lower extremity. Patient white count is slightly up to 18.9 today, creatinine is 2.56 blood culture has been negative Objective - Vital Signs Vital signs: Vital Signs Temp 98.0 F 12/08/23 08:03 Pulse 80 12/08/23 08:03 Resp 17 12/08/23 08:03 BP 117/66 12/08/23 08:03 Pulse Ox 93 L 12/08/23 08:03 FiO2 Intake & Output 12/07/23 12/08/23 12/08/23 18:59 06:59 18:59 Intake Total 2030 Output Total 1550 1100 1300 Balance 480 -1100 -1300 Intake: Intake, IV Titration 50 Amount DAPTOmycin 600 mg In 50 Sodium Chloride 0.9% 50 ml @ 100 mls/hr IVPB Q24HR [facility] Rx#:[id number] Oral 1980 Output: Urine 1550 1100 1300 Straight 1300 Other: Voiding Method Urinal Urinal Urinal # Voids 1 1 # Bowel Movements 1 - Exam GENERAL DESCRIPTION: Middle-age male lying in bed in no distress RESPIRATORY SYSTEM: Unlabored breathing , decreased breath sounds at bases HEART: S1 S2 regular rate and rhythm , ABDOMEN: Soft , no tenderness EXTREMITIES: Left leg with swelling redness slightly decreased but mildly extending to the thigh area culture has been obtained - Labs CBC & Chem 7: 12/08/23 04:53 12/08/23 04:53 Labs: Abnormal Lab Results - Last 24 Hours (Table) 12/08/23 12/08/23 Range/Units 04:53 04:53 WBC 18.9 H (3.8-10.6) k/uL RBC 3.52 L (4.30-5.90) m/uL Hgb 9.7 L (13.0-17.5) gm/dL Hct 31.5 L (39.0-53.0) % MCHC 30.8 L (31.0-37.0) g/dL RDW 16.4 H (11.5-15.5) % Neutrophils # 14.6 H (1.3-7.7) k/uL BUN 42 H (9-20) mg/dL Creatinine 2.56 H (0.66-1.25) mg/dL Glucose 105 H (74-99) mg/dL Microbiology - Last 24 Hours (Table) 12/02/23 03:13 Blood Culture - Final Blood 12/02/23 03:13 Blood Culture - Final Blood Assessment and Plan (1) Sepsis Current Visit: Yes Status: Acute Code(s): A41.9 - SEPSIS, UNSPECIFIED ORGANISM SNOMED Code(s): 07509555 (2) C. difficile colitis Current Visit: Yes Status: Acute Code(s): A04.72 - ENTEROCOLITIS D/T CLOSTRIDIUM DIFFICILE, NOT SPCF RECUR SNOMED Code(s): 133662203 (3) Leukocytosis Current Visit: Yes Status: Acute Code(s): D72.829 - ELEVATED WHITE BLOOD CELL COUNT, UNSPECIFIED SNOMED Code(s): 456531550 (4) Left leg cellulitis Current Visit: No Status: Acute Code(s): L03.116 - CELLULITIS OF LEFT LOWER LIMB SNOMED Code(s): 73260439772493227 Plan: 1patient presented to hospital with sepsis in this patient who did have a fever elevated white count meeting criteria for SIRS source and likely C. difficile colitis patient also have a left lower extremity swelling with the dried out wound on the dorsal aspect of the left foot and concerning for cellulitis likely from gram-positive skin priscilla with a previous history of MRSA infection 2-patient with renal insufficiency high risk of nephrotoxicity from vancomycin 3-Doppler ultrasound of the left lower extremity no evidence of any DVT 4-patient did have improvement in his diarrhea we will continue with oral vancomycin 250 mg p.o. every 6 hours to finish 2-week course of therapy 5patient did have extensive cellulitis to the left leg did have some blisters culture obtained today would not continue with the daptomycin and adjusting antibiotics further on the basis of culture Dictation was produced using [employer] software. please excuse any grammatical, word or spelling errors. Time with Patient: Less than 30
[2023-12-09 09:46] LABS: HCT 27.4 % (39.6-50.0); HGB 8.6 g/dL (13.0-17.0); MCHC 31.4 g/dL (32.0-37.0); MCV 89.3 FL (80.0-97.0); Mean Platelet Volume 11.4 FL (9.5-12.2); NRBC Per 100 WBC 0.02 X 10*3/uL (0.00-0.01); Platelet Count 389 X 10*3/uL (140-440); RBC 3.07 X 10*6/uL (4.40-5.60); WBC 13.14 X 10*3/uL (4.50-10.00)
[2023-12-09 09:53] LABS: Blood Urea Nitrogen 33.6 mg/dL (9.0-27.0); Glucose 102 mg/dL (70-110); Magnesium 1.4 mg/dL (1.5-2.4)
[2023-12-09 09:54] LABS: Calcium 8.1 mg/dL (8.7-10.3); Carbon Dioxide 22.9 mmol/L (21.6-31.8); Chloride 106 mmol/L (96-109); Potassium 3.5 mmol/L (3.5-5.5); Sodium 142 mmol/L (135-145)
[2023-12-09 10:52] LABS: Basophils # (M) 0.13 X 10*3/uL (0.00-0.10); Eosinophils # (M) 0.53 X 10*3/uL (0.04-0.35); Lymphocytes # (M) 1.18 X 10*3/uL (0.90-5.00); Metamyelocytes % 2 % (0-0); Monocytes # (M) 0.79 X 10*3/uL (0.20-1.00); Myelocytes % 2 % (0-0); Neutrophils # (M) 9.99 X 10*3/uL (1.80-7.70); Neutrophils % (M) 76 %; Stomatocytes 2+
--- NOTE | 2023-12-09 12:17 | P.PN ---
Subjective Patient is seen in follow-up for acute kidney injury. Renal function improving. Denies chest pain or shortness of breath. Has been voiding. Vital signs are stable. General: No acute distress. HEENT: Head exam is unremarkable. LUNGS: No audible rhonchi or wheezes. HEART: Rate and Rhythm are regular. ABDOMEN: Obese, nontender. EXTREMITITES: No drainage. Wrapped. Objective - Vital Signs Vital signs: Vital Signs Temp 98.5 F 12/09/23 06:56 Pulse 83 12/09/23 06:56 Resp 19 12/09/23 06:56 BP 104/50 12/09/23 06:56 Pulse Ox 93 L 12/09/23 06:56 FiO2 Intake & Output 12/08/23 12/09/23 12/09/23 18:59 06:59 18:59 Intake Total 600 Output Total 1974 2450 850 Balance -1974 Intake: Intake, IV Titration 600 Amount Sodium Chloride 0.9% 1, 600 000 ml @ 50 mls/hr IV . Q20H [facility] Rx#:[id number] Output: Urine 1974 2449 850 Straight 1300 Other: Voiding Method Urinal Urinal Urinal # Voids 4 1 # Bowel Movements 1 1 - Labs CBC & Chem 7: 12/09/23 05:33 12/09/23 05:33 Labs: Abnormal Lab Results - Last 24 Hours (Table) 12/09/23 12/09/23 Range/Units 05:33 05:33 WBC 13.14 H (4.50-10.00) X 10*3/uL RBC 3.07 L (4.40-5.60) X 10*6/uL Hgb 8.6 L (13.0-17.0) g/dL Hct 27.4 L (39.6-50.0) % MCHC 31.4 L (32.0-37.0) g/dL RDW 17.0 H (11.5-14.5) % Neutrophils # (Manual) 9.99 H (1.80-7.70) X 10*3/uL Eosinophils # (Manual) 0.53 H (0.04-0.35) X 10*3/uL Basophils # (Manual) 0.13 H (0.00-0.10) X 10*3/uL NRBC/100 WBC Diff 0.02 H (0.00-0.01) X 10*3/uL Stomatocytes 2+ A Anion Gap 13.10 H (4.00-12.00) mmol/L BUN 33.6 H (9.0-27.0) mg/dL Creatinine 2.1 H (0.6-1.5) mg/dL Est GFR (CKD-EPI) 36 L (>=60) Calcium 8.1 L (8.7-10.3) mg/dL Magnesium 1.4 L (1.5-2.4) mg/dL Assessment and Plan Plan: Assessment: 1. Acute kidney injury secondary to ATN secondary to hypotension and further worsened with the use of chlorthalidone and diarrhea. Creatinine peaked at 3.89 this admission and is improved to 2.1 today. Baseline creatinine near 1 from September 2023. No hydronephrosis noted on kidney ultrasound. Left kidney not visualized. 2. Benign hypertension. Currently controlled. 3. C. difficile colitis maintained on oral vancomycin. 4. Left lower extremity cellulitis on IV antibiotics. ID following. 5. Morbid obesity. 6. Hypomagnesemia from GI losses. Plan: Maintain normal saline. Replace potassium and magnesium. Encouraged oral intake. Avoid nephrotoxins. Continue to monitor renal function and urine output.
[2023-12-09] MEDS: POTASSIUM CHLORIDE ER 20 MEQ TAB.ER PO STA (12:37)
[2023-12-09] MEDS: MAGNESIUM SULFATE-D5W PMX 1 GM in DEXTROSE/WATER 1 100ML.BAG IVPB SCH (12:46)
--- NOTE | 2023-12-09 12:57 | P.PN ---
Subjective Progress Note Date: 12/09/23 Principal diagnosis: Reason for follow-up is C. difficile colitis and left leg cellulitis Patient is a 58-year-old male past medical history significant for hypertension hyperlipidemia history of left foot wound infection with MRSA and cellulitis and [facility] resident patient has been sent to the ER for evaluation of hypertension and apparently the patient is having diarrhea patient has been diagnosed with C. difficile colitis as well as left lower extremity ce llulitis. On today's evaluation that is 12/09/2023, Patient is afebrile this morning and denies any chills, patient mention breathing comfortably and is currently on room air, patient denies any chest pain occasional cough patient denies any abdominal pain no diarrhea no nausea no vomiting and denies any worsening pain to the left lower extremity. Patient white count is down to 13.14 creatinine is 2.1 local culture pending yesterday currently pending Objective - Vital Signs Vital signs: Vital Signs Temp 98.2 F 12/09/23 12:37 Pulse 81 12/09/23 12:37 Resp 18 12/09/23 12:37 BP 124/53 12/09/23 12:37 Pulse Ox 96 12/09/23 12:37 FiO2 Intake & Output 12/08/23 12/09/23 12/09/23 18:59 06:59 18:59 Intake Total 600 Output Total 1974 2449 850 Balance -1974 Intake: Intake, IV Titration 600 Amount Sodium Chloride 0.9% 1, 600 000 ml @ 50 mls/hr IV . Q20H [facility] Rx#:[id number] Output: Urine 1974 Straight 1300 Other: Voiding Method Urinal Urinal Urinal # Voids 4 1 # Bowel Movements 1 1 - Exam GENERAL DESCRIPTION: Middle-age male lying in bed in no distress RESPIRATORY SYSTEM: Unlabored breathing , decreased breath sounds at bases HEART: S1 S2 regular rate and rhythm , ABDOMEN: Soft , no tenderness EXTREMITIES: Left leg currently dressed erythema to the left lower thigh has not crossed the line - Labs CBC & Chem 7: 12/09/23 05:33 12/09/23 05:33 Labs: Abnormal Lab Results - Last 24 Hours (Table) 12/09/23 12/09/23 Range/Units 05:33 05:33 WBC 13.14 H (4.50-10.00) X 10*3/uL RBC 3.07 L (4.40-5.60) X 10*6/uL Hgb 8.6 L (13.0-17.0) g/dL Hct 27.4 L (39.6-50.0) % MCHC 31.4 L (32.0-37.0) g/dL RDW 17.0 H (11.5-14.5) % Neutrophils # (Manual) 9.99 H (1.80-7.70) X 10*3/uL Eosinophils # (Manual) 0.53 H (0.04-0.35) X 10*3/uL Basophils # (Manual) 0.13 H (0.00-0.10) X 10*3/uL NRBC/100 WBC Diff 0.02 H (0.00-0.01) X 10*3/uL Stomatocytes 2+ A Anion Gap 13.10 H (4.00-12.00) mmol/L BUN 33.6 H (9.0-27.0) mg/dL Creatinine 2.1 H (0.6-1.5) mg/dL Est GFR (CKD-EPI) 36 L (>=60) Calcium 8.1 L (8.7-10.3) mg/dL Magnesium 1.4 L (1.5-2.4) mg/dL Assessment and Plan (1) Sepsis Current Visit: Yes Status: Acute Code(s): A41.9 - SEPSIS, UNSPECIFIED ORGANISM SNOMED Code(s): 92785395 (2) C. difficile colitis Current Visit: Yes Status: Acute Code(s): A04.72 - ENTEROCOLITIS D/T CLOSTRIDIUM DIFFICILE, NOT SPCF RECUR SNOMED Code(s): 051785367 (3) Leukocytosis Current Visit: Yes Status: Acute Code(s): D72.829 - ELEVATED WHITE BLOOD CELL COUNT, UNSPECIFIED SNOMED Code(s): 230405146 (4) Left leg cellulitis Current Visit: No Status: Acute Code(s): L03.116 - CELLULITIS OF LEFT LOWER LIMB SNOMED Code(s): 13554096990634878 Plan: 1patient presented to hospital with sepsis in this patient who did have a fever elevated white count meeting criteria for SIRS source and likely C. difficile colitis patient also have a left lower extremity swelling with the dried out wound on the dorsal aspect of the left foot and concerning for cellulitis likely from gram-positive skin priscilla with a previous history of MRSA infection 2-patient with renal insufficiency high risk of nephrotoxicity from vancomycin 3-Doppler ultrasound of the left lower extremity no evidence of any DVT 4-patient did have improvement in his diarrhea we will continue with oral vancomycin 250 mg p.o. every 6 hours to finish 2-week course of therapy 5patient did have extensive cellulitis to the left leg did have some blisters culture obtained yesterday which are currently pending, patient to continue with the daptomycin while waiting for the culture to finalize to determine discharge antibiotics Dictation was produced using [employer] dictation software. please excuse any grammatical, word or spelling errors.
--- NOTE | 2023-12-10 00:21 | P.PN ---
Subjective Progress Note Date: 12/07/23 58-year-old male patient with past medical history significant for immobility, obesity, history of cellulitis treated with IV antibiotics in January 2023 who presented to ER for low blood pressure and diarrhea. Patient presented with several episodes of diarrhea, also was noted to have fever prior to arrival. Patient was noted to have low blood pressure at halfway and was sent to the ED for evaluation. Patient is poor historian. Patient reported that he was having fevers, also reported that he started to have loose stools 4-5 bowel movements per day for last 3 to 4 days also reported generalized abdominal pain and nausea and vomiting associated with diarrhea. Patient also complained of left leg pain. Patient denied any headache, sore throat, productive cough, chest pain, palpitations, dysuria, urgency, frequency, weakness numbness of extremities. In the ED patient was afebrile, pulse rate 89, respiratory rate 18, was saturating 97% on room air. Blood pressure was soft 90/51 with MAP of 64. Lab work showed leukocytosis with WBCs 18.2, hemoglobin 11.7, platelet 292, absolute neutrophils 17.1. CMP was remarkable for BUN of 40, creatinine of 3.02 with baseline creatinine around 1.0. Patient had elevated bilirubin of 4.6, AST was 452, ALT 102, alkaline phosphatase 125. Patient's influenza RSV and COVID was negative. C. difficile was positive. 12/03/2023 Patient is currently lying in the bed. Awake alert and oriented. Tmax is 100.8. Fever is improving. Currently on room air. No complaints of chest pain or shortness of breath. No nausea vomiting abdominal pain or diarrhea. She complains of left lower extremity pain swelling and redness is still there. Laboratory data showed WBC 8.2 hemoglobin 9.8 and platelets 174 sodium 137 potassium 3.1 chloride 104 bicarb is 20 BUN 55 and creatinine 3.65 and a blood sugar 104, magnesium 1.3 AST 504 ALT 118 and alk phos 110 and albumin 3.0. 12/04/2023 Patient is currently resting in bed. Awake alert and orient x 3. On room air. Afebrile overnight. No complaints of shortness of breath. No nausea vomiting abdominal diarrhea. Still having left lower extremity swelling but redness is improving. Laboratory data reviewed. Follow-up renal function. Patient remains on antibiotics in the form of daptomycin and also oral vancomycin due to C. difficile infection. ID is on board. Ultrasound abdomen showed no acute process. Hepatic steatosis. Cholelithiasis. No evidence of hydronephrosis. 12/05/2023 Patient is currently resting in the bed. Awake alert and orient x 3. Improvement in diarrhea. On room air. Patient has been afebrile overnight. No headache or dizziness or lightheadedness. No chest pain or shortness of breath. No cough or sputum production. Patient is being continued on p.o. vancomycin and daptomycin IV ID is on board. Patient is tolerating oral diet. IV fluids on hold due to wors ening leg swelling. Patient is also complaining of left lower extremity pain. Laboratory data showed WBC 9.4 hemoglobin 8.9 and platelets 154 sodium 137 potassium 3.1 chloride 107 bicarb is 22 BUN 16 creatinine went up to 3.89 and blood sugar 98. Arrangements are trending down. 12/06/2023 Patient is lying in the bed. Awake alert and oriented x 3. Diarrhea is much improved. No complaints of abdominal pain. Still having left lower extremity swelling and also complaining of pain. Afebrile overnight. No nausea vomiting or abdominal pain. No cough or sputum production. Patient is being continued on vancomycin p.o for C. difficile infection. and also daptomycin IV for leg cellulitis. ID is on board. Follow-up renal function tomorrow. Nephrology will be consulted. 12/07/2023 Patient is lying in the bed. Awake alert and oriented x 3. Diarrhea is more semisolid. No complaints of chest pain or shortness of breath. Patient does have still left leg swelling and redness. Wound dressing was done. Otherwise patient is tolerating oral diet. Laboratory data showed Nephrology and ID is on board. Patient remains on antibiotics in the form of daptomycin and also p.o. vancomycin. Current medications reviewed. PHYSICAL EXAMINATION: GENERAL: The patient is alert and oriented x3, not in any acute distress. Well developed, well nourished. HEENT: Pupils are round and equally reacting to light. EOMI. No scleral icterus. No conjunctival pallor. Normocephalic, atraumatic. No pharyngeal erythema. No thyromegaly. CARDIOVASCULAR: S1 and S2 present. No murmurs, rubs, or gallops. PULMONARY: Chest is clear to auscultation, no wheezing or crackles. ABDOMEN: Soft, nontender, nondistended, normoactive bowel sounds. No palpable organomegaly. MUSCULOSKELETAL: No joint swelling or deformity. EXTREMITIES: Bilatera chronic stasis changes, left lower extremity warmth, erythema, tenderness extending from ankle to below the knee. NEUROLOGICAL: Gross neurological examination did not reveal any focal deficits. Assessment and plan Severe sepsis: Acute C. difficile infection- severe Presented with watery diarrhea, low blood pressure. Significant leukocytosis with elevated absolute neutrophils on presentation. Elevated LFTs and acute kidney injury secondary to sepsis. Blood cultures pending. Lactate checked 2.6, fluid bolus ordered. Lactic acid is normalized. Continue with P.o. vancomycin ID is on board. Blood cultures negative so far. Left lower extremity cellulitis: Patient has history of cellulitis in the past, has been treated with daptomycin in January 2023. Complaining of left lower extremity warmth, redness and pain. Warmth and tenderness noted. Discontinue vancomycin due to acute kidney injury, was given a dose of Zyvox. Infectious disease is on board. Patient was started on daptomycin due to underlying acute kidney injury Acute kidney injury due to ATN Creatinine 3.89-2.8, . Prerenal secondary to hypovolemia, hypotension. Monitor renal function closely. Avoid nephrotoxin, discontinued IV vancomycin. Hold home chlorthalidone Ultrasound renal showed no hydronephrosis. Patient is tolerating oral diet. Encourage oral intake. Elevated LFTs: Suspect secondary to sepsis Monitors CMP Ultrasound abdomen showed hepatic steatosis and cholelithiasis.. Liver enzymes are trending down. Hypertension: Blood pressure currently low Hold home blood pressure medications--Norvasc, chlorthalidone DVT prophylaxis. Subcutaneous heparin Dictation was produced using [employer] dictation software. please excuse any grammatical, word or spelling errors. Objective - Vital Signs Vital signs: Vital Signs Temp 99.7 F H 12/07/23 19:51 Pulse 86 12/07/23 19:51 Resp 18 12/07/23 19:51 BP 119/56 12/07/23 19:51 Pulse Ox 92 L 12/07/23 19:51 FiO2 Intake & Output 12/07/23 12/07/23 12/08/23 06:59 18:59 06:59 Intake Total 2030 Output Total 1150 1550 1000 Balance -1150 480 -1000 Weight 222.8 kg Intake: Intake, IV Titration 50 Amount DAPTOmycin 600 mg In 50 Sodium Chloride 0.9% 50 ml @ 100 mls/hr IVPB Q24HR [facility] Rx#:[id number] Oral 1980 Output: Urine 1150 1550 1000 Other: Voiding Method Urinal Urinal Urinal # Voids 1 - Labs CBC & Chem 7: 12/09/23 05:33 12/09/23 05:33 Labs: Abnormal Lab Results - Last 24 Hours (Table) 12/07/23 Range/Units 06:28 Chloride 108 H (98-107) mmol/L Carbon Dioxide 21 L (22-30) mmol/L BUN 50 H (9-20) mg/dL Creatinine 2.86 H (0.66-1.25) mg/dL Glucose 102 H (74-99) mg/dL Calcium 8.3 L (8.4-10.2) mg/dL Microbiology - Last 24 Hours (Table) 12/02/23 03:13 Blood Culture - Final Blood 12/02/23 03:13 Blood Culture - Final Blood
--- NOTE | 2023-12-10 00:24 | P.PN ---
Subjective Progress Note Date: 12/08/23 58-year-old male patient with past medical history significant for immobility, obesity, history of cellulitis treated with IV antibiotics in January 2023 who presented to ER for low blood pressure and diarrhea. Patient presented with several episodes of diarrhea, also was noted to have fever prior to arrival. Patient was noted to have low blood pressure at long-term and was sent to the ED for evaluation. Patient is poor historian. Patient reported that he was having fevers, also reported that he started to have loose stools 4-5 bowel movements per day for last 3 to 4 days also reported generalized abdominal pain and nausea and vomiting associated with diarrhea. Patient also complained of left leg pain. Patient denied any headache, sore throat, productive cough, chest pain, palpitations, dysuria, urgency, frequency, weakness numbness of extremities. In the ED patient was afebrile, pulse rate 89, respiratory rate 18, was saturating 97% on room air. Blood pressure was soft 90/51 with MAP of 64. Lab work showed leukocytosis with WBCs 18.2, hemoglobin 11.7, platelet 292, absolute neutrophils 17.1. CMP was remarkable for BUN of 40, creatinine of 3.02 with baseline creatinine around 1.0. Patient had elevated bilirubin of 4.6, AST was 452, ALT 102, alkaline phosphatase 125. Patient's influenza RSV and COVID was negative. C. difficile was positive. 12/03/2023 Patient is currently lying in the bed. Awake alert and oriented. Tmax is 100.8. Fever is improving. Currently on room air. No complaints of chest pain or shortness of breath. No nausea vomiting abdominal pain or diarrhea. She complains of left lower extremity pain swelling and redness is still there. Laboratory data showed WBC 8.2 hemoglobin 9.8 and platelets 174 sodium 137 potassium 3.1 chloride 104 bicarb is 20 BUN 55 and creatinine 3.65 and a blood sugar 104, magnesium 1.3 AST 504 ALT 118 and alk phos 110 and albumin 3.0. 12/04/2023 Patient is currently resting in bed. Awake alert and orient x 3. On room air. Afebrile overnight. No complaints of shortness of breath. No nausea vomiting abdominal diarrhea. Still having left lower extremity swelling but redness is improving. Laboratory data reviewed. Follow-up renal function. Patient remains on antibiotics in the form of daptomycin and also oral vancomycin due to C. difficile infection. ID is on board. Ultrasound abdomen showed no acute process. Hepatic steatosis. Cholelithiasis. No evidence of hydronephrosis. 12/05/2023 Patient is currently resting in the bed. Awake alert and orient x 3. Improvement in diarrhea. On room air. Patient has been afebrile overnight. No headache or dizziness or lightheadedness. No chest pain or shortness of breath. No cough or sputum production. Patient is being continued on p.o. vancomycin and daptomycin IV ID is on board. Patient is tolerating oral diet. IV fluids on hold due to wors ening leg swelling. Patient is also complaining of left lower extremity pain. Laboratory data showed WBC 9.4 hemoglobin 8.9 and platelets 154 sodium 137 potassium 3.1 chloride 107 bicarb is 22 BUN 16 creatinine went up to 3.89 and blood sugar 98. Arrangements are trending down. 12/06/2023 Patient is lying in the bed. Awake alert and oriented x 3. Diarrhea is much improved. No complaints of abdominal pain. Still having left lower extremity swelling and also complaining of pain. Afebrile overnight. No nausea vomiting or abdominal pain. No cough or sputum production. Patient is being continued on vancomycin p.o for C. difficile infection. and also daptomycin IV for leg cellulitis. ID is on board. Follow-up renal function tomorrow. Nephrology will be consulted. 12/07/2023 Patient is lying in the bed. Awake alert and oriented x 3. Diarrhea is more semisolid. No complaints of chest pain or shortness of breath. Patient does have still left leg swelling and redness. Wound dressing was done. Otherwise patient is tolerating oral diet. Laboratory data showed WBC increased to 18.9 hemoglobin 9.7 and platelets 403 sodium 139 potassium 3.7 chloride 107 bicarb is 24 BUN 4020 creatinine 2.56 which is improving and blood sugar 105. Nephrology and ID is on board. Patient remains on antibiotics in the form of daptomycin and also p.o. vancomycin. 12/08/2023 Patient is resting in the bed. Awake alert and oriented x 3. No complaint of chest pain or worsening shortness of breath. The patient has been afebrile. Blood pressure is fairly stable. Continued on gentle IV hydration normal saline at 50 cc/h. Otherwise laboratory data showed WBC increased to 18.9 hemoglobin 9.7 and platelets 403 sodium 139 potassium 3.7 chloride 107 bicarb is 24 BUN 4 020 creatinine 2.56 which is improving and blood sugar 105. Current medications reviewed. PHYSICAL EXAMINATION: GENERAL: The patient is alert and oriented x3, not in any acute distress. Well developed, well nourished. HEENT: Pupils are round and equally reacting to light. EOMI. No scleral icterus. No conjunctival pallor. Normocephalic, atraumatic. No pharyngeal erythema. No thyromegaly. CARDIOVASCULAR: S1 and S2 present. No murmurs, rubs, or gallops. PULMONARY: Chest is clear to auscultation, no wheezing or crackles. ABDOMEN: Soft, nontender, nondistended, normoactive bowel sounds. No palpable organomegaly. MUSCULOSKELETAL: No joint swelling or deformity. EXTREMITIES: Bilatera chronic stasis changes, left lower extremity warmth, erythema, tenderness extending from ankle to below the knee. NEUROLOGICAL: Gross neurological examination did not reveal any focal deficits. Assessment and plan Severe sepsis: Acute C. difficile infection- severe Presented with watery diarrhea, low blood pressure. Significant leukocytosis with elevated absolute neutrophils on presentation. Elevated LFTs and acute kidney injury secondary to sepsis. Blood cultures pending. Lactate checked 2.6, fluid bolus ordered. Lactic acid is normalized. Continue with P.o. vancomycin ID is on board. Blood cultures negative so far. Left lower extremity cellulitis: Patient has history of cellulitis in the past, has been treated with daptomycin in January 2023. Complaining of left lower extremity warmth, redness and pain. Warmth and tenderness noted. Discontinue vancomycin due to acute kidney injury, was given a dose of Zyvox. Infectious disease is on board. Patient was started on daptomycin due to underlying acute kidney injury Acute kidney injury due to ATN Creatinine 3.89-2.8 , 2.56. Prerenal secondary to hypovolemia, hypotension. Monitor renal function closely. Avoid nephrotoxin, discontinued IV vancomycin. Hold home chlorthalidone Ultrasound renal showed no hydronephrosis. Patient is tolerating oral diet. Encourage oral intake. Continue gentle IV hydration with normal saline. Elevated LFTs: Suspect secondary to sepsis Monitors CMP Ultrasound abdomen showed hepatic steatosis and cholelithiasis.. Liver enzymes are trending down. Hypertension: Blood pressure currently low Hold home blood pressure medications--Norvasc, chlorthalidone DVT prophylaxis. Subcutaneous heparin Dictation was produced using [employer] dictation software. please excuse any grammatical, word or spelling errors. Objective - Vital Signs Vital signs: Vital Signs Temp 98.7 F 12/08/23 20:00 Pulse 69 12/08/23 20:00 Resp 20 12/08/23 20:00 BP 107/54 12/08/23 20:00 Pulse Ox 94 L 12/08/23 20:00 FiO2 Intake & Output 12/08/23 12/08/23 12/09/23 06:59 18:59 06:59 Output Total 1100 1974 1200 Balance -1099 -1974 -1199 Output: Urine 1099 1974 1199 Straight 1300 Other: Voiding Method Urinal Urinal Urinal # Voids 1 4 # Bowel Movements 1 1 - Labs CBC & Chem 7: 12/09/23 05:33 12/09/23 05:33 Labs: Abnormal Lab Results - Last 24 Hours (Table) 12/08/23 12/08/23 Range/Units 04:53 04:53 WBC 18.9 H (3.8-10.6) k/uL RBC 3.52 L (4.30-5.90) m/uL Hgb 9.7 L (13.0-17.5) gm/dL Hct 31.5 L (39.0-53.0) % MCHC 30.8 L (31.0-37.0) g/dL RDW 16.4 H (11.5-15.5) % Neutrophils # 14.6 H (1.3-7.7) k/uL BUN 42 H (9-20) mg/dL Creatinine 2.56 H (0.66-1.25) mg/dL Glucose 105 H (74-99) mg/dL
--- NOTE | 2023-12-10 00:28 | P.PN ---
Subjective Progress Note Date: 12/09/23 58-year-old male patient with past medical history significant for immobility, obesity, history of cellulitis treated with IV antibiotics in January 2023 who presented to ER for low blood pressure and diarrhea. Patient presented with several episodes of diarrhea, also was noted to have fever prior to arrival. Patient was noted to have low blood pressure at correction and was sent to the ED for evaluation. Patient is poor historian. Patient reported that he was having fevers, also reported that he started to have loose stools 4-5 bowel movements per day for last 3 to 4 days also reported generalized abdominal pain and nausea and vomiting associated with diarrhea. Patient also complained of left leg pain. Patient denied any headache, sore throat, productive cough, chest pain, palpitations, dysuria, urgency, frequency, weakness numbness of extremities. In the ED patient was afebrile, pulse rate 89, respiratory rate 18, was saturating 97% on room air. Blood pressure was soft 90/51 with MAP of 64. Lab work showed leukocytosis with WBCs 18.2, hemoglobin 11.7, platelet 292, absolute neutrophils 17.1. CMP was remarkable for BUN of 40, creatinine of 3.02 with baseline creatinine around 1.0. Patient had elevated bilirubin of 4.6, AST was 452, ALT 102, alkaline phosphatase 125. Patient's influenza RSV and COVID was negative. C. difficile was positive. 12/03/2023 Patient is currently lying in the bed. Awake alert and oriented. Tmax is 100.8. Fever is improving. Currently on room air. No complaints of chest pain or shortness of breath. No nausea vomiting abdominal pain or diarrhea. She complains of left lower extremity pain swelling and redness is still there. Laboratory data showed WBC 8.2 hemoglobin 9.8 and platelets 174 sodium 137 potassium 3.1 chloride 104 bicarb is 20 BUN 55 and creatinine 3.65 and a blood sugar 104, magnesium 1.3 AST 504 ALT 118 and alk phos 110 and albumin 3.0. 12/04/2023 Patient is currently resting in bed. Awake alert and orient x 3. On room air. Afebrile overnight. No complaints of shortness of breath. No nausea vomiting abdominal diarrhea. Still having left lower extremity swelling but redness is improving. Laboratory data reviewed. Follow-up renal function. Patient remains on antibiotics in the form of daptomycin and also oral vancomycin due to C. difficile infection. ID is on board. Ultrasound abdomen showed no acute process. Hepatic steatosis. Cholelithiasis. No evidence of hydronephrosis. 12/05/2023 Patient is currently resting in the bed. Awake alert and orient x 3. Improvement in diarrhea. On room air. Patient has been afebrile overnight. No headache or dizziness or lightheadedness. No chest pain or shortness of breath. No cough or sputum production. Patient is being continued on p.o. vancomycin and daptomycin IV ID is on board. Patient is tolerating oral diet. IV fluids on hold due to wors ening leg swelling. Patient is also complaining of left lower extremity pain. Laboratory data showed WBC 9.4 hemoglobin 8.9 and platelets 154 sodium 137 potassium 3.1 chloride 107 bicarb is 22 BUN 16 creatinine went up to 3.89 and blood sugar 98. Arrangements are trending down. 12/06/2023 Patient is lying in the bed. Awake alert and oriented x 3. Diarrhea is much improved. No complaints of abdominal pain. Still having left lower extremity swelling and also complaining of pain. Afebrile overnight. No nausea vomiting or abdominal pain. No cough or sputum production. Patient is being continued on vancomycin p.o for C. difficile infection. and also daptomycin IV for leg cellulitis. ID is on board. Follow-up renal function tomorrow. Nephrology will be consulted. 12/07/2023 Patient is lying in the bed. Awake alert and oriented x 3. Diarrhea is more semisolid. No complaints of chest pain or shortness of breath. Patient does have still left leg swelling and redness. Wound dressing was done. Otherwise patient is tolerating oral diet. Laboratory data showed WBC increased to 18.9 hemoglobin 9.7 and platelets 403 sodium 139 potassium 3.7 chloride 107 bicarb is 24 BUN 4020 creatinine 2.56 which is improving and blood sugar 105. Nephrology and ID is on board. Patient remains on antibiotics in the form of daptomycin and also p.o. vancomycin. 12/08/2023 Patient is resting in the bed. Awake alert and oriented x 3. No complaint of chest pain or worsening shortness of breath. The patient has been afebrile. Blood pressure is fairly stable. Continued on gentle IV hydration normal saline at 50 cc/h. Otherwise laboratory data showed WBC increased to 18.9 hemoglobin 9.7 and platelets 403 sodium 139 potassium 3.7 chloride 107 bicarb is 24 BUN 4 020 creatinine 2.56 which is improving and blood sugar 105. 12/09/2023 Patient is resting in the bed. Awake alert and oriented x 3. No complaints of chest pain shortness breath. Left leg swelling and redness is improving. Wound dressing is being done. Otherwise wound cultures growing gram-negative bacilli. Follow-up final culture report. ID is on board. Renal function is improving. Patient is tolerating oral diet. Afebrile. Laboratory data showed BUN 33.6 and creatinine 2.1, WBC 13.1 hemoglobin 8.6 and platelets 389. RDW 17.0 Patient is on iron supplementation. Current medications reviewed. PHYSICAL EXAMINATION: GENERAL: The patient is alert and oriented x3, not in any acute distress. Well developed, well nourished. HEENT: Pupils are round and equally reacting to light. EOMI. No scleral icterus. No conjunctival pallor. Normocephalic, atraumatic. No pharyngeal erythema. No thyromegaly. CARDIOVASCULAR: S1 and S2 present. No murmurs, rubs, or gallops. PULMONARY: Chest is clear to auscultation, no wheezing or crackles. ABDOMEN: Soft, nontender, nondistended, normoactive bowel sounds. No palpable organomegaly. MUSCULOSKELETAL: No joint swelling or deformity. EXTREMITIES: Bilatera chronic stasis changes, left lower extremity warmth, erythema, tenderness extending from ankle to below the knee. NEUROLOGICAL: Gross neurological examination did not reveal any focal deficits. Assessment and plan Severe sepsis: Acute C. difficile infection- severe Presented with watery diarrhea, low blood pressure. Significant leukocytosis with elevated absolute neutrophils on presentation. Elevated LFTs and acute kidney injury secondary to sepsis. Blood cultures pending. Lactate checked 2.6, fluid bolus ordered. Lactic acid is normalized. Continue with P.o. vancomycin ID is on board. Blood cultures negative so far. Left lower extremity cellulitis: Patient has history of cellulitis in the past, has been treated with daptomycin in January 2023. Complaining of left lower extremity warmth, redness and pain. Warmth and tenderness noted. Discontinue vancomycin due to acute kidney injury, was given a dose of Zyvox. Infectious disease is on board. Patient was started on daptomycin due to underlying acute kidney injury Acute kidney injury due to ATN Creatinine 3.89-2.8 , 2.56. 2.1 Prerenal secondary to hypovolemia, hypotension. Monitor renal function closely. Avoid nephrotoxin, discontinued IV vancomycin. Hold home chlorthalidone Ultrasound renal showed no hydronephrosis. Patient is tolerating oral diet. Encourage oral intake. Continue gentle IV hydration with normal saline. Elevated LFTs: Suspect secondary to sepsis Monitors CMP Ultrasound abdomen showed hepatic steatosis and cholelithiasis.. Liver enzymes are trending down. Hypertension: Blood pressure currently low Hold home blood pressure medications--Norvasc, chlorthalidone Normocytic anemia. Patient does have elevated RDW. Follow-ups B12 folate and iron profile. DVT prophylaxis. Subcutaneous heparin Dictation was produced using [employer] dictation software. please excuse any grammatical, word or spelling errors. Objective - Vital Signs Vital signs: Vital Signs Temp 98.5 F 12/09/23 18:50 Pulse 85 12/09/23 18:50 Resp 16 12/09/23 18:50 BP 109/55 12/09/23 18:50 Pulse Ox 92 L 12/09/23 18:50 FiO2 Intake & Output 12/09/23 12/09/23 12/10/23 06:59 18:59 06:59 Intake Total 600 540 Output Total 2450 1450 Balance -1850 -1450 540 Intake: Intake, IV Titration 600 Amount Sodium Chloride 0.9% 1, 600 000 ml @ 50 mls/hr IV . Q20H [facility] Rx#:[id number] Oral 540 Output: Urine 2450 1450 Other: Voiding Method Urinal Urinal # Voids 1 # Bowel Movements 1 - Labs CBC & Chem 7: 12/09/23 05:33 12/09/23 05:33 Labs: Abnormal Lab Results - Last 24 Hours (Table) 12/09/23 12/09/23 Range/Units 05:33 05:33 WBC 13.14 H (4.50-10.00) X 10*3/uL RBC 3.07 L (4.40-5.60) X 10*6/uL Hgb 8.6 L (13.0-17.0) g/dL Hct 27.4 L (39.6-50.0) % MCHC 31.4 L (32.0-37.0) g/dL RDW 17.0 H (11.5-14.5) % Neutrophils # (Manual) 9.99 H (1.80-7.70) X 10*3/uL Eosinophils # (Manual) 0.53 H (0.04-0.35) X 10*3/uL Basophils # (Manual) 0.13 H (0.00-0.10) X 10*3/uL NRBC/100 WBC Diff 0.02 H (0.00-0.01) X 10*3/uL Stomatocytes 2+ A Anion Gap 13.10 H (4.00-12.00) mmol/L BUN 33.6 H (9.0-27.0) mg/dL Creatinine 2.1 H (0.6-1.5) mg/dL Est GFR (CKD-EPI) 36 L (>=60) Calcium 8.1 L (8.7-10.3) mg/dL Magnesium 1.4 L (1.5-2.4) mg/dL Microbiology - Last 24 Hours (Table) 12/08/23 12:40 Gram Stain - Preliminary Leg - Left
[2023-12-10] MEDS ORDERED: MAGNESIUM SULFATE-D5W PMX 1 GM in DEXTROSE/WATER 1 100ML.BAG IVPB SCH (01:00)
[2023-12-10 09:54] LABS: % Iron Saturation 19.14 (15.00-50.00); Calcium 8.7 mg/dL (8.7-10.3); Carbon Dioxide 22.9 mmol/L (21.6-31.8); Chloride 106 mmol/L (96-109); Glucose 81 mg/dL (70-110); Iron 40 UG/DL (65-175); Magnesium 1.6 mg/dL (1.5-2.4); Potassium 3.7 mmol/L (3.5-5.5); Sodium 143 mmol/L (135-145); Total Iron Binding Capacity 209 UG/DL (228-460)
[2023-12-10] MEDS: CEFEPIME 2 GM in SODIUM CHLORIDE 0.9% 100 ML IVPB SCH (13:00)
--- NOTE | 2023-12-10 13:12 | P.PN ---
Subjective Patient is seen in follow-up for acute kidney injury. Renal function improving. Denies chest pain or shortness of breath. Has been voiding. No active complaints. Vital signs are stable. General: No acute distress. HEENT: Head exam is unremarkable. LUNGS: No audible rhonchi or wheezes. HEART: Rate and Rhythm are regular. ABDOMEN: Obese, nontender. EXTREMITITES: No drainage. Wrapped. Objective - Vital Signs Vital signs: Vital Signs Temp 98.3 F 12/10/23 11:53 Pulse 80 12/10/23 11:53 Resp 19 12/10/23 11:53 BP 145/61 12/10/23 11:53 Pulse Ox 92 L 12/10/23 11:53 FiO2 Intake & Output 12/09/23 12/10/23 12/10/23 18:59 06:59 18:59 Intake Total 3305 Output Total 1450 3500 2077 Balance -1449 Intake: Intake, IV Titration 425 Amount Sodium Chloride 0.9% 1, 425 000 ml @ 50 mls/hr IV . Q20H [facility] Rx#:[id number] Oral 2880 Output: Urine 1450 3500 2076 Stool 1 Other: Voiding Method Urinal Urinal # Voids 1 # Bowel Movements 1 1 - Labs CBC & Chem 7: 12/09/23 05:33 12/10/23 02:39 Labs: Abnormal Lab Results - Last 24 Hours (Table) 12/10/23 Range/Units 02:39 Anion Gap 14.10 H (4.00-12.00) mmol/L Creatinine 1.8 H (0.6-1.5) mg/dL Est GFR (CKD-EPI) 43 L (>=60) Iron 40 L (65-175) UG/DL TIBC 209 L (228-460) UG/DL Transferrin 149.0 L (204.0-354.0) mg/dL Vitamin B12 2246.0 H (200.0-944.0) pg/mL Microbiology - Last 24 Hours (Table) 12/08/23 12:40 Gram Stain - Preliminary Leg - Left Wound Culture - Preliminary Gram Neg Bacilli Assessment and Plan Plan: Assessment: 1. Acute kidney injury secondary to ATN secondary to hypotension and further worsened with the use of chlorthalidone and diarrhea. Creatinine peaked at 3.89 this admission and is improved to 1.8 today. Baseline creatinine near 1 from September 2023. No hydronephrosis noted on kidney ultrasound. Left kidney not visualized. 2. Benign hypertension. Currently controlled. 3. C. difficile colitis maintained on oral vancomycin. 4. Left lower extremity cellulitis on IV antibiotics. ID following. 5. Morbid obesity. 6. Hypomagnesemia from GI losses. Replaced. Better. 7. Anemia. Iron deficiency noted. Plan: Maintain normal saline. Replace potassium and magnesium. Encouraged oral intake. Avoid nephrotoxins. Continue to monitor renal function and urine output. IV iron x 1 dose today.
[2023-12-10] MEDS: MAGNESIUM OXIDE 400 MG TAB PO SCH (13:44)
[2023-12-10] MEDS: POTASSIUM CHLORIDE ER 20 MEQ TAB.ER PO STA (13:44)
[2023-12-10] MEDS: SODIUM FERRIC GLUCONAT-SUCROSE 125 MG in SODIUM CHLORIDE 0.9% 100 ML IVPB ONE (16:34)
[2023-12-11 08:01] VITALS: BMI 52.6
--- NOTE | 2023-12-11 09:35 | P.PN ---
Subjective Progress Note Date: 12/10/23 Principal diagnosis: Reason for follow-up is C. difficile colitis and left leg cellulitis Patient is a 58-year-old male past medical history significant for hypertension hyperlipidemia history of left foot wound infection with MRSA and cellulitis and halfway resident patient has been sent to the ER for evaluation of hypertension and apparently the patient is having diarrhea patient has been diagnosed with C. difficile colitis as well as left lower extremity ce llulitis. On today's evaluation that is 12/10/2023,the patient denies any fever or any chills, patient is breathing comfortably on room air, the patient denies chest pain shortness of breath and no significant cough, patient denies abdominal pain, no nausea vomiting did have resolution of his diarrhea still have significant swelling and redness to the left lower extremity with blistering. Patient did have a creatinine 1.8 CBC was not done today local culture growing gram-negative. Objective - Vital Signs Vital signs: Vital Signs Temp 98.3 F 12/10/23 11:53 Pulse 80 12/10/23 11:53 Resp 19 12/10/23 11:53 BP 145/61 12/10/23 11:53 Pulse Ox 92 L 12/10/23 11:53 FiO2 Intake & Output 12/09/23 12/10/23 12/10/23 18:59 06:59 18:59 Intake Total 3305 Output Total 1450 3500 1802 Balance -1450 -195 -1802 Intake: Intake, IV Titration 425 Amount Sodium Chloride 0.9% 1, 425 000 ml @ 50 mls/hr IV . Q20H [facility] Rx#:[id number] Oral 2880 Output: Urine 1450 3500 1801 Stool 1 Other: Voiding Method Urinal Urinal # Voids 1 # Bowel Movements 1 1 - Exam GENERAL DESCRIPTION: Middle-age male lying in bed in no distress RESPIRATORY SYSTEM: Unlabored breathing , decreased breath sounds at bases HEART: S1 S2 regular rate and rhythm , ABDOMEN: Soft , no tenderness EXTREMITIES: Left leg currently dressed erythema to the left lower thigh has not crossed the line - Labs CBC & Chem 7: 12/09/23 05:33 12/10/23 02:39 Labs: Abnormal Lab Results - Last 24 Hours (Table) 12/10/23 Range/Units 02:39 Anion Gap 14.10 H (4.00-12.00) mmol/L Creatinine 1.8 H (0.6-1.5) mg/dL Est GFR (CKD-EPI) 43 L (>=60) Iron 40 L (65-175) UG/DL TIBC 209 L (228-460) UG/DL Transferrin 149.0 L (204.0-354.0) mg/dL Vitamin B12 2246.0 H (200.0-944.0) pg/mL Microbiology - Last 24 Hours (Table) 12/08/23 12:40 Gram Stain - Preliminary Leg - Left Wound Culture - Preliminary Gram Neg Bacilli Assessment and Plan (1) Sepsis Current Visit: Yes Status: Acute Code(s): A41.9 - SEPSIS, UNSPECIFIED ORGANISM SNOMED Code(s): 98380756 (2) C. difficile colitis Current Visit: Yes Status: Acute Code(s): A04.72 - ENTEROCOLITIS D/T CLOST RIDIUM DIFFICILE, NOT SPCF RECUR SNOMED Code(s): 723855377 (3) Leukocytosis Current Visit: Yes Status: Acute Code(s): D72.829 - ELEVATED WHITE BLOOD CELL COUNT, UNSPECIFIED SNOMED Code(s): 662749109 (4) Left leg cellulitis Current Visit: No Status: Acute Code(s): L03.116 - CELLULITIS OF LEFT LOWER LIMB SNOMED Code(s): 45840478807691313 Plan: 1patient presented to hospital with sepsis in this patient who did have a fever elevated white count meeting criteria for SIRS source and likely C. difficile colitis patient also have a left lower extremity swelling with the dried out wound on the dorsal aspect of the left foot and concerning for cellulitis likely from gram-positive skin priscilla with a previous history of MRSA infection 2-patient with renal insufficiency high risk of nephrotoxicity from vancomycin 3-Doppler ultrasound of the left lower extremity no evidence of any DVT 4-patient did have improvement in his diarrhea we will continue with oral vancomycin 250 mg p.o. every 6 hours to finish 2-week course of therapy 5patient did have extensive cellulitis to the left leg did have some blisters culture obtained growing gram-negative bacilli we will discontinue daptomycin start the patient on cefepime waiting for the ID and sensitivity to determine his discharge antibiotics Dictation was produced using [employer] software. please excuse any grammatical, word or spelling errors. Time with Patient: Less than 30
[2023-12-11 11:02] LABS: BUN/Creat Ratio 13.44 Ratio (12.00-20.00); Blood Urea Nitrogen 21.5 mg/dL (9.0-27.0); Calcium 8.3 mg/dL (8.7-10.3); Carbon Dioxide 25.2 mmol/L (21.6-31.8); Chloride 106 mmol/L (96-109); Glucose 85 mg/dL (70-110); Potassium 3.7 mmol/L (3.5-5.5); Sodium 142 mmol/L (135-145)
[2023-12-11 11:14] LABS: HCT 26.7 % (39.6-50.0); HGB 8.3 g/dL (13.0-17.0); MCH 28.1 pg (27.0-32.0); MCHC 31.1 g/dL (32.0-37.0); MCV 90.5 FL (80.0-97.0); Mean Platelet Volume 10.9 FL (9.5-12.2); NRBC Per 100 WBC 0.02 X 10*3/uL (0.00-0.01); Platelet Count 410 X 10*3/uL (140-440); RBC 2.95 X 10*6/uL (4.40-5.60); RDW 17.1 % (11.5-14.5); WBC 8.38 X 10*3/uL (4.50-10.00)
[2023-12-11 12:06] LABS: Basophils # (M) 0.17 X 10*3/uL (0.00-0.10); Eosinophils # (M) 0.67 X 10*3/uL (0.04-0.35); Lymphocytes # (M) 1.42 X 10*3/uL (0.90-5.00); Metamyelocytes % 1 % (0-0); Monocytes # (M) 0.92 X 10*3/uL (0.20-1.00); Myelocytes % 1 % (0-0); Neutrophils # (M) 5.03 X 10*3/uL (1.80-7.70); Neutrophils % (M) 60 %; Stomatocytes 2+
--- NOTE | 2023-12-11 13:38 | P.PN ---
Subjective Patient is seen in follow-up for acute kidney injury. Renal function improving. Denies chest pain or shortness of breath. Has been voiding. No active complaints. Vital signs are stable. General: No acute distress. HEENT: Head exam is unremarkable. LUNGS: No audible rhonchi or wheezes. HEART: Rate and Rhythm are regular. ABDOMEN: Obese, nontender. EXTREMITITES: No drainage. Wrapped. Objective - Vital Signs Vital signs: Vital Signs Temp 98.1 F 12/11/23 12:35 Pulse 77 12/11/23 12:35 Resp 17 12/11/23 12:35 BP 105/59 12/11/23 12:35 Pulse Ox 95 12/11/23 12:35 FiO2 Intake & Output 12/10/23 12/11/23 12/11/23 18:59 06:59 18:59 Intake Total 222 240 Output Total 3302 2575 Balance -3302 -0003 240 Weight 222.8 kg Intake: Oral 222 240 Output: Urine 3301 2575 Stool 1 Other: # Voids 1 # Bowel Movements 1 - Labs CBC & Chem 7: 12/11/23 06:07 12/11/23 06:07 Labs: Abnormal Lab Results - Last 24 Hours (Table) 12/10/23 12/11/23 12/11/23 Range/Units 02:39 06:07 06:07 RBC 2.95 L (4.40-5.60) X 10*6/uL Hgb 8.3 L (13.0-17.0) g/dL Hct 26.7 L (39.6-50.0) % MCHC 31.1 L (32.0-37.0) g/dL RDW 17.1 H (11.5-14.5) % Eosinophils # (Manual) 0.67 H (0.04-0.35) X 10*3/uL Basophils # (Manual) 0.17 H (0.00-0.10) X 10*3/uL NRBC/100 WBC Diff 0.02 H (0.00-0.01) X 10*3/uL Stomatocytes 2+ A Creatinine 1.6 H (0.6-1.5) mg/dL Est GFR (CKD-EPI) 50 L (>=60) Calcium 8.3 L (8.7-10.3) mg/dL RBC Folate 1,003 H (280 - 791) ng/mL Assessment and Plan Plan: Assessment: 1. Acute kidney injury secondary to ATN secondary to hypotension and further worsened with the use of chlorthalidone and diarrhea. Creatinine peaked at 3.89 this admission and is improved to 1.6 today. Baseline creatinine near 1 from September 2023. No hydronephrosis noted on kidney ultrasound. Left kidney not visualized. 2. Benign hypertension. Currently controlled. 3. C. difficile colitis s/p oral vancomycin. 4. Left lower extremity cellulitis on IV antibiotics. ID following. 5. Morbid obesity. 6. Hypomagnesemia from GI losses. Replaced. Better. On oral magnesium oxide. 7. Anemia. Iron deficiency noted. Status post IV iron in December 10, 2023. Plan: Maintain normal saline. Replace potassium. Encouraged oral intake. Avoid nephrotoxins. Continue to monitor renal function and urine output. Repeat IV iron today.
[2023-12-11] MEDS: POTASSIUM CHLORIDE ER 20 MEQ TAB.ER PO STA (14:15)
[2023-12-11] MEDS: SODIUM FERRIC GLUCONAT-SUCROSE 125 MG in SODIUM CHLORIDE 0.9% 100 ML IVPB ONE (14:15)
--- NOTE | 2023-12-11 15:14 | P.PN ---
Subjective Progress Note Date: 12/11/23 Principal diagnosis: Reason for follow-up is C. difficile colitis and left leg cellulitis Patient is a 58-year-old male past medical history significant for hypertension hyperlipidemia history of left foot wound infection with MRSA and cellulitis and intermediate resident patient has been sent to the ER for evaluation of hypertension and apparently the patient is having diarrhea patient has been diagnosed with C. difficile colitis as well as left lower extremity ce llulitis. On today's evaluation that is 12/11/2023,the patient remains to be afebrile, patient is on room air not requiring supplemental oxygen and denies any shortness of breath no chest pain or cough.Patient denies having any nausea or vomiting, no abdominal pain and no diarrhea has been reported still having erythema to the left lower extremity but denies any worsening pain. Patient white count normalized to 8.38, creatinine is 1.6 leg culture showing gram-negative with ID sensitivities pending Objective - Vital Signs Vital signs: Vital Signs Temp 98.1 F 12/11/23 12:35 Pulse 77 12/11/23 12:35 Resp 17 12/11/23 12:35 BP 105/59 12/11/23 12:35 Pulse Ox 95 12/11/23 12:35 FiO2 Intake & Output 12/10/23 12/11/23 12/11/23 18:59 06:59 18:59 Intake Total 222 240 Output Total 3302 2575 Balance -3302 -2353 240 Weight 222.8 kg Intake: Oral 222 240 Output: Urine 3301 2575 Stool 1 Other: # Voids 1 # Bowel Movements 1 - Exam GENERAL DESCRIPTION: Middle-age male lying in bed in no distress RESPIRATORY SYSTEM: Unlabored breathing , decreased breath sounds at bases HEART: S1 S2 regular rate and rhythm , ABDOMEN: Soft , no tenderness EXTREMITIES: Left leg currently dressed erythema to the left lower thigh has not crossed the line - Labs CBC & Chem 7: 12/11/23 06:07 12/11/23 06:07 Labs: Abnormal Lab Results - Last 24 Hours (Table) 12/10/23 12/11/23 12/11/23 Range/Units 02:39 06:07 06:07 RBC 2.95 L (4.40-5.60) X 10*6/uL Hgb 8.3 L (13.0-17.0) g/dL Hct 26.7 L (39.6-50.0) % MCHC 31.1 L (32.0-37.0) g/dL RDW 17.1 H (11.5-14.5) % Eosinophils # (Manual) 0.67 H (0.04-0.35) X 10*3/uL Basophils # (Manual) 0.17 H (0.00-0.10) X 10*3/uL NRBC/100 WBC Diff 0.02 H (0.00-0.01) X 10*3/uL Stomatocytes 2+ A Creatinine 1.6 H (0.6-1.5) mg/dL Est GFR (CKD-EPI) 50 L (>=60) Calcium 8.3 L (8.7-10.3) mg/dL RBC Folate 1,003 H (280 - 791) ng/mL Assessment and Plan (1) Sepsis Current Visit: Yes Status: Acute Code(s): A41.9 - SEPSIS, UNSPECIFIED ORGANISM SNOMED Code(s): 99983626 (2) C. difficile colitis Current Visit: Yes Status: Acute Code(s): A04.72 - ENTEROCOLITIS D/T CLOSTRIDIUM DIFFICILE, NOT SPCF RECUR SNOMED Code(s): 895795983 (3) Leukocytosis Current Visit: Yes Status: Acute Code(s): D72.829 - ELEVATED WHITE BLOOD CELL COUNT, UNSPECIFIED SNOMED Code(s): 228227653 (4) Left leg cellulitis Current Visit: No Status: Acute Code(s): L03.116 - CELLULITIS OF LEFT LOWER LIMB SNOMED Code(s): 54086210245467308 Plan: 1patient presented to hospital with sepsis in this patient who did have a fever elevated white count meeting criteria for SIRS source and likely C. difficile colitis patient also have a left lower extremity swelling with the dried out wound on the dorsal aspect of the left foot and concerning for cellulitis likely from gram-positive skin priscilla with a previous history of MRSA infection 2-patient with renal insufficiency high risk of nephrotoxicity from vancomycin 3-Doppler ultrasound of the left lower extremity no evidence of any DVT 4-patient did have improvement in his diarrhea we will continue with oral vancomycin 250 mg p.o. every 6 hours to finish 2-week course of therapy 5patient did have extensive cellulitis to the left leg did have some blisters culture obtained growing gram-negative bacilli with ID and sensitivities pending 6we will continue the patient on cefepime while waiting for the culture to finalize the patient white count has normalized Dictation was produced using [employer] dictation software. please excuse any grammatical, word or spelling errors. Time with Patient: Less than 30
--- NOTE | 2023-12-12 01:43 | P.PN ---
Subjective Progress Note Date: 12/10/23 58-year-old male patient with past medical history significant for immobility, obesity, history of cellulitis treated with IV antibiotics in January 2023 who presented to ER for low blood pressure and diarrhea. Patient presented with several episodes of diarrhea, also was noted to have fever prior to arrival. Patient was noted to have low blood pressure at [facility] and was sent to the ED for evaluation. Patient is poor historian. Patient reported that he was having fevers, also reported that he started to have loose stools 4-5 bowel movements per day for last 3 to 4 days also reported generalized abdominal pain and nausea and vomiting associated with diarrhea. Patient also complained of left leg pain. Patient denied any headache, sore throat, productive cough, chest pain, palpitations, dysuria, urgency, frequency, weakness numbness of extremities. In the ED patient was afebrile, pulse rate 89, respiratory rate 18, was saturating 97% on room air. Blood pressure was soft 90/51 with MAP of 64. Lab work showed leukocytosis with WBCs 18.2, hemoglobin 11.7, platelet 292, absolute neutrophils 17.1. CMP was remarkable for BUN of 40, creatinine of 3.02 with baseline creatinine around 1.0. Patient had elevated bilirubin of 4.6, AST was 452, ALT 102, alkaline phosphatase 125. Patient's influenza RSV and COVID was negative. C. difficile was positive. 12/03/2023 Patient is currently lying in the bed. Awake alert and oriented. Tmax is 100.8. Fever is improving. Currently on room air. No complaints of chest pain or shortness of breath. No nausea vomiting abdominal pain or diarrhea. She complains of left lower extremity pain swelling and redness is still there. Laboratory data showed WBC 8.2 hemoglobin 9.8 and platelets 174 sodium 137 potassium 3.1 chloride 104 bicarb is 20 BUN 55 and creatinine 3.65 and a blood sugar 104, magnesium 1.3 AST 504 ALT 118 and alk phos 110 and albumin 3.0. 12/04/2023 Patient is currently resting in bed. Awake alert and orient x 3. On room air. Afebrile overnight. No complaints of shortness of breath. No nausea vomiting abdominal diarrhea. Still having left lower extremity swelling but redness is improving. Laboratory data reviewed. Follow-up renal function. Patient remains on antibiotics in the form of daptomycin and also oral vancomycin due to C. difficile infection. ID is on board. Ultrasound abdomen showed no acute process. Hepatic steatosis. Cholelithiasis. No evidence of hydronephrosis. 12/05/2023 Patient is currently resting in the bed. Awake alert and orient x 3. Improvement in diarrhea. On room air. Patient has been afebrile overnight. No headache or dizziness or lightheadedness. No chest pain or shortness of breath. No cough or sputum production. Patient is being continued on p.o. vancomycin and daptomycin IV ID is on board. Patient is tolerating oral diet. IV fluids on hold due to wors ening leg swelling. Patient is also complaining of left lower extremity pain. Laboratory data showed WBC 9.4 hemoglobin 8.9 and platelets 154 sodium 137 potassium 3.1 chloride 107 bicarb is 22 BUN 16 creatinine went up to 3.89 and blood sugar 98. Arrangements are trending down. 12/06/2023 Patient is lying in the bed. Awake alert and oriented x 3. Diarrhea is much improved. No complaints of abdominal pain. Still having left lower extremity swelling and also complaining of pain. Afebrile overnight. No nausea vomiting or abdominal pain. No cough or sputum production. Patient is being continued on vancomycin p.o for C. difficile infection. and also daptomycin IV for leg cellulitis. ID is on board. Follow-up renal function tomorrow. Nephrology will be consulted. 12/07/2023 Patient is lying in the bed. Awake alert and oriented x 3. Diarrhea is more semisolid. No complaints of chest pain or shortness of breath. Patient does have still left leg swelling and redness. Wound dressing was done. Otherwise patient is tolerating oral diet. Laboratory data showed WBC increased to 18.9 hemoglobin 9.7 and platelets 403 sodium 139 potassium 3.7 chloride 107 bicarb is 24 BUN 4020 creatinine 2.56 which is improving and blood sugar 105. Nephrology and ID is on board. Patient remains on antibiotics in the form of daptomycin and also p.o. vancomycin. 12/08/2023 Patient is resting in the bed. Awake alert and oriented x 3. No complaint of chest pain or worsening shortness of breath. The patient has been afebrile. Blood pressure is fairly stable. Continued on gentle IV hydration normal saline at 50 cc/h. Otherwise laboratory data showed WBC increased to 18.9 hemoglobin 9.7 and platelets 403 sodium 139 potassium 3.7 chloride 107 bicarb is 24 BUN 4 020 creatinine 2.56 which is improving and blood sugar 105. 12/09/2023 Patient is resting in the bed. Awake alert and oriented x 3. No complaints of chest pain shortness breath. Left leg swelling and redness is improving. Wound dressing is being done. Otherwise wound cultures growing gram-negative bacilli. Follow-up final culture report. ID is on board. Renal function is improving. Patient is tolerating oral diet. Afebrile. Laboratory data showed BUN 33.6 and creatinine 2.1, WBC 13.1 hemoglobin 8.6 and platelets 389. RDW 17.0 Patient is on iron supplementation. 12/10/2023 Patient is currently resting in the bed. Awake alert and oriented x 3. No complaints of chest pain or shortness of breath. Left leg swelling is improving. Wound is Ghanshyam wrapped. Cultures growing gram-negative bacilli. Antibiotics changed to cefepime as per ID recommendations. Patient is also on IV hydration with normal saline at 50 cc/h. Laboratory data showed sodium 143 potassium 3.7 chloride 106 bicarb is 22.9 BUN 27 creatinine 1.8 and blood sugar 81. TSH B12 folate not low. ID and nephrology is on board. Current medications reviewed. PHYSICAL EXAMINATION: GENERAL: The patient is alert and oriented x3, not in any acute distress. Well developed, well nourished. HEENT: Pupils are round and equally reacting to light. EOMI. No scleral icterus. No conjunctival pallor. Normocephalic, atraumatic. No pharyngeal erythema. No thyromegaly. CARDIOVASCULAR: S1 and S2 present. No murmurs, rubs, or gallops. PULMONARY: Chest is clear to auscultation, no wheezing or crackles. ABDOMEN: Soft, nontender, nondistended, normoactive bowel sounds. No palpable organomegaly. MUSCULOSKELETAL: No joint swelling or deformity. EXTREMITIES: Bilatera chronic stasis changes, left lower extremity warmth, er ythema, tenderness extending from ankle to below the knee. NEUROLOGICAL: Gross neurological examination did not reveal any focal deficits. Assessment and plan Severe sepsis: Acute C. difficile infection- severe Presented with watery diarrhea, low blood pressure. Significant leukocytosis with elevated absolute neutrophils on presentation. Elevated LFTs and acute kidney injury secondary to sepsis. Blood cultures showed no growth. Lactate checked 2.6, fluid bolus ordered. Lactic acid is normalized. Continue with Patient completed p.o. vancomycin ID is on board. Blood cultures negative so far. Left lower extremity cellulitis: Patient has history of cellulitis in the past, has been treated with daptomycin in January 2023. Patient was complaining of left lower extremity warmth, redness and pain. Warmth and tenderness noted. Discontinue vancomycin due to acute kidney injury, was given a dose of Zyvox. Infectious disease is on board. Patient was started on daptomycin due to underlying acute kidney injury Antibiotics changed to cefepime. Wound culture showed gram-negative bacilli. Acute kidney injury due to ATN Creatinine 3.89-2.8 , 2.56. 2.1, 1.8, Prerenal secondary to hypovolemia, hypotension. Monitor renal function closely. Avoid nephrotoxin, discontinued IV vancomycin. Hold home chlorthalidone Ultrasound renal showed no hydronephrosis. Patient is tolerating oral diet. Encourage oral intake. Continue gentle IV hydration with normal saline. Elevated LFTs: Suspect secondary to sepsis Monitors CMP Ultrasound abdomen showed hepatic steatosis and cholelithiasis.. Liver enzymes are trending down. Hypertension: Blood pressure currently low Hold home blood pressure medications--Norvasc, chlorthalidone Normocytic anemia. Patient does have elevated RDW. Follow-ups B12 folate and iron profile. DVT prophylaxis. Subcutaneous heparin Dictation was produced using [employer] dictation software. please excuse any grammatical, word or spelling errors. Objective - Vital Signs Vital signs: Vital Signs Temp 98.2 F 12/10/23 18:45 Pulse 82 12/10/23 18:45 Resp 18 12/10/23 18:45 BP 129/54 12/10/23 18:45 Pulse Ox 95 12/10/23 18:45 FiO2 Intake & Output 12/10/23 12/10/23 12/11/23 06:59 18:59 06:59 Intake Total 3305 222 Output Total 3500 3302 1200 Balance -955 -7117 -341 Intake: Intake, IV Titration 425 Amount Sodium Chloride 0.9% 1, 425 000 ml @ 50 mls/hr IV . Q20H [facility] Rx#:[id number] Oral 2880 222 Output: Urine 3500 3301 1200 Stool 1 Other: Voiding Method Urinal # Bowel Movements 1 1 - Labs CBC & Chem 7: 12/11/23 06:07 12/11/23 06:07 Labs: Abnormal Lab Results - Last 24 Hours (Table) 12/10/23 Range/Units 02:39 Anion Gap 14.10 H (4.00-12.00) mmol/L Creatinine 1.8 H (0.6-1.5) mg/dL Est GFR (CKD-EPI) 43 L (>=60) Iron 40 L (65-175) UG/DL TIBC 209 L (228-460) UG/DL Transferrin 149.0 L (204.0-354.0) mg/dL Vitamin B12 2246.0 H (200.0-944.0) pg/mL Microbiology - Last 24 Hours (Table) 12/08/23 12:40 Gram Stain - Preliminary Leg - Left Wound Culture - Preliminary Gram Neg Bacilli
--- NOTE | 2023-12-12 01:44 | P.PN ---
Subjective Progress Note Date: 12/11/23 58-year-old male patient with past medical history significant for immobility, obesity, history of cellulitis treated with IV antibiotics in January 2023 who presented to ER for low blood pressure and diarrhea. Patient presented with several episodes of diarrhea, also was noted to have fever prior to arrival. Patient was noted to have low blood pressure at [facility] and was sent to the ED for evaluation. Patient is poor historian. Patient reported that he was having fevers, also reported that he started to have loose stools 4-5 bowel movements per day for last 3 to 4 days also reported generalized abdominal pain and nausea and vomiting associated with diarrhea. Patient also complained of left leg pain. Patient denied any headache, sore throat, productive cough, chest pain, palpitations, dysuria, urgency, frequency, weakness numbness of extremities. In the ED patient was afebrile, pulse rate 89, respiratory rate 18, was saturating 97% on room air. Blood pressure was soft 90/51 with MAP of 64. Lab work showed leukocytosis with WBCs 18.2, hemoglobin 11.7, platelet 292, absolute neutrophils 17.1. CMP was remarkable for BUN of 40, creatinine of 3.02 with baseline creatinine around 1.0. Patient had elevated bilirubin of 4.6, AST was 452, ALT 102, alkaline phosphatase 125. Patient's influenza RSV and COVID was negative. C. difficile was positive. 12/03/2023 Patient is currently lying in the bed. Awake alert and oriented. Tmax is 100.8. Fever is improving. Currently on room air. No complaints of chest pain or shortness of breath. No nausea vomiting abdominal pain or diarrhea. She complains of left lower extremity pain swelling and redness is still there. Laboratory data showed WBC 8.2 hemoglobin 9.8 and platelets 174 sodium 137 potassium 3.1 chloride 104 bicarb is 20 BUN 55 and creatinine 3.65 and a blood sugar 104, magnesium 1.3 AST 504 ALT 118 and alk phos 110 and albumin 3.0. 12/04/2023 Patient is currently resting in bed. Awake alert and orient x 3. On room air. Afebrile overnight. No complaints of shortness of breath. No nausea vomiting abdominal diarrhea. Still having left lower extremity swelling but redness is improving. Laboratory data reviewed. Follow-up renal function. Patient remains on antibiotics in the form of daptomycin and also oral vancomycin due to C. difficile infection. ID is on board. Ultrasound abdomen showed no acute process. Hepatic steatosis. Cholelithiasis. No evidence of hydronephrosis. 12/05/2023 Patient is currently resting in the bed. Awake alert and orient x 3. Improvement in diarrhea. On room air. Patient has been afebrile overnight. No headache or dizziness or lightheadedness. No chest pain or shortness of breath. No cough or sputum production. Patient is being continued on p.o. vancomycin and daptomycin IV ID is on board. Patient is tolerating oral diet. IV fluids on hold due to wors ening leg swelling. Patient is also complaining of left lower extremity pain. Laboratory data showed WBC 9.4 hemoglobin 8.9 and platelets 154 sodium 137 potassium 3.1 chloride 107 bicarb is 22 BUN 16 creatinine went up to 3.89 and blood sugar 98. Arrangements are trending down. 12/06/2023 Patient is lying in the bed. Awake alert and oriented x 3. Diarrhea is much improved. No complaints of abdominal pain. Still having left lower extremity swelling and also complaining of pain. Afebrile overnight. No nausea vomiting or abdominal pain. No cough or sputum production. Patient is being continued on vancomycin p.o for C. difficile infection. and also daptomycin IV for leg cellulitis. ID is on board. Follow-up renal function tomorrow. Nephrology will be consulted. 12/07/2023 Patient is lying in the bed. Awake alert and oriented x 3. Diarrhea is more semisolid. No complaints of chest pain or shortness of breath. Patient does have still left leg swelling and redness. Wound dressing was done. Otherwise patient is tolerating oral diet. Laboratory data showed WBC increased to 18.9 hemoglobin 9.7 and platelets 403 sodium 139 potassium 3.7 chloride 107 bicarb is 24 BUN 4020 creatinine 2.56 which is improving and blood sugar 105. Nephrology and ID is on board. Patient remains on antibiotics in the form of daptomycin and also p.o. vancomycin. 12/08/2023 Patient is resting in the bed. Awake alert and oriented x 3. No complaint of chest pain or worsening shortness of breath. The patient has been afebrile. Blood pressure is fairly stable. Continued on gentle IV hydration normal saline at 50 cc/h. Otherwise laboratory data showed WBC increased to 18.9 hemoglobin 9.7 and platelets 403 sodium 139 potassium 3.7 chloride 107 bicarb is 24 BUN 4 020 creatinine 2.56 which is improving and blood sugar 105. 12/09/2023 Patient is resting in the bed. Awake alert and oriented x 3. No complaints of chest pain shortness breath. Left leg swelling and redness is improving. Wound dressing is being done. Otherwise wound cultures growing gram-negative bacilli. Follow-up final culture report. ID is on board. Renal function is improving. Patient is tolerating oral diet. Afebrile. Laboratory data showed BUN 33.6 and creatinine 2.1, WBC 13.1 hemoglobin 8.6 and platelets 389. RDW 17.0 Patient is on iron supplementation. 12/10/2023 Patient is currently resting in the bed. Awake alert and oriented x 3. No complaints of chest pain or shortness of breath. Left leg swelling is improving. Wound is Ghanshyam wrapped. Cultures growing gram-negative bacilli. Antibiotics changed to cefepime as per ID recommendations. Patient is also on IV hydration with normal saline at 50 cc/h. Laboratory data showed sodium 143 potassium 3.7 chloride 106 bicarb is 22.9 BUN 27 creatinine 1.8 and blood sugar 81. TSH B12 folate not low. ID and nephrology is on board. 12/11/2023 Patient is currently sitting on the side of the bed. Awake alert and oriented x 3. Left leg pain and swelling is improving. Continued on antibiotics cefepime. Patient has been afebrile. No chest pain or shortness of breath. Tolerating ordered. Gentle hydration with normal saline at 50 cc/h. Creatinine improved to 1.6 today. Hemoglobin is fairly stable. Current medications reviewed. PHYSICAL EXAMINATION: GENERAL: The patient is alert and oriented x3, not in any acute distress. Well developed, well nourished. HEENT: Pupils are round and equally reacting to light. EOMI. No scleral icterus. No conjunctival pallor. Normocephalic, atraumatic. No pharyngeal erythema. No thyromegaly. CARDIOVASCULAR: S1 and S2 present. No murmurs, rubs, or gallops. PULMONARY: Chest is clear to auscultation, no wheezing or crackles. ABDOMEN: Soft, nontender, nondistended, normoactive bowel sounds. No palpable organomegaly. MUSCULOSKELETAL: No joint swelling or deformity. EXTREMITIES: Bilatera chronic stasis changes, left lower extremity warmth, erythema, tenderness extending from ankle to below the knee. NEUROLOGICAL: Gross neurological examination did not reveal any focal deficits. Assessment and plan Severe sepsis: Acute C. difficile infection- severe Presented with watery diarrhea, low blood pressure. Significant leukocytosis with elevated absolute neutrophils on presentation. Elevated LFTs and acute kidney injury secondary to sepsis. Blood cultures showed no growth. Lactate checked 2.6, fluid bolus ordered. Lactic acid is normalized. Continue with Patient completed p.o. vancomycin ID is on board. Blood cultures negative so far. Left lower extremity cellulitis: Patient has history of cellulitis in the past, has been treated with daptomycin in January 2023. Patient was complaining of left lower extremity warmth, redness and pain. Warmth and tenderness noted. Discontinue vancomycin due to acute kidney injury, was given a dose of Zyvox. Infectious disease is on board. Patient was started on daptomycin due to underlying acute kidney injury Antibiotics changed to cefepime. Wound culture showed gram-negative bacilli. Acute kidney injury due to ATN Creatinine 3.89-2.8 , 2.56. 2.1, 1.8, Prerenal secondary to hypovolemia, hypotension. Monitor renal function closely. Avoid nephrotoxin, discontinued IV vancomycin. Hold home chlorthalidone Ultrasound renal showed no hydronephrosis. Patient is tolerating oral diet. Encourage oral intake. Continue gentle IV hydration with normal saline. Elevated LFTs: Suspect secondary to sepsis Monitors CMP Ultrasound abdomen showed hepatic steatosis and cholelithiasis.. Liver enzymes are trending down. Hypertension: Blood pressure currently low Hold home blood pressure medications--Norvasc, chlorthalidone Normocytic anemia. Patient does have elevated RDW. B12 folate and iron profile showed no deficiency. DVT prophylaxis. Subcutaneous heparin Dictation was produced using [employer] dictation software. please excuse any grammatical, word or spelling errors. Objective - Vital Signs Vital signs: Vital Signs Temp 98.5 F 12/11/23 18:57 Pulse 81 12/11/23 18:57 Resp 18 12/11/23 18:57 BP 117/55 12/11/23 18:57 Pulse Ox 92 L 12/11/23 18:57 FiO2 Intake & Output 12/11/23 12/11/23 12/12/23 06:59 18:59 06:59 Intake Total 222 3740 Output Total 2575 3200 300 Balance -2353 540 -300 Weight 222.8 kg Intake: Intake, IV Titration 800 Amount Cefepime 2 gm In Sodium 100 Chloride 0.9% 100 ml @ 25 mls/hr IVPB Q8H [facility] Rx#: [id number] Sodium Chloride 0.9% 1, 600 000 ml @ 50 mls/hr IV . Q20H [facility] Rx#:[id number] Sodium Ferric Gluconat- 100 Sucrose 125 mg In Sodium Chloride 0.9% 100 ml @ 100 mls/hr IVPB ONCE ONE Rx#:[id number] Oral 222 2940 Output: Urine 2575 3200 300 Other: # Voids 1 # Bowel Movements 1 1 - Labs CBC & Chem 7: 12/11/23 06:07 12/11/23 06:07 Labs: Abnormal Lab Results - Last 24 Hours (Table) 12/10/23 12/11/23 12/11/23 Range/Units 02:39 06:07 06:07 RBC 2.95 L (4.40-5.60) X 10*6/uL Hgb 8.3 L (13.0-17.0) g/dL Hct 26.7 L (39.6-50.0) % MCHC 31.1 L (32.0-37.0) g/dL RDW 17.1 H (11.5-14.5) % Eosinophils # (Manual) 0.67 H (0.04-0.35) X 10*3/uL Basophils # (Manual) 0.17 H (0.00-0.10) X 10*3/uL NRBC/100 WBC Diff 0.02 H (0.00-0.01) X 10*3/uL Stomatocytes 2+ A Creatinine 1.6 H (0.6-1.5) mg/dL Est GFR (CKD-EPI) 50 L (>=60) Calcium 8.3 L (8.7-10.3) mg/dL RBC Folate 1,003 H (280 - 791) ng/mL Microbiology - Last 24 Hours (Table) 12/08/23 12:40 Gram Stain - Final Leg - Left Wound Culture - Final Acinetobacter sunni/haemol
[2023-12-12 11:06] LABS: Blood Urea Nitrogen 18.9 mg/dL (9.0-27.0); Calcium 8.5 mg/dL (8.7-10.3); Carbon Dioxide 23.2 mmol/L (21.6-31.8); Chloride 107 mmol/L (96-109); Glucose 90 mg/dL (70-110); Magnesium 1.3 mg/dL (1.5-2.4); Potassium 3.9 mmol/L (3.5-5.5); Sodium 142 mmol/L (135-145)
--- NOTE | 2023-12-12 11:45 | P.PN ---
Subjective Patient is seen in follow-up for acute kidney injury. Renal function improving. Denies chest pain or shortness of breath. Has been voiding. No active complaints. Vital signs are stable. General: No acute distress. HEENT: Head exam is unremarkable. LUNGS: No audible rhonchi or wheezes. HEART: Rate and Rhythm are regular. ABDOMEN: Obese, nontender. EXTREMITITES: No drainage. Wrapped. Objective - Vital Signs Vital signs: Vital Signs Temp 98.1 F 12/12/23 07:15 Pulse 75 12/12/23 07:15 Resp 16 12/12/23 07:15 BP 125/61 12/12/23 07:15 Pulse Ox 98 12/12/23 07:15 FiO2 Intake & Output 12/11/23 12/12/23 12/12/23 18:59 06:59 18:59 Intake Total 3740 222 1553 Output Total 3200 2500 2350 Balance 566 -1061 -042 Weight 222.8 kg Intake: Intake, IV Titration 800 Amount Cefepime 2 gm In Sodium 100 Chloride 0.9% 100 ml @ 25 mls/hr IVPB Q8H [facility] Rx#: [id number] Sodium Chloride 0.9% 1, 600 000 ml @ 50 mls/hr IV . Q20H [facility] Rx#:[id number] Sodium Ferric Gluconat- 100 Sucrose 125 mg In Sodium Chloride 0.9% 100 ml @ 100 mls/hr IVPB ONCE ONE Rx#:[id number] Oral 2940 222 1553 Output: Urine 3200 2500 2350 Other: Voiding Method Urinal Urinal # Bowel Movements 1 - Labs CBC & Chem 7: 12/11/23 06:07 12/12/23 05:55 Labs: Abnormal Lab Results - Last 24 Hours (Table) 12/11/23 12/12/23 Range/Units 06:07 05:55 Eosinophils # (Manual) 0.67 H (0.04-0.35) X 10*3/uL Basophils # (Manual) 0.17 H (0.00-0.10) X 10*3/uL Stomatocytes 2+ A Est GFR (CKD-EPI) 54 L (>=60) Calcium 8.5 L (8.7-10.3) mg/dL Magnesium 1.3 L (1.5-2.4) mg/dL Microbiology - Last 24 Hours (Table) 12/08/23 12:40 Gram Stain - Final Leg - Left Wound Culture - Final Acinetobacter sunni/haemol Assessment and Plan Plan: Assessment: 1. Acute kidney injury secondary to ATN secondary to hypotension and further worsened with the use of chlorthalidone and diarrhea. Creatinine peaked at 3.89 this admission and is improved to 1.5 today. Baseline creatinine near 1 from September 2023. No hydronephrosis noted on kidney ultrasound. Left kidney not visualized. 2. Benign hypertension. Currently controlled. 3. C. difficile colitis s/p oral vancomycin. 4. Left lower extremity cellulitis on IV antibiotics. ID following. 5. Morbid obesity. 6. Hypomagnesemia from GI losses. On magnesium oxide. 7. Anemia. Iron deficiency noted. Status post IV iron. Plan: Maintain normal saline. Encouraged oral intake. Avoid nephrotoxins. Continue to monitor renal function and urine output. Replace magnesium. 2 g IV magnesium sulfate today. Increase frequency of oral magnesium oxide to twice daily.
[2023-12-12] MEDS: MAGNESIUM SULFATE-D5W PMX 1 GM in DEXTROSE/WATER 1 100ML.BAG IVPB SCH (12:11)
--- NOTE | 2023-12-12 12:39 | P.PN ---
Subjective Progress Note Date: 12/12/23 Principal diagnosis: Reason for follow-up is C. difficile colitis and left leg cellulitis Patient is a 58-year-old male past medical history significant for hypertension hyperlipidemia history of left foot wound infection with MRSA and cellulitis and correction resident patient has been sent to the ER for evaluation of hypertension and apparently the patient is having diarrhea patient has been diagnosed with C. difficile colitis as well as left lower extremity ce llulitis. On today's evaluation that is 12/12/2023, the patient continues to be afebrile, the patient is on room air and breathing comfortably, the Pt denies having any chest pain or cough, the patient denies having any abdominal pain no vomiting or any diarrhea has been reported by the nursing staff and the patient left lower extremity swelling redness slightly decreased. Patient did have a creatinine 1.5 left leg culture grew Acinetobacter drug- resistant Objective - Vital Signs Vital signs: Vital Signs Temp 98.1 F 12/12/23 07:15 Pulse 75 12/12/23 07:15 Resp 16 12/12/23 07:15 BP 125/61 12/12/23 07:15 Pulse Ox 98 12/12/23 07:15 FiO2 Intake & Output 12/11/23 12/12/23 12/12/23 18:59 06:59 18:59 Intake Total 3740 222 473 Output Total 3200 2500 Balance 540 -5740 473 Weight 222.8 kg Intake: Intake, IV Titration 800 Amount Cefepime 2 gm In Sodium 100 Chloride 0.9% 100 ml @ 25 mls/hr IVPB Q8H [facility] Rx#: [id number] Sodium Chloride 0.9% 1, 600 000 ml @ 50 mls/hr IV . Q20H [facility] Rx#:[id number] Sodium Ferric Gluconat- 100 Sucrose 125 mg In Sodium Chloride 0.9% 100 ml @ 100 mls/hr IVPB ONCE ONE Rx#:[id number] Oral 2940 222 473 Output: Urine 3200 2500 Other: Voiding Method Urinal Urinal # Bowel Movements 1 - Exam GENERAL DESCRIPTION: Middle-age male lying in bed in no distress RESPIRATORY SYSTEM: Unlabored breathing , decreased breath sounds at bases HEART: S1 S2 regular rate and rhythm , ABDOMEN: Soft , no tenderness EXTREMITIES: Left leg swelling redness has decreased no new blisters - Labs CBC & Chem 7: 12/11/23 06:07 12/12/23 05:55 Labs: Abnormal Lab Results - Last 24 Hours (Table) 12/10/23 12/11/23 12/11/23 Range/Units 02:39 06:07 06:07 RBC 2.95 L (4.40-5.60) X 10*6/uL Hgb 8.3 L (13.0-17.0) g/dL Hct 26.7 L (39.6-50.0) % MCHC 31.1 L (32.0-37.0) g/dL RDW 17.1 H (11.5-14.5) % Eosinophils # (Manual) 0.67 H (0.04-0.35) X 10*3/uL Basophils # (Manual) 0.17 H (0.00-0.10) X 10*3/uL NRBC/100 WBC Diff 0.02 H (0.00-0.01) X 10*3/uL Stomatocytes 2+ A Creatinine 1.6 H (0.6-1.5) mg/dL Est GFR (CKD-EPI) 50 L (>=60) Calcium 8.3 L (8.7-10.3) mg/dL RBC Folate 1,003 H (280 - 791) ng/mL Microbiology - Last 24 Hours (Table) 12/08/23 12:40 Gram Stain - Final Leg - Left Wound Culture - Final Acinetobacter sunni/haemol Assessment and Plan (1) Sepsis Current Visit: Yes Status: Acute Code(s): A41.9 - SEPSIS, UNSPECIFIED ORGANISM SNOMED Code(s): 23995789 (2) C. difficile colitis Current Visit: Yes Status: Acute Code(s): A04.72 - ENTEROCOLITIS D/T CLOSTRI DIUM DIFFICILE, NOT SPCF RECUR SNOMED Code(s): 519505509 (3) Leukocytosis Current Visit: Yes Status: Acute Code(s): D72.829 - ELEVATED WHITE BLOOD CELL COUNT, UNSPECIFIED SNOMED Code(s): 954875816 (4) Left leg cellulitis Current Visit: No Status: Acute Code(s): L03.116 - CELLULITIS OF LEFT LOWER LIMB SNOMED Code(s): 98785894659638890 Plan: 1patient presented to hospital with sepsis in this patient who did have a fever elevated white count meeting criteria for SIRS source and likely C. difficile colitis patient also have a left lower extremity swelling with the dried out wound on the dorsal aspect of the left foot and concerning for cellulitis likely from gram-positive skin priscilla with a previous history of MRSA infection 2-patient with renal insufficiency high risk of nephrotoxicity from vancomycin 3-Doppler ultrasound of the left lower extremity no evidence of any DVT 4-patient did have improvement in his diarrhea we will continue with oral vancomycin 250 mg p.o. every 6 hours to finish 2-week course of therapy 5patient did have extensive cellulitis to the left leg did have some blisters culture obtained grew Acinetobacter which is a drug-resistant however the patient has shown clinical improvement on cefepime requesting midline 7-day course of IV cefepime on discharge 2 g every 8 hours Dictation was produced using [employer] dictation software. please excuse any grammatical, word or spelling errors. Time with Patient: Less than 30
[2023-12-12] MEDS ORDERED: Magnesium Replacement Protocol 1 EACH MISC MISCELLANE PRN (13:09)
[2023-12-12] MEDS: VANCOMYCIN ORAL SOLUTION 250 MG/5 ML BOTTLE PO SCH (13:38)
[2023-12-12 15:35] LABS: Albumin 3.1 g/dL (3.8-4.9); Albumin/Globulin Ratio 0.84 Ratio (1.60-3.17); Bilirubin, Conjugated 0.52 mg/dL (0.20-0.40); Bilirubin,Unconjugated 0.38 mg/dL (0.20-1.00); Globulin 3.7 g/dL (1.6-3.3); Total Bilirubin 0.9 mg/dL (0.3-1.2); Total Protein 6.8 g/dL (6.2-8.2)
[2023-12-12] MEDS: MAGNESIUM OXIDE 400 MG TAB PO SCH (20:21)
[2023-12-12 21:19] LABS: % Iron Saturation 24.49 (15.00-50.00)
--- NOTE | 2023-12-12 23:02 | P.PN ---
Subjective 58-year-old male patient with past medical history significant for immobility, obesity, history of cellulitis treated with IV antibiotics in January 2023 who presented to ER for low blood pressure and diarrhea. Patient presented with several episodes of diarrhea, also was noted to have fever prior to arrival. Patient was noted to have low blood pressure at long term and was sent to the ED for evaluation. Patient is poor historian. Patient reported that he was having fevers, also reported that he started to have loose stools 4-5 bowel movements per day for last 3 to 4 days also reported generalized abdominal pain and nausea and vomiting associated with diarrhea. Patient also complained of left leg pain. Patient denied any headache, sore throat, productive cough, chest pain, palpitations, dysuria, urgency, frequency, weakness numbness of extremities. In the ED patient was afebrile, pulse rate 89, respiratory rate 18, was satu rating 97% on room air. Blood pressure was soft 90/51 with MAP of 64. Lab work showed leukocytosis with WBCs 18.2, hemoglobin 11.7, platelet 292, absolute neutrophils 17.1. CMP was remarkable for BUN of 40, creatinine of 3.02 with baseline creatinine around 1.0. Patient had elevated bilirubin of 4.6, AST was 452, ALT 102, alkaline phosphatase 125. Patient's influenza RSV and COVID was negative. C. difficile was positive. 12/03/2023 Patient is currently lying in the bed. Awake alert and oriented. Tmax is 100.8. Fever is improving. Currently on room air. No complaints of chest pain or shortness of breath. No nausea vomiting abdominal pain or diarrhea. She complains of left lower extremity pain swelling and redness is still there. Laboratory data showed WBC 8.2 hemoglobin 9.8 and platelets 174 sodium 137 potassium 3.1 chloride 104 bicarb is 20 BUN 55 and creatinine 3.65 and a blood sugar 104, magnesium 1.3 AST 504 ALT 118 and alk phos 110 and albumin 3.0. 12/04/2023 Patient is currently resting in bed. Awake alert and orient x 3. On room air. Afebrile overnight. No complaints of shortness of breath. No nausea vomiting abdominal diarrhea. Still having left lower extremity swelling but redness is improving. Laboratory data reviewed. Follow-up renal function. Patient remains on antibiotics in the form of daptomycin and also oral vancomycin due to C. difficile infection. ID is on board. Ultrasound abdomen showed no acute process. Hepatic steatosis. Cholelithiasis. No evidence of hydronephrosis. 12/05/2023 Patient is currently resting in the bed. Awake alert and orient x 3. Improvement in diarrhea. On room air. Patient has been afebrile overnight. No headache or dizziness or lightheadedness. No chest pain or shortness of breath. No cough or sputum production. Patient is being continued on p.o. vancomycin and daptomycin IV ID is on board. Patient is tolerating oral diet. IV fluids on hold due to worsening leg swelling. Patient is also complaining of left lower extremity pain. Laboratory data showed WBC 9.4 hemoglobin 8.9 and platelets 154 sodium 137 potassium 3.1 chloride 107 bicarb is 22 BUN 16 creatinine went up to 3.89 and blood sugar 98. Arrangements are trending down. 12/06/2023 Patient is lying in the bed. Awake alert and oriented x 3. Diarrhea is much improved. No complaints of abdominal pain. Still having left lower extremity swelling and also complaining of pain. Afebrile overnight. No nausea vomiting or abdominal pain. No cough or sputum production. Patient is being continued on vancomycin p.o for C. difficile infection. and also daptomycin IV for leg cellulitis. ID is on board. Follow-up renal function tomorrow. Nephrology will be consulted. 12/07/2023 Patient is lying in the bed. Awake alert and oriented x 3. Diarrhea is more semisolid. No complaints of chest pain or shortness of breath. Patient does have still left leg swelling and redness. Wound dressing was done. Otherwise patient is tolerating oral diet. Laboratory data showed WBC increased to 18.9 hemoglobin 9.7 and platelets 403 sodium 139 potassium 3.7 chloride 107 bicarb is 24 BUN 4020 creatinine 2.56 which is improving and blood sugar 105. Nephrology and ID is on board. Patient remains on antibiotics in the form of daptomycin and also p.o. vancomycin. 12/08/2023 Patient is resting in the bed. Awake alert and oriented x 3. No complaint of chest pain or worsening shortness of breath. The patient has been afebrile. Blood pressure is fairly stable. Continued on gentle IV hydration normal saline at 50 cc/h. Otherwise laboratory data showed WBC increased to 18.9 hemoglobin 9.7 and platelets 403 sodium 139 potassium 3.7 chloride 107 bicarb is 24 BUN 4020 creatinine 2.56 which is improving and blood sugar 105. 12/09/2023 Patient is resting in the bed. Awake alert and oriented x 3. No complaints of chest pain shortness breath. Left leg swelling and redness is improving. Wound dressing is being done. Otherwise wound cultures growing gram-negative bacilli. Follow-up final culture report. ID is on board. Renal function is improving. Patient is tolerating oral diet. Afebrile. Laboratory data showed BUN 33.6 and creatinine 2.1, WBC 13.1 hemoglobin 8.6 and platelets 389. RDW 17.0 Patient is on iron supplementation. 12/10/2023 Patient is currently resting in the bed. Awake alert and oriented x 3. No complaints of chest pain or shortness of breath. Left leg swelling is improving. Wound is Ghanshyam wrapped. Cultures growing gram-negative bacilli. Antibiotics changed to cefepime as per ID recommendations. Patient is also on IV hydration with normal saline at 50 cc/h. Laboratory data showed sodium 143 potassium 3.7 chloride 106 bicarb is 22.9 BUN 27 creatinine 1.8 and blood sugar 81. TSH B12 folate not low. ID and nephrology is on board. 12/11/2023 Patient is currently sitting on the side of the bed. Awake alert and oriented x 3. Left leg pain and swelling is improving. Continued on antibiotics cefepime. Patient has been afebrile. No chest pain or shortness of breath. Tolerating ordered. Gentle hydration with normal saline at 50 cc/h. Creatinine improved to 1.6 today. Hemoglobin is fairly stable. 12/12/23 This is a pleasant 58 years old male who presents initially because of sepsis and left leg cellulitis with acute kidney injury. Has been evaluated by ID and nephrology team and has been treated with IV antibiotics with cefepime and normal saline at 50 mL/h His creatinine is improving from 3.0-3.8 down to 1.6 while on IV fluid Norvasc and chlorthalidone were put on hold upon admission, vitals look stable However hemoglobin trending down 8.3 today, anemia workup was repeated showing anemia of chronic disease and inflammation Will check occult blood in the stool and is negative However patient with evidence of C. difficile and has been treated with oral vancomycin which was resumed. Patient states he has 1 loose bowel movement but no abdominal pain no vomiting and he tolerates diet well Patient thinks he can go to rehab today. Case was discussed with ID team who cleared him for discharge on IV antibiotics cefepime x 1 week and oral vancomycin for his C. difficile colitis x 10 days upon discharge However because of trending down hemoglobin we repeated the blood work and we wanted to repeat liver enzymes which were elevated. Liver enzymes trending down as well Possible discharge in 24 to 48 hours Current medications reviewed. Objective - Vital Signs Vital signs: Vital Signs Temp 98.1 F 12/12/23 07:15 Pulse 75 12/12/23 07:15 Resp 16 12/12/23 07:15 BP 125/61 12/12/23 07:15 Pulse Ox 98 12/12/23 07:15 FiO2 Intake & Output 12/11/23 12/12/23 12/12/23 18:59 06:59 18:59 Intake Total 3740 222 1553 Output Total 3200 2500 2350 Balance 687 -2643 -144 Weight 222.8 kg Intake: Intake, IV Titration 800 Amount Cefepime 2 gm In Sodium 100 Chloride 0.9% 100 ml @ 25 mls/hr IVPB Q8H [facility] Rx#: [id number] Sodium Chloride 0.9% 1, 600 000 ml @ 50 mls/hr IV . Q20H [facility] Rx#:[id number] Sodium Ferric Gluconat- 100 Sucrose 125 mg In Sodium Chloride 0.9% 100 ml @ 100 mls/hr IVPB ONCE ONE Rx#:[id number] Oral 2940 222 1553 Output: Urine 3200 2500 2350 Other: Voiding Method Urinal Urinal # Bowel Movements 1 - Exam -GENERAL: The patient is alert and oriented x3, not in any acute distress. Well developed, well nourished. Morbidly obese HEENT: Pupils are round and equally reacting to light. EOMI. No scleral icterus. No conjunctival pallor. Normocephalic, atraumatic. No pharyngeal erythema. No thyromegaly. CARDIOVASCULAR: S1 and S2 present. No murmurs, rubs, or gallops. PULMONARY: Chest is clear to auscultation, no wheezing , no crackles. ABDOMEN: Soft, nontender, nondistended, normoactive bowel sounds. No palpable organomegaly. MUSCULOSKELETAL: No joint swelling or deformity. -EXTREMITIES: No cyanosis, clubbing, or pedal edema. Left leg cellulitis involving the feet like and distal thigh with no purulent discharge but areas of dry yellow discharge. The cellulitis area looks regressing from the marked line NEUROLOGICAL: Gross neurological examination did not reveal any focal deficits. SKIN: No rashes. no petechiae. - Labs CBC & Chem 7: 12/11/23 06:07 12/12/23 05:55 Labs: Abnormal Lab Results - Last 24 Hours (Table) 12/12/23 Range/Units 05:55 Est GFR (CKD-EPI) 54 L (>=60) Calcium 8.5 L (8.7-10.3) mg/dL Magnesium 1.3 L (1.5-2.4) mg/dL Microbiology - Last 24 Hours (Table) 12/08/23 12:40 Gram Stain - Final Leg - Left Wound Culture - Final Acinetobacter sunni/haemol Assessment and Plan Assessment: Severe sepsis: Improved Left leg cellulitis improving Acute C. difficile infection Transaminitis improving Anemia looks anemia of inflammation and chronic disease, occult blood in stool is negative Acute kidney injury improving back to baseline Possible elements of chronic kidney disease stage II Morbid obesity with BMI of 52.6 Hypertension Plan: Patient on IV antibiotics and is improving Continue with IV cefepime per ID team Continue with oral vancomycin, also discussed with ID team and they agreeable We held his discharge today to monitor his hemoglobin and liver enzymes If remains stable may be considered for discharge in 24 to 48 hours Hold Chlorthalidone. Monitor blood pressure
[2023-12-13 08:41] LABS: HCT 28.2 % (39.6-50.0); HGB 8.6 g/dL (13.0-17.0); MCH 27.4 pg (27.0-32.0); MCHC 30.5 g/dL (32.0-37.0); MCV 89.8 FL (80.0-97.0); Mean Platelet Volume 10.8 FL (9.5-12.2); NRBC Per 100 WBC 0 X 10*3/uL (0.00-0.01); Platelet Count 422 X 10*3/uL (140-440); RBC 3.14 X 10*6/uL (4.40-5.60); RDW 17.3 % (11.5-14.5); WBC 6.59 X 10*3/uL (4.50-10.00)
[2023-12-13 08:56] LABS: Magnesium 1.5 mg/dL (1.5-2.4)
[2023-12-13 09:29] LABS: Basophils # (M) 0 X 10*3/uL (0.00-0.10); Eosinophils # (M) 0.26 X 10*3/uL (0.04-0.35); Lymphocytes # (M) 1.52 X 10*3/uL (0.90-5.00); Metamyelocytes % 4 % (0-0); Monocytes # (M) 0.72 X 10*3/uL (0.20-1.00); Neutrophils # (M) 3.82 X 10*3/uL (1.80-7.70); Neutrophils % (M) 58 %; RBC Morphology Normal (Normal)
[2023-12-13 09:58] LABS: ALT 48 U/L (10-49); AST 95 U/L (14-35); Albumin 3.1 g/dL (3.8-4.9); Albumin/Globulin Ratio 0.78 Ratio (1.60-3.17); Alkaline Phosphatase 158 U/L (41-126); BUN/Creat Ratio 11.29 Ratio (12.00-20.00); Bilirubin, Conjugated 0.42 mg/dL (0.20-0.40); Bilirubin,Unconjugated 0.48 mg/dL (0.20-1.00); Blood Urea Nitrogen 15.8 mg/dL (9.0-27.0); Calcium 8.5 mg/dL (8.7-10.3); Carbon Dioxide 24.7 mmol/L (21.6-31.8); Chloride 104 mmol/L (96-109); Glucose 89 mg/dL (70-110); Potassium 4.1 mmol/L (3.5-5.5); Sodium 138 mmol/L (135-145); Total Bilirubin 0.9 mg/dL (0.3-1.2); Total Protein 7.1 g/dL (6.2-8.2)
--- NOTE | 2023-12-13 11:59 | P.DS ---
Providers Date of admission: 12/02/23 04:16 Attending physician: Christiano Espino Consults: 12/02/23 04:16 Consult Physician Routine Consulting Provider: Gwendolyn Chavez Consult Reason/Comments: sepsis Do you want consulting provider notified?: Yes 12/07/23 12:03 Consult Physician Routine Consulting Provider: Alisia Burton Consult Reason/Comments: BOOM Do you want consulting provider notified?: Yes Primary care physician: Jo Oliveros DO Hospital Course: Diagnoses: Severe sepsis: Improved Left leg cellulitis improving Acute C. difficile infection Transaminitis improving Anemia looks anemia of inflammation and chronic disease, occult blood in stool is negative Acute kidney injury improving back to baseline Possible elements of chronic kidney disease stage II Morbid obesity with BMI of 52.6 Hypertension Hospital course: 58-year-old male patient with past medical history significant for immobility, obesity, history of cellulitis treated with IV antibiotics in January 2023 who presented to ER for low blood pressure and diarrhea. Patient presented with several episodes of diarrhea, also was noted to have fever prior to arrival. Patient was noted to have low blood pressure at [facility] and was sent to the ED for evaluation. Patient was found to have acute left lower extremity cellulitis extending from the feet up to the thigh, culture showed no bacteria. He has superficial wound culture with does not correlate with the patient presentation. Patient was started on IV cefepime per ID team, he showed clinical improvement and response to treatment. Plan is to continue with IV cefepime x 1 week and PICC line was obtained He has C. difficile colitis, no abdominal pain, diarrhea is improving. Will continue with oral vancomycin x 9 days. Antibiotic management plan was discussed with ID team and will further recommendation as above. Patient denies any other new complaint On admission his creatinine was elevated 3.0, patient was hypotensive and Norvasc 5 mg and chlorthalidone was held Will keep diuretic chlorthalidone on hold upon discharge Monitor creatinine currently improved down to 1.4 He has some mildly elevated liver enzymes but improving He had fever on admission with a subsided His hemoglobin slightly trending down 8.3 yesterday and 8.6 today Anemia workup showing anemia of inflammation or chronic disease. Occult blood in stool was negative. No overt signs symptoms of bleeding Patient remains clinically stable He denies any other new complaint. No chest pain or dyspnea. Patient wants to go to rehab today. Patient was cleared for discharge by all [employer] payroll consultant including copy center operator and infectious disease. Problems and management plan were discussed with the patient and he verbalized understanding and acceptance Patient was found stable and can be discharged home in guarded prognosis however he needs follow-up as an outpatient. Patient was instructed to follow up with PCP within one week and patient agrees we Recommend patient follow-up with copy center operator in 1 to 2 weeks after discharge as well follow-up with ID Dr. Chavez in 1 week after discharge Physical exam -GENERAL: The patient is alert and oriented x3, not in any acute distress. Well developed, well nourished. Morbidly obese HEENT: Pupils are round and equally reacting to light. EOMI. No scleral icterus. No conjunctival pallor. Normocephalic, atraumatic. No pharyngeal erythema. No thyromegaly. CARDIOVASCULAR: S1 and S2 present. No murmurs, rubs, or gallops. PULMONARY: Chest is clear to auscultation, no wheezing , no crackles. ABDOMEN: Soft, nontender, nondistended, normoactive bowel sounds. No palpable organomegaly. MUSCULOSKELETAL: No joint swelling or deformity. -EXTREMITIES: No cyanosis, clubbing, or pedal edema. Left leg cellulitis in volving the feet like and distal thigh with no purulent discharge but areas of dry yellow discharge. The cellulitis area looks regressing from the marked line NEUROLOGICAL: Gross neurological examination did not reveal any focal deficits. SKIN: No rashes. no petechiae. Time spent more than 35 minutes Patient Condition at Discharge: Stable Plan - Discharge Summary Discharge Rx Participant: No New Discharge Prescriptions: New Heparin Sodium,Porcine (1 ml) [Heparin Sodium] 5,000 unit SQ Q8HR each Cefepime [Maxipime] 2 gm IVPB Q8H 7 Days #21 each HYDROcodone/APAP 5-325MG [[place] 5-325] 1 each PO Q12HR PRN 3 Days #6 tab PRN Reason: Pain Vancomycin Oral Solution [Vancomycin HCl Oral Soln] 125 mg PO QID 9 Days #180 ml Magnesium Oxide [Mag-Ox] 400 mg PO BID 5 Days #10 tab Continue Cranberry 450mg 1 tab PO DAILY Menthol [Biofreeze] 1 applic TOPICAL Q8H PRN PRN Reason: Pain Colchicine 0.6 mg PO DAILY allopurinoL [Zyloprim] 100 mg PO BID Guaifenesin/Dextromethorphan [Guaifenesin-Dm 100-10 mg/5 ml] 10 ml PO QID Ferrous Sulfate [Iron (65 MG Elemental)] 325 mg PO DAILY Ergocalciferol (Vitamin D2) [Drisdol (50,000 Iu)] 1,250 mcg PO QMONTHLY Ammonium Lactate Lotion [Lac-Hydrin 12% Lotion] 1 applic TOPICAL HS Changed Acetaminophen Tab [Tylenol] 500 mg PO TID PRN #0 PRN Reason: Pain Discontinued amLODIPine [Norvasc] 5 mg PO DAILY Chlorthalidone 50 mg PO DAILY Loperamide [Imodium] 1 - 2 mg PO QID PRN PRN Reason: Loose Stool No Action Ascorbic Acid [Vitamin C] 1,000 mg PO DAILY tab Aspirin 81 mg PO DAILY tab Discharge Medication List Ascorbic Acid [Vitamin C] 1,000 mg PO DAILY tab 09/07/21 [Rx] Aspirin 81 mg PO DAILY tab 02/05/23 [Rx] Ammonium Lactate Lotion [Lac-Hydrin 12% Lotion] 1 applic TOPICAL HS 12/02/23 [History] Colchicine 0.6 mg PO DAILY 12/02/23 [History] Cranberry 450mg 1 tab PO DAILY 12/02/23 [History] Ergocalciferol (Vitamin D2) [Drisdol (50,000 Iu)] 1,250 mcg PO QMONTHLY 12/02/23 [History] Ferrous Sulfate [Iron (65 MG Elemental)] 325 mg PO DAILY 12/02/23 [History] Guaifenesin/Dextromethorphan [Guaifenesin-Dm 100-10 mg/5 ml] 10 ml PO QID 12/02/23 [History] Menthol [Biofreeze] 1 applic TOPICAL Q8H PRN 12/02/23 [History] allopurinoL [Zyloprim] 100 mg PO BID 12/02/23 [History] Acetaminophen Tab [Tylenol] 500 mg PO TID PRN #0 12/13/23 [Rx] Cefepime [Maxipime] 2 gm IVPB Q8H 7 Days #21 each 12/13/23 [Rx] HYDROcodone/APAP 5-325MG [[place] 5-325] 1 each PO Q12HR PRN 3 Days #6 tab 12/13/23 [Rx] Heparin Sodium,Porcine (1 ml) [Heparin Sodium] 5,000 unit SQ Q8HR each 12/13/23 [Rx] Magnesium Oxide [Mag-Ox] 400 mg PO BID 5 Days #10 tab 12/13/23 [Rx] Vancomycin Oral Solution [Vancomycin HCl Oral Soln] 125 mg PO QID 9 Days #180 ml 12/13/23 [Rx] Follow up Appointment(s)/Referral(s): Alisia Burton MD [STAFF PHYSICIAN] - 1 Week Jo Oliveros DO [Primary Care Provider] - 1-2 days Gwenodlyn Chavez MD [STAFF PHYSICIAN] - 1 Week Activity/Diet/Wound Care/Special Instructions: Heart healthy diet Heart healthy diet activity as tolerated
--- NOTE | 2023-12-13 12:17 | P.PN ---
Subjective Patient is seen in follow-up for acute kidney injury. Renal function improving. No changes overnight. Has been voiding. No active complaints. Vital signs are stable. General: No acute distress. HEENT: Head exam is unremarkable. LUNGS: No audible rhonchi or wheezes. HEART: Rate and Rhythm are regular. ABDOMEN: Obese, nontender. EXTREMITITES: No drainage. Wrapped. Objective - Vital Signs Vital signs: Vital Signs Temp 97.7 F 12/13/23 07:17 Pulse 72 12/13/23 07:17 Resp 16 12/13/23 07:17 BP 124/53 12/13/23 07:17 Pulse Ox 95 12/13/23 07:17 FiO2 Intake & Output 12/12/23 12/13/23 12/13/23 18:59 06:59 18:59 Intake Total 3413 Output Total 5150 2325 Balance -1737 -9045 Intake: Oral 3413 Output: Urine 5150 2325 Other: Voiding Method Urinal Urinal # Bowel Movements 1 - Labs CBC & Chem 7: 12/13/23 05:57 12/13/23 05:57 Labs: Abnormal Lab Results - Last 24 Hours (Table) 12/12/23 12/12/23 12/13/23 Range/Units 05:55 05:55 05:57 RBC (4.40-5.60) X 10*6/uL Hgb (13.0-17.0) g/dL Hct (39.6-50.0) % MCHC (32.0-37.0) g/dL RDW (11.5-14.5) % Est GFR (CKD-EPI) 59 L (>=60) BUN/Creatinine Ratio 11.29 L (12.00-20.00) Ratio Calcium 8.5 L (8.7-10.3) mg/dL Iron 48 L (65-175) UG/DL TIBC 196 L (228-460) UG/DL Transferrin 140.0 L (204.0-354.0) mg/dL Conjugated Bilirubin 0.52 H 0.42 H (0.20-0.40) mg/dL AST 99 H 95 H (14-35) U/L ALT 54 H (10-49) U/L Alkaline Phosphatase 168 H 158 H (41-126) U/L Albumin 3.1 L 3.1 L (3.8-4.9) g/dL Globulin 3.7 H 4.0 H (1.6-3.3) g/dL Albumin/Globulin Ratio 0.84 L 0.78 L (1.60-3.17) Ratio Vitamin B12 2409.0 H (200.0-944.0) pg/mL 12/13/23 Range/Units 05:57 RBC 3.14 L (4.40-5.60) X 10*6/uL Hgb 8.6 L (13.0-17.0) g/dL Hct 28.2 L (39.6-50.0) % MCHC 30.5 L (32.0-37.0) g/dL RDW 17.3 H (11.5-14.5) % Est GFR (CKD-EPI) (>=60) BUN/Creatinine Ratio (12.00-20.00) Ratio Calcium (8.7-10.3) mg/dL Iron (65-175) UG/DL TIBC (228-460) UG/DL Transferrin (204.0-354.0) mg/dL Conjugated Bilirubin (0.20-0.40) mg/dL AST (14-35) U/L ALT (10-49) U/L Alkaline Phosphatase (41-126) U/L Albumin (3.8-4.9) g/dL Globulin (1.6-3.3) g/dL Albumin/Globulin Ratio (1.60-3.17) Ratio Vitamin B12 (200.0-944.0) pg/mL Assessment and Plan Plan: Assessment: 1. Acute kidney injury secondary to ATN secondary to hypotension and further worsened with the use of chlorthalidone and diarrhea. Creatinine peaked at 3.89 this admission and is improved to 1.4 today. Baseline creatinine near 1 from September 2023. No hydronephrosis noted on kidney ultrasound. Left kidney not visualized. 2. Benign hypertension. Currently controlled. 3. C. difficile colitis on oral vancomycin. 4. Left lower extremity cellulitis on IV antibiotics. ID following. 5. Morbid obesity. 6. Hypomagnesemia from GI losses. On magnesium oxide. 7. Anemia. Iron deficiency noted. Status post IV iron. Plan: Maintain normal saline. Encouraged oral intake. Avoid nephrotoxins. Continue to monitor renal function and urine output. 2 g IV magnesium sulfate today.
[2023-12-13] MEDS: MAGNESIUM SULFATE-D5W PMX 1 GM in DEXTROSE/WATER 1 100ML.BAG IVPB SCH (12:34)
--- NOTE | 2023-12-13 12:37 | P.PN ---
Subjective Progress Note Date: 12/13/23 Principal diagnosis: Reason for follow-up is C. difficile colitis and left leg cellulitis Patient is a 58-year-old male past medical history significant for hypertension hyperlipidemia history of left foot wound infection with MRSA and cellulitis and intermediate resident patient has been sent to the ER for evaluation of hypertension and apparently the patient is having diarrhea patient has been diagnosed with C. difficile colitis as well as left lower extremity ce llulitis. On today's evaluation that is 12/13/2023, Patient is afebrile patient is currently on room air and denies having any shortness of breath, the patient denies any chest pain or cough, the patient denies any nausea vomiting did not have any abdominal pain and no diarrhea mention the left leg swelling redness has decreased feeling better. Patient white count 6.59 creatinine is 1.4 Objective - Vital Signs Vital signs: Vital Signs Temp 98.2 F 12/13/23 12:01 Pulse 75 12/13/23 12:01 Resp 16 12/13/23 12:01 BP 135/56 12/13/23 12:01 Pulse Ox 95 12/13/23 12:01 FiO2 Intake & Output 12/12/23 12/13/23 12/13/23 18:59 06:59 18:59 Intake Total 3413 Output Total 5150 2325 Balance -1737 -2325 Intake: Oral 3413 Output: Urine 5150 2325 Other: Voiding Method Urinal Urinal # Bowel Movements 1 - Exam GENERAL DESCRIPTION: Middle-age male lying in bed in no distress RESPIRATORY SYSTEM: Unlabored breathing , decreased breath sounds at bases HEART: S1 S2 regular rate and rhythm , ABDOMEN: Soft , no tenderness EXTREMITIES: Left leg swelling redness has decreased no new blisters - Labs CBC & Chem 7: 12/13/23 05:57 12/13/23 05:57 Labs: Abnormal Lab Results - Last 24 Hours (Table) 12/12/23 12/12/23 12/13/23 Range/Units 05:55 05:55 05:57 RBC (4.40-5.60) X 10*6/uL Hgb (13.0-17.0) g/dL Hct (39.6-50.0) % MCHC (32.0-37.0) g/dL RDW (11.5-14.5) % Est GFR (CKD-EPI) 59 L (>=60) BUN/Creatinine Ratio 11.29 L (12.00-20.00) Ratio Calcium 8.5 L (8.7-10.3) mg/dL Iron 48 L (65-175) UG/DL TIBC 196 L (228-460) UG/DL Transferrin 140.0 L (204.0-354.0) mg/dL Conjugated Bilirubin 0.52 H 0.42 H (0.20-0.40) mg/dL AST 99 H 95 H (14-35) U/L ALT 54 H (10-49) U/L Alkaline Phosphatase 168 H 158 H (41-126) U/L Albumin 3.1 L 3.1 L (3.8-4.9) g/dL Globulin 3.7 H 4.0 H (1.6-3.3) g/dL Albumin/Globulin Ratio 0.84 L 0.78 L (1.60-3.17) Ratio Vitamin B12 2409.0 H (200.0-944.0) pg/mL 12/13/23 Range/Units 05:57 RBC 3.14 L (4.40-5.60) X 10*6/uL Hgb 8.6 L (13.0-17.0) g/dL Hct 28.2 L (39.6-50.0) % MCHC 30.5 L (32.0-37.0) g/dL RDW 17.3 H (11.5-14.5) % Est GFR (CKD-EPI) (>=60) BUN/Creatinine Ratio (12.00-20.00) Ratio Calcium (8.7-10.3) mg/dL Iron (65-175) UG/DL TIBC (228-460) UG/DL Transferrin (204.0-354.0) mg/dL Conjugated Bilirubin (0.20-0.40) mg/dL AST (14-35) U/L ALT (10-49) U/L Alkaline Phosphatase (41-126) U/L Albumin (3.8-4.9) g/dL Globulin (1.6-3.3) g/dL Albumin/Globulin Ratio (1.60-3.17) Ratio Vitamin B12 (200.0-944.0) pg/mL Assessment and Plan (1) Sepsis Current Visit: Yes Status: Acute Code(s): A41.9 - SEPSIS, UNSPECIFIED ORGANISM SNOMED Code(s): 32223952 (2) C. difficile colitis Current Visit: Yes Status: Acute Code(s): A04.72 - ENTEROCOLITIS D/T CLOSTRIDIUM DIFFICILE, NOT SPCF RECUR SNOMED Code(s): 439829915 (3) Leukocytosis Current Visit: Yes Status: Acute Code(s): D72.829 - ELEVATED WHITE BLOOD CELL COUNT, UNSPECIFIED SNOMED Code(s): 208806426 (4) Left leg cellulitis Current Visit: No Status: Acute Code(s): L03.116 - CELLULITIS OF LEFT LOWER LIMB SNOMED Code(s): 40469854967346219 Plan: 1patient presented to hospital with sepsis in this patient who did have a fever elevated white count meeting criteria for SIRS source and likely C. difficile colitis patient also have a left lower extremity swelling with the dried out wound on the dorsal aspect of the left foot and concerning for cellulitis likely from gram-positive skin priscilla with a previous history of MRSA infection 2-patient with renal insufficiency high risk of nephrotoxicity from vancomycin 3-Doppler ultrasound of the left lower extremity no evidence of any DVT 4-patient did have improvement in his diarrhea we will continue with oral vancomycin 250 mg p.o. every 6 hours to finish 2-week course of therapy 5patient did have extensive cellulitis to the left leg did have some blisters culture obtained grew Acinetobacter which is a drug-resistant however the patient has shown clinical improvement on cefepime 6-plan is for 7-day course of IV cefepime 2 g every 8 hours on discharge and close outpatient follow-up Dictation was produced using [employer] software. please excuse any grammatical, word or spelling errors. Time with Patient: Less than 30
[2023-12-13 19:52] VITALS: BP 131/71; PULSE 81; RESP 13; TEMP 97.8
== END 2023-12-13 20:02 | DRG 720 ==
LOC: EC 02:30 → 3SCARD 04:16 → 5NMEDONC 12-07 22:32
PROVIDERS: ADMIT Hospitalist; ATTEND Hospitalist
PROC: 05HD33Z Insertion of Infusion Device into Right Cephalic Vein, Percutaneous Approach (ICD-10-PCS; principal; 2023-12-12 10:00)
DX: A41.4 Sepsis due to anaerobes (principal); R65.20 Severe sepsis without septic shock; N17.0 Acute kidney failure with tubular necrosis; D63.8 Anemia in other chronic diseases classified elsewhere; Z68.43 Body mass index [BMI] 50.0-59.9, adult; K76.0 Fatty (change of) liver, not elsewhere classified; E66.01 Morbid (severe) obesity due to excess calories; A04.72 Enterocolitis due to Clostridium difficile, not specified as recurrent; S91.302A Unspecified open wound, left foot, initial encounter; D50.9 Iron deficiency anemia, unspecified; I10 Essential (primary) hypertension; L03.116 Cellulitis of left lower limb; B96.83 Acinetobacter baumannii as the cause of diseases classified elsewhere; Z16.24 Resistance to multiple antibiotics; E78.5 Hyperlipidemia, unspecified; E83.42 Hypomagnesemia; K80.20 Calculus of gallbladder without cholecystitis without obstruction; E86.1 Hypovolemia; Z79.82 Long term (current) use of aspirin; Z79.899 Other long term (current) drug therapy; Z86.14 Personal history of Methicillin resistant Staphylococcus aureus infection; Z11.52 Encounter for screening for COVID-19
CPT/HCPCS: 36410; 36415; 76705; 76770; 76937; 80048; 80053; 80076; 81001; 82272; 82607; 82746; 82747; 83540; 83550; 83605; 83735; 84100; 84443; 85025; 87040; 87070; 87077; 87186; 87205; 87493; 87636; 96374; 99291